=== PATIENT | female | born 1960 | race Caucasian/White ===

== ENCOUNTER 2017-04-04 15:53 | Inpatient (IN) | payer OTHER ==
--- NOTE | 2017-04-04 16:12 | PDOC ---
History of Present Illness - General Chief Complaint: Lightheaded Stated Complaint: PAIN/ HEAD, NECK Time Seen by Provider: 04/04/17 16:12 History Source: Patient - History of Present Illness Initial Comments: 04/04/17 18:33 HPI conducted using [employer] phone CC: 2 day h/o RLQ abdominal pain Patient is a 56 y.o. female with a PMH of GERD, s/p liver and renal transplant who presents to our facility today c/o sharp, constant, 10/10 and non-radiating RLQ abdominal pain. Patient also c/o associated dysuria but denies any chest pain, shortness of breath, N/V, constipation, diarrhea. Patient has been tolerating oral intake however notes decreased oral intake 2/2 to her pain. Past History - Past Medical History Allergies/Adverse Reactions: Allergies Allergy/AdvReac Type Severity Reaction Status Date / Time No Known Allergies Allergy Verified 04/04/17 15:59 Home Medications: Ambulatory Orders Mycophenolate Sodium [Myfortic] 360 mg PO DAILY 08/06/15 Pantoprazole Sodium [Protonix -] 40 mg PO DAILY #30 tablet.ec 08/06/15 Tacrolimus 3 mg PO BID 08/06/15 Anemia: Yes (Pancytopenia R/T ESLD) Asthma: No Cancer: No Cardiac Disorders: Yes COPD: No CHF: No GI Disorders: Yes (END STAGE LIVER DISEASE) HTN: Yes Liver Disease: Yes Suicide Attempt (Hx): No Other medical history: KIDNEY PROBLEMS - Immunization History Immunization Up to Date: Yes - Psycho/Social/Smoking Cessation Hx Anxiety: No Suicidal Ideation: No Smoking Status: No Smoking History: Never smoked Have you smoked in the past 12 months: No Number of Cigarettes Smoked Daily: 0 Cigars Per Day: 0 Hx Alcohol Use: No Drug/Substance Use Hx: No Substance Use Type: None Hx Substance Use Treatment: No Review of Systems - Review of Systems Constitutional: No: Chills, Diaphoresis, Fever, Night Sweats HEENTM: No: Blurred Vision, Double Vision, Tinnitus, Throat Pain Respiratory: No: Cough, Orthopnea, Shortness of Breath, Hemoptysis Cardiac (ROS): Yes: Symptoms Reported, Lightheadedness. No: Chest Pain, Palpitations, Syncope ABD/GI: Yes: Poor Appetite, Abdominal cramping : Yes: Burning, Dysuria Musculoskeletal: No: Back Pain, Joint Pain, Muscle Pain, Muscle Weakness Integumentary: No: Bruising, Erythema, Flushing, Lesions Neurological: No: Headache, Numbness Psychiatric: No: Anxiety, Depression All Other Systems: Reviewed and Negative *Physical Exam - Vital Signs Last Vital Signs Temp Pulse Resp BP Pulse Ox 98.6 F 72 18 92/54 98 04/04/17 15:56 04/04/17 15:56 04/04/17 15:56 04/04/17 15:56 04/04/17 15:56 - Physical Exam General Appearance: Yes: Nourished, Appropriately Dressed HEENT: positive: EOMI, Pharynx Normal Neck: positive: Trachea midline, Supple Respiratory/Chest: positive: Lungs Clear, Normal Breath Sounds Cardiovascular: positive: Regular Rhythm, Regular Rate, S1, S2 Gastrointestinal/Abdominal: positive: Normal Bowel Sounds, Flat, Tenderness ( RLQ tenderness, no suprapubic pain) Musculoskeletal: positive: Normal Inspection, Other ((-) CVA tenderness B/L) Extremity: positive: Other (Delayed capillary refill; skin tenting) Integumentary: positive: Other Neurologic: positive: call center agent II-XII NML intact, Fully Oriented, Alert ED Treatment Course - LABORATORY CBC & Chemistry Diagram: 04/04/17 16:49 04/04/17 16:49 Medical Decision Making - Medical Decision Making 04/04/17 18:50 Patient is a 56 y.o. female s/p renal and liver transplant who presents c/o RLQ pain as well as dysuria. Initial differential diagnosis includes UTI vs. Infection 2/2 transplant vs. Nephrolithiasis. As patient was hypotensive (SIRS 1/4), patient was given 1 L IVNS and Lactic Acid was ordered as well as KUB and Abdominal U/S. UA returned 3+ Leukocyte Esterase and 2+ Hematuria - patient prescribed Vancomycin and Zoysn. Renal U/S pending @ time of signout to Dr. Jacob (Resident) and Dr. Rod (Attending).
[2017-04-04 16:55] LABS: BASOPHIL 0.3 % (0-2.0); EOSINOPHIL 0.3 % (0-4.5); MCH 30.5 pg (25.7-33.7); MCHC 32.6 g/dl (32.0-36.0); MEAN CELL VOLUME 93.4 fl (80-96); MEAN PLT VOLUME 9.9 fl (7.5-11.1); NEUTROPHILS 80.9 % (42.8-82.8); PLATELET COUNT 89 K/MM3 (134-434); RDW 13.8 % (11.6-15.6); WHITE BLOOD COUNT 4.5 K/mm3 (4.0-10.0)
[2017-04-04 16:56] LABS: URINE APPEARANCE CLEAR; URINE BILIRUBIN NEGATIVE (NEGATIVE); URINE BLOOD 2+ (NEGATIVE); URINE COLOR STRAW; URINE GLUCOSE (UA) NEGATIVE (NEGATIVE); URINE KETONE NEGATIVE (NEGATIVE); URINE NITRITE NEGATIVE (NEGATIVE); URINE PROTEIN NEGATIVE (NEGATIVE); URINE UROBILINOGEN NEGATIVE mg/dL (0.2-1.0)
[2017-04-04 16:58] LABS: URINE LEUK ESTERASE 3+ (NEGATIVE)
[2017-04-04 17:00] LABS: URINE BACTERIA MANY /hpf (NONE SEEN); URINE RBC 5 /hpf (0-3); URINE WBC 161 /hpf (3-5)
[2017-04-04 17:22] LABS: ANION GAP 8 (8-16); CALCIUM 8.9 mg/dL (8.5-10.1); CO2 30 mmol/L (21-32); CREATININE 0.6 mg/dL (0.55-1.02); GLUCOSE,RANDOM 91 mg/dL (74-106)
[2017-04-04 17:25] LABS: CPK 45 IU/L (26-192); TROPONIN I < 0.02 ng/ml (0.00-0.05)
--- NOTE | 2017-04-04 17:53 | PDOC ---
Attending Attestation - Resident Resident Name: PrincessSo - ED Attending Attestation I have performed the following: I have examined & evaluated the patient, The case was reviewed & discussed with the resident, I agree w/resident's findings & plan, Exceptions are as noted - HPI HPI: 04/04/17 17:49 56 you with transplanted kidney and liver presents with abdominal pain and dysuria with some lightheadedness - Physicial Exam PE: 04/04/17 17:52 Non toxic, non-acute abdomen - Medical Decision Making 04/04/17 17:52 I agree with the resident's assessment and plan
[2017-04-04] MEDS ORDERED: SODIUM CHLORIDE 0.9% 1000 ML INFUS.BAG IV ONE (17:55)
[2017-04-04] MEDS ORDERED: VANCOMYCIN 1,000 MG in DEXTROSE 5%-WATER - 250 ML IVPB ONE (19:12)
[2017-04-04] MEDS ORDERED: PIPERACILLIN/TAZOB 4.5 GM 4.5 GM in DEXTROSE 5%-WATER - 100 ML IVPB ONE (19:13)
--- NOTE | 2017-04-04 19:23 | PDOC ---
*Physical Exam - Vital Signs Last Vital Signs Temp Pulse Resp BP Pulse Ox 98.6 F 78 18 94/60 96 04/04/17 15:56 04/04/17 20:30 04/04/17 20:30 04/04/17 20:30 04/04/17 20:30 <Yokasta Banerjee - Last Filed: 04/04/17 20:34> - Vital Signs Last Vital Signs Temp Pulse Resp BP Pulse Ox 98.6 F 70 18 90/64 98 04/04/17 15:56 04/04/17 16:34 04/04/17 16:34 04/04/17 16:34 04/04/17 15:56 <Carisa Krause - Last Filed: 04/04/17 21:05> - Vital Signs Last Vital Signs Temp Pulse Resp BP Pulse Ox 98.6 F 70 18 90/64 98 04/04/17 15:56 04/04/17 16:34 04/04/17 16:34 04/04/17 16:34 04/04/17 15:56 - Physical Exam General Appearance: Yes: Nourished, Appropriately Dressed, Apparent Distress HEENT: positive: EOMI, DANUTA Neurologic: positive: cashier courtesy booth II-XII NML intact, Fully Oriented, Alert, Normal Mood/ Affect <Quique Jacob - Last Filed: 04/04/17 21:20> ED Treatment Course - LABORATORY CBC & Chemistry Diagram: 04/04/17 16:49 04/04/17 16:49 - ADDITIONAL ORDERS Additional order review: Laboratory Results 04/04/17 04/04/17 04/04/17 18:20 16:49 16:49 Sodium 140 Potassium 3.9 Chloride 102 Carbon Dioxide 30 Anion Gap 8 BUN 11 D Creatinine 0.6 POC Glucometer Random Glucose 91 D Lactic Acid 1.2 Calcium 8.9 Creatine Kinase Troponin I Urine Color Straw Urine Appearance Clear Urine pH 5.0 Urine Protein Negative Urine Glucose (UA) Negative Urine Ketones Negative Urine Blood 2+ H Urine Nitrite Negative Urine Bilirubin Negative Urine Urobilinogen Negative Ur Leukocyte Esterase 3+ H Urine RBC 5 Urine WBC 161 Ur Epithelial Cells Rare Urine Bacteria Many 04/04/17 04/04/17 16:22 16:00 Sodium Potassium Chloride Carbon Dioxide Anion Gap BUN Creatinine POC Glucometer 101.57098 Random Glucose Lactic Acid Calcium Creatine Kinase 45 Troponin I < 0.02 Urine Color Urine Appearance Urine pH Urine Protein Urine Glucose (UA) Urine Ketones Urine Blood Urine Nitrite Urine Bilirubin Urine Urobilinogen Ur Leukocyte Esterase Urine RBC Urine WBC Ur Epithelial Cells Urine Bacteria 04/04/17 04/04/17 16:49 16:22 RBC 3.84 MCV 93.4 MCHC 32.6 RDW 13.8 MPV 9.9 D Neutrophils % 80.9 Lymphocytes % 11.1 Monocytes % 7.4 Eosinophils % 0.3 Basophils % 0.3 POC Glucometer 101.49860 - Medications Given in the ED: ED Medications Discontinued Medications Generic Name Dose Route Start Last Admin Trade Name Freq PRN Reason Stop Dose Admin Vancomycin HCl 1,000 mg/ 250 mls @ 250 mls/hr 04/04/17 19:12 04/04/17 19:56 Dextrose IVPB 04/04/17 20:11 250 mls/hr ONCE ONE Administration Protocol Piperacillin Sod/Tazobactam 100 mls @ 200 mls/hr 04/04/17 19:13 04/04/17 19:34 Sod 4.5 gm/ Dextrose IVPB 04/04/17 19:42 200 mls/hr ONCE ONE Administration Protocol Sodium Chloride 1,000 ml 04/04/17 17:55 04/04/17 18:30 Normal Saline - IV 04/04/17 17:56 1,000 ml ONCE ONE Administration <Yokasta Banerjee - Last Filed: 04/04/17 20:34> - LABORATORY CBC & Chemistry Diagram: 04/04/17 16:49 04/04/17 16:49 - ADDITIONAL ORDERS Additional order review: Laboratory Results 04/04/17 04/04/17 04/04/17 18:20 16:49 16:49 Sodium 140 Potassium 3.9 Chloride 102 Carbon Dioxide 30 Anion Gap 8 BUN 11 D Creatinine 0.6 POC Glucometer Random Glucose 91 D Lactic Acid 1.2 Calcium 8.9 Creatine Kinase Troponin I Urine Color Straw Urine Appearance Clear Urine pH 5.0 Urine Protein Negative Urine Glucose (UA) Negative Urine Ketones Negative Urine Blood 2+ H Urine Nitrite Negative Urine Bilirubin Negative Urine Urobilinogen Negative Ur Leukocyte Esterase 3+ H Urine RBC 5 Urine WBC 161 Ur Epithelial Cells Rare Urine Bacteria Many 04/04/17 04/04/17 16:22 16:00 Sodium Potassium Chloride Carbon Dioxide Anion Gap BUN Creatinine POC Glucometer 101.19276 Random Glucose Lactic Acid Calcium Creatine Kinase 45 Troponin I < 0.02 Urine Color Urine Appearance Urine pH Urine Protein Urine Glucose (UA) Urine Ketones Urine Blood Urine Nitrite Urine Bilirubin Urine Urobilinogen Ur Leukocyte Esterase Urine RBC Urine WBC Ur Epithelial Cells Urine Bacteria 04/04/17 04/04/17 16:49 16:22 RBC 3.84 MCV 93.4 MCHC 32.6 RDW 13.8 MPV 9.9 D Neutrophils % 80.9 Lymphocytes % 11.1 Monocytes % 7.4 Eosinophils % 0.3 Basophils % 0.3 POC Glucometer 101.47308 - Medications Given in the ED: ED Medications Discontinued Medications Generic Name Dose Route Start Last Admin Trade Name Freq PRN Reason Stop Dose Admin Piperacillin Sod/Tazobactam 100 mls @ 200 mls/hr 04/04/17 19:13 04/04/17 19:34 Sod 4.5 gm/ Dextrose IVPB 04/04/17 19:42 200 mls/hr ONCE ONE Administration Protocol Sodium Chloride 1,000 ml 04/04/17 17:55 04/04/17 18:30 Normal Saline - IV 04/04/17 17:56 1,000 ml ONCE ONE Administration <Carisa Krause - Last Filed: 04/04/17 21:05> - LABORATORY CBC & Chemistry Diagram: 04/04/17 16:49 04/04/17 16:49 - ADDITIONAL ORDERS Additional order review: Laboratory Results 04/04/17 04/04/17 04/04/17 16:49 16:49 16:22 Sodium 140 Potassium 3.9 Chloride 102 Carbon Dioxide 30 Anion Gap 8 BUN 11 D Creatinine 0.6 POC Glucometer 101.20049 Random Glucose 91 D Calcium 8.9 Creatine Kinase Troponin I Urine Color Straw Urine Appearance Clear Urine pH 5.0 Urine Protein Negative Urine Glucose (UA) Negative Urine Ketones Negative Urine Blood 2+ H Urine Nitrite Negative Urine Bilirubin Negative Urine Urobilinogen Negative Ur Leukocyte Esterase 3+ H Urine RBC 5 Urine WBC 161 Ur Epithelial Cells Rare Urine Bacteria Many 04/04/17 16:00 Sodium Potassium Chloride Carbon Dioxide Anion Gap BUN Creatinine POC Glucometer Random Glucose Calcium Creatine Kinase 45 Troponin I < 0.02 Urine Color Urine Appearance Urine pH Urine Protein Urine Glucose (UA) Urine Ketones Urine Blood Urine Nitrite Urine Bilirubin Urine Urobilinogen Ur Leukocyte Esterase Urine RBC Urine WBC Ur Epithelial Cells Urine Bacteria 04/04/17 04/04/17 16:49 16:22 RBC 3.84 MCV 93.4 MCHC 32.6 RDW 13.8 MPV 9.9 D Neutrophils % 80.9 Lymphocytes % 11.1 Monocytes % 7.4 Eosinophils % 0.3 Basophils % 0.3 POC Glucometer 101.96315 - Medications Given in the ED: ED Medications Discontinued Medications Generic Name Dose Route Start Last Admin Trade Name Freq PRN Reason Stop Dose Admin Sodium Chloride 1,000 ml 04/04/17 17:55 04/04/17 18:30 Normal Saline - IV 04/04/17 17:56 1,000 ml ONCE ONE Administration <Quique Jacob - Last Filed: 04/04/17 21:20> Progress Note - Progress Note Progress Note: Patient signed out to me by Dr. Sánchez Patient is a 56 year old female s/p renal transplant with UTI + hematurea KUB Abd US Lactic acid Trop Started on vanc/Zosyn d/t renal transplant Review results and call Rea Peterson (for Fran Barrios) <Quique Jacob - Last Filed: 04/04/17 21:20> Medical Decision Making - Medical Decision Making Paged Dr. Peterson @ 20:00. Awaiting call back. Paged Dr. Peterson @ 20:35. Awaiting call back. Paged Dr. Peterson @ 21:05. Awaiting call back. <Carisa Krause - Last Filed: 04/04/17 21:05> - Medical Decision Making 04/04/17 19:24 56 yo female suspected UTI in setting of renal transplant KUB Abd US Started on vanc/Zosyn d/t renal transplant Review results and call Rea Peterson (for Fran Barrios) 04/04/17 20:39 CBC WBC 4.5 K/mm3 (4.0-10.0) 04/04/17 16:49 RBC 3.84 M/mm3 (3.60-5.2) 04/04/17 16:49 Hgb 11.7 GM/dL (10.7-15.3) 04/04/17 16:49 Hct 35.8 % (32.4-45.2) 04/04/17 16:49 MCV 93.4 fl (80-96) 04/04/17 16:49 MCH 30.5 pg (25.7-33.7) 04/04/17 16:49 MCHC 32.6 g/dl (32.0-36.0) 04/04/17 16:49 RDW 13.8 % (11.6-15.6) 04/04/17 16:49 Plt Count 89 K/MM3 (134-434) L 04/04/17 16:49 MPV 9.9 fl (7.5-11.1) D 04/04/17 16:49 Neutrophils % 80.9 % (42.8-82.8) 04/04/17 16:49 Lymphocytes % 11.1 % (8-40) 04/04/17 16:49 Monocytes % 7.4 % (3.8-10.2) 04/04/17 16:49 Eosinophils % 0.3 % (0-4.5) 04/04/17 16:49 Basophils % 0.3 % (0-2.0) 04/04/17 16:49 CBC wnl CMP Sodium 140 mmol/L (136-145) 04/04/17 16:49 Potassium 3.9 mmol/L (3.5-5.1) 04/04/17 16:49 Chloride 102 mmol/L (98-107) 04/04/17 16:49 Carbon Dioxide 30 mmol/L (21-32) 04/04/17 16:49 Anion Gap 8 (8-16) 04/04/17 16:49 BUN 11 mg/dL (7-18) D 04/04/17 16:49 Creatinine 0.6 mg/dL (0.55-1.02) 04/04/17 16:49 POC Glucometer 101.60585 UNITS (()) 04/04/17 16:22 Random Glucose 91 mg/dL (74-106) D 04/04/17 16:49 Lactic Acid 1.2 mmol/L (0.4-2.0) 04/04/17 18:20 Calcium 8.9 mg/dL (8.5-10.1) 04/04/17 16:49 Creatine Kinase 45 IU/L (26-192) 04/04/17 16:00 Troponin I < 0.02 ng/ml (0.00-0.05) 04/04/17 16:00 Troponin I, Lactic Acid wnl Urine Test Results Urine Color Straw 04/04/17 16:49 Urine Appearance Clear 04/04/17 16:49 Urine pH 5.0 (5.0-8.0) 04/04/17 16:49 Urine Protein Negative (NEGATIVE) 04/04/17 16:49 Urine Glucose (UA) Negative (NEGATIVE) 04/04/17 16:49 Urine Ketones Negative (NEGATIVE) 04/04/17 16:49 Urine Blood 2+ (NEGATIVE) H 04/04/17 16:49 Urine Nitrite Negative (NEGATIVE) 04/04/17 16:49 Urine Bilirubin Negative (NEGATIVE) 04/04/17 16:49 Ur Leukocyte Esterase 3+ (NEGATIVE) H 04/04/17 16:49 Urine RBC 5 /hpf (0-3) 04/04/17 16:49 Urine WBC 161 /hpf (3-5) 04/04/17 16:49 Ur Epithelial Cells Rare /hpf (FEW) 04/04/17 16:49 Urine Bacteria Many /hpf (NONE SEEN) 04/04/17 16:49 LE 3+, 161 WBC, Bacteria many, rare epithelial - UTI 2+ blood, concerning 04/04/17 20:45 Put in call to Belen Peterson 04/04/17 21:03 Patient c/o NASH, endorses taking Tylenol at home. 04/04/17 21:[address] Peterson, Agreed to have patient admitted to [facility] Requested Blood and Urine cultures Jayro munoz from existing samples d/t patient already receiving abx <Quique Jacob - Last Filed: 04/04/17 21:20> *DC/Admit/Observation/Transfer <Yokasta Banerjee - Last Filed: 04/04/17 20:34> <Carisa Krause - Last Filed: 04/04/17 21:05> - Discharge Dispostion Admit: Yes - Attestations Physician Attestion: 04/04/17 21:20 I, Dr. Quique Jacob, attest that this document has been prepared under my direction and personally reviewed by me in its entirety. I further attest, that it accurately reflects all work, treatment, procedures and medical decision -making performed by me. <Quique Jacob - Last Filed: 04/04/17 21:20> Diagnosis at time of Disposition: UTI (urinary tract infection) Qualifiers: Urinary tract infection type: site unspecified Hematuria presence: with hematuria Qualified Code(s): N39.0 - Urinary tract infection, site not specified ; R31.9 - Hematuria, unspecified - Discharge Dispostion Condition at time of disposition: Stable - Referrals Referrals: Fran Barrios MD [Primary Care Provider] -
[2017-04-04] MEDS ORDERED: VANCOMYCIN 1 GRAM (PRE-DOCKED) 250 ML IVPB ONE (19:24)
[2017-04-04] MEDS ORDERED: PIPERACILLIN/TAZOB 4.5 GM 100 ML IVPB ONE (19:24)
[2017-04-04] MEDS ORDERED: ACETAMINOPHEN 325 MG TABLET (FP) PO ONE (21:02)
[2017-04-04] MEDS ORDERED: ACETAMINOPHEN 325 MG TABLET (FP) ONE (21:10)
[2017-04-05 03:45] VITALS: BMI 27.2
[2017-04-05] MEDS ORDERED: PIPERACILLIN/TAZOB 3.375 GM/50 ML PRE-DOCKED IVPB ONE (08:00)
--- NOTE | 2017-04-05 09:50 | EKG ---
Test Reason : Blood Pressure : / mmHG Vent. Rate : 067 BPM Atrial Rate : 067 BPM P-R Int : 134 ms QRS Dur : 078 ms QT Int : 404 ms P-R-T Axes : 043 -44 051 degrees QTc Int : 426 ms NORMAL SINUS RHYTHM LEFT AXIS DEVIATION ABNORMAL ECG WHEN COMPARED WITH ECG OF 31-AUG-2013 14:03, NO SIGNIFICANT CHANGE WAS FOUND Confirmed by ZULLY ROSSI MD ([id number]) on 04/05/2017 9:50:16 AM Referred By: Confirmed By:ZULLY ROSSI MD
[2017-04-05] MEDS ORDERED: PT OWN MED DRAWER 7, Y5N ONE ×3 (09:58→20:29)
[2017-04-05] MEDS: PANTOPRAZOLE 40 MG TABLET (FP) PO SCH (09:59)
[2017-04-05] MEDS ORDERED: TACROLIMUS ANHYDROUS 1 MG CAPSULE (NF) PO SCH (10:00)
[2017-04-05] MEDS ORDERED: PIPERACILLIN/TAZOB 3.375 GM/50 ML PRE-DOCKED IVPB SCH (10:00)
[2017-04-05] MEDS ORDERED: MYCOPHENOLATE SODIUM 360 MG TABLET.DR PO SCH (10:00)
--- NOTE | 2017-04-05 10:20 | CONSULT ---
Consultation: REQUESTING PROVIDER: Dr. Peterson CONSULT REQUEST: We have been asked to medically evaluate this patient for ( Nephrology). HISTORY OF PRESENT ILLNESS: Is a 52-year-old [place] speaking only with PMH of renal and liver transplant in 2013 on immunosupressent came to to the emergency room with complaints pain abdomen in right lower quadrant and lumber area. Patient states that pain started 3 days ago, 8/10 in intensity, constant, unable to tell if it radiates or not, associated with nausea but no vomiting, pain decreased after getting medication in hospital. Denies change in frequency of micturation. Denies burning micturation and blood in urine. Denies diarrhoea. She also states that she felt like having a fever and chills but didn 't check her temprature. Patient never had HD. Patient is on immunosupressent Tacrolimus and mycophenolate. In ED patinet had recieved Vancomyvin and zosyn. Now patient feels better states pain has decreased and has no chills. Patient is afebrile in hospital. PMH : hep c PSH; liver and renal transplant in [place] in 2013 allergies: NKDA Social: Non smoker, non alcoholic. Family; No h/o liver or renal ds in family. REVIEW OF SYSTEMS: CONSTITUTIONAL: fever, chills, diaphoresis, generalized weakness, malaise, loss of appetite, weight change RESPIRATORY: Absent: cough, shortness of breath, s GASTROINTESTINAL: abdominal pain, abdominal distension, nausea, vomiting, diarrhea, melena, hematochezia GENITOURINARY: Absent: dysuria, frequency, urgency, hesitancy, hematuria, flank pain present, genital pain PHYSICAL EXAMINATION Vital Signs - 24 hr 04/05/17 04/05/17 07:19 09:02 Temperature 98.1 F 98.3 F Pulse Rate 59 L 60 Respiratory 20 20 Rate Blood Pressure 102/59 96/59 GENERAL: Awake, alert, and fully oriented, in no acute distress. HEAD: Normal with no signs of trauma. EYES: Pupils equal, round and reactive to light, extraocular movements intact, EARS, NOSE, THROAT:dry mucous membranes. LUNGS: Breath sounds equal, clear to auscultation bilaterally. No wheezes, No accessory muscle use. HEART: s1s2 normal ABDOMEN: Soft, nontender, not distended, normoactive bowel sounds, no guarding, no rebound, no masses. No hepatomegaly or splenomegaly. No renal angle tenderness UPPER EXTREMITIES: 2+ pulses, warm, well-perfused. LOWER EXTREMITIES: warm, well-perfused. No peripheral edema. SKIN: Warm, dry, Active Medications Generic Name Dose Route Start Last Admin Trade Name Freq PRN Reason Stop Dose Admin Mycophenolate Sodium 360 mg 04/05/17 10:00 Mycophenolic Acid PO DAILY JOY Pantoprazole Sodium 40 mg 04/05/17 10:00 04/05/17 09:59 Protonix - PO 40 mg DAILY JOY Administration Piperacillin Sod/Tazobactam Sod 3.375 gm 04/05/17 10:00 Zosyn 3.375gm Ivpb (Pre-Docked) IVPB Q8H-IV JOY Protocol Tacrolimus 3 mg 04/05/17 10:00 04/05/17 10:00 Prograf (Non-Formulary) PO 3 mg BID JOY Administration CBCD WBC 4.5 K/mm3 (4.0-10.0) 04/04/17 16:49 RBC 3.84 M/mm3 (3.60-5.2) 04/04/17 16:49 Hgb 11.7 GM/dL (10.7-15.3) 04/04/17 16:49 Hct 35.8 % (32.4-45.2) 04/04/17 16:49 MCV 93.4 fl (80-96) 04/04/17 16:49 MCHC 32.6 g/dl (32.0-36.0) 04/04/17 16:49 RDW 13.8 % (11.6-15.6) 04/04/17 16:49 Plt Count 89 K/MM3 (134-434) L 04/04/17 16:49 MPV 9.9 fl (7.5-11.1) D 04/04/17 16:49 CMP Sodium 140 mmol/L (136-145) 04/04/17 16:49 Potassium 3.9 mmol/L (3.5-5.1) 04/04/17 16:49 Chloride 102 mmol/L (98-107) 04/04/17 16:49 Carbon Dioxide 30 mmol/L (21-32) 04/04/17 16:49 Anion Gap 8 (8-16) 04/04/17 16:49 BUN 11 mg/dL (7-18) D 04/04/17 16:49 Creatinine 0.6 mg/dL (0.55-1.02) 04/04/17 16:49 Random Glucose 91 mg/dL (74-106) D 04/04/17 16:49 Calcium 8.9 mg/dL (8.5-10.1) 04/04/17 16:49 CARDIAC ENZYMES Creatine Kinase 45 IU/L (26-192) 04/04/17 16:00 Troponin I < 0.02 ng/ml (0.00-0.05) 04/04/17 16:00 Laboratory Tests 04/04/17 16:49 Urine Color Straw Urine Appearance Clear Urine pH 5.0 Ur Specific Floyd 1.010 Urine Protein Negative Urine Glucose (UA) Negative Urine Ketones Negative Urine Blood 2+ H Urine Nitrite Negative Urine Bilirubin Negative Urine Urobilinogen Negative Ur Leukocyte Esterase 3+ H Urine RBC 5 Urine WBC 161 Ur Epithelial Cells Rare Urine Bacteria Many LE 3+, 161 WBC, Bacteria many, rare epithelial - UTI 2+ blood, concerning ASSESSMENT/PLAN: 56 y/o female with past h/o renal and liver transplant in 2013 currently on immunosupressent is admitted through emergency for UTI. In ED patient had received Vancomycin and zosyn. Now patient feels better. 1. UTI 2. H/o renal and liver transplant. Plan: USG reviewed. Transplanted kidney present in right pelvis with no evidence of hydronephrosis. Follow urine culture report. Monitor intake and output. Get urine electrolytes , protein, creatinine. Monitor vitals. Antibiotics as per ID. CT abdomen report pending. Avoid nephro toxic and hepato toxic drugs. Dispo: We will continue to follow the patient. Thank you for this consultative opportunity. Visit type - Emergency Visit Emergency Visit: Yes ED Registration Date: 04/04/17 Care time: The patient presented to the Emergency Department on the above date and was hospitalized for further evaluation of their emergent condition. - New Patient This patient is new to me today: Yes Date on this admission: 04/05/17 - Critical Care Critical Care patient: No
--- NOTE | 2017-04-05 14:10 | CONSULT ---
Consult Consult Specialty:: infectious diseases Referred by:: Reason for Consultation:: rt abd pain - History of Present Illness Chief Complaint: abd pain rt side and rt flank pain History of Present Illness: 52-year-old female with PMH of renal and liver transplant in 2013 on immunosupressent admitted with complaints pain abdomen in right lower quadrant and lumber area. Alexy also mentions that she has rt flank pain . Both pain started about 3 days ago, very severe pain continues to be constant pain still present and present mainly on the rt surgical scar and rt flank also c/o of knee pain but says better patient received vanco and zosyn in ER - History Source History Provided By: Patient, Family Member, Medical Record Limitations to Obtaining History: Language Barrier - Alcohol/Substance Use Hx Alcohol Use: No - Smoking History Smoking history: Never smoked Have you smoked in the past 12 months: No Aproximately how many cigarettes per day: 0 Home Medications - Allergies Allergies/Adverse Reactions: Allergies Allergy/AdvReac Type Severity Reaction Status Date / Time No Known Allergies Allergy Verified 04/04/17 15:59 - Home Medications Home Medications: Ambulatory Orders Mycophenolate Sodium [Myfortic] 360 mg PO DAILY 08/06/15 Pantoprazole Sodium [Protonix -] 40 mg PO DAILY #30 tablet.ec 08/06/15 Tacrolimus 3 mg PO BID 08/06/15 Review of Systems - Review of Systems Constitutional: reports: No Symptoms Eyes: reports: No Symptoms HENT: reports: No Symptoms Neck: reports: No Symptoms Cardiovascular: reports: No Symptoms Respiratory: reports: No Symptoms Gastrointestinal: reports: Abdominal Pain (on the right side of the scar) Genitourinary: reports: Other (rt flank pain) Musculoskeletal: reports: Joint Pain Integumentary: reports: No Symptoms Neurological: reports: No Symptoms Endocrine: reports: No Symptoms Hematology/Lymphatic: reports: No Symptoms Psychiatric: reports: No Symptoms Physical Exam Vital Signs: Vital Signs Temperature 98.3 F 04/05/17 09:02 Pulse Rate 60 04/05/17 09:02 Respiratory Rate 20 04/05/17 09:02 Blood Pressure 96/59 04/05/17 09:02 O2 Sat by Pulse Oximetry (%) 96 04/04/17 20:30 Constitutional: Yes: Well Nourished, Calm, Mild Distress Eyes: Yes: Conjunctiva Clear HENT: Yes: Atraumatic Neck: Yes: Supple, Trachea Midline Cardiovascular: Yes: Regular Rate and Rhythm Respiratory: Yes: Regular, CTA Bilaterally Gastrointestinal: Yes: Normal Bowel Sounds, Soft Renal/: Yes: CVA Tenderness - Right Musculoskeletal: Yes: WNL Extremities: Yes: Other (knee pain) Neurological: Yes: Alert, Oriented Psychiatric: Yes: Alert, Oriented Imaging - Results Cat Scan: Report Reviewed, Image Reviewed Assessment/Plan this patient who is immunosuppressed and now comes with flank pain and rt lowe quadrant pain with some pain on the inscision this all could be duet to pyelo/uti uti pyelo abd pain liver and renal txp plan will switch abx to meropenam close watch on the patient no vanco await for all cx to be back rest as per primary
[2017-04-05] MEDS: ACETAMINOPHEN 325 MG TABLET (FP) PO PRN (14:34)
--- NOTE | 2017-04-05 14:58 | PN ---
Teaching Attending Note Name of Resident: Indra Sanders (Nephrology) ATTENDING PHYSICIAN STATEMENT I saw and evaluated the patient. I reviewed the resident's note and discussed the case with the resident. I agree with the resident's findings and plan as documented. Nephrology Consult Please see the consult filled out by resident. Pt is a 56 year old female with pmhx of liver and kidney transplant in 2013 who presented with abdominal pain and found to have a UTI. We were called to evaluate her for transplant status. She follows with nephrology in [facility]. SHe has history of hep C which was treated. She does not know the etiology of her kidney disease, PMHX ckd liver cirrhosis hep c pshx kidney transplant, liver transplant family hx denies social hx neg ros negative Current Medications Generic Name Dose Route Start Last Admin Trade Name Freq PRN Reason Stop Dose Admin Acetaminophen 650 mg 04/05/17 14:23 04/05/17 14:34 Tylenol - PO 650 mg Q6H PRN Administration PAIN Meropenem 1 gm/ Dextrose 100 mls @ 100 mls/hr 04/05/17 14:15 IVPB Q8H-IV JOY Protocol Mycophenolate Sodium 360 mg 04/05/17 22:00 Mycophenolic Acid PO BID JOY Pantoprazole Sodium 40 mg 04/05/17 10:00 04/05/17 09:59 Protonix - PO 40 mg DAILY JOY Administration Tacrolimus 2 mg 04/05/17 14:53 Prograf (Non-Formulary) PO BID JOY Current Active Problems UTI (urinary tract infection) (Acute) Last Vital Signs Temp Pulse Resp BP Pulse Ox 100.1 F H 76 17 145/88 96 04/05/17 14:24 04/05/17 14:24 04/05/17 14:24 04/05/17 14:24 04/04/17 20:30 Laboratory Tests 04/04/17 04/04/17 16:49 16:49 WBC 4.5 Hgb 11.7 Urine Protein Negative Urine Blood 2+ H Ur Leukocyte Esterase 3+ H Urine RBC 5 Urine WBC 161 Ur Epithelial Cells Rare Urine Bacteria Many cardio s1s2 reg pulm clear GI soft, surgical scars graft is soft and non tender ext neg edema neuro awake and alert Impression 1. s/p kidney transplant 2. s/p liver transplant 3. UTI 4. hx hep c 5. hx of liver cirrhosis Plan - pt on 2 mg of prograf twice per day, adjust order - cont abx - follow up urine cultures - follow up blood cultures - will follow Dr Escalante
--- NOTE | 2017-04-05 16:01 | CONSULT ---
Consult - text type - Consultation Consultation Note: FULL CONSULT DICTATED IMP: AVN RIGHT HIP PLAN: CONTEMPLATE RIGHT TOTAL HIP REPLACEMENT . CAN BE DONE ELCTIVELY AN OUTPATIENT
[2017-04-05] MEDS: MEROPENEM 1 GM in DEXTROSE 5%-WATER - 100 ML IVPB SCH ×2 (17:36→17:57)
[2017-04-05] MEDS: MYCOPHENOLATE SODIUM 360 MG TABLET.DR PO SCH (21:30)
[2017-04-05] MEDS: TACROLIMUS ANHYDROUS 1 MG CAPSULE (NF) PO SCH (21:31)
--- NOTE | 2017-04-05 22:18 | HP ---
Admitting History and Physical - Admission History of Present Illness: Pt is a 52 y/o female with PMH significant for renal and liver transplant in 2013 on immunosupressent meds. Pt came to to the emergency room with complaints pain abdomen in right lower quadrant and lumber area. Patient states that pain started 3 days ago, 8/10 in intensity, constant, unable to tell if it radiates or not, associated with nausea but no vomiting. Pt has now been pain free. Pt complains of fever/chills but never took her temp at home. In the ER pt had US abd wc showed rt renal transplant. Pt was afebrile w/ normal WBC and normal lactic acid. PT was given IV zosyn/vanco. History Source: Patient, Medical Record - Past Medical History Gastrointestinal: Yes: Other (Hepatitis C and chronic liver dz) Heme/Onc: Yes: Anemia - Past Surgical History Additional Past Surgical History: Rt renal transplant Liver transplant - Smoking History Smoking history: Never smoked Have you smoked in the past 12 months: No Aproximately how many cigarettes per day: 0 - Alcohol/Substance Use Hx Alcohol Use: No Home Medications - Allergies Allergies/Adverse Reactions: Allergies Allergy/AdvReac Type Severity Reaction Status Date / Time No Known Allergies Allergy Verified 04/04/17 15:59 - Home Medications Home Medications: Ambulatory Orders Mycophenolate Sodium [Myfortic] 360 mg PO BID 08/06/15 Pantoprazole Sodium [Protonix -] 40 mg PO DAILY #30 tablet.ec 08/06/15 Tacrolimus 2 mg PO BID 08/06/15 Family Disease History - Family Disease History Family History: Unremarkable Review of Systems - Review of Systems Constitutional: reports: No Symptoms Neck: reports: No Symptoms Cardiovascular: reports: No Symptoms Respiratory: reports: No Symptoms Gastrointestinal: reports: Abdominal Pain Physical Examination Vital Signs: Vital Signs Temperature 100.4 F H 04/05/17 18:51 Pulse Rate 68 04/05/17 18:51 Respiratory Rate 18 04/05/17 18:51 Blood Pressure 104/60 04/05/17 18:51 O2 Sat by Pulse Oximetry (%) 96 04/04/17 20:30 Constitutional: Yes: No Distress Eyes: Yes: WNL HENT: Yes: WNL, Atraumatic Neck: Yes: WNL, Supple Cardiovascular: Yes: WNL, Regular Rate and Rhythm Respiratory: Yes: WNL, Regular, CTA Bilaterally Gastrointestinal: Yes: WNL, Normal Bowel Sounds, Soft Musculoskeletal: Yes: WNL Extremities: Yes: WNL Edema: No Neurological: Yes: WNL, Alert, Oriented ...Motor Strength: WNL Problem List - Problems (1) Abdominal pain Assessment/Plan: Pt being treated w/ IV antibx for UTI Follow urine/blood cultures Code(s): R10.9 - UNSPECIFIED ABDOMINAL PAIN (2) Renal transplant disorder Assessment/Plan: As per renal Code(s): T86.10 - UNSPECIFIED COMPLICATION OF KIDNEY TRANSPLANT
[2017-04-06] MEDS ORDERED: PT OWN MED DRAWER 7, Y5N ONE ×3 (01:35→10:45)
[2017-04-06] MEDS: MEROPENEM 1 GM in DEXTROSE 5%-WATER - 100 ML IVPB SCH ×3 (01:47→17:38)
--- NOTE | 2017-04-06 06:15 | CONS ---
DATE OF CONSULTATION: 04/05/2017 HISTORY OF PRESENT ILLNESS: Patient is a 56-year-old female, past medical history significant for renal and liver transplant in 2013, has been on immunosuppressant medication, was admitted to the hospital with right lower quadrant pain x3 days. In the patient's workup, an abdominal and pelvic CAT scan was obtained which showed that the patient had avascular necrosis of the right femoral head which necessitated orthopedic consultation. Patient has been walking with some pain but no increase recently. PHYSICAL EXAMINATION: She has positive delayed straight-leg raise on the right. Adequate range of motion, right hip, with some pain with internal and external rotation. No limb length discrepancy. Good motion, knee, ankle, and toes. Otherwise, neurovascularly intact. Negative femoral stress to straight-leg raise. IMAGING: CT scan of the abdomen does show avascular necrosis of the right head with some collapse and some changes on both sides of the joint. IMPRESSION: Avascular necrosis of right hip, probably secondary to immunosuppressive medication and possibly steroids in the past. RECOMMENDATIONS: Currently, this is not the cause of her right lower quadrant abdominal pain which is in the process of being worked up. Patient can get an elective total hip replacement as an outpatient if her symptoms warrant and if she would be medically cleared. Currently, there is no immediate orthopedic consultation required. Patient will return to the office to see me as needed and when she is ready for this procedure. I will follow her in the hospital while she is here. CORNELIUS GRIJALVA M.D. [id number]
[2017-04-06 07:58] LABS: BASOPHIL 0.3 % (0-2.0); MCH 30.6 pg (25.7-33.7); MCHC 33.1 g/dl (32.0-36.0); MEAN CELL VOLUME 92.6 fl (80-96); MEAN PLT VOLUME 9.5 fl (7.5-11.1); NEUTROPHILS 74.7 % (42.8-82.8); PLATELET COUNT 80 K/MM3 (134-434); RDW 13.6 % (11.6-15.6); WHITE BLOOD COUNT 3.6 K/mm3 (4.0-10.0)
[2017-04-06 08:51] LABS: ALBUMIN 3.4 g/dl (3.4-5.0); ANION GAP 8 (8-16); CO2 31 mmol/L (21-32); GLUCOSE,RANDOM 102 mg/dL (74-106)
[2017-04-06 08:56] LABS: ALK PHOS 85 U/L (45-117); BILIRUBIN,TOTAL 0.5 mg/dL (0.2-1.0); CALCIUM 9.2 mg/dL (8.5-10.1); CREATININE 0.5 mg/dL (0.55-1.02); SGOT/AST 21 U/L (15-37); SGPT/ALT 26 U/L (12-78); TOT PROT 6.3 g/dl (6.4-8.2)
[2017-04-06] MEDS: PANTOPRAZOLE 40 MG TABLET (FP) PO SCH (10:36)
[2017-04-06] MEDS: TACROLIMUS ANHYDROUS 1 MG CAPSULE (NF) PO SCH ×2 (10:38→22:22)
[2017-04-06] MEDS: MYCOPHENOLATE SODIUM 360 MG TABLET.DR PO SCH ×2 (10:39→22:22)
[2017-04-06] MEDS: ACETAMINOPHEN 325 MG TABLET (FP) PO PRN (10:48)
--- NOTE | 2017-04-06 13:52 | PN ---
Progress Note (short form) - Note Progress Note: Ortho Pt seen and examined with less pain in right hip today decr pain ,incr rom, able to ambulate nvi a/p- right hip avn will need MARIA M at some point can be done as outpt may be d/c'd from ortho pov f/u in the office in 10-14 days d/w Dr. Valdes
--- NOTE | 2017-04-06 14:15 | PN ---
Progress Note, Physician History of Present Illness: patient feeling better pain better still has flank pain otherwise no issues - Current Medication List Current Medications: Active Medications Acetaminophen (Tylenol -) 650 mg PO Q6H PRN PRN Reason: PAIN Last Admin: 04/06/17 10:48 Dose: 650 mg Meropenem 1 gm/ Dextrose 100 mls @ 100 mls/hr IVPB Q8H-IV JOY PRN Reason: Protocol Last Admin: 04/06/17 10:36 Dose: 100 mls/hr Mycophenolate Sodium (Mycophenolic Acid) 360 mg PO BID [facility] Last Admin: 04/06/17 10:39 Dose: 360 mg Pantoprazole Sodium (Protonix -) 40 mg PO DAILY [facility] Last Admin: 04/06/17 10:36 Dose: 40 mg Tacrolimus (Prograf (Non-Formulary)) 2 mg PO BID [facility] Last Admin: 04/06/17 10:38 Dose: 2 mg - Objective Vital Signs: Vital Signs Temperature 99.6 F 04/06/17 09:00 Pulse Rate 63 04/06/17 09:00 Respiratory Rate 18 04/06/17 09:00 Blood Pressure 108/65 04/06/17 09:00 O2 Sat by Pulse Oximetry (%) 99 04/06/17 10:00 Constitutional: Yes: No Distress, Calm Cardiovascular: Yes: Regular Rate and Rhythm Respiratory: Yes: Regular, CTA Bilaterally Gastrointestinal: Yes: Soft, Hyperactive Bowel Sounds Genitourinary: Yes: CVA Tenderness - Right Musculoskeletal: Yes: WNL Extremities: Yes: WNL Neurological: Yes: Alert, Oriented Psychiatric: Yes: Alert, Oriented Labs: CBC, BMP 04/06/17 07:08 04/06/17 07:08 Assessment/Plan t uti pyelo abd pain liver and renal txp plan conitnue current abx rest continue as per primary
--- NOTE | 2017-04-06 15:07 | PN ---
Progress Note, Physician History of Present Illness: Pt seen and examined at bedside. She denies fevers or chills. She denies hematuria or dysuria. - Current Medication List Current Medications: Active Medications Acetaminophen (Tylenol -) 650 mg PO Q6H PRN PRN Reason: PAIN Last Admin: 04/06/17 10:48 Dose: 650 mg Meropenem 1 gm/ Dextrose 100 mls @ 100 mls/hr IVPB Q8H-IV JOY PRN Reason: Protocol Last Admin: 04/06/17 10:36 Dose: 100 mls/hr Mycophenolate Sodium (Mycophenolic Acid) 360 mg PO BID JOY Last Admin: 04/06/17 10:39 Dose: 360 mg Pantoprazole Sodium (Protonix -) 40 mg PO DAILY [facility] Last Admin: 04/06/17 10:36 Dose: 40 mg Tacrolimus (Prograf (Non-Formulary)) 2 mg PO BID [facility] Last Admin: 04/06/17 10:38 Dose: 2 mg - Objective Vital Signs: Vital Signs Temperature 99.6 F 04/06/17 09:00 Pulse Rate 63 04/06/17 09:00 Respiratory Rate 18 04/06/17 09:00 Blood Pressure 108/65 04/06/17 09:00 O2 Sat by Pulse Oximetry (%) 99 04/06/17 10:00 Constitutional: Yes: Calm Eyes: Yes: Conjunctiva Clear HENT: Yes: Atraumatic Neck: Yes: Supple Cardiovascular: Yes: S1, S2 Gastrointestinal: Yes: Soft Genitourinary: Yes: Other (graft is soft and non tender) Edema: No Neurological: Yes: Oriented Psychiatric: Yes: Oriented Labs: CBC, BMP 04/06/17 07:08 04/06/17 07:08 Problem List - Problems (1) UTI (urinary tract infection) Code(s): N39.0 - URINARY TRACT INFECTION, SITE NOT SPECIFIED Qualifiers: Urinary tract infection type: site unspecified Hematuria presence: with hematuria Qualified Code(s): N39.0 - Urinary tract infection, site not specified (2) Kidney transplant recipient Code(s): Z94.0 - KIDNEY TRANSPLANT STATUS (3) Liver transplant recipient Code(s): Z94.4 - LIVER TRANSPLANT STATUS Assessment/Plan Current Medications Generic Name Dose Route Start Last Admin Trade Name Freq PRN Reason Stop Dose Admin Acetaminophen 650 mg 04/05/17 14:23 04/06/17 10:48 Tylenol - PO 650 mg Q6H PRN Administration PAIN Meropenem 1 gm/ Dextrose 100 mls @ 100 mls/hr 04/05/17 14:15 04/06/17 10:36 IVPB 100 mls/hr Q8H-IV JOY Administration Protocol Mycophenolate Sodium 360 mg 04/05/17 22:00 04/06/17 10:39 Mycophenolic Acid PO 360 mg BID JOY Administration Pantoprazole Sodium 40 mg 04/05/17 10:00 04/06/17 10:36 Protonix - PO 40 mg DAILY JOY Administration Tacrolimus 2 mg 04/05/17 14:53 04/06/17 10:38 Prograf (Non-Formulary) PO 2 mg BID JOY Administration Impression 1. s/p kidney transplant 2. s/p liver transplant 3. UTI 4. hx hep c 5. hx of liver cirrhosis Plan - renal function is stable - follow up urine cultures for sensitivities - blood cultures neg prelim - will follow Dr Escalante
--- NOTE | 2017-04-06 20:48 | PN ---
Progress Note, Physician History of Present Illness: Pt c/o rt hip pain - Current Medication List Current Medications: Active Medications Acetaminophen (Tylenol -) 650 mg PO Q6H PRN PRN Reason: PAIN Last Admin: 04/06/17 10:48 Dose: 650 mg Meropenem 1 gm/ Dextrose 100 mls @ 100 mls/hr IVPB Q8H-IV JOY PRN Reason: Protocol Last Admin: 04/06/17 17:38 Dose: 100 mls/hr Mycophenolate Sodium (Mycophenolic Acid) 360 mg PO BID [facility] Last Admin: 04/06/17 10:39 Dose: 360 mg Pantoprazole Sodium (Protonix -) 40 mg PO DAILY [facility] Last Admin: 04/06/17 10:36 Dose: 40 mg Tacrolimus (Prograf (Non-Formulary)) 2 mg PO BID [facility] Last Admin: 04/06/17 10:38 Dose: 2 mg - Objective Vital Signs: Vital Signs Temperature 98.0 F 04/06/17 18:00 Pulse Rate 58 L 04/06/17 18:00 Respiratory Rate 20 04/06/17 18:00 Blood Pressure 110/66 04/06/17 18:00 O2 Sat by Pulse Oximetry (%) 99 04/06/17 10:00 Constitutional: Yes: No Distress HENT: Yes: WNL Neck: Yes: WNL, Supple Cardiovascular: Yes: WNL, Regular Rate and Rhythm Respiratory: Yes: WNL, Regular, CTA Bilaterally Gastrointestinal: Yes: WNL, Normal Bowel Sounds, Soft Labs: CBC, BMP 04/06/17 07:08 04/06/17 07:08 Problem List - Problems (1) UTI (urinary tract infection) Assessment/Plan: Urine culture (+) for lactose fermenting (-) bacilli Cont IV meropenem Await final culture/sensitivities Code(s): N39.0 - URINARY TRACT INFECTION, SITE NOT SPECIFIED Qualifiers: Urinary tract infection type: site unspecified Hematuria presence: with hematuria Qualified Code(s): N39.0 - Urinary tract infection, site not specified (2) AVN (avascular necrosis of bone) Assessment/Plan: MRI showed: AVN(chronic)/ OA / hip effusion As per ortho May need THR in future PT eval Code(s): M87.00 - IDIOPATHIC ASEPTIC NECROSIS OF UNSPECIFIED BONE (3) Abdominal pain Assessment/Plan: Pt now seems to be more rt hip pain radiating to flank? Code(s): R10.9 - UNSPECIFIED ABDOMINAL PAIN (4) Renal transplant disorder Assessment/Plan: As per renal Code(s): T86.10 - UNSPECIFIED COMPLICATION OF KIDNEY TRANSPLANT (5) Kidney transplant recipient Code(s): Z94.0 - KIDNEY TRANSPLANT STATUS (6) Liver transplant recipient Code(s): Z94.4 - LIVER TRANSPLANT STATUS
[2017-04-07] MEDS: MEROPENEM 1 GM in DEXTROSE 5%-WATER - 100 ML IVPB SCH ×3 (02:20→17:42)
[2017-04-07] MEDS ORDERED: PT OWN MED DRAWER 7, Y5N ONE ×2 (09:15→17:41)
[2017-04-07] MEDS: PANTOPRAZOLE 40 MG TABLET (FP) PO SCH (09:18)
[2017-04-07] MEDS: MYCOPHENOLATE SODIUM 360 MG TABLET.DR PO SCH ×2 (09:18→22:20)
[2017-04-07] MEDS: TACROLIMUS ANHYDROUS 1 MG CAPSULE (NF) PO SCH ×2 (09:18→22:19)
[2017-04-07] MEDS: ACETAMINOPHEN 325 MG TABLET (FP) PO PRN (10:16)
--- NOTE | 2017-04-07 12:50 | PN ---
Progress Note, Physician History of Present Illness: Pt seen and examined at bedside. She is awake and alert. She denies fevers or chills. - Current Medication List Current Medications: Active Medications Acetaminophen (Tylenol -) 650 mg PO Q6H PRN PRN Reason: PAIN Last Admin: 04/07/17 10:16 Dose: 650 mg Meropenem 1 gm/ Dextrose 100 mls @ 100 mls/hr IVPB Q8H-IV JOY PRN Reason: Protocol Last Admin: 04/07/17 09:18 Dose: 100 mls/hr Mycophenolate Sodium (Mycophenolic Acid) 360 mg PO BID JOY Last Admin: 04/07/17 09:18 Dose: 360 mg Pantoprazole Sodium (Protonix -) 40 mg PO DAILY JOY Last Admin: 04/07/17 09:18 Dose: 40 mg Tacrolimus (Prograf (Non-Formulary)) 2 mg PO BID JOY Last Admin: 04/07/17 09:18 Dose: 2 mg - Objective Vital Signs: Vital Signs Temperature 98.4 F 04/07/17 09:40 Pulse Rate 70 04/07/17 09:40 Respiratory Rate 20 04/07/17 09:40 Blood Pressure 111/75 04/07/17 09:40 O2 Sat by Pulse Oximetry (%) 99 04/06/17 22:00 Constitutional: Yes: Calm Eyes: Yes: Conjunctiva Clear HENT: Yes: Atraumatic Cardiovascular: Yes: S1, S2 Respiratory: Yes: CTA Bilaterally Gastrointestinal: Yes: Soft Genitourinary: Yes: WNL, Other (graft is soft) Musculoskeletal: Yes: WNL Edema: No Neurological: Yes: Oriented Psychiatric: Yes: Oriented Labs: CBC, BMP 04/06/17 07:08 04/06/17 07:08 Problem List - Problems (1) UTI (urinary tract infection) Code(s): N39.0 - URINARY TRACT INFECTION, SITE NOT SPECIFIED Qualifiers: Urinary tract infection type: site unspecified Hematuria presence: with hematuria Qualified Code(s): N39.0 - Urinary tract infection, site not specified (2) Kidney transplant recipient Code(s): Z94.0 - KIDNEY TRANSPLANT STATUS (3) Liver transplant recipient Code(s): Z94.4 - LIVER TRANSPLANT STATUS Assessment/Plan Current Medications Generic Name Dose Route Start Last Admin Trade Name Freq PRN Reason Stop Dose Admin Acetaminophen 650 mg 04/05/17 14:23 04/07/17 10:16 Tylenol - PO 650 mg Q6H PRN Administration PAIN Meropenem 1 gm/ Dextrose 100 mls @ 100 mls/hr 04/05/17 14:15 04/07/17 09:18 IVPB 100 mls/hr Q8H-IV JOY Administration Protocol Mycophenolate Sodium 360 mg 04/05/17 22:00 04/07/17 09:18 Mycophenolic Acid PO 360 mg BID JOY Administration Pantoprazole Sodium 40 mg 04/05/17 10:00 04/07/17 09:18 Protonix - PO 40 mg DAILY JOY Administration Tacrolimus 2 mg 04/05/17 14:53 04/07/17 09:18 Prograf (Non-Formulary) PO 2 mg BID JOY Administration Impression 1. s/p kidney transplant 2. s/p liver transplant 3. UTI 4. hx hep c 5. hx of liver cirrhosis Plan - monitor renal function - cont abx per ID - repeat UA - avoid nephrotoxins - will follow Dr Escalante
--- NOTE | 2017-04-07 14:21 | PN ---
Progress Note, Physician History of Present Illness: patient feels much better pain minimal no fever no other issues - Current Medication List Current Medications: Active Medications Acetaminophen (Tylenol -) 650 mg PO Q6H PRN PRN Reason: PAIN Last Admin: 04/07/17 10:16 Dose: 650 mg Meropenem 1 gm/ Dextrose 100 mls @ 100 mls/hr IVPB Q8H-IV JOY PRN Reason: Protocol Last Admin: 04/07/17 09:18 Dose: 100 mls/hr Mycophenolate Sodium (Mycophenolic Acid) 360 mg PO BID [facility] Last Admin: 04/07/17 09:18 Dose: 360 mg Pantoprazole Sodium (Protonix -) 40 mg PO DAILY [facility] Last Admin: 04/07/17 09:18 Dose: 40 mg Tacrolimus (Prograf (Non-Formulary)) 2 mg PO BID [facility] Last Admin: 04/07/17 09:18 Dose: 2 mg - Objective Vital Signs: Vital Signs Temperature 98.4 F 04/07/17 09:40 Pulse Rate 62 04/07/17 13:12 Respiratory Rate 20 04/07/17 13:12 Blood Pressure 92/60 04/07/17 13:12 O2 Sat by Pulse Oximetry (%) 98 04/07/17 11:00 Constitutional: Yes: No Distress, Calm Neck: Yes: Supple, Trachea Midline Cardiovascular: Yes: Regular Rate and Rhythm Respiratory: Yes: Regular, CTA Bilaterally Gastrointestinal: Yes: Normal Bowel Sounds, Soft Genitourinary: Yes: CVA Tenderness - Right (minmal) Musculoskeletal: Yes: WNL Extremities: Yes: WNL Neurological: Yes: Alert, Oriented Labs: CBC, BMP 04/06/17 07:08 04/06/17 07:08 Assessment/Plan t uti pyelo abd pain liver and renal txp plan conitnue current abx rest continue as per primary will probably switch to oral by wednesday
[2017-04-07 21:17] LABS: URINE APPEARANCE CLEAR; URINE BILIRUBIN NEGATIVE (NEGATIVE); URINE BLOOD NEGATIVE (NEGATIVE); URINE COLOR STRAW; URINE GLUCOSE (UA) NEGATIVE (NEGATIVE); URINE KETONE NEGATIVE (NEGATIVE); URINE LEUK ESTERASE NEGATIVE (NEGATIVE); URINE NITRITE NEGATIVE (NEGATIVE); URINE PROTEIN NEGATIVE (NEGATIVE); URINE UROBILINOGEN NEGATIVE mg/dL (0.2-1.0)
--- NOTE | 2017-04-07 21:38 | PN ---
Progress Note, Physician History of Present Illness: No new complaints - Current Medication List Current Medications: Active Medications Acetaminophen (Tylenol -) 650 mg PO Q6H PRN PRN Reason: PAIN Last Admin: 04/07/17 10:16 Dose: 650 mg Meropenem 1 gm/ Dextrose 100 mls @ 100 mls/hr IVPB Q8H-IV JOY PRN Reason: Protocol Last Admin: 04/07/17 17:42 Dose: 100 mls/hr Mycophenolate Sodium (Mycophenolic Acid) 360 mg PO BID [facility] Last Admin: 04/07/17 09:18 Dose: 360 mg Pantoprazole Sodium (Protonix -) 40 mg PO DAILY [facility] Last Admin: 04/07/17 09:18 Dose: 40 mg Tacrolimus (Prograf (Non-Formulary)) 2 mg PO BID [facility] Last Admin: 04/07/17 09:18 Dose: 2 mg - Objective Vital Signs: Vital Signs Temperature 99.3 F 04/07/17 18:00 Pulse Rate 54 L 04/07/17 18:00 Respiratory Rate 20 04/07/17 18:00 Blood Pressure 101/67 04/07/17 18:00 O2 Sat by Pulse Oximetry (%) 98 04/07/17 11:00 Eyes: Yes: WNL HENT: Yes: WNL Neck: Yes: WNL, Supple Cardiovascular: Yes: WNL, Regular Rate and Rhythm Respiratory: Yes: WNL, Regular, CTA Bilaterally Gastrointestinal: Yes: WNL, Normal Bowel Sounds, Soft Labs: CBC, BMP 04/06/17 07:08 04/06/17 07:08 Problem List - Problems (1) UTI (urinary tract infection) Assessment/Plan: Urine culture (+) for lactose fermenting (-) bacilli Cont IV meropenem Await final culture/sensitivities Probable dc planning for fri Code(s): N39.0 - URINARY TRACT INFECTION, SITE NOT SPECIFIED Qualifiers: Urinary tract infection type: site unspecified Hematuria presence: with hematuria Qualified Code(s): N39.0 - Urinary tract infection, site not specified (2) AVN (avascular necrosis of bone) Assessment/Plan: MRI showed: AVN(chronic)/ OA / hip effusion As per ortho May need THR in future Code(s): M87.00 - IDIOPATHIC ASEPTIC NECROSIS OF UNSPECIFIED BONE (3) Abdominal pain Assessment/Plan: Pt now seems to be more rt hip pain radiating to flank? Code(s): R10.9 - UNSPECIFIED ABDOMINAL PAIN (4) Renal transplant disorder Code(s): T86.10 - UNSPECIFIED COMPLICATION OF KIDNEY TRANSPLANT (5) Kidney transplant recipient Code(s): Z94.0 - KIDNEY TRANSPLANT STATUS (6) Liver transplant recipient Code(s): Z94.4 - LIVER TRANSPLANT STATUS
[2017-04-08] MEDS: MEROPENEM 1 GM in DEXTROSE 5%-WATER - 100 ML IVPB SCH ×3 (02:07→17:50)
[2017-04-08 07:09] LABS: ANION GAP 3 (8-16); CALCIUM 8.9 mg/dL (8.5-10.1); CO2 34 mmol/L (21-32); CREATININE 0.5 mg/dL (0.55-1.02); GLUCOSE,RANDOM 98 mg/dL (74-106)
--- NOTE | 2017-04-08 08:42 | PN ---
Progress Note (short form) - Note Progress Note: Pt seen and examined, right hip OA pain doing better, she is able to ambulate. NTD orthopedically except P.T. for ambulation PRN
[2017-04-08] MEDS ORDERED: PT OWN MED DRAWER 7, Y5N ONE ×4 (10:08→20:13)
[2017-04-08] MEDS: MYCOPHENOLATE SODIUM 360 MG TABLET.DR PO SCH ×2 (10:13→21:10)
[2017-04-08] MEDS: TACROLIMUS ANHYDROUS 1 MG CAPSULE (NF) PO SCH ×2 (10:14→21:10)
[2017-04-08] MEDS: PANTOPRAZOLE 40 MG TABLET (FP) PO SCH (10:15)
--- NOTE | 2017-04-08 13:39 | PN ---
Progress Note, Physician History of Present Illness: patient doing much better no complaints - Current Medication List Current Medications: Active Medications Acetaminophen (Tylenol -) 650 mg PO Q6H PRN PRN Reason: PAIN Last Admin: 04/07/17 10:16 Dose: 650 mg Meropenem 1 gm/ Dextrose 100 mls @ 100 mls/hr IVPB Q8H-IV JOY PRN Reason: Protocol Last Admin: 04/08/17 10:12 Dose: 100 mls/hr Mycophenolate Sodium (Mycophenolic Acid) 360 mg PO BID [facility] Last Admin: 04/08/17 10:13 Dose: 360 mg Pantoprazole Sodium (Protonix -) 40 mg PO DAILY [facility] Last Admin: 04/08/17 10:15 Dose: 40 mg Tacrolimus (Prograf (Non-Formulary)) 2 mg PO BID [facility] Last Admin: 04/08/17 10:14 Dose: 2 mg - Objective Vital Signs: Vital Signs Temperature 97.7 F 04/08/17 07:12 Pulse Rate 63 04/08/17 10:04 Respiratory Rate 20 04/08/17 10:04 Blood Pressure 100/51 04/08/17 10:04 O2 Sat by Pulse Oximetry (%) 98 04/07/17 22:00 Constitutional: Yes: No Distress, Calm Cardiovascular: Yes: Regular Rate and Rhythm Respiratory: Yes: Regular, CTA Bilaterally Gastrointestinal: Yes: Normal Bowel Sounds, Soft Musculoskeletal: Yes: WNL Extremities: Yes: WNL Neurological: Yes: Alert, Oriented Psychiatric: Yes: Alert, Oriented Labs: CBC, BMP 04/06/17 07:08 04/08/17 06:15 Assessment/Plan t uti pyelo abd pain liver and renal txp plan conitnue current abx rest continue as per primary will switch to oral tomorrow patients pain has improved
--- NOTE | 2017-04-08 16:26 | PN ---
Progress Note, Physician History of Present Illness: Pt seen and examined at bedside. She is awake and alert. She denies fevers or chills. - Current Medication List Current Medications: Active Medications Acetaminophen (Tylenol -) 650 mg PO Q6H PRN PRN Reason: PAIN Last Admin: 04/07/17 10:16 Dose: 650 mg Meropenem 1 gm/ Dextrose 100 mls @ 100 mls/hr IVPB Q8H-IV JOY PRN Reason: Protocol Last Admin: 04/08/17 10:12 Dose: 100 mls/hr Mycophenolate Sodium (Mycophenolic Acid) 360 mg PO BID JOY Last Admin: 04/08/17 10:13 Dose: 360 mg Pantoprazole Sodium (Protonix -) 40 mg PO DAILY [facility] Last Admin: 04/08/17 10:15 Dose: 40 mg Tacrolimus (Prograf (Non-Formulary)) 2 mg PO BID [facility] Last Admin: 04/08/17 10:14 Dose: 2 mg - Objective Vital Signs: Vital Signs Temperature 98.2 F 04/08/17 14:19 Pulse Rate 63 04/08/17 14:19 Respiratory Rate 20 04/08/17 14:19 Blood Pressure 107/52 04/08/17 14:19 O2 Sat by Pulse Oximetry (%) 98 04/07/17 22:00 Constitutional: Yes: Calm Eyes: Yes: Conjunctiva Clear HENT: Yes: Atraumatic Neck: Yes: Supple Cardiovascular: Yes: S1, S2 Respiratory: Yes: CTA Bilaterally Gastrointestinal: Yes: Soft Genitourinary: Yes: WNL, Other (graft is soft) Edema: No Neurological: Yes: Oriented Psychiatric: Yes: Oriented Labs: CBC, BMP 04/06/17 07:08 04/08/17 06:15 Problem List - Problems (1) UTI (urinary tract infection) Code(s): N39.0 - URINARY TRACT INFECTION, SITE NOT SPECIFIED Qualifiers: Urinary tract infection type: site unspecified Hematuria presence: with hematuria Qualified Code(s): N39.0 - Urinary tract infection, site not specified (2) Kidney transplant recipient Code(s): Z94.0 - KIDNEY TRANSPLANT STATUS (3) Liver transplant recipient Code(s): Z94.4 - LIVER TRANSPLANT STATUS Assessment/Plan Current Medications Generic Name Dose Route Start Last Admin Trade Name Freq PRN Reason Stop Dose Admin Acetaminophen 650 mg 04/05/17 14:23 04/07/17 10:16 Tylenol - PO 650 mg Q6H PRN Administration PAIN Meropenem 1 gm/ Dextrose 100 mls @ 100 mls/hr 04/05/17 14:15 04/08/17 10:12 IVPB 100 mls/hr Q8H-IV JOY Administration Protocol Mycophenolate Sodium 360 mg 04/05/17 22:00 04/08/17 10:13 Mycophenolic Acid PO 360 mg BID JOY Administration Pantoprazole Sodium 40 mg 04/05/17 10:00 04/08/17 10:15 Protonix - PO 40 mg DAILY JOY Administration Tacrolimus 2 mg 04/05/17 14:53 04/08/17 10:14 Prograf (Non-Formulary) PO 2 mg BID JOY Administration Laboratory Tests 04/07/17 20:00 Urine Color Straw Urine Appearance Clear Urine pH 6.0 Ur Specific [place] 1.010 Urine Protein Negative Urine Glucose (UA) Negative Urine Ketones Negative Urine Blood Negative Urine Nitrite Negative Urine Bilirubin Negative Urine Urobilinogen Negative Ur Leukocyte Esterase Negative Impression 1. s/p kidney transplant 2. s/p liver transplant 3. UTI 4. hx hep c 5. hx of liver cirrhosis Plan - renal function is stable - repeat ua is improved - monitor renal function - cont abx per ID - avoid nephrotoxins - will follow Dr Escalante
--- NOTE | 2017-04-08 23:12 | PN ---
Progress Note, Physician History of Present Illness: No new complaints - Current Medication List Current Medications: Active Medications Acetaminophen (Tylenol -) 650 mg PO Q6H PRN PRN Reason: PAIN Last Admin: 04/07/17 10:16 Dose: 650 mg Meropenem 1 gm/ Dextrose 100 mls @ 100 mls/hr IVPB Q8H-IV JOY PRN Reason: Protocol Last Admin: 04/08/17 17:50 Dose: 100 mls/hr Mycophenolate Sodium (Mycophenolic Acid) 360 mg PO BID [facility] Last Admin: 04/08/17 21:10 Dose: 360 mg Pantoprazole Sodium (Protonix -) 40 mg PO DAILY [facility] Last Admin: 04/08/17 10:15 Dose: 40 mg Tacrolimus (Prograf (Non-Formulary)) 2 mg PO BID [facility] Last Admin: 04/08/17 21:10 Dose: 2 mg - Objective Vital Signs: Vital Signs Temperature 97.7 F 04/08/17 23:01 Pulse Rate 54 L 04/08/17 23:01 Respiratory Rate 18 04/08/17 23:01 Blood Pressure 94/63 04/08/17 23:01 O2 Sat by Pulse Oximetry (%) 98 04/08/17 21:00 Constitutional: Yes: No Distress HENT: Yes: WNL Neck: Yes: WNL, Supple Cardiovascular: Yes: WNL, Regular Rate and Rhythm Respiratory: Yes: WNL, Regular, CTA Bilaterally Gastrointestinal: Yes: WNL, Normal Bowel Sounds, Soft Labs: CBC, BMP 04/06/17 07:08 04/08/17 06:15 Problem List - Problems (1) UTI (urinary tract infection) Assessment/Plan: Urine culture (+) for lactose fermenting (-) bacilli Cont IV meropenem Await final culture/sensitivities Probable dc planning for fri Code(s): N39.0 - URINARY TRACT INFECTION, SITE NOT SPECIFIED Qualifiers: Urinary tract infection type: site unspecified Hematuria presence: with hematuria Qualified Code(s): N39.0 - Urinary tract infection, site not specified (2) AVN (avascular necrosis of bone) Assessment/Plan: MRI showed: AVN(chronic)/ OA / hip effusion As per ortho May need THR in future Code(s): M87.00 - IDIOPATHIC ASEPTIC NECROSIS OF UNSPECIFIED BONE (3) Abdominal pain Assessment/Plan: Pt now seems to be more rt hip pain radiating to flank? Code(s): R10.9 - UNSPECIFIED ABDOMINAL PAIN (4) Renal transplant disorder Assessment/Plan: As per renal Code(s): T86.10 - UNSPECIFIED COMPLICATION OF KIDNEY TRANSPLANT (5) Kidney transplant recipient Code(s): Z94.0 - KIDNEY TRANSPLANT STATUS (6) Liver transplant recipient Code(s): Z94.4 - LIVER TRANSPLANT STATUS
[2017-04-09] MEDS ORDERED: PT OWN MED DRAWER 7, Y5N ONE ×2 (02:13→10:25)
[2017-04-09] MEDS: MEROPENEM 1 GM in DEXTROSE 5%-WATER - 100 ML IVPB SCH ×2 (02:27→11:06)
[2017-04-09] MEDS: PANTOPRAZOLE 40 MG TABLET (FP) PO SCH (11:15)
[2017-04-09] MEDS: MYCOPHENOLATE SODIUM 360 MG TABLET.DR PO SCH (11:15)
[2017-04-09] MEDS: TACROLIMUS ANHYDROUS 1 MG CAPSULE (NF) PO SCH (11:16)
[2017-04-09 15:47] VITALS: BP 105/60; PULSE 66; TEMP 98.3
--- NOTE | 2017-04-09 15:49 | PN ---
Progress Note, Physician History of Present Illness: patient doing well no pain no discomfort - Current Medication List Current Medications: Active Medications Acetaminophen (Tylenol -) 650 mg PO Q6H PRN PRN Reason: PAIN Last Admin: 04/07/17 10:16 Dose: 650 mg Meropenem 1 gm/ Dextrose 100 mls @ 100 mls/hr IVPB Q8H-IV JOY PRN Reason: Protocol Last Admin: 04/09/17 11:06 Dose: 100 mls/hr Mycophenolate Sodium (Mycophenolic Acid) 360 mg PO BID [facility] Last Admin: 04/09/17 11:15 Dose: 360 mg Pantoprazole Sodium (Protonix -) 40 mg PO DAILY [facility] Last Admin: 04/09/17 11:15 Dose: 40 mg Tacrolimus (Prograf (Non-Formulary)) 2 mg PO BID [facility] Last Admin: 04/09/17 11:16 Dose: 2 mg - Objective Vital Signs: Vital Signs Temperature 98.3 F 04/09/17 15:36 Pulse Rate 66 04/09/17 15:36 Respiratory Rate 20 04/09/17 15:36 Blood Pressure 105/60 04/09/17 15:36 O2 Sat by Pulse Oximetry (%) 99 04/09/17 09:00 Constitutional: Yes: No Distress, Calm Cardiovascular: Yes: Regular Rate and Rhythm Respiratory: Yes: Regular, CTA Bilaterally Gastrointestinal: Yes: Normal Bowel Sounds, Soft Musculoskeletal: Yes: WNL Extremities: Yes: WNL Neurological: Yes: Alert, Oriented Labs: CBC, BMP 04/06/17 07:08 04/08/17 06:15 Assessment/Plan t uti pyelo abd pain liver and renal txp plan can switch to oral abx cipro 500 mg twice a day for 10 more days patient doing well feels much better
--- NOTE | 2017-04-09 16:45 | DS ---
Physical Examination Vital Signs: Vital Signs Temperature 98.3 F 04/09/17 15:36 Pulse Rate 66 04/09/17 15:36 Respiratory Rate 20 04/09/17 15:36 Blood Pressure 105/60 04/09/17 15:36 O2 Sat by Pulse Oximetry (%) 99 04/09/17 09:00 Labs: CBC, BMP 04/06/17 07:08 04/08/17 06:15 Discharge Summary Reason For Visit: PAIN/ HEAD, NECK Current Active Problems AVN (avascular necrosis of bone) (Acute) Abdominal pain (Acute) Kidney transplant recipient (Acute) Liver transplant recipient (Acute) Renal transplant disorder (Acute) UTI (urinary tract infection) (Acute) Hospital Course: Pt is a 52 y/o female with PMH significant for renal and liver transplant in 2013 on immunosupressent meds. Pt came to to the emergency room with complaints pain abdomen in right lower quadrant and lumber area. Patient states that pain started 3 days ago, 8/10 in intensity, constant, unable to tell if it radiates or not, associated with nausea but no vomiting. Pt has now been pain free. Pt complains of fever/chills but never took her temp at home. In the ER pt had US abd wc showed rt renal transplant. Pt was afebrile w/ normal WBC and normal lactic acid. PT was given IV zosyn/vanco. However pt was seen by ID and IV changed to iv meropenem for . Pt sent home on cipro Condition: Good - Instructions Referrals: Fran Barrios MD [Primary Care Provider] - - Home Medications Comprehensive Discharge Medication List: Ambulatory Orders Mycophenolate Sodium [Myfortic -] 360 mg PO BID 08/06/15 Pantoprazole Sodium [Protonix -] 40 mg PO DAILY #30 tablet.ec 08/06/15 Tacrolimus 2 mg PO BID 08/06/15 Ciprofloxacin HCl [Cipro] 500 mg PO BID #20 tablet 04/09/17
== END 2017-04-09 16:47 | disposition home or self-care (01) | DRG 690 ==
LOC: JER 15:53 → JERBED 21:20 → J5S 22:39
PROVIDERS: ADMIT Internal Medicine; ATTEND Internal Medicine
DX: N39.0 Urinary tract infection, site not specified (principal); Z94.0 Kidney transplant status; Z94.4 Liver transplant status; M87.00 Idiopathic aseptic necrosis of unspecified bone
CPT/HCPCS: 36415; 73718-TC; 74000-TC; 74176-TC; 76705-TC; 80048; 80053; 81003; 81015; 83605; 84484; 85025; 87040; 87086; 87186; 93005; 93010; 99284-25; Q9967

== ENCOUNTER 2017-06-01 17:42 | Inpatient (IN) | payer OTHER ==
[2017-06-01] MEDS ORDERED: DEXTROSE 5%-NORMAL SALINE 1,000 ML IV ONE (20:37)
--- NOTE | 2017-06-01 20:37 | PDOC ---
History of Present Illness - History of Present Illness Initial Comments: 06/01/17 21:05 The patient is a 56 year old burundian-speaking female, with a significant past medical history of renal and liver transplant in 2013 on immunosuppressant meds. Patient presents to the ER complaining of headaches (since wednesday) and abdominal pain(today). Patient saw her PMD Dr. Barrios yesterday for her headaches. She took 2 fioricet tablets today without any improvement. She developed right-sided abdominal pain today. She is also complaining of subjective fever. Saw Dr Joslyn Amin on 05/17/17 - prescribed Azithromycin She denies recent chills,or dizziness. She denies recent nausea, vomit, diarrhea or constipation. She denies recent dysuria, frequency, urgency or hematuria. She denies recent chest pain, shortness of breath or cough. Allergies: NKA Past surgical history: None reported. Social history: Nonsmoker. Denies EtOH use and recreational drug use. Primary Care Physician: Fran Barrios <Nidia Vee - Last Filed: 06/01/17 22:11> <Aurelia Rod - Last Filed: 06/02/17 00:11> - General Chief Complaint: Pain Stated Complaint: PAIN, ACUTE Time Seen by Provider: 06/01/17 18:46 Past History <Nidia Vee - Last Filed: 06/01/17 22:11> - Past Medical History Anemia: Yes (Pancytopenia R/T ESLD) Asthma: No Cancer: No Cardiac Disorders: Yes COPD: No CHF: No GI Disorders: Yes (END STAGE LIVER DISEASE) HTN: Yes Liver Disease: Yes - Immunization History Immunization Up to Date: Yes - Suicide/Smoking/Psychosocial Hx Smoking Status: No Smoking History: Never smoked Have you smoked in the past 12 months: No Number of Cigarettes Smoked Daily: 0 Cigars Per Day: 0 Information on smoking cessation initiated: No Hx Alcohol Use: No Drug/Substance Use Hx: No Substance Use Type: None Hx Substance Use Treatment: No <Aurelia Rod - Last Filed: 06/02/17 00:11> - Past Medical History Allergies/Adverse Reactions: Allergies Allergy/AdvReac Type Severity Reaction Status Date / Time No Known Allergies Allergy Verified 06/01/17 17:58 Home Medications: Ambulatory Orders Mycophenolate Sodium [Myfortic -] 360 mg PO BID 08/06/15 Pantoprazole Sodium [Protonix -] 40 mg PO DAILY #30 tablet.ec 08/06/15 Tacrolimus 1 mg PO BID 08/06/15 Ciprofloxacin HCl [Cipro] 500 mg PO BID #20 tablet 04/09/17 Alendronate Na [Fosamax] 70 mg PO DAILY 06/01/17 Erythromycin Base [Erythromycin] 250 mg PO QID 06/01/17 Abd/GI Specific PMHX - Complaint Specific PMHX GERD: No GI Ulcer Disease: No <MarcelAuerlia Mell - Last Filed: 06/02/17 00:11> Review of Systems - Review of Systems Able to Perform ROS?: Yes Comments:: 06/01/17 21:04 CONSTITUTIONAL: Present: subjective fever Absent:, no chills, no fatigue EYES: Absent: visual changes ENT: Absent: ear pain, no sore throat CARDIOVASCULAR: Absent: chest pain, no palpitations RESPIRATORY: Absent: cough, no SOB GI: Present: RUQ abdominal pain and tenderness Absent: no nausea, no vomiting, no constipation, no diarrhea GENITOURINARY: Absent: dysuria, no frequency, no hematuria MUSCULOSKELETAL: Absent: no back pain, no arthralgia, no myalgia SKIN: Absent: no rash, no pitting edema. NEURO: Present: headache Is the patient limited German proficient: Yes <Nidia Vee - Last Filed: 06/01/17 22:11> *Physical Exam - Vital Signs Last Vital Signs Temp Pulse Resp BP Pulse Ox 99.2 F 66 17 98/61 100 06/01/17 17:59 06/01/17 17:59 06/01/17 17:59 06/01/17 17:59 06/01/17 17:59 - Physical Exam Comments: 06/01/17 21:07 GENERAL: Well-appearing, well-nourished. No apparent distress. HEENT: Within normal limits. Normocephalic, atraumatic. PERRL, EOM intact. CARDIOVASCULAR: Normal S1, S2. Regular rate and rhythm. PULMONARY: Clear to auscultation bilaterally. ABDOMEN: +right-sided abdominal discomfort btw anterior ribcage and hip. Soft, non- distended. EXTREMITIES: Normal ROM in all four extremities. No gross deformities. SKIN: Warm, dry. No rash NEUROLOGICAL: No focal neurological deficits <Nidia Vee - Last Filed: 06/01/17 22:11> - Vital Signs Last Vital Signs Temp Pulse Resp BP Pulse Ox 99.2 F 66 17 98/61 100 06/01/17 17:59 06/01/17 17:59 06/01/17 17:59 06/01/17 17:59 06/01/17 17:59 <Aurelia Rod - Last Filed: 06/02/17 00:11> ED Treatment Course - LABORATORY CBC & Chemistry Diagram: 06/01/17 21:15 06/01/17 21:15 <Nidia Vee - Last Filed: 06/01/17 22:11> - LABORATORY CBC & Chemistry Diagram: 06/01/17 21:15 06/01/17 21:15 <Aurelia Rod - Last Filed: 06/02/17 00:11> *DC/Admit/Observation/Transfer - Attestations Scribe Attestion: 06/01/17 21:07 Documentation prepared by Nidia Vee, acting as medical delivery technician for Aurelia Rod MD. <Nidia Vee - Last Filed: 06/01/17 22:11> - Discharge Dispostion Admit: Yes <Aurelia Rod - Last Filed: 06/02/17 00:11> Diagnosis at time of Disposition: Renal transplant disorder, Liver transplant recipient UTI (urinary tract infection) Qualifiers: Urinary tract infection type: site unspecified Hematuria presence: without hematuria Qualified Code(s): N39.0 - Urinary tract infection, site not specified Abdominal pain Qualifiers: Abdominal location: right lower quadrant Qualified Code(s): R10.31 - Right lower quadrant pain - Referrals Referrals: Fran Barrios MD [Primary Care Provider] -
[2017-06-01 21:32] LABS: BASOPHIL 0.4 % (0-2.0); EOSINOPHIL 0.1 % (0-4.5); MCH 30.9 pg (25.7-33.7); MCHC 33.5 g/dl (32.0-36.0); MEAN CELL VOLUME 92.3 fl (80-96); MEAN PLT VOLUME 9.8 fl (7.5-11.1); NEUTROPHILS 82.2 % (42.8-82.8); PLATELET COUNT 95 K/MM3 (134-434); RDW 13.8 % (11.6-15.6); WHITE BLOOD COUNT 4.7 K/mm3 (4.0-10.0)
[2017-06-01 21:49] LABS: INR 1.24 (0.82-1.09); PROTHROMBIN TIME (PATIENT) 13.7 SEC (9.98-11.88)
[2017-06-01 22:11] LABS: ALBUMIN 3.4 g/dl (3.4-5.0); ANION GAP 7 (8-16); BILIRUBIN,TOTAL 0.3 mg/dL (0.2-1.0); CALCIUM 8.8 mg/dL (8.5-10.1); CO2 28 mmol/L (21-32); GLUCOSE,RANDOM 102 mg/dL (74-106); SGOT/AST 27 U/L (15-37); TOT PROT 6.5 g/dl (6.4-8.2)
[2017-06-01 22:12] LABS: ALK PHOS 94 U/L (45-117); CREATININE 0.6 mg/dL (0.55-1.02); SGPT/ALT 36 U/L (12-78)
[2017-06-01 22:14] LABS: URINE APPEARANCE CLOUDY; URINE BILIRUBIN NEGATIVE (NEGATIVE); URINE BLOOD 2+ (NEGATIVE); URINE COLOR LTYELLOW; URINE GLUCOSE (UA) NEGATIVE (NEGATIVE); URINE KETONE NEGATIVE (NEGATIVE); URINE NITRITE NEGATIVE (NEGATIVE); URINE UROBILINOGEN NEGATIVE mg/dL (0.2-1.0)
[2017-06-01 22:41] LABS: URINE LEUK ESTERASE 3+ (NEGATIVE); URINE PROTEIN 1+ (NEGATIVE)
[2017-06-01 22:44] LABS: URINE MUCUS RARE; URINE RBC 4 /hpf (0-3); URINE WBC 852 /hpf (3-5)
[2017-06-01] MEDS ORDERED: METOCLOPRAMIDE HCL INJECTION 10 MG/2 ML VIAL IVPUSH ONE (23:26)
[2017-06-01] MEDS ORDERED: CEFTRIAXONE 1 GM in DEXTROSE 5%-WATER - 50 ML IVPB ONE (23:30)
[2017-06-01] MEDS ORDERED: METOCLOPRAMIDE HCL INJECTION 10 MG/2 ML VIAL IVPB ONE (23:34)
[2017-06-01] MEDS ORDERED: METOCLOPRAMIDE HCL INJECTION 10 MG/2 ML VIAL ONE (23:37)
[2017-06-01] MEDS ORDERED: CEFTRIAXONE 50 ML ONE (23:38)
[2017-06-02] MEDS ORDERED: CEFTRIAXONE 1,000 MG in DEXTROSE 5%-WATER - 50 ML IVPB STA (00:09)
[2017-06-02 06:31] LABS: BASOPHIL 0.3 % (0-2.0); EOSINOPHIL 0.2 % (0-4.5); MCH 31.4 pg (25.7-33.7); MCHC 34.2 g/dl (32.0-36.0); MEAN CELL VOLUME 91.9 fl (80-96); MEAN PLT VOLUME 9.8 fl (7.5-11.1); NEUTROPHILS 74.6 % (42.8-82.8); PLATELET COUNT 92 K/MM3 (134-434); RDW 13.7 % (11.6-15.6)
[2017-06-02 06:52] LABS: ALBUMIN 2.9 g/dl (3.4-5.0); ANION GAP 7 (8-16); CALCIUM 8.4 mg/dL (8.5-10.1); CO2 27 mmol/L (21-32); GLUCOSE,RANDOM 104 mg/dL (74-106); SGOT/AST 17 U/L (15-37); SGPT/ALT 27 U/L (12-78)
[2017-06-02 06:55] LABS: ALK PHOS 84 U/L (45-117); BILIRUBIN,TOTAL 0.3 mg/dL (0.2-1.0); CREATININE 0.4 mg/dL (0.55-1.02); TOT PROT 5.8 g/dl (6.4-8.2)
--- NOTE | 2017-06-02 09:47 | EKG ---
Test Reason : Blood Pressure : / mmHG Vent. Rate : 061 BPM Atrial Rate : 061 BPM P-R Int : 138 ms QRS Dur : 076 ms QT Int : 400 ms P-R-T Axes : 036 -33 040 degrees QTc Int : 402 ms NORMAL SINUS RHYTHM LEFT AXIS DEVIATION ABNORMAL ECG WHEN COMPARED WITH ECG OF 04-APR-2017 20:32, NO SIGNIFICANT CHANGE WAS FOUND Confirmed by DEREK POP MD ([id number]) on 06/02/2017 9:47:23 AM Referred By: Confirmed By:DEREK POP MD
[2017-06-02] MEDS ORDERED: TACROLIMUS ANHYDROUS 1 MG CAPSULE (NF) PO SCH (10:00)
[2017-06-02] MEDS ORDERED: HEPARIN NA (PORCINE) 5,000 UNITS/ML 1ML VIAL ONE (10:39)
[2017-06-02] MEDS: MYCOPHENOLATE SODIUM 360 MG TABLET.DR PO SCH ×2 (10:55→22:09)
[2017-06-02] MEDS: HEPARIN NA (PORCINE) 5,000 UNITS/ML 1ML VIAL SQ SCH ×2 (10:55→22:08)
[2017-06-02] MEDS: ERYTHROMYCIN BASE 250 MG TAB PO SCH ×4 (10:55→22:08)
[2017-06-02] MEDS: PANTOPRAZOLE 40 MG TABLET (FP) PO SCH (10:55)
[2017-06-02 12:49] VITALS: BMI 26.9
--- NOTE | 2017-06-02 13:53 | HP ---
Admitting History and Physical - Admission History of Present Illness: Pt is a 52 y/o female with PMH significant for renal and liver transplant in 2013 on immunosupressent meds,hep C and AVN hip. Pt came to to the emergency room with complaints of NASH x 1 week and abdominal pain wc is mostly rt flank. Pt denies any fever/chills/nausea/vomiting. - Past Medical History Gastrointestinal: Yes: Other (Hepatitis C and chronic liver dz) Renal/: Yes: Renal Failure ...: No Heme/Onc: Yes: Anemia - Past Surgical History Additional Past Surgical History: Liver and renal transplant - Smoking History Smoking history: Never smoked Have you smoked in the past 12 months: No Aproximately how many cigarettes per day: 0 - Alcohol/Substance Use Hx Alcohol Use: No Home Medications - Allergies Allergies/Adverse Reactions: Allergies Allergy/AdvReac Type Severity Reaction Status Date / Time No Known Allergies Allergy Verified 06/01/17 17:58 - Home Medications Home Medications: Ambulatory Orders Mycophenolate Sodium [Myfortic -] 360 mg PO BID 08/06/15 Pantoprazole Sodium [Protonix -] 40 mg PO DAILY #30 tablet.ec 08/06/15 Tacrolimus 2 mg PO BID 08/06/15 Alendronate Na [Fosamax] 70 mg PO TU 06/01/17 Erythromycin Base [Erythromycin] 250 mg PO TID 06/01/17 Acetaminophen/Caffeine/Butalb [Fioricet -] 1 tab PO Q4H PRN 06/02/17 Family Disease History - Family Disease History Family History: Unremarkable Review of Systems - Review of Systems Constitutional: reports: No Symptoms HENT: reports: No Symptoms Neck: reports: No Symptoms Cardiovascular: reports: No Symptoms Respiratory: reports: No Symptoms Gastrointestinal: reports: Abdominal Pain Physical Examination Vital Signs: Vital Signs Temperature 98.4 F 06/02/17 06:38 Pulse Rate 59 L 06/02/17 12:35 Respiratory Rate 18 06/02/17 12:35 Blood Pressure 96/63 06/02/17 12:35 O2 Sat by Pulse Oximetry (%) 98 06/02/17 12:35 Constitutional: Yes: No Distress HENT: Yes: WNL Neck: Yes: WNL, Supple Cardiovascular: Yes: WNL, Regular Rate and Rhythm Respiratory: Yes: WNL, Regular, CTA Bilaterally Gastrointestinal: Yes: WNL, Normal Bowel Sounds, Soft Musculoskeletal: Yes: WNL Extremities: Yes: WNL Edema: No Neurological: Yes: WNL, Alert, Oriented ...Motor Strength: WNL Labs: CBC, BMP 06/02/17 06:05 06/02/17 06:05 Problem List - Problems (1) Abdominal pain Assessment/Plan: ?Due to recurrent UTI Follow cultures ID consult Cont IV antibx Spoke to [facility] and pt is on waiting list for transfer Code(s): R10.9 - UNSPECIFIED ABDOMINAL PAIN Qualifiers: Abdominal location: right lower quadrant Qualified Code(s): R10.31 - Right lower quadrant pain (2) Renal transplant disorder Assessment/Plan: Renal consult Code(s): T86.10 - UNSPECIFIED COMPLICATION OF KIDNEY TRANSPLANT (3) Liver transplant recipient Code(s): Z94.4 - LIVER TRANSPLANT STATUS (4) AVN (avascular necrosis of bone) Code(s): M87.00 - IDIOPATHIC ASEPTIC NECROSIS OF UNSPECIFIED BONE
--- NOTE | 2017-06-02 14:38 | CONSULT ---
Consultation: REQUESTING PROVIDER: CONSULT REQUEST: RENAL CONSULT PCP: Dr. Barrios HISTORY OF PRESENT ILLNESS: Used [employer] "[id number]" Patient is a 56 year old [place] speaking female with significant Past medical history of Hep C (treated), Liver and kidney transplant in 2013 (In [place]) presented to the ED with the chief complaint of severe headache x 4days and right lower abdominal pain x 2 days. As per the patient, she went to her PCP for headache and was given Fioricet but her symptoms didn't resolve. Patient then started having right lower quadrant abdominal pain, sharp in nature , 9/10 in intensity, non radiating, not associated with nausea and vomiting. Did have subjective fevers but no chills, rigors or sweating. As per ED note, she was given Azithromycin on 05/17/[address] Joslyn Amin Bowel/Bladder habit normal. Sleep/Appetite decreased since illness. REVIEW OF SYSTEMS: CONSTITUTIONAL: Present: subjective fever, loss of appetite Absent: chills, diaphoresis, generalized weakness, malaise, weight change HEENT: Absent: rhinorrhea, nasal congestion, throat pain, throat swelling, difficulty swallowing, mouth swelling, ear pain, eye pain, visual changes CARDIOVASCULAR: Absent: chest pain, syncope, palpitations, irregular heart rate, lightheadedness , peripheral edema RESPIRATORY: Absent: cough, shortness of breath, dyspnea with exertion, orthopnea, wheezing, stridor, hemoptysis GASTROINTESTINAL: Present: Right lower abdominal pain Absent: abdominal distension, nausea, vomiting, diarrhea, constipation, melena, hematochezia GENITOURINARY: Absent: dysuria, frequency, urgency, hesitancy, hematuria, flank pain, genital pain MUSCULOSKELETAL: Absent: myalgia, arthralgia, joint swelling, back pain, neck pain SKIN: Absent: rash, itching, pallor HEMATOLOGIC/IMMUNOLOGIC: Absent: easy bleeding, easy bruising, lymphadenopathy, frequent infections ENDOCRINE: Absent: unexplained weight gain, unexplained weight loss, heat intolerance, cold intolerance NEUROLOGIC: Absent: headache, focal weakness or paresthesias, dizziness, unsteady gait, seizure, mental status changes, bladder or bowel incontinence PSYCHIATRIC: Absent: anxiety, depression, suicidal or homicidal ideation, hallucinations. PHYSICAL EXAMINATION Vital Signs - 24 hr 09/27/17 09/27/17 09/27/17 02:37 06:38 07:13 Temperature 98.4 F 98.4 F Pulse Rate Pulse Rate [ 60 56 L 63 Apical] Respiratory 16 16 Rate Blood Pressure Blood Pressure 90/55 96/63 94/56 [Right Arm] O2 Sat by Pulse 100 100 96 Oximetry (%) 06/02/17 06/02/17 11:00 12:35 Temperature Pulse Rate 59 L Pulse Rate [ 81 Apical] Respiratory 17 18 Rate Blood Pressure 96/63 Blood Pressure 107/59 [Right Arm] O2 Sat by Pulse 98 98 Oximetry (%) GENERAL: Patient sitting in bed, Awake, alert, and fully oriented, in mild abdominal pain. HEAD: Normal with no signs of trauma. EYES: EOM intact, mild pallor +, no icterus. EARS, NOSE, THROAT: Ears normal, Moist mucous membranes. NECK: Supple. LUNGS: Breath sounds equal, clear to auscultation bilaterally. No wheezes, and no crackles. No accessory muscle use. HEART: Regular rate and rhythm, normal S1 and S2 with soft systolic murmur. ABDOMEN: Surgical scar dalila +, Soft, tender to mild palpation on the right lower quadrant, not distended, normoactive bowel sounds, hepatosplenomegaly couldn't be appreciated. MUSCULOSKELETAL: Normal range of motion at all joints. No bony deformities or tenderness. No CVA tenderness. UPPER EXTREMITIES: 2+ pulses, warm, well-perfused. No cyanosis. No clubbing. Cap refill <2 seconds. No peripheral edema. LOWER EXTREMITIES: 2+ pulses, warm, well-perfused. No calf tenderness. No peripheral edema. NEUROLOGICAL: No facial droop, power 5/5 in all ext, reflexes in all ext intact. Normal speech. Gait not observed. PSYCHIATRIC: Cooperative. Good eye contact. Appropriate mood and affect. SKIN: Warm, dry, normal turgor, no rashes or lesions noted. Laboratory Results - last 24 hr 06/02/17 06/02/17 06:05 06:05 WBC 4.0 RBC 2.98 L Hgb 9.4 L Hct 27.4 L MCV 91.9 MCH 31.4 MCHC 34.2 RDW 13.7 Plt Count 92 L MPV 9.8 Neutrophils % 74.6 Lymphocytes % 13.3 D Monocytes % 11.6 H Eosinophils % 0.2 D Basophils % 0.3 Sodium 141 Potassium 3.9 Chloride 107 Carbon Dioxide 27 Anion Gap 7 L BUN 7 D Creatinine 0.4 L D Creat Clearance w eGFR > 60 Random Glucose 104 Calcium 8.4 L Total Bilirubin 0.3 AST 17 D ALT 27 D Alkaline Phosphatase 84 Total Protein 5.8 L Albumin 2.9 L Active Medications Generic Name Dose Route Start Last Admin Trade Name Freq PRN Reason Stop Dose Admin Erythromycin 250 mg 06/02/17 10:00 06/02/17 10:55 Dimitri-Tab - PO 250 mg QID JOY Administration Heparin Sodium (Porcine) 5,000 unit 06/02/17 10:00 06/02/17 10:55 Heparin - SQ 5,000 unit BID JOY Administration Mycophenolate Sodium 360 mg 06/02/17 10:00 06/02/17 10:55 Mycophenolic Acid PO 360 mg BID JOY Administration Pantoprazole Sodium 40 mg 06/02/17 10:00 06/02/17 10:55 Protonix - PO 40 mg DAILY JOY Administration Tacrolimus 1 mg 06/02/17 10:00 06/02/17 10:55 Prograf (Non-Formulary) PO 1 mg BID JOY Administration Patient is a 56 year old [place] speaking female with significant Past medical history of Hep C, Liver and kindey transplant in 2013 (In [place]) presented to the ED with the chief complaint of severe headache x 4days and right lower abdominal pain x 2 days. ASSESSMENT: 1. Abdominal pain-cause unknown at this time, need further work up 2. Right Renal transplant in 2013 on immunosuppressant therapy 3. Liver transplant in 2013 on immunosuppressant therapy 4. H/O Hepatitis C treated 5. H/O Liver cirrhosis 6. Normocytic anemia 7. Urinary Tract Infection PLAN: Abdominal pain-r/o renal cause Renal function is stable, normal creatinine 0.4 with a GFR >60 06/02/17 Renal USG: s/p right renal transplant with a morphologically normal transplanted kidney Adjusted the dose of immunosupressants Repeat BMP tomorrow Avoid nephrotoxic drugs Patient says she goes to [facility] for follow up post transplant and would like to go there for further evaluation. Urinary Tract Infection UA shows: WBC 852 Antibiotics as per primary team F/up urine culture and change antibiotics as per sensitivity. Dispo: We will continue to follow the patient. Thank you for this consultative opportunity. Case to be discussed with Dr. Escalante. Visit type - Emergency Visit Emergency Visit: Yes ED Registration Date: 06/02/17 Care time: The patient presented to the Emergency Department on the above date and was hospitalized for further evaluation of their emergent condition. - New Patient This patient is new to me today: Yes Date on this admission: 06/02/17 - Critical Care Critical Care patient: No
--- NOTE | 2017-06-02 16:34 | PN ---
Teaching Attending Note Name of Resident: Shilpa Priest (Nephrology) ATTENDING PHYSICIAN STATEMENT I saw and evaluated the patient. I reviewed the resident's note and discussed the case with the resident. I agree with the resident's findings and plan as documented. Nephrology Consult Pt is a 56 year old female with pmhx of kidney and liver transplant who presents with abdominal pain and headache. She is awake and alert. She denies fevers or chills. She denies dysuria or hematuria. pmhx hep c kidney transplant liver transplant ros denies family hx denies Current Medications Generic Name Dose Route Start Last Admin Trade Name Freq PRN Reason Stop Dose Admin Erythromycin 250 mg 06/02/17 10:00 06/02/17 15:28 Dimitri-Tab - PO 250 mg QID JOY Administration Heparin Sodium (Porcine) 5,000 unit 06/02/17 10:00 06/02/17 10:55 Heparin - SQ 5,000 unit BID JOY Administration Mycophenolate Sodium 360 mg 06/02/17 10:00 06/02/17 10:55 Mycophenolic Acid PO 360 mg BID JOY Administration Pantoprazole Sodium 40 mg 06/02/17 10:00 06/02/17 10:55 Protonix - PO 40 mg DAILY JOY Administration Tacrolimus 1 mg 06/02/17 10:00 06/02/17 10:55 Prograf (Non-Formulary) PO 1 mg BID JOY Administration Laboratory Tests 06/01/17 06/01/17 06/01/17 21:15 21:15 21:15 Hgb 10.0 L Sodium Potassium BUN Creatinine 0.6 AST ALT Urine Protein 1+ H Urine Ketones Negative Urine WBC 852 06/02/17 06/02/17 06:05 06:05 Hgb 9.4 L Sodium 141 Potassium 3.9 BUN 7 D Creatinine 0.4 L D AST 17 D ALT 27 D Urine Protein Urine Ketones Urine WBC Last Vital Signs Temp Pulse Resp BP Pulse Ox 98.2 F 58 L 18 89/58 98 06/02/17 15:14 06/02/17 15:14 06/02/17 15:14 06/02/17 15:14 06/02/17 12:35 cardio s1s2 reg pulm clear gi soft, graft is soft and non tender ext neg edema Impression 1. s/p kidney transplant 2. s/p liver transplant 3. UTI 4. hx hep c 5. hx of liver cirrhosis 6. abdominal pain Plan - follow up urine cultures - recommend ID eval - pt is being transferred to [facility] - renal function is stable - pt is on 2 mg of prograf q 12 hrs - avoid nephrotoxins - will follow Dr Escalante
--- NOTE | 2017-06-02 16:49 | CON.ID ---
Consult Consult Specialty:: infectious diseases Referred by:: Reason for Consultation:: abd pain,weakness - History of Present Illness Chief Complaint: abd pain ruq History of Present Illness: 56 year old female with significant Past medical history of Hep C (treated), Liver and kidney transplant in 2013 (In [place]) presented to the ED with the chief complaint of severe headache x 4days and right lower abdominal pain x 2 days. As per the patient, she went to her PCP for headache and was given Fioricet but her symptoms didn't resolve. Patient then started having right lower quadrant abdominal pain, sharp in nature , 9/10 in intensity, non radiating, not associated with nausea and vomiting. Did have subjective fevers but no chills, rigors or sweating. patient was given azithromycin before patient currently having severe abd pain in the rt upper quadrant patient denies any fever - History Source History Provided By: Patient, Medical Record Limitations to Obtaining History: Language Barrier - Past Medical History Gastrointestinal: Yes: Other (Hepatitis C and chronic liver dz) ...: No - Alcohol/Substance Use Hx Alcohol Use: No - Smoking History Smoking history: Never smoked Have you smoked in the past 12 months: No Aproximately how many cigarettes per day: 0 Home Medications - Allergies Allergies/Adverse Reactions: Allergies Allergy/AdvReac Type Severity Reaction Status Date / Time No Known Allergies Allergy Verified 06/01/17 17:58 - Home Medications Home Medications: Ambulatory Orders Mycophenolate Sodium [Myfortic -] 360 mg PO BID 08/06/15 Pantoprazole Sodium [Protonix -] 40 mg PO DAILY #30 tablet.ec 08/06/15 Tacrolimus 2 mg PO BID 08/06/15 Alendronate Na [Fosamax] 70 mg PO TU 06/01/17 Erythromycin Base [Erythromycin] 250 mg PO TID 06/01/17 Acetaminophen/Caffeine/Butalb [Fioricet -] 1 tab PO Q4H PRN 06/02/17 Review of Systems - Review of Systems Constitutional: reports: No Symptoms Eyes: reports: No Symptoms HENT: reports: No Symptoms Neck: reports: No Symptoms Cardiovascular: reports: No Symptoms Respiratory: reports: No Symptoms Gastrointestinal: reports: Abdominal Pain (ruq) Musculoskeletal: reports: No Symptoms Integumentary: reports: No Symptoms Neurological: reports: No Symptoms Endocrine: reports: No Symptoms Hematology/Lymphatic: reports: No Symptoms Psychiatric: reports: No Symptoms Physical Exam Vital Signs: Vital Signs Temperature 98.2 F 06/02/17 15:14 Pulse Rate 58 L 06/02/17 15:14 Respiratory Rate 18 06/02/17 15:14 Blood Pressure 89/58 06/02/17 15:14 O2 Sat by Pulse Oximetry (%) 98 06/02/17 12:35 Constitutional: Yes: Calm, Moderate Distress Eyes: Yes: Conjunctiva Clear HENT: Yes: Atraumatic, Normocephalic Neck: Yes: Supple, Trachea Midline Cardiovascular: Yes: Regular Rate and Rhythm Respiratory: Yes: Regular, CTA Bilaterally Gastrointestinal: Yes: Soft, Tenderness (ruq) Musculoskeletal: Yes: WNL Extremities: Yes: WNL Neurological: Yes: Alert, Oriented Psychiatric: Yes: Alert, Oriented Labs: CBC, BMP 06/02/17 06:05 06/02/17 06:05 Imaging - Results Chest X-ray: Report Reviewed, Image Reviewed Ultrasound: Report Reviewed, Image Reviewed Assessment/Plan 1. s/p kidney transplant 2. s/p liver transplant 3. UTI 4. hx hep c 5. hx of liver cirrhosis 6. abdominal pain after looking at the picture i am worried about couple of things plan will start patient on abx will order stat ct scan of the abd would like to look at the size of the kidneys hydration' await for all cx reports rest as per primary
[2017-06-02] MEDS ORDERED: PIPERACILLIN/TAZOBACTAM 3.375 GM VIAL IVPB ONE (19:56)
[2017-06-02] MEDS ORDERED: DEXTROSE 5%-WATER - 50 ML IVPB ONE (19:57)
[2017-06-02] MEDS: PIPERACILLIN/TAZOB 3.375 GM 3.375 GM in DEXTROSE 5%-WATER - 50 ML IVPB SCH (20:09)
[2017-06-02] MEDS ORDERED: morphine CARPU-JECT 2 MG/1 ML DISP.SYRIN IVPUSH PRN (20:32)
[2017-06-02] MEDS: DEXTROSE 5%-0.45% SALINE 1,000 ML IV SCH (20:44)
[2017-06-02] MEDS ORDERED: PT OWN MED DRAWER 7, Y5N ONE (21:19)
[2017-06-02] MEDS: TACROLIMUS ANHYDROUS 1 MG CAPSULE (NF) PO SCH (22:08)
[2017-06-03] MEDS ORDERED: PIPERACILLIN/TAZOBACTAM 3.375 GM VIAL IVPB ONE ×2 (01:10→10:31)
[2017-06-03] MEDS ORDERED: DEXTROSE 5%-WATER - 50 ML IVPB ONE ×2 (01:11→10:31)
[2017-06-03] MEDS: PIPERACILLIN/TAZOB 3.375 GM 3.375 GM in DEXTROSE 5%-WATER - 50 ML IVPB SCH ×2 (02:14→10:34)
[2017-06-03 07:36] LABS: BASOPHIL 0.5 % (0-2.0); EOSINOPHIL 2.1 % (0-4.5); MCHC 32.2 g/dl (32.0-36.0); MEAN CELL VOLUME 93.3 fl (80-96); MEAN PLT VOLUME 9.7 fl (7.5-11.1); NEUTROPHILS 69.1 % (42.8-82.8); PLATELET COUNT 88 K/MM3 (134-434); RDW 13.6 % (11.6-15.6); WHITE BLOOD COUNT 2.6 K/mm3 (4.0-10.0)
[2017-06-03 08:06] LABS: ALBUMIN 2.9 g/dl (3.4-5.0); ANION GAP 7 (8-16); CALCIUM 8.7 mg/dL (8.5-10.1); CO2 28 mmol/L (21-32); CREATININE 0.7 mg/dL (0.55-1.02); GLUCOSE,RANDOM 99 mg/dL (74-106)
[2017-06-03 08:11] LABS: ALK PHOS 84 U/L (45-117); BILIRUBIN,TOTAL 0.5 mg/dL (0.2-1.0); SGOT/AST 14 U/L (15-37); SGPT/ALT 24 U/L (12-78); TOT PROT 5.8 g/dl (6.4-8.2)
[2017-06-03] MEDS ORDERED: PT OWN MED DRAWER 7, Y5N ONE ×2 (10:31→13:59)
[2017-06-03] MEDS: PANTOPRAZOLE 40 MG TABLET (FP) PO SCH (10:34)
[2017-06-03] MEDS: HEPARIN NA (PORCINE) 5,000 UNITS/ML 1ML VIAL SQ SCH (10:35)
[2017-06-03] MEDS: TACROLIMUS ANHYDROUS 1 MG CAPSULE (NF) PO SCH (10:35)
[2017-06-03] MEDS: ERYTHROMYCIN BASE 250 MG TAB PO SCH ×2 (10:35→14:01)
[2017-06-03] MEDS: MYCOPHENOLATE SODIUM 360 MG TABLET.DR PO SCH (10:36)
[2017-06-03] MEDS: DEXTROSE 5%-0.45% SALINE 1,000 ML IV SCH (10:36)
[2017-06-03 12:15] VITALS: TEMP 97.8
--- NOTE | 2017-06-03 13:57 | PN ---
Physical Exam: SUBJECTIVE: Patient seen and examined at bed side today. Complaints of mild abdominal pain in the right lower quadrant. Denies chest pain, sob, cough, palpitation, nausea or vomiting. Bladder habit normal. Sleep/Appetite normal. OBJECTIVE: Vital Signs Period Temp Pulse Resp BP Sys/Carver Pulse Ox Last 24 Hr 97.8 F-98.7 F 48-70 18-20 87-97/40-58 GENERAL: Patient sitting in bed, Awake, alert, and fully oriented, in mild abdominal pain. HEAD: Normal with no signs of trauma. EYES: EOM intact, mild pallor +, no icterus. EARS, NOSE, THROAT: Ears normal, Moist mucous membranes. NECK: Supple. LUNGS: Breath sounds equal, clear to auscultation bilaterally. No wheezes, and no crackles. No accessory muscle use. HEART: Regular rate and rhythm, normal S1 and S2 with soft systolic murmur. ABDOMEN: Surgical scar dalila +, Soft, tender to mild palpation on the right lower quadrant, not distended, normoactive bowel sounds, hepatosplenomegaly couldn't be appreciated. MUSCULOSKELETAL: Normal range of motion at all joints. No bony deformities or tenderness. No CVA tenderness. UPPER EXTREMITIES: 2+ pulses, warm, well-perfused. No cyanosis. No clubbing. Cap refill <2 seconds. No peripheral edema. LOWER EXTREMITIES: 2+ pulses, warm, well-perfused. No calf tenderness. No peripheral edema. NEUROLOGICAL: No facial droop, power 5/5 in all ext, reflexes in all ext intact. Normal speech. Gait not observed. PSYCHIATRIC: Cooperative. Good eye contact. Appropriate mood and affect. SKIN: Warm, dry, normal turgor, no rashes or lesions noted. Laboratory Results - last 24 hr 06/03/17 06/03/17 06:40 06:40 WBC 2.6 L D RBC 3.13 L Hgb 9.4 L Hct 29.3 L MCV 93.3 MCH 30.0 MCHC 32.2 RDW 13.6 Plt Count 88 L MPV 9.7 Neutrophils % 69.1 Lymphocytes % 18.4 D Monocytes % 9.9 Eosinophils % 2.1 D Basophils % 0.5 Sodium 143 Potassium 4.2 Chloride 108 H Carbon Dioxide 28 Anion Gap 7 L BUN 10 D Creatinine 0.7 D Creat Clearance w eGFR > 60 Random Glucose 99 Calcium 8.7 Total Bilirubin 0.5 D AST 14 L ALT 24 Alkaline Phosphatase 84 Total Protein 5.8 L Albumin 2.9 L Active Medications Generic Name Dose Route Start Last Admin Trade Name Freq PRN Reason Stop Dose Admin Erythromycin 250 mg 06/02/17 10:00 06/03/17 10:35 Dimitri-Tab - PO 250 mg QID JOY Administration Heparin Sodium (Porcine) 5,000 unit 06/02/17 10:00 06/03/17 10:35 Heparin - SQ 5,000 unit BID JOY Administration Piperacillin Sod/Tazobactam 50 mls @ 100 mls/hr 06/02/17 18:00 06/03/17 10:34 Sod 3.375 gm/ Dextrose IVPB 100 mls/hr Q8H-IV JOY Administration Protocol Dextrose/Sodium Chloride 1,000 mls @ 75 mls/hr 06/02/17 20:15 06/03/17 10:36 D5-1/2ns - IV 75 mls/hr ASDIR JOY Administration Morphine Sulfate 1 mg 06/02/17 20:32 06/02/17 20:44 Morphine Injection - IVPUSH 1 mg Q6H PRN Administration PAIN Mycophenolate Sodium 360 mg 06/02/17 10:00 06/03/17 10:36 Mycophenolic Acid PO 360 mg BID JOY Administration Pantoprazole Sodium 40 mg 06/02/17 10:00 06/03/17 10:34 Protonix - PO 40 mg DAILY JOY Administration Tacrolimus 2 mg 06/02/17 16:34 06/03/17 10:35 Prograf (Non-Formulary) PO 2 mg BID JOY Administration Patient is a 56 year old romanian speaking female with significant Past medical history of Hep C, Liver and kindey transplant in 2013 (In [place]) presented to the ED with the chief complaint of severe headache x 4days and right lower abdominal pain x 2 days. ASSESSMENT: 1. Abdominal pain-cause unknown at this time, need further work up 2. Right Renal transplant in 2013 on immunosuppressant therapy 3. Liver transplant in 2013 on immunosuppressant therapy 4. H/O Hepatitis C treated 5. H/O Liver cirrhosis 6. Normocytic anemia 7. Urinary Tract Infection PLAN: Abdominal pain-resolving Renal function is stable, normal creatinine with a GFR >60 06/02/17 Renal USG: s/p right renal transplant with a morphologically normal transplanted kidney Adjusted the dose of immunosupressants- Tacrolimus 2mg PO BID and mycophenolate 360 mg PO BID Repeat BMP tomorrow Avoid nephrotoxic drugs Pending transfer to [facility] Urinary Tract Infection UA shows: WBC 852 IV Ceftriaxone 1gm daily Urine culture-Gm negative bacilli. Dispo: We will continue to follow the patient. Thank you for this consultative opportunity. Case discussed with Dr. Escalante. Visit type - Emergency Visit Emergency Visit: Yes ED Registration Date: 06/02/17 Care time: The patient presented to the Emergency Department on the above date and was hospitalized for further evaluation of their emergent condition. - New Patient This patient is new to me today: No - Critical Care Critical Care patient: No
[2017-06-03 14:15] VITALS: BP 102/68; PULSE 57
--- NOTE | 2017-06-03 15:42 | PN ---
Teaching Attending Note Name of Resident: Shilpa Priest (Nephrology) ATTENDING PHYSICIAN STATEMENT I saw and evaluated the patient. I reviewed the resident's note and discussed the case with the resident. I agree with the resident's findings and plan as documented. Nephrology Follow Up Pt seen and examined at bedside. She feels that the abdominal pain is improving. Current Medications Generic Name Dose Route Start Last Admin Trade Name Freq PRN Reason Stop Dose Admin Erythromycin 250 mg 06/02/17 10:00 06/03/17 14:01 Dimitri-Tab - PO 250 mg QID JOY Administration Heparin Sodium (Porcine) 5,000 unit 06/02/17 10:00 06/03/17 10:35 Heparin - SQ 5,000 unit BID JOY Administration Piperacillin Sod/Tazobactam 50 mls @ 100 mls/hr 06/02/17 18:00 06/03/17 10:34 Sod 3.375 gm/ Dextrose IVPB 100 mls/hr Q8H-IV JOY Administration Protocol Dextrose/Sodium Chloride 1,000 mls @ 75 mls/hr 06/02/17 20:15 06/03/17 10:36 D5-1/2ns - IV 75 mls/hr ASDIR JOY Administration Morphine Sulfate 1 mg 06/02/17 20:32 06/02/17 20:44 Morphine Injection - IVPUSH 1 mg Q6H PRN Administration PAIN Mycophenolate Sodium 360 mg 06/02/17 10:00 06/03/17 10:36 Mycophenolic Acid PO 360 mg BID JOY Administration Pantoprazole Sodium 40 mg 06/02/17 10:00 06/03/17 10:34 Protonix - PO 40 mg DAILY JOY Administration Tacrolimus 2 mg 06/02/17 16:34 06/03/17 10:35 Prograf (Non-Formulary) PO 2 mg BID JOY Administration Laboratory Tests 06/01/17 06/03/17 21:15 06:40 Chloride 108 H Anion Gap 7 L BUN 10 D Creatinine 0.7 D Urine Protein 1+ H Urine Nitrite Negative cardio s1s2 reg pulm clear gi soft, graft is soft and non tender ext neg edema Impression 1. s/p kidney transplant 2. s/p liver transplant 3. UTI 4. hx hep c 5. hx of liver cirrhosis 6. abdominal pain Plan - follow up urine cultures - monitor renal function - pt is being transferred to [facility] - cont prograf - cont mycophenolate - avoid nephrotoxins - will follow
--- NOTE | 2017-06-03 15:49 | PN ---
Progress Note, Physician History of Present Illness: no new -issues abd pain improving - Objective Vital Signs: Vital Signs Temperature 97.8 F 06/03/17 14:00 Pulse Rate 57 L 06/03/17 14:00 Respiratory Rate 06/03/17 14:00 Blood Pressure 102/68 06/03/17 14:00 O2 Sat by Pulse Oximetry (%) 98 06/02/17 12:35 Constitutional: Yes: Calm, Mild Distress HENT: Yes: Atraumatic Cardiovascular: Yes: Regular Rate and Rhythm Respiratory: Yes: Regular, CTA Bilaterally Gastrointestinal: Yes: Soft, Tenderness Musculoskeletal: Yes: WNL Extremities: Yes: WNL Neurological: Yes: Alert, Oriented Psychiatric: Yes: Alert, Oriented Labs: CBC, BMP 06/03/17 06:40 06/03/17 06:40 INR, PTT INR 1.24 (0.82-1.09) H D 06/01/17 21:15 Assessment/Plan 1. s/p kidney transplant 2. s/p liver transplant 3. UTI 4. hx hep c 5. hx of liver cirrhosis 6. abdominal pain cx report noted plan continue abx rest as per primary team
--- NOTE | 2017-06-04 00:40 | DS ---
Physical Examination Vital Signs: Vital Signs Temperature 97.8 F 06/03/17 14:00 Pulse Rate 57 L 06/03/17 14:00 Respiratory Rate 17 06/03/17 14:00 Blood Pressure 102/68 06/03/17 14:00 O2 Sat by Pulse Oximetry (%) 98 06/02/17 12:35 Labs: CBC, BMP 06/03/17 06:40 06/03/17 06:40 Discharge Summary Reason For Visit: UTI RENAL TRANSPLANT DISORDER LIVER BURNS Current Active Problems Abdominal pain (Acute) Liver transplant recipient (Acute) Renal transplant disorder (Acute) UTI (urinary tract infection) (Acute) - Instructions Referrals: Fran Barrios MD [Primary Care Provider] - Disposition: TRANSFER ACUTE CARE/OTHER HOSP - Home Medications Comprehensive Discharge Medication List: Ambulatory Orders Mycophenolate Sodium [Myfortic -] 360 mg PO BID 08/06/15 Pantoprazole Sodium [Protonix -] 40 mg PO DAILY #30 tablet.ec 08/06/15 Tacrolimus 2 mg PO BID 08/06/15 Alendronate Na [Fosamax] 70 mg PO TU 06/01/17 Erythromycin Base [Erythromycin] 250 mg PO TID 06/01/17 Acetaminophen/Caffeine/Butalb [Fioricet -] 1 tab PO Q4H PRN 06/02/17
== END 2017-06-03 15:47 | disposition short-term general hospital (02) | DRG 699 ==
LOC: JER 17:42 → JERBED 06-02 00:11 → J6S 06-02 14:45
PROVIDERS: ADMIT Internal Medicine; ATTEND Internal Medicine
DX: T86.10 Unspecified complication of kidney transplant (principal); N39.0 Urinary tract infection, site not specified; Z94.4 Liver transplant status; R10.11 Right upper quadrant pain; Z94.0 Kidney transplant status; I10 Essential (primary) hypertension; Z86.19 Personal history of other infectious and parasitic diseases; D64.9 Anemia, unspecified; B96.89 Other specified bacterial agents as the cause of diseases classified elsewhere
CPT/HCPCS: 36415; 71010-TC; 74176-TC; 76775-TC; 80053; 81003; 81015; 83605; 83690; 85025; 85610; 87086; 87186; 93005; 93010; 99285-25; J1644

== ENCOUNTER 2018-06-05 10:30 | Inpatient (IN) | payer OTHER ==
--- NOTE | 2018-06-05 10:52 | PDOC ---
History of Present Illness - General Chief Complaint: Respiratory Stated Complaint: BODY ACHES/FEVER Time Seen by Provider: 06/05/18 10:37 Past History - Past Medical History Allergies/Adverse Reactions: Allergies Allergy/AdvReac Type Severity Reaction Status Date / Time No Known Allergies Allergy Verified 06/05/18 10:36 Home Medications: Ambulatory Orders Mycophenolate Sodium [Myfortic -] 360 mg PO BID 08/06/15 Pantoprazole Sodium [Protonix -] 40 mg PO DAILY #30 tablet.ec 08/06/15 Tacrolimus 2 mg PO BID 08/06/15 Acetaminophen/Caffeine/Butalb [Fioricet -] 1 tab PO Q4H PRN 06/02/17 Lipase/Protease/Amylase [[place] Dr 24,000 Units Capsule] 1 each PO TID 08/11/17 Cefuroxime Axetil [Ceftin -] 500 mg PO Q12H #14 tablet 08/14/17 Anemia: Yes (Pancytopenia R/T ESLD) Asthma: No Cancer: No Cardiac Disorders: Yes COPD: No CHF: No GI Disorders: Yes (END STAGE LIVER DISEASE) HTN: Yes Liver Disease: Yes - Immunization History Immunization Up to Date: Yes - Suicide/Smoking/Psychosocial Hx Smoking Status: No Smoking History: Never smoked Have you smoked in the past 12 months: No Number of Cigarettes Smoked Daily: 0 Cigars Per Day: 0 Hx Alcohol Use: No Drug/Substance Use Hx: No Substance Use Type: None Hx Substance Use Treatment: No *Physical Exam - Vital Signs Last Vital Signs Temp Pulse Resp BP Pulse Ox 100.3 F H 81 18 118/63 97 06/05/18 10:32 06/05/18 10:32 06/05/18 10:32 06/05/18 10:32 06/05/18 10:32
[2018-06-05] MEDS ORDERED: ACETAMINOPHEN 325 MG TABLET (FP) PO ONE (11:21)
[2018-06-05] MEDS ORDERED: ACETAMINOPHEN 325 MG TABLET (FP) ONE (11:26)
--- NOTE | 2018-06-05 11:27 | PDOC ---
History of Present Illness <Sarah Torres - Last Filed: 06/05/18 12:19> - General History Source: Patient, Parent(s), Old Records Exam Limitations: No Limitations <Umair Menon - Last Filed: 06/05/18 12:44> - History of Present Illness Initial Comments: 06/05/18 12:02 The patient is a 57 year old female, with a significant PMH of hepatitis C, renal and liver transplant (2013), osteonecrosis of the hip, and recurrent UTIs , who presents to the emergency department with 3 days of subjective fevers, sore throat, generalized malaise and suprapubic abdominal pain. The patient also reports one episode of nausea with non bloody non bilious emesis. The patient denies any sick contacts or recent travel. The patient states she has been compliant with her medication regimen. The patient denies chest pain, shortness of breath, headache and dizziness. Denies diarrhea and constipation. Denies dysuria, frequency, urgency and hematuria. Allergies: NKA Past surgical history: Renal and liver transplant. Social history: No reported cigarette, alcohol, or drug use. PCP: Dr. Fran Barrios <Lonny Greene - Last Filed: 06/05/18 13:14> - General Chief Complaint: Respiratory Stated Complaint: BODY ACHES/FEVER Time Seen by Provider: 06/05/18 10:37 Past History <Sarah Torres - Last Filed: 06/05/18 12:19> - Past Medical History Anemia: Yes (Pancytopenia R/T ESLD) Asthma: No Cancer: No Cardiac Disorders: Yes COPD: No CHF: No GI Disorders: Yes (END STAGE LIVER DISEASE) HTN: Yes Liver Disease: Yes - Immunization History Immunization Up to Date: Yes - Suicide/Smoking/Psychosocial Hx Smoking Status: No Smoking History: Never smoked Have you smoked in the past 12 months: No Number of Cigarettes Smoked Daily: 0 Cigars Per Day: 0 Hx Alcohol Use: No Drug/Substance Use Hx: No Substance Use Type: None Hx Substance Use Treatment: No <Umair Menon - Last Filed: 06/05/18 12:44> <Lonny Greene - Last Filed: 06/05/18 13:14> - Past Medical History Allergies/Adverse Reactions: Allergies Allergy/AdvReac Type Severity Reaction Status Date / Time No Known Allergies Allergy Verified 06/05/18 10:36 Home Medications: Ambulatory Orders Alendronate Sodium [Binosto] 70 mg PO WEEKLY 06/05/18 Linaclotide [Linzess] 72 mcg PO DAILY 06/05/18 Mycophenolate Sodium [Mycophenolic Acid] 360 mg PO BID 06/05/18 Ranitidine HCl [Zantac] 150 mg PO BID 06/05/18 Tacrolimus 1 mg PO BID 06/05/18 Review of Systems - Review of Systems Comments:: 06/05/18 12:05 GENERAL/CONSTITUTIONAL: (+) Subjective fevers. No weakness. HEAD, EYES, EARS, NOSE AND THROAT: (+) Sore throat. No change in vision. No ear pain or discharge. CARDIOVASCULAR: No chest pain or shortness of breath. RESPIRATORY: No cough, wheezing, or hemoptysis. GASTROINTESTINAL: (+) Nausea. (+) Vomiting. (+) Suprapubic abdominal pain. No diarrhea or constipation. GENITOURINARY: No dysuria, frequency, or change in urination. MUSCULOSKELETAL: No joint or muscle swelling or pain. No neck or back pain. SKIN: No rash NEUROLOGIC: No headache, vertigo, loss of consciousness, or change in strength/ sensation. ENDOCRINE: No increased thirst. No abnormal weight change. HEMATOLOGIC/LYMPHATIC: No anemia, easy bleeding, or history of blood clots. ALLERGIC/IMMUNOLOGIC: No hives or skin allergy. <Lonny Greene - Last Filed: 06/05/18 13:14> *Physical Exam - Vital Signs Last Vital Signs Temp Pulse Resp BP Pulse Ox 100.3 F H 81 18 118/63 97 06/05/18 10:32 06/05/18 10:32 06/05/18 10:32 06/05/18 10:32 06/05/18 10:32 <Sarah Torres - Last Filed: 06/05/18 12:19> - Vital Signs Last Vital Signs Temp Pulse Resp BP Pulse Ox 100.3 F H 81 18 118/63 97 06/05/18 10:32 06/05/18 10:32 06/05/18 10:32 06/05/18 10:32 06/05/18 10:32 <Umair Menon - Last Filed: 06/05/18 12:44> - Vital Signs Last Vital Signs Temp Pulse Resp BP Pulse Ox 100.3 F H 81 18 118/63 97 06/05/18 10:32 06/05/18 10:32 06/05/18 10:32 06/05/18 10:32 06/05/18 10:32 - Physical Exam Comments: 06/05/18 12:05 GENERAL: Awake, alert, and fully oriented, in no acute distress HEAD: No signs of trauma EYES: PERRLA, EOMI, sclera anicteric, conjunctiva clear ENT: (+) Posterior oropharynx erythematous. Auricles normal inspection, hearing grossly normal, nares patent, oropharynx clear without exudates. Moist mucosa NECK: (+) Mild right sided lymphadenopathy. Normal ROM, supple, no JVD, or masses LUNGS: Breath sounds equal, clear to auscultation bilaterally. No wheezes, and no crackles HEART: Regular rate and rhythm, normal S1 and S2, no murmurs, rubs or gallops ABDOMEN: (+) Right upper quadrant tenderness and suprapubic tenderness. No rebound or guarding. Soft, normoactive bowel sounds. No masses EXTREMITIES: Normal range of motion, no edema. No clubbing or cyanosis. No cords, erythema, or tenderness NEUROLOGICAL: Cranial nerves II through XII intact. Normal speech, normal gait SKIN: Warm, Dry, normal turgor, no rashes or lesions noted. <Lonny Greene - Last Filed: 06/05/18 13:14> Heart Score/ECG Review #1 ECG reviewed & interpreted by me at: 11:40 06/05/18 11:45 NSR 70, LAFB, no std/eitan, normal intervals, left axis deviation, QTC 416 msec <Umair Menon - Last Filed: 06/05/18 12:44> ED Treatment Course - LABORATORY CBC & Chemistry Diagram: 06/05/18 11:10 06/05/18 11:10 - ADDITIONAL ORDERS Additional order review: Laboratory Results 06/05/18 06/05/18 06/05/18 11:10 11:10 11:10 PT with INR INR PTT (Actin FS) Sodium 138 Potassium 5.1 Chloride 105 Carbon Dioxide 23 Anion Gap 10 BUN 11 Creatinine 0.5 L Creat Clearance w eGFR > 60 Random Glucose 98 Lactic Acid 1.3 Calcium 9.5 Total Bilirubin 0.5 AST 27 ALT 23 Alkaline Phosphatase 115 Total Protein 7.8 Albumin 4.1 Urine Color Ltyellow Urine Appearance Clear Urine pH 5.0 Ur Specific [place] 1.012 Urine Protein Negative Urine Glucose (UA) Negative Urine Ketones Negative Urine Blood Negative Urine Nitrite Negative Urine Bilirubin Negative Urine Urobilinogen Negative Ur Leukocyte Esterase 1+ H Urine WBC (Auto) 61 Urine RBC (Auto) 1 Ur Epithelial Cells Rare Urine Mucus Rare 06/05/18 11:10 PT with INR 12.80 INR 1.08 PTT (Actin FS) 40.0 H Sodium Potassium Chloride Carbon Dioxide Anion Gap BUN Creatinine Creat Clearance w eGFR Random Glucose Lactic Acid Calcium Total Bilirubin AST ALT Alkaline Phosphatase Total Protein Albumin Urine Color Urine Appearance Urine pH Ur Specific [place] Urine Protein Urine Glucose (UA) Urine Ketones Urine Blood Urine Nitrite Urine Bilirubin Urine Urobilinogen Ur Leukocyte Esterase Urine WBC (Auto) Urine RBC (Auto) Ur Epithelial Cells Urine Mucus 06/05/18 11:15 Influenza Types A,B Antigen - Final Nasopharyngeal Swab - Final 06/05/18 11:15 Group A Strep Rapid Antigen - Final Throat 06/05/18 11:10 RBC 3.77 MCV 93.3 MCHC 33.1 RDW 14.2 MPV 9.4 Neutrophils % 89.9 H Lymphocytes % 5.5 L D Monocytes % 4.4 Eosinophils % 0.1 Basophils % 0.1 - Medications Given in the ED: ED Medications Discontinued Medications Generic Name Dose Route Start Last Admin Trade Name Freq PRN Reason Stop Dose Admin Acetaminophen 650 mg 06/05/18 11:21 06/05/18 11:33 Tylenol - PO 06/05/18 11:22 650 mg ONCE ONE Administration <Sarah Torres - Last Filed: 06/05/18 12:19> - LABORATORY CBC & Chemistry Diagram: 06/05/18 11:10 06/05/18 11:10 - RADIOLOGY Radiology Studies Ordered: Category Date Time Status CHEST X-RAY PORTABLE* [RAD] Stat Radiology 06/05/18 10:38 Ordered KIDNEY / RENAL US [US] Stat Ultrasound 06/05/18 11:21 Ordered <Umair Menon - Last Filed: 06/05/18 12:44> - LABORATORY CBC & Chemistry Diagram: 06/05/18 11:10 06/05/18 11:10 - ADDITIONAL ORDERS Additional order review: Laboratory Results 06/05/18 06/05/18 11:10 11:10 PT with INR 12.80 INR 1.08 Urine Color Ltyellow Urine Appearance Clear Urine pH 5.0 Ur Specific [place] 1.012 Urine Protein Negative Urine Glucose (UA) Negative Urine Ketones Negative Urine Blood Negative Urine Nitrite Negative Urine Bilirubin Negative Urine Urobilinogen Negative Ur Leukocyte Esterase 1+ H Urine WBC (Auto) 61 Urine RBC (Auto) 1 Ur Epithelial Cells Rare Urine Mucus Rare 06/05/18 11:15 Influenza Types A,B Antigen - Final Nasopharyngeal Swab - Final 06/05/18 11:15 Group A Strep Rapid Antigen - Final Throat 06/05/18 11:10 RBC 3.77 MCV 93.3 MCHC 33.1 RDW 14.2 MPV 9.4 Neutrophils % 89.9 H Lymphocytes % 5.5 L D Monocytes % 4.4 Eosinophils % 0.1 Basophils % 0.1 - Medications Given in the ED: ED Medications Discontinued Medications Generic Name Dose Route Start Last Admin Trade Name Freq PRN Reason Stop Dose Admin Acetaminophen 650 mg 06/05/18 11:21 06/05/18 11:33 Tylenol - PO 06/05/18 11:22 650 mg ONCE ONE Administration <Lonny Greene - Last Filed: 06/05/18 13:14> Medical Decision Making - Medical Decision Making 06/05/18 12:19 Dr. Peterson paged for admission. <Sarah Torres - Last Filed: 06/05/18 12:19> - Medical Decision Making 06/05/18 11:26 A portion of this note was documented by scribe services under my direction. I have reviewed the details of the note, within reason, and agree with the documentation with the following case summary and management plan written by me. Patient treated in the ED. Nursing notes are reviewed and incorporated into the medical decision-making. Vital signs reviewed. Peripheral IV access obtained by the nurse, laboratory studies are drawn and sent, reviewed and interpreted by myself. Vital Signs Temp Pulse Resp BP Pulse Ox 100.3 F H 81 18 118/63 97 06/05/18 10:32 06/05/18 10:32 06/05/18 10:32 06/05/18 10:32 06/05/18 10:32 57 year old female with past medical history of hepatitis C, renal and liver transplant on mycophenolate and tacrolimus, recurrent urinary tract infections presents with tactile fevers, suprapubic pain and generalized malaise for 3 days. Patient started also complaining about a sore throat. Denies sick contacts or recent travels. Denies dysuria. Did endorse some one episode of nausea and vomiting. No diarrhea. Patient reports adherence to her medications. Because she's been feeling generally unwell, she came to the ER. Denies coughing. Denies midsternal chest pain but does complain about throat discomfort radiating into her chest. I suspect patient likely has infectious component. Given that she is immunocompromised, we'll need to further investigate. Sepsis protocol initiated. An concerned about a urinary tract infection and pharyngitis. Patient does have pain around her chest on a kidney site which is concerning for pyelonephritis. We'll obtain labs, urinalysis and blood cultures. Give Tylenol and reassess. 06/05/18 12:44 CBC, BMP 06/05/18 11:10 06/05/18 11:10 CMP Sodium 138 mmol/L (136-145) 06/05/18 11:10 Potassium 5.1 mmol/L (3.5-5.1) 06/05/18 11:10 Chloride 105 mmol/L (98-107) 06/05/18 11:10 Carbon Dioxide 23 mmol/L (21-32) 06/05/18 11:10 Anion Gap 10 MMOL/L (8-16) 06/05/18 11:10 BUN 11 mg/dL (7-18) 06/05/18 11:10 Creatinine 0.5 mg/dL (0.55-1.3) L 06/05/18 11:10 Creat Clearance w eGFR > 60 (>60) 06/05/18 11:10 Random Glucose 98 mg/dL (74-106) 06/05/18 11:10 Lactic Acid 1.3 mmol/L (0.4-2.0) 06/05/18 11:10 Calcium 9.5 mg/dL (8.5-10.1) 06/05/18 11:10 Total Bilirubin 0.5 mg/dL (0.2-1) 06/05/18 11:10 AST 27 U/L (15-37) 06/05/18 11:10 ALT 23 U/L (13-61) 06/05/18 11:10 Alkaline Phosphatase 115 U/L (45-117) 06/05/18 11:10 Troponin I < 0.02 ng/ml (0.00-0.05) 06/05/18 11:44 Total Protein 7.8 g/dl (6.4-8.2) 06/05/18 11:10 Albumin 4.1 g/dl (3.4-5.0) 06/05/18 11:10 Urine Test Results Urine Color Ltyellow 06/05/18 11:10 Urine Appearance Clear 06/05/18 11:10 Urine pH 5.0 (5.0-8.0) 06/05/18 11:10 Ur Specific [place] 1.012 (1.001-1.035) 06/05/18 11:10 Urine Protein Negative (NEGATIVE) 06/05/18 11:10 Urine Glucose (UA) Negative (NEGATIVE) 06/05/18 11:10 Urine Ketones Negative (NEGATIVE) 06/05/18 11:10 Urine Blood Negative (NEGATIVE) 06/05/18 11:10 Urine Nitrite Negative (NEGATIVE) 06/05/18 11:10 Urine Bilirubin Negative (<2.0 mg/dL) 06/05/18 11:10 Ur Leukocyte Esterase 1+ (NEGATIVE) H 06/05/18 11:10 Ur Epithelial Cells Rare /HPF (FEW) 06/05/18 11:10 Urine Mucus Rare 06/05/18 11:10 UA positive for infection. Findings are concerning for early developing pyelonephritis. With hx of kidney transplant, and immunosupressants, decision was made to admit patient. Renal ultrasound pending. Microbiology reviewed. IV ceftriaxone ordered. Case discussed with Dr. Peterson. She accepts for med surg admission. Requests Dr. Escalante for renal consultation. Case discussed in detail with admitting physician including history, physical exam and ancillary studies. Admitting physician has assumed care for the patient, will follow all pending diagnostics and will complete the evaluation and treatment. <Umair Menon - Last Filed: 06/05/18 12:44> *DC/Admit/Observation/Transfer <Sarah Torres - Last Filed: 06/05/18 12:19> - Discharge Dispostion Decision to Admit order: Yes <Umair Menon - Last Filed: 06/05/18 12:44> - Attestations Scribe Attestion: 06/05/18 12:05 Documentation prepared by Lonny Greene, acting as medical coding specialist for Umair Menon MD. <Lonny Greene - Last Filed: 06/05/18 13:14> Diagnosis at time of Disposition: Kidney transplant recipient, Pyelonephritis - Discharge Dispostion Condition at time of disposition: Stable - Referrals Referrals: Fran Barrios MD [Primary Care Provider] -
[2018-06-05 11:32] LABS: BASO % 0.1 % (0-2.0); EOS % 0.1 % (0-4.5); HEMATOCRIT 35.2 % (32.4-45.2); HEMOGLOBIN 11.7 GM/dL (10.7-15.3); LYMPH % 5.5 % (8-40); MCH 30.9 pg (25.7-33.7); MCHC 33.1 g/dl (32.0-36.0); MEAN CELL VOLUME 93.3 fl (80-96); MEAN PLT VOLUME 9.4 fl (7.5-11.1); MONO % 4.4 % (3.8-10.2); NEUT % 89.9 % (42.8-82.8); PLATELET COUNT 94 K/MM3 (134-434); RBC 3.77 M/mm3 (3.60-5.2); RDW 14.2 % (11.6-15.6); WHITE BLOOD COUNT 5.9 K/mm3 (4.0-10.0)
[2018-06-05 11:41] LABS: URINE APPEARANCE CLEAR; URINE BILIRUBIN NEGATIVE (<2.0 mg/dL); URINE COLOR LTYELLOW; URINE GLUCOSE (UA) NEGATIVE (NEGATIVE); URINE KETONE NEGATIVE (NEGATIVE); URINE NITRITE NEGATIVE (NEGATIVE); URINE PROTEIN NEGATIVE (NEGATIVE); URINE UROBILINOGEN NEGATIVE mg/dL (0.2-1.0)
[2018-06-05 11:56] LABS: URINE LEUK ESTERASE 1+ (NEGATIVE)
[2018-06-05 11:58] LABS: EPI CELLS RARE /HPF (FEW); INR 1.08 (0.83-1.09); PROTHROMBIN TIME (PATIENT) 12.8 SEC (9.7-13.0); URINE MUCUS RARE
[2018-06-05] MEDS ORDERED: CEFTRIAXONE 1,000 MG in DEXTROSE 5%-WATER - 50 ML IVPB ONE (12:06)
[2018-06-05 12:07] LABS: ALBUMIN 4.1 g/dl (3.4-5.0); ALK PHOS 115 U/L (45-117); ANION GAP 10 MMOL/L (8-16); BILIRUBIN,TOTAL 0.5 mg/dL (0.2-1); BLOOD UREA NITROGEN 11 mg/dL (7-18); CALCIUM 9.5 mg/dL (8.5-10.1); CHLORIDE 105 mmol/L (98-107); CO2 23 mmol/L (21-32); CREATININE 0.5 mg/dL (0.55-1.3); GLUCOSE,RANDOM 98 mg/dL (74-106); POTASSIUM 5.1 mmol/L (3.5-5.1); SGOT/AST 27 U/L (15-37); SGPT/ALT 23 U/L (13-61); SODIUM 138 mmol/L (136-145); TOT PROT 7.8 g/dl (6.4-8.2)
[2018-06-05] MEDS ORDERED: CEFTRIAXONE 1 GM/50 ML BAG ONE (12:12)
[2018-06-05 16:39] VITALS: BMI 29.7
[2018-06-05] MEDS ORDERED: DEXTROSE 5%-0.45% SALINE 1,000 ML IV SCH (17:30)
[2018-06-05] MEDS: ACETAMINOPHEN 325 MG TABLET (FP) PO PRN (18:55)
--- NOTE | 2018-06-05 20:54 | HP ---
Admitting History and Physical - Admission History of Present Illness: Pt is a 57 y/o female with a PMH significant for of hepatitis C, renal and liver transplant (2013), osteonecrosis of the hip, and recurrent UTIs. Pt now presented to the emergency department with 3 days of subjective fevers, sore throat, generalized malaise and suprapubic abdominal pain. The patient also reports one episode of nausea with non bloody non bilious emesis. The patient denies any sick contacts or recent travel. The patient states she has been compliant with her medication regimen. In the ER flu was negative. - Past Medical History Gastrointestinal: Yes: Other (Hepatitis C and chronic liver dz) Hepatobiliary: Yes: Hepatitis C, Other (liver transplant) Renal/: Yes: Renal Failure Heme/Onc: Yes: Anemia - Past Surgical History Additional Past Surgical History: Renal and liver transplant - Smoking History Smoking history: Never smoked Have you smoked in the past 12 months: No Aproximately how many cigarettes per day: 0 - Alcohol/Substance Use Hx Alcohol Use: No Home Medications - Allergies Allergies/Adverse Reactions: Allergies Allergy/AdvReac Type Severity Reaction Status Date / Time No Known Allergies Allergy Verified 06/05/18 10:36 - Home Medications Home Medications: Ambulatory Orders Alendronate Sodium [Binosto] 70 mg PO WEEKLY 06/05/18 Linaclotide [Linzess] 72 mcg PO DAILY 06/05/18 Mycophenolate Sodium [Mycophenolic Acid] 360 mg PO BID 06/05/18 Ranitidine HCl [Zantac] 150 mg PO BID 06/05/18 Tacrolimus 1 mg PO BID 06/05/18 Review of Systems - Review of Systems Constitutional: reports: Loss of Appetite, Malaise Neck: reports: No Symptoms Cardiovascular: reports: No Symptoms Respiratory: reports: No Symptoms Gastrointestinal: reports: Nausea Physical Examination Vital Signs: Vital Signs Temperature 102.9 F H 06/05/18 16:26 Pulse Rate 62 06/05/18 16:26 Respiratory Rate 20 06/05/18 16:26 Blood Pressure 90/66 06/05/18 16:26 O2 Sat by Pulse Oximetry (%) 100 06/05/18 15:54 Constitutional: Yes: Well Nourished HENT: Yes: WNL Neck: Yes: WNL, Supple Cardiovascular: Yes: WNL, Regular Rate and Rhythm Respiratory: Yes: WNL, Regular, CTA Bilaterally Gastrointestinal: Yes: WNL, Normal Bowel Sounds, Soft Musculoskeletal: Yes: WNL Extremities: Yes: WNL Edema: No Neurological: Yes: WNL, Alert, Oriented ...Motor Strength: WNL Labs: CBC, BMP 06/05/18 11:10 06/05/18 11:10 Problem List - Problems (1) Sepsis Assessment/Plan: Pt is immunocompromised Cont IV ceftriaxone Follow cultures ID consult Renal US showed fullness ?Hydronephrosis Renal/Uro consults Cont IV fluids Code(s): A41.9 - SEPSIS, UNSPECIFIED ORGANISM (2) Kidney transplant recipient Code(s): Z94.0 - KIDNEY TRANSPLANT STATUS (3) Liver transplant recipient Assessment/Plan: GI consult called Code(s): Z94.4 - LIVER TRANSPLANT STATUS
[2018-06-05] MEDS: MYCOPHENOLATE SODIUM 360 MG TABLET.DR PO SCH (21:38)
[2018-06-05] MEDS: RANITIDINE HCL 150 MG TABLET (FP) PO SCH (21:38)
[2018-06-05] MEDS: TACROLIMUS ANHYDROUS 1 MG CAPSULE PO SCH (21:38)
[2018-06-05] MEDS: HEPARIN NA (PORCINE) 5,000 UNITS/ML 1ML VIAL SQ SCH (21:38)
--- NOTE | 2018-06-06 06:10 | EKG ---
Test Reason : Blood Pressure : / mmHG Vent. Rate : 070 BPM Atrial Rate : 070 BPM P-R Int : 142 ms QRS Dur : 070 ms QT Int : 386 ms P-R-T Axes : 030 -47 041 degrees QTc Int : 416 ms NORMAL SINUS RHYTHM LEFT ANTERIOR FASCICULAR BLOCK ABNORMAL ECG WHEN COMPARED WITH ECG OF 11-AUG-2017 21:36, NONSPECIFIC T WAVE ABNORMALITY, IMPROVED IN LATERAL LEADS Confirmed by MONICA OWEN, SUNI ([id number]) on 06/06/2018 6:09:35 AM Referred By: Confirmed By:SUNI ANDERSON MD
[2018-06-06 07:08] LABS: BASO % 0.2 % (0-2.0); EOS % 0.1 % (0-4.5); HEMATOCRIT 30.9 % (32.4-45.2); MCH 30.3 pg (25.7-33.7); MCHC 32.5 g/dl (32.0-36.0); MEAN CELL VOLUME 93.3 fl (80-96); MEAN PLT VOLUME 9.9 fl (7.5-11.1); NEUT % 83.7 % (42.8-82.8); PLATELET COUNT 76 K/MM3 (134-434); RBC 3.31 M/mm3 (3.60-5.2); RDW 14.2 % (11.6-15.6); WHITE BLOOD COUNT 4.7 K/mm3 (4.0-10.0)
[2018-06-06 07:15] LABS: ALBUMIN 3.2 g/dl (3.4-5.0); ALK PHOS 89 U/L (45-117); ANION GAP 8 MMOL/L (8-16); BILIRUBIN,TOTAL 0.5 mg/dL (0.2-1); BLOOD UREA NITROGEN 7 mg/dL (7-18); CALCIUM 8.5 mg/dL (8.5-10.1); CHLORIDE 104 mmol/L (98-107); CO2 28 mmol/L (21-32); CREATININE 0.4 mg/dL (0.55-1.3); GLUCOSE,RANDOM 123 mg/dL (74-106); POTASSIUM 3.6 mmol/L (3.5-5.1); SGOT/AST 17 U/L (15-37); SGPT/ALT 17 U/L (13-61); SODIUM 140 mmol/L (136-145); TOT PROT 6.2 g/dl (6.4-8.2)
--- NOTE | 2018-06-06 08:37 | CON.ID ---
Consult Consult Specialty:: infectious diseases Referred by:: Reason for Consultation:: fever,uti - History of Present Illness Chief Complaint: fever,weakness History of Present Illness: 57 y/o female with a PMH significant for of hepatitis C, renal and liver transplant (2013), osteonecrosis of the hip, and recurrent UTIs,camre to the hospital because of fevers,according to her she has been having lot of fevers which are associated with sore throat generalized malaise and suprapubic abdominal pain The patient also reports one episode of nausea with non bloody non bilious emesis. The patient denies any sick contacts or recent travel. work up in the er showed patient was flu negative currently she mentions of fever and weakness and throat pain since admission patient has spiked couple of fevers patient on mycophenalate and tacrolimus - History Source History Provided By: Patient, Medical Record Limitations to Obtaining History: Language Barrier - Past Medical History Gastrointestinal: Yes: Other (Hepatitis C and chronic liver dz) Hepatobiliary: Yes: Hepatitis C, Other (liver transplant) Renal/: Yes: Renal Failure - Alcohol/Substance Use Hx Alcohol Use: No - Smoking History Smoking history: Never smoked Have you smoked in the past 12 months: No Aproximately how many cigarettes per day: 0 - Social History Usual Living Arrangement: With Spouse Home Medications - Allergies Allergies/Adverse Reactions: Allergies Allergy/AdvReac Type Severity Reaction Status Date / Time No Known Allergies Allergy Verified 06/05/18 10:36 - Home Medications Home Medications: Ambulatory Orders Alendronate Sodium [Binosto] 70 mg PO WEEKLY 06/05/18 Linaclotide [Linzess] 72 mcg PO DAILY 06/05/18 Mycophenolate Sodium [Mycophenolic Acid] 360 mg PO BID 06/05/18 Ranitidine HCl [Zantac] 150 mg PO BID 06/05/18 Tacrolimus 1 mg PO BID 06/05/18 Review of Systems - Review of Systems Constitutional: reports: Fever Eyes: reports: No Symptoms HENT: reports: Other (throat pain) Neck: reports: No Symptoms Cardiovascular: reports: No Symptoms Respiratory: reports: No Symptoms Gastrointestinal: reports: No Symptoms Genitourinary: reports: Pain (suprapubic) Musculoskeletal: reports: No Symptoms Integumentary: reports: No Symptoms Neurological: reports: No Symptoms Endocrine: reports: No Symptoms Hematology/Lymphatic: reports: No Symptoms Psychiatric: reports: No Symptoms Physical Exam Vital Signs: Vital Signs Temperature 99.4 F 06/06/18 06:00 Pulse Rate 72 06/06/18 06:00 Respiratory Rate 18 06/06/18 06:00 Blood Pressure 92/58 L 06/06/18 06:00 O2 Sat by Pulse Oximetry (%) 100 06/06/18 06:00 Constitutional: Yes: Well Nourished, Calm, Mild Distress Eyes: Yes: Conjunctiva Clear HENT: Yes: Atraumatic, Normocephalic Neck: Yes: Supple, Trachea Midline Cardiovascular: Yes: Regular Rate and Rhythm Respiratory: Yes: Regular, CTA Bilaterally Gastrointestinal: Yes: Normal Bowel Sounds, Soft Renal/: Yes: Other (suprapubic pain) Neurological: Yes: Alert, Oriented Psychiatric: Yes: Alert, Oriented Labs: CBC, BMP 06/06/18 06:00 06/06/18 06:00 Imaging - Results Chest X-ray: Report Reviewed, Image Reviewed Ultrasound: Report Reviewed, Image Reviewed Assessment/Plan Problem List - Problems (1) Sepsis Code(s): A41.9 - SEPSIS, UNSPECIFIED ORGANISM (2) Kidney transplant recipient Code(s): Z94.0 - KIDNEY TRANSPLANT STATUS (3) Liver transplant recipient Code(s): Z94.4 - LIVER TRANSPLANT STATUS 4 fever patient who is a transplant patient coming with fevers,all cx have been send and levels have been send.patient was on ceftriaxone with fullness of the kidney noted plan will await for all cx report will switch to [facility] close watch for further fevers once we have all the reports will decide final plan throat examined --no swelling abscess or pharyngitis noted
[2018-06-06] MEDS ORDERED: CEFTRIAXONE 1 GM in DEXTROSE 5%-WATER - 50 ML IVPB SCH (10:00)
[2018-06-06] MEDS ORDERED: DEXTROSE 5%-WATER - 50 ML IVPB ONE ×2 (10:41→17:49)
[2018-06-06] MEDS ORDERED: PIPERACILLIN/TAZOBACTAM 3.375 GM VIAL IVPB ONE ×2 (10:41→17:49)
[2018-06-06] MEDS ORDERED: PT OWN MED DRAWER 7, Y5N ONE ×2 (10:41→12:53)
--- NOTE | 2018-06-06 11:09 | CON.GI ---
Consult Consult Specialty:: GI Referred by:: Fran kwan/ Nicholas - History of Present Illness History of Present Illness: Pt is a 57 y/o female with a PMH significant for of hepatitis C, renal and liver transplant (2013), osteonecrosis of the hip, and recurrent UTIs. Pt now presented to the emergency department with 3 days of subjective fevers, sore throat, generalized malaise and suprapubic abdominal pain. The patient also reports one episode of nausea with non bloody non bilious emesis Patient was asked to be seen because of suprapubic pain. This was associated with nausea and presently receiving treatment for UTI - Past Medical History Gastrointestinal: Yes: Other (Hepatitis C and chronic liver dz) Hepatobiliary: Yes: Hepatitis C, Other (liver transplant) Renal/: Yes: Renal Failure - Alcohol/Substance Use Hx Alcohol Use: No - Smoking History Smoking history: Never smoked Have you smoked in the past 12 months: No Aproximately how many cigarettes per day: 0 - Social History Usual Living Arrangement: With Spouse Home Medications - Allergies Allergies/Adverse Reactions: Allergies Allergy/AdvReac Type Severity Reaction Status Date / Time No Known Allergies Allergy Verified 06/05/18 10:36 - Home Medications Home Medications: Ambulatory Orders Alendronate Sodium [Binosto] 70 mg PO WEEKLY 06/05/18 Linaclotide [Linzess] 72 mcg PO DAILY 06/05/18 Mycophenolate Sodium [Mycophenolic Acid] 360 mg PO BID 06/05/18 Ranitidine HCl [Zantac] 150 mg PO BID 06/05/18 Tacrolimus 1 mg PO BID 06/05/18 Physical Exam-GI Vital Signs: Vital Signs Temperature 99.4 F 06/06/18 06:00 Pulse Rate 72 06/06/18 06:00 Respiratory Rate 18 06/06/18 06:00 Blood Pressure 92/58 L 06/06/18 06:00 O2 Sat by Pulse Oximetry (%) 100 06/06/18 06:00 Constitutional: Yes: Well Nourished Eyes: Yes: Conjunctiva Clear HENT: Yes: Atraumatic Neck: Yes: Supple Cardiovascular: Yes: Regular Rate and Rhythm Respiratory: Yes: CTA Bilaterally ...Palpate: Yes: Soft. No: Firm/Rigid, Guarding, Hepatomegaly, Mass, Pulsatile Mass, Splenomegaly, Tenderness Labs: CBC, BMP 06/06/18 06:00 06/06/18 06:00 INR, PTT INR 1.08 (0.83-1.09) 06/05/18 11:10 Problem List - Problems (1) Nausea & vomiting Assessment/Plan: most likely secondary to urosepsis R> Famotidine 40mg daily Zofran PO no further gi w/u at this time Code(s): R11.2 - NAUSEA WITH VOMITING, UNSPECIFIED
[2018-06-06] MEDS: RANITIDINE HCL 150 MG TABLET (FP) PO SCH ×2 (11:29→21:41)
[2018-06-06] MEDS: MYCOPHENOLATE SODIUM 360 MG TABLET.DR PO SCH ×2 (11:29→21:40)
[2018-06-06] MEDS: PIPERACILLIN/TAZOB 3.375 GM 3.375 GM in DEXTROSE 5%-WATER - 50 ML IVPB SCH ×2 (11:29→18:06)
[2018-06-06] MEDS: HEPARIN NA (PORCINE) 5,000 UNITS/ML 1ML VIAL SQ SCH ×2 (11:29→21:46)
[2018-06-06] MEDS: TACROLIMUS ANHYDROUS 1 MG CAPSULE PO SCH ×2 (11:29→21:44)
[2018-06-06] MEDS: ACETAMINOPHEN 325 MG TABLET (FP) PO PRN (11:40)
[2018-06-06] MEDS ORDERED: ONDANSETRON 4 MG TABLET PO PRN (12:10)
[2018-06-06] MEDS ORDERED: SODIUM CHLORIDE 500 ML IV ONE (13:45)
--- NOTE | 2018-06-06 17:14 | CONSULT ---
Consult Consult Specialty:: Nephrology Reason for Consultation:: kidney transplant - History of Present Illness Chief Complaint: fever and abdominal pain History of Present Illness: Pt is a 57 year old female with pmhx of kidney and liver transplant, Hep C, and recurrent UTI who presents with fevers and abdominal pain. She denies chills. She has history of recurrent UTI. She denies chest pain or palpitations. She is compliant with her transplant meds. She is on prograf and mycopheylate. She denies diarrhea or vomiting. She denies any sick contacts. - History Source History Provided By: Patient, Medical Record - Past Medical History Gastrointestinal: Yes: Other (Hepatitis C and chronic liver dz) Hepatobiliary: Yes: Hepatitis C, Other (liver transplant) Renal/: Yes: Renal Failure - Past Surgical History Past Surgical History: Yes: Kidney Transplant, Liver Transplant - Alcohol/Substance Use Hx Alcohol Use: No - Smoking History Smoking history: Never smoked Have you smoked in the past 12 months: No Aproximately how many cigarettes per day: 0 - Social History Usual Living Arrangement: With Spouse Home Medications - Allergies Allergies/Adverse Reactions: Allergies Allergy/AdvReac Type Severity Reaction Status Date / Time No Known Allergies Allergy Verified 06/05/18 10:36 - Home Medications Home Medications: Ambulatory Orders Alendronate Sodium [Binosto] 70 mg PO WEEKLY 06/05/18 Linaclotide [Linzess] 72 mcg PO DAILY 06/05/18 Mycophenolate Sodium [Mycophenolic Acid] 360 mg PO BID 06/05/18 Ranitidine HCl [Zantac] 150 mg PO BID 06/05/18 Tacrolimus 1 mg PO BID 06/05/18 Family Disease History - Family Disease History Family History: Denies Review of Systems - Review of Systems Constitutional: reports: Fever Eyes: reports: No Symptoms HENT: reports: No Symptoms Neck: reports: No Symptoms Cardiovascular: reports: No Symptoms Respiratory: reports: No Symptoms Gastrointestinal: reports: Abdominal Pain Genitourinary: reports: No Symptoms Musculoskeletal: reports: No Symptoms Integumentary: reports: No Symptoms Neurological: reports: No Symptoms Endocrine: reports: No Symptoms Hematology/Lymphatic: reports: No Symptoms Psychiatric: reports: No Symptoms Physical Exam Vital Signs: Vital Signs Temperature 98.2 F 06/06/18 15:04 Pulse Rate 59 L 06/06/18 15:04 Respiratory Rate 20 06/06/18 15:04 Blood Pressure 91/51 L 06/06/18 15:04 O2 Sat by Pulse Oximetry (%) 100 06/06/18 06:00 Constitutional: Yes: Calm Eyes: Yes: Conjunctiva Clear HENT: Yes: Atraumatic Neck: Yes: Supple Cardiovascular: Yes: S1, S2 Respiratory: Yes: CTA Bilaterally Gastrointestinal: Yes: Soft Renal/: Yes: Other (gaft soft and non tender) Musculoskeletal: Yes: WNL Edema: No Neurological: Yes: Oriented Psychiatric: Yes: Oriented Labs: CBC, BMP 06/06/18 06:00 06/06/18 06:00 Imaging - Results Ultrasound: Report Reviewed Problem List - Problems (1) Kidney transplant recipient Code(s): Z94.0 - KIDNEY TRANSPLANT STATUS Assessment/Plan Current Medications Generic Name Dose Route Start Last Admin Trade Name Freq PRN Reason Stop Dose Admin Acetaminophen 650 mg 06/05/18 17:26 06/06/18 11:40 Tylenol - PO 650 mg Q6H PRN Administration FEVER Heparin Sodium (Porcine) 5,000 unit 06/05/18 22:00 06/06/18 11:29 Heparin - SQ 5,000 unit BID JOY Administration Dextrose/Sodium Chloride 1,000 mls @ 75 mls/hr 06/05/18 17:30 06/05/18 20:58 D5-1/2ns - IV Not Given ASDIR JOY Piperacillin Sod/Tazobactam 50 mls @ 100 mls/hr 06/06/18 10:00 06/06/18 11:29 Sod 3.375 gm/ Dextrose IVPB 100 mls/hr Q8H-IV JOY Administration Protocol Mycophenolate Sodium 360 mg 06/05/18 22:00 06/06/18 11:29 Mycophenolic Acid PO 360 mg BID JOY Administration Ondansetron HCl 4 mg 06/06/18 12:10 Zofran - PO Q8H PRN DYSPEPSIA Ranitidine HCl 150 mg 06/05/18 22:00 06/06/18 11:29 Zantac - PO 150 mg BID JOY Administration Tacrolimus 1 mg 06/05/18 22:00 06/06/18 11:29 Prograf PO 1 mg BID JOY Administration Impression 1. s/p kidney transplant 2. s/p liver transplant 3. UTI 4. hx hep c 5. hx of liver cirrhosis 6. abdominal pain 7. mild fullness in transplant Plan - repeat lab sin am - pt on 2 mg of prograft q 12 hrs, will adjust - will need repeat prograf level - repeat labs in am - urology eval - ID follow up, cont abx - will follow Dr Escalante
[2018-06-06] MEDS ORDERED: SODIUM CHLORIDE 0.45% 1,000 ML IV SCH (17:15)
--- NOTE | 2018-06-06 18:18 | PN ---
Progress Note, Physician History of Present Illness: Pt was hypotensive today - Current Medication List Current Medications: Active Medications Acetaminophen (Tylenol -) 650 mg PO Q6H PRN PRN Reason: FEVER Last Admin: 06/06/18 11:40 Dose: 650 mg Heparin Sodium (Porcine) (Heparin -) 5,000 unit SQ BID [facility] Last Admin: 06/06/18 11:29 Dose: 5,000 unit Piperacillin Sod/Tazobactam (Sod 3.375 gm/ Dextrose) 50 mls @ 100 mls/hr IVPB Q8H-IV JOY; Protocol Last Admin: 06/06/18 18:06 Dose: 100 mls/hr Sodium Chloride (1/2 Normal Saline) 1,000 mls @ 42 mls/hr IV ASDIR [facility] Last Admin: 06/06/18 18:06 Dose: 42 mls/hr Mycophenolate Sodium (Mycophenolic Acid) 360 mg PO BID [facility] Last Admin: 06/06/18 11:29 Dose: 360 mg Ondansetron HCl (Zofran -) 4 mg PO Q8H PRN PRN Reason: DYSPEPSIA Ranitidine HCl (Zantac -) 150 mg PO BID [facility] Last Admin: 06/06/18 11:29 Dose: 150 mg Tacrolimus (Prograf) 2 mg PO BID [facility] - Objective Vital Signs: Vital Signs Temperature 97.9 F 06/06/18 17:11 Pulse Rate 54 L 06/06/18 17:11 Respiratory Rate 18 06/06/18 17:11 Blood Pressure 95/59 L 06/06/18 17:11 O2 Sat by Pulse Oximetry (%) 100 06/06/18 09:00 Neck: Yes: WNL, Supple Cardiovascular: Yes: WNL, Regular Rate and Rhythm Respiratory: Yes: WNL, Regular, CTA Bilaterally Gastrointestinal: Yes: WNL, Normal Bowel Sounds, Soft Labs: CBC, BMP 06/06/18 06:00 06/06/18 06:00 INR, PTT INR 1.08 (0.83-1.09) 06/05/18 11:10 Problem List - Problems (1) Sepsis Assessment/Plan: Pt hypotensive and given NS bolus Increase IVF Urine culture showed lactose fermenting neg bacilli Cont IV ceftriaxone Renal US showed fullness ?Hydronephrosis Code(s): A41.9 - SEPSIS, UNSPECIFIED ORGANISM (2) Kidney transplant recipient Assessment/Plan: As per renal Cont prograf Code(s): Z94.0 - KIDNEY TRANSPLANT STATUS (3) Liver transplant recipient Code(s): Z94.4 - LIVER TRANSPLANT STATUS
[2018-06-06] MEDS ORDERED: DEXTROSE 5%-0.45% SALINE 1,000 ML IV SCH (22:45)
[2018-06-07] MEDS ORDERED: DEXTROSE 5%-WATER - 50 ML IVPB ONE ×4 (00:56→23:30)
[2018-06-07] MEDS ORDERED: PIPERACILLIN/TAZOBACTAM 3.375 GM VIAL IVPB ONE ×4 (00:56→23:30)
[2018-06-07] MEDS: PIPERACILLIN/TAZOB 3.375 GM 3.375 GM in DEXTROSE 5%-WATER - 50 ML IVPB SCH ×3 (01:31→17:38)
[2018-06-07 07:58] LABS: ANION GAP 8 MMOL/L (8-16); BLOOD UREA NITROGEN 6 mg/dL (7-18); CALCIUM 8.1 mg/dL (8.5-10.1); CHLORIDE 111 mmol/L (98-107); CO2 27 mmol/L (21-32); CREATININE 0.5 mg/dL (0.55-1.3); GLUCOSE,RANDOM 130 mg/dL (74-106); SODIUM 146 mmol/L (136-145)
[2018-06-07 08:03] LABS: BASO % 0.4 % (0-2.0); EOS % 1.3 % (0-4.5); HEMATOCRIT 28.5 % (32.4-45.2); HEMOGLOBIN 9.3 GM/dL (10.7-15.3); LYMPH % 15.6 % (8-40); MCH 30.8 pg (25.7-33.7); MCHC 32.8 g/dl (32.0-36.0); MEAN CELL VOLUME 93.8 fl (80-96); MEAN PLT VOLUME 10.1 fl (7.5-11.1); MONO % 10.3 % (3.8-10.2); NEUT % 72.4 % (42.8-82.8); PLATELET COUNT 75 K/MM3 (134-434); RBC 3.03 M/mm3 (3.60-5.2); WHITE BLOOD COUNT 2.4 K/mm3 (4.0-10.0)
--- NOTE | 2018-06-07 08:23 | PN ---
Progress Note, Physician History of Present Illness: still c/o of pain in the throat improving remaining afebrile urine positive - Current Medication List Current Medications: Active Medications Acetaminophen (Tylenol -) 650 mg PO Q6H PRN PRN Reason: FEVER Last Admin: 06/06/18 11:40 Dose: 650 mg Heparin Sodium (Porcine) (Heparin -) 5,000 unit SQ BID [facility] Last Admin: 06/06/18 21:46 Dose: 5,000 unit Piperacillin Sod/Tazobactam (Sod 3.375 gm/ Dextrose) 50 mls @ 100 mls/hr IVPB Q8H-IV JOY; Protocol Last Admin: 06/07/18 01:31 Dose: 100 mls/hr Dextrose/Sodium Chloride (D5-1/2ns -) 1,000 mls @ 100 mls/hr IV ASDIR [facility] Last Admin: 06/06/18 23:04 Dose: 100 mls/hr Mycophenolate Sodium (Mycophenolic Acid) 360 mg PO BID [facility] Last Admin: 06/06/18 21:40 Dose: 360 mg Ondansetron HCl (Zofran -) 4 mg PO Q8H PRN PRN Reason: DYSPEPSIA Ranitidine HCl (Zantac -) 150 mg PO BID [facility] Last Admin: 06/06/18 21:41 Dose: 150 mg Tacrolimus (Prograf) 2 mg PO BID [facility] Last Admin: 06/06/18 21:44 Dose: 2 mg - Objective Vital Signs: Vital Signs Temperature 98.4 F 06/07/18 07:55 Pulse Rate 57 L 06/07/18 07:55 Respiratory Rate 20 06/07/18 07:55 Blood Pressure 98/65 06/07/18 07:55 O2 Sat by Pulse Oximetry (%) 100 06/06/18 21:00 Constitutional: Yes: Calm, Mild Distress Cardiovascular: Yes: Regular Rate and Rhythm Respiratory: Yes: Regular, CTA Bilaterally Gastrointestinal: Yes: Normal Bowel Sounds, Soft Musculoskeletal: Yes: WNL Extremities: Yes: WNL Neurological: Yes: Alert, Oriented Psychiatric: Yes: Alert, Oriented Labs: CBC, BMP 06/07/18 06:30 06/07/18 06:30 INR, PTT INR 1.08 (0.83-1.09) 06/05/18 11:10 Assessment/Plan Problem List - Problems (1) Sepsis Code(s): A41.9 - SEPSIS, UNSPECIFIED ORGANISM (2) Kidney transplant recipient Code(s): Z94.0 - KIDNEY TRANSPLANT STATUS (3) Liver transplant recipient Code(s): Z94.4 - LIVER TRANSPLANT STATUS 4 fever plan continue current mgmt await for identification of the organism monitor fevers and wbc rest as per the team
--- NOTE | 2018-06-07 08:41 | CON.CARD ---
Cardiology Consult (text) - Consultation Consultation Note: Cardiology Consult Dictated IMP: UTI, sepsis Hypotension in setting of above. REC: 1. Hydrate 2. Abx 3. Echo for EF assessment Will follow
[2018-06-07] MEDS: RANITIDINE HCL 150 MG TABLET (FP) PO SCH ×2 (10:06→21:52)
[2018-06-07] MEDS: HEPARIN NA (PORCINE) 5,000 UNITS/ML 1ML VIAL SQ SCH ×2 (10:06→21:24)
[2018-06-07] MEDS: TACROLIMUS ANHYDROUS 1 MG CAPSULE PO SCH ×2 (10:07→21:52)
[2018-06-07] MEDS: MYCOPHENOLATE SODIUM 360 MG TABLET.DR PO SCH ×2 (10:07→21:52)
--- NOTE | 2018-06-07 10:08 | CONS ---
CARDIOLOGY CONSULTATION DATE OF CONSULTATION: 06/07/2018 REQUESTING PHYSICIAN: Rea Peterson MD REASON FOR CONSULTATION: Hypotension. The patient is a 57-year-old female with a significant past medical history of hepatitis C status post liver transplantation in 2013, osteonecrosis of the hip, recurrent UTIs, who presented to the emergency department on June 05, 2018, with 3 days of fever, sore throat, general malaise, and suprapubic pain. She was found to have a UTI and has been started on IV antibiotics. Since admission, her blood pressure has been running low, anywhere from 83 systolic to 98 systolic over 50-60. Today, she is examined, in no acute distress. She denies chest pain, short of breath, palpitations, pleuritic pain. She denies dizziness or lightheadedness. PAST MEDICAL HISTORY: As above and also includes a history of renal transplantation as per records. ALLERGIES: None. CURRENT MEDICATIONS: Include Tylenol 650 mg p.o. q.6 p.r.n., D5 half-normal saline, subcutaneous heparin 5000 units b.i.d., mycophenolate 360 p.o. b.i.d., ondansetron 4 mg p.o. q.8 p.r.n., Zosyn, Zantac 150 b.i.d., and tacrolimus 2 mg p.o. b.i.d. FAMILY HISTORY: Noncontributory. SOCIAL HISTORY: She never smoked. Denies current alcohol or illicit substance abuse. PHYSICAL EXAMINATION: General: No distress. HEENT: Anicteric. Vital Signs: Temperature now 98.4, pulse 57, blood pressure 100/65, O2 of 100 on room air. Neck: No JVP elevation. Heart: S1, S2 regular. No murmurs. Chest: Clear. Abdomen: Soft, nontender. Extremities: No edema. EKG showed normal sinus rhythm at 70 beats per minute with a left anterior fascicular block. No acute ST changes. LABORATORY DATA: White count 2.4, hemoglobin 9.3, platelets 75,000. INR 1.08. Sodium 146, potassium 4, BUN 6 and creatinine 0.5. Troponin is negative. LFTs area normal. Urine culture was positive for gram-negative bacilli. Blood cultures are negative. IMPRESSION: 1. Urinary tract infection, history of renal transplantation, possible early hydronephrosis/pyelonephritis. 2. Hypotension in the setting of above. RECOMMENDATIONS: 1. IV hydration. Consider switching D5 half-normal to normal saline. 2. Antibiotics as per PMD, ID. 3. Will check echocardiogram for EF assessment. Will follow. Thank you for the consultation. FABIAN JOEL M.D. [id number]
--- NOTE | 2018-06-07 13:56 | ECHO ---
Name: INOCENTE FREEMAN Exam:Adult Echocardiogram Study Date: 06/07/2018 10:45 AM Age: 57 yrs Reason For Study: hypotensive Height: 53 in Weight: 119 lb BSA: 1.4 m2 MMode/2D Measurements & Calculations IVSd: 0.70 cm Ao root diam: 2.5 cm LVIDd: 3.8 cm LA dimension: 2.9 cm LVIDs: 2.6 cm LVPWd: 0.79 cm EDV(Teich): 60.2 ml LVOT diam: 1.8 cm ESV(Teich): 23.5 ml Doppler Measurements & Calculations MV E max jefry: 76.0 cm/sec Ao V2 max: 194.4 cm/sec MV A max jefry: 59.2 cm/sec Ao max P.1 mmHg MV E/A: 1.3 AI P1/2t: 681.1 msec AI max jefry: 384.8 cm/sec TR max jefry: 249.8 cm/sec AI max P.2 mmHg TR max P.0 mmHg AI dec slope: 165.5 cm/sec2 Med Peak E' Jefry: 8.4 cm/sec Med E/e': 9.0 Lat Peak E' Jefry: 9.5 cm/sec Lat E/e': 8.0 Procedure A complete two-dimensional transthoracic echocardiogram was performed (2D, M-mode, Doppler and color flow Doppler). Left Ventricle The left ventricular size, thickness and function are normal. Ejection Fraction = 65%. The transmitra l spectral Doppler flow pattern is suggestive of impaired LV relaxation. The left ventricular wall lachelle on is normal. Right Ventricle The right ventricle is normal in size and function. Atria Normal left and right atrial size and function. Mitral Valve The mitral valve is normal in structure and function. There is trace mitral regurgitation. Tricuspid Valve The tricuspid valve is normal. There is trace tricuspid regurgitation. Right ventricular systolic pre ssure is 25 mmhg. Aortic Valve The aortic valve is normal in structure and function. Mild aortic regurgitation. Pulmonic Valve The pulmonic valve is not well seen, but is grossly normal. Great Vessels The aortic root is normal size. Pericardium/Pleura There is no pericardial effusion. There is no pleural effusion. Interpretation Summary The left ventricular size, thickness and function are normal Ejection Fraction = 65%. There is trace mitral regurgitation. There is trace tricuspid regurgitation. Right ventricular systolic pressure is 25 mmhg. Mild aortic regurgitation. MD Cleveland Campos 06/07/2018 01:55 PM
--- NOTE | 2018-06-07 17:56 | PN ---
Progress Note, Physician History of Present Illness: Pt seen and examined at bedside. She is awake and alert. She denies abdominal pain. - Current Medication List Current Medications: Active Medications Acetaminophen (Tylenol -) 650 mg PO Q6H PRN PRN Reason: FEVER Last Admin: 06/06/18 11:40 Dose: 650 mg Heparin Sodium (Porcine) (Heparin -) 5,000 unit SQ BID [facility] Last Admin: 06/07/18 10:06 Dose: 5,000 unit Piperacillin Sod/Tazobactam (Sod 3.375 gm/ Dextrose) 50 mls @ 100 mls/hr IVPB Q8H-IV JOY; Protocol Last Admin: 06/07/18 17:38 Dose: 100 mls/hr Dextrose/Sodium Chloride (D5-1/2ns -) 1,000 mls @ 100 mls/hr IV ASDIR [facility] Last Admin: 06/06/18 23:04 Dose: 100 mls/hr Mycophenolate Sodium (Mycophenolic Acid) 360 mg PO BID [facility] Last Admin: 06/07/18 10:07 Dose: 360 mg Ondansetron HCl (Zofran -) 4 mg PO Q8H PRN PRN Reason: DYSPEPSIA Ranitidine HCl (Zantac -) 150 mg PO BID [facility] Last Admin: 06/07/18 10:06 Dose: 150 mg Tacrolimus (Prograf) 2 mg PO BID [facility] Last Admin: 06/07/18 10:07 Dose: 2 mg - Objective Vital Signs: Vital Signs Temperature 98.3 F 06/07/18 17:08 Pulse Rate 51 L 06/07/18 17:08 Respiratory Rate 20 06/07/18 17:08 Blood Pressure 105/58 L 06/07/18 17:08 O2 Sat by Pulse Oximetry (%) 100 06/07/18 09:00 Constitutional: Yes: Calm Eyes: Yes: Conjunctiva Clear HENT: Yes: Atraumatic Neck: Yes: Supple Cardiovascular: Yes: S1, S2 Respiratory: Yes: CTA Bilaterally Gastrointestinal: Yes: Soft Genitourinary: Yes: Other (graft soft and non tender) Edema: No Neurological: Yes: Oriented Psychiatric: Yes: Oriented Labs: CBC, BMP 06/07/18 06:30 06/07/18 06:30 INR, PTT INR 1.08 (0.83-1.09) 06/05/18 11:10 Problem List - Problems (1) Kidney transplant recipient Code(s): Z94.0 - KIDNEY TRANSPLANT STATUS Assessment/Plan Current Medications Generic Name Dose Route Start Last Admin Trade Name Freq PRN Reason Stop Dose Admin Acetaminophen 650 mg 06/05/18 17:26 06/06/18 11:40 Tylenol - PO 650 mg Q6H PRN Administration FEVER Heparin Sodium (Porcine) 5,000 unit 06/05/18 22:00 06/07/18 10:06 Heparin - SQ 5,000 unit BID JOY Administration Piperacillin Sod/Tazobactam 50 mls @ 100 mls/hr 06/06/18 10:00 06/07/18 17:38 Sod 3.375 gm/ Dextrose IVPB 100 mls/hr Q8H-IV JOY Administration Protocol Dextrose/Sodium Chloride 1,000 mls @ 100 mls/hr 06/06/18 22:45 06/06/18 23:04 D5-1/2ns - IV 100 mls/hr ASDIR JOY Administration Mycophenolate Sodium 360 mg 06/05/18 22:00 06/07/18 10:07 Mycophenolic Acid PO 360 mg BID JOY Administration Ondansetron HCl 4 mg 06/06/18 12:10 Zofran - PO Q8H PRN DYSPEPSIA Ranitidine HCl 150 mg 06/05/18 22:00 06/07/18 10:06 Zantac - PO 150 mg BID JOY Administration Tacrolimus 2 mg 06/06/18 17:14 06/07/18 10:07 Prograf PO 2 mg BID JOY Administration Impression 1. s/p kidney transplant 2. s/p liver transplant 3. UTI 4. hx hep c 5. hx of liver cirrhosis 6. abdominal pain 7. mild fullness in transplant Plan - chage fluids to 1/2 ns - repeat labs in am - check prograf level - repeat labs in am - urology eval - ID follow up, cont abx - will follow Dr Escalante
[2018-06-07] MEDS ORDERED: SODIUM CHLORIDE 0.45% 1,000 ML IV SCH (18:00)
--- NOTE | 2018-06-07 22:34 | PN ---
Progress Note, Physician - Current Medication List Current Medications: Active Medications Acetaminophen (Tylenol -) 650 mg PO Q6H PRN PRN Reason: FEVER Last Admin: 06/06/18 11:40 Dose: 650 mg Heparin Sodium (Porcine) (Heparin -) 5,000 unit SQ BID [facility] Last Admin: 06/07/18 21:24 Dose: 5,000 unit Piperacillin Sod/Tazobactam (Sod 3.375 gm/ Dextrose) 50 mls @ 100 mls/hr IVPB Q8H-IV JOY; Protocol Last Admin: 06/07/18 17:38 Dose: 100 mls/hr Sodium Chloride (1/2 Normal Saline) 1,000 mls @ 83 mls/hr IV ASDIR JOY Mycophenolate Sodium (Mycophenolic Acid) 360 mg PO BID [facility] [place] Last Admin: 06/07/18 21:52 Dose: 360 mg Ondansetron HCl (Zofran -) 4 mg PO Q8H PRN PRN Reason: DYSPEPSIA Ranitidine HCl (Zantac -) 150 mg PO BID [facility] [place] Last Admin: 06/07/18 21:52 Dose: 150 mg Tacrolimus (Prograf) 2 mg PO BID [facility] Last Admin: 06/07/18 21:52 Dose: 2 mg - Objective Vital Signs: Vital Signs Temperature 98.1 F 06/07/18 19:37 Pulse Rate 56 L 06/07/18 19:37 Respiratory Rate 18 06/07/18 19:37 Blood Pressure 104/57 L 06/07/18 19:37 O2 Sat by Pulse Oximetry (%) 100 06/07/18 20:02 Labs: CBC, BMP 06/07/18 06:30 06/07/18 06:30 INR, PTT INR 1.08 (0.83-1.09) 06/05/18 11:10 Problem List - Problems (1) Sepsis Code(s): A41.9 - SEPSIS, UNSPECIFIED ORGANISM (2) Kidney transplant recipient Code(s): Z94.0 - KIDNEY TRANSPLANT STATUS (3) Liver transplant recipient Code(s): Z94.4 - LIVER TRANSPLANT STATUS
[2018-06-08] MEDS: PIPERACILLIN/TAZOB 3.375 GM 3.375 GM in DEXTROSE 5%-WATER - 50 ML IVPB SCH ×3 (01:12→18:34)
[2018-06-08 08:05] LABS: BASO % 0.5 % (0-2.0); EOS % 3.1 % (0-4.5); HEMATOCRIT 29.6 % (32.4-45.2); HEMOGLOBIN 9.6 GM/dL (10.7-15.3); LYMPH % 23.6 % (8-40); MCH 30.2 pg (25.7-33.7); MCHC 32.3 g/dl (32.0-36.0); MEAN CELL VOLUME 93.6 fl (80-96); MEAN PLT VOLUME 9.3 fl (7.5-11.1); MONO % 8.9 % (3.8-10.2); NEUT % 63.9 % (42.8-82.8); PLATELET COUNT 84 K/MM3 (134-434); RBC 3.17 M/mm3 (3.60-5.2); RDW 14.1 % (11.6-15.6); WHITE BLOOD COUNT 2.1 K/mm3 (4.0-10.0)
[2018-06-08 08:28] LABS: ANION GAP 6 MMOL/L (8-16); BLOOD UREA NITROGEN 4 mg/dL (7-18); CALCIUM 7.9 mg/dL (8.5-10.1); CHLORIDE 112 mmol/L (98-107); CO2 27 mmol/L (21-32); CREATININE 0.5 mg/dL (0.55-1.3); GLUCOSE,RANDOM 88 mg/dL (74-106); POTASSIUM 3.6 mmol/L (3.5-5.1); SODIUM 146 mmol/L (136-145)
--- NOTE | 2018-06-08 09:17 | PN ---
Progress Note, Physician Chief Complaint: Echo normal History of Present Illness: BP improving - Current Medication List Current Medications: Active Medications Acetaminophen (Tylenol -) 650 mg PO Q6H PRN PRN Reason: FEVER Last Admin: 06/06/18 11:40 Dose: 650 mg Heparin Sodium (Porcine) (Heparin -) 5,000 unit SQ BID [facility] Last Admin: 06/07/18 21:24 Dose: 5,000 unit Piperacillin Sod/Tazobactam (Sod 3.375 gm/ Dextrose) 50 mls @ 100 mls/hr IVPB Q8H-IV JOY; Protocol Last Admin: 06/08/18 01:12 Dose: 100 mls/hr Sodium Chloride (1/2 Normal Saline) 1,000 mls @ 83 mls/hr IV ASDIR [facility] Last Admin: 06/07/18 23:43 Dose: 83 mls/hr Mycophenolate Sodium (Mycophenolic Acid) 360 mg PO BID [facility] Last Admin: 06/07/18 21:52 Dose: 360 mg Ondansetron HCl (Zofran -) 4 mg PO Q8H PRN PRN Reason: DYSPEPSIA Ranitidine HCl (Zantac -) 150 mg PO BID [facility] Last Admin: 06/07/18 21:52 Dose: 150 mg Tacrolimus (Prograf) 2 mg PO BID [facility] Last Admin: 06/07/18 21:52 Dose: 2 mg - Objective Vital Signs: Vital Signs Temperature 98.2 F 06/08/18 06:58 Pulse Rate 49 L 06/08/18 06:58 Respiratory Rate 20 06/08/18 06:58 Blood Pressure 92/69 06/08/18 06:58 O2 Sat by Pulse Oximetry (%) 100 06/07/18 21:00 Constitutional: Yes: No Distress Cardiovascular: Yes: Regular Rate and Rhythm Respiratory: Yes: CTA Bilaterally Gastrointestinal: Yes: Soft Edema: No Neurological: Yes: Alert, Oriented ...Motor Strength: WNL Labs: CBC, BMP 06/08/18 07:00 06/08/18 07:15 INR, PTT INR 1.08 (0.83-1.09) 06/05/18 11:10 Assessment/Plan IMP: UTI, sepsis Hypotension in setting of above. REC: Echo normal, BP stable. Asx. Cont Rx of UTI as per PMD and ID. Please call again as / if needed. Thank you
[2018-06-08] MEDS ORDERED: PIPERACILLIN/TAZOBACTAM 3.375 GM VIAL IVPB ONE ×2 (09:27→17:51)
[2018-06-08] MEDS ORDERED: DEXTROSE 5%-WATER - 50 ML IVPB ONE ×2 (09:27→17:52)
[2018-06-08] MEDS ORDERED: PT OWN MED DRAWER 7, Y5N ONE ×3 (09:27→11:43)
[2018-06-08] MEDS: HEPARIN NA (PORCINE) 5,000 UNITS/ML 1ML VIAL SQ SCH ×2 (09:58→21:13)
[2018-06-08] MEDS: RANITIDINE HCL 150 MG TABLET (FP) PO SCH ×2 (09:58→21:13)
[2018-06-08] MEDS: NYSTATIN 500,000 UNITS/5 ML SUSPENSION PO SCH ×4 (11:37→21:13)
[2018-06-08] MEDS: MYCOPHENOLATE SODIUM 360 MG TABLET.DR PO SCH ×2 (11:38→21:13)
[2018-06-08] MEDS: TACROLIMUS ANHYDROUS 1 MG CAPSULE PO SCH ×2 (11:38→21:13)
--- NOTE | 2018-06-08 11:52 | PN ---
Progress Note, Physician History of Present Illness: Pt seen and examined at bedside. She is awake and alert. She denies shortness of breath. - Current Medication List Current Medications: Active Medications Acetaminophen (Tylenol -) 650 mg PO Q6H PRN PRN Reason: FEVER Last Admin: 06/06/18 11:40 Dose: 650 mg Heparin Sodium (Porcine) (Heparin -) 5,000 unit SQ BID [facility] Last Admin: 06/08/18 09:58 Dose: 5,000 unit Piperacillin Sod/Tazobactam (Sod 3.375 gm/ Dextrose) 50 mls @ 100 mls/hr IVPB Q8H-IV JOY; Protocol Last Admin: 06/08/18 09:58 Dose: 100 mls/hr Sodium Chloride (1/2 Normal Saline) 1,000 mls @ 83 mls/hr IV ASDIR [facility] Last Admin: 06/07/18 23:43 Dose: 83 mls/hr Mycophenolate Sodium (Mycophenolic Acid) 360 mg PO BID [facility] Last Admin: 06/08/18 11:38 Dose: 360 mg Nystatin (Nystatin Oral Suspension -) 500,000 units PO QID [facility] Last Admin: 06/08/18 11:37 Dose: 500,000 units Ondansetron HCl (Zofran -) 4 mg PO Q8H PRN PRN Reason: DYSPEPSIA Ranitidine HCl (Zantac -) 150 mg PO BID [facility] Last Admin: 06/08/18 09:58 Dose: 150 mg Tacrolimus (Prograf) 2 mg PO BID [facility] Last Admin: 06/08/18 11:38 Dose: 2 mg - Objective Vital Signs: Vital Signs Temperature 98.2 F 06/08/18 06:58 Pulse Rate 49 L 06/08/18 06:58 Respiratory Rate 20 06/08/18 06:58 Blood Pressure 92/69 06/08/18 06:58 O2 Sat by Pulse Oximetry (%) 100 06/07/18 21:00 Constitutional: Yes: Calm Eyes: Yes: Conjunctiva Clear HENT: Yes: Atraumatic Neck: Yes: Supple Cardiovascular: Yes: S1, S2 Respiratory: Yes: CTA Bilaterally Gastrointestinal: Yes: Soft Genitourinary: Yes: Other (graft is soft) Musculoskeletal: Yes: WNL Edema: No Neurological: Yes: Oriented Psychiatric: Yes: Oriented Labs: CBC, BMP 06/08/18 07:00 06/08/18 07:15 INR, PTT INR 1.08 (0.83-1.09) 06/05/18 11:10 Problem List - Problems (1) Kidney transplant recipient Code(s): Z94.0 - KIDNEY TRANSPLANT STATUS Assessment/Plan Current Medications Generic Name Dose Route Start Last Admin Trade Name Freq PRN Reason Stop Dose Admin Acetaminophen 650 mg 06/05/18 17:26 06/06/18 11:40 Tylenol - PO 650 mg Q6H PRN Administration FEVER Heparin Sodium (Porcine) 5,000 unit 06/05/18 22:00 06/08/18 09:58 Heparin - SQ 5,000 unit BID JOY Administration Piperacillin Sod/Tazobactam 50 mls @ 100 mls/hr 06/06/18 10:00 06/08/18 09:58 Sod 3.375 gm/ Dextrose IVPB 100 mls/hr Q8H-IV JOY Administration Protocol Sodium Chloride 1,000 mls @ 83 mls/hr 06/07/18 18:00 06/07/18 23:43 1/2 Normal Saline IV 83 mls/hr ASDIR JOY Administration Mycophenolate Sodium 360 mg 06/05/18 22:00 06/08/18 11:38 Mycophenolic Acid PO 360 mg BID JOY Administration Nystatin 500,000 units 06/08/18 11:30 06/08/18 11:37 Nystatin Oral Suspension - PO 500,000 units QID JOY Administration Ondansetron HCl 4 mg 06/06/18 12:10 Zofran - PO Q8H PRN DYSPEPSIA Ranitidine HCl 150 mg 06/05/18 22:00 06/08/18 09:58 Zantac - PO 150 mg BID JOY Administration Tacrolimus 2 mg 06/06/18 17:14 06/08/18 11:38 Prograf PO 2 mg BID JOY Administration Impression 1. s/p kidney transplant 2. s/p liver transplant 3. UTI 4. hx hep c 5. hx of liver cirrhosis 6. abdominal pain 7. mild fullness in transplant Plan - cont fluids - follow repeat prograf level, first level drawn at wrong time and with wrong dose - will get another level for tomorrow - urology eval - ID follow up, cont abx - will follow Dr Escalante
[2018-06-08] MEDS ORDERED: POTASSIUM CHLORIDE TABS 20 MEQ TABLET.ER (FP) PO ONE (11:54)
--- NOTE | 2018-06-08 12:01 | PN ---
Progress Note, Physician History of Present Illness: stable no new issues - Current Medication List Current Medications: Active Medications Acetaminophen (Tylenol -) 650 mg PO Q6H PRN PRN Reason: FEVER Last Admin: 06/06/18 11:40 Dose: 650 mg Heparin Sodium (Porcine) (Heparin -) 5,000 unit SQ BID [facility] Last Admin: 06/08/18 09:58 Dose: 5,000 unit Piperacillin Sod/Tazobactam (Sod 3.375 gm/ Dextrose) 50 mls @ 100 mls/hr IVPB Q8H-IV JOY; Protocol Last Admin: 06/08/18 09:58 Dose: 100 mls/hr Dextrose/Sodium Chloride (D5-1/3ns -) 500 mls @ 42 mls/hr IV ASDIR [facility] Mycophenolate Sodium (Mycophenolic Acid) 360 mg PO BID [facility] Last Admin: 06/08/18 11:38 Dose: 360 mg Nystatin (Nystatin Oral Suspension -) 500,000 units PO QID [facility] Last Admin: 06/08/18 11:37 Dose: 500,000 units Ondansetron HCl (Zofran -) 4 mg PO Q8H PRN PRN Reason: DYSPEPSIA Potassium Chloride (K-Dur -) 20 meq PO ONCE ONE Stop: 06/08/18 11:55 Ranitidine HCl (Zantac -) 150 mg PO BID [facility] Last Admin: 06/08/18 09:58 Dose: 150 mg Tacrolimus (Prograf) 2 mg PO BID [facility] Last Admin: 06/08/18 11:38 Dose: 2 mg - Objective Vital Signs: Vital Signs Temperature 98.2 F 06/08/18 06:58 Pulse Rate 49 L 06/08/18 06:58 Respiratory Rate 20 06/08/18 06:58 Blood Pressure 92/69 06/08/18 06:58 O2 Sat by Pulse Oximetry (%) 100 06/07/18 21:00 Constitutional: Yes: No Distress, Calm Cardiovascular: Yes: Regular Rate and Rhythm Respiratory: Yes: Regular, CTA Bilaterally Gastrointestinal: Yes: Normal Bowel Sounds, Soft Musculoskeletal: Yes: WNL Extremities: Yes: WNL Neurological: Yes: Alert, Oriented Psychiatric: Yes: Alert, Oriented Labs: CBC, BMP 06/08/18 07:00 06/08/18 07:15 INR, PTT INR 1.08 (0.83-1.09) 06/05/18 11:10 Assessment/Plan Problem List - Problems (1) Sepsis Code(s): A41.9 - SEPSIS, UNSPECIFIED ORGANISM (2) Kidney transplant recipient Code(s): Z94.0 - KIDNEY TRANSPLANT STATUS (3) Liver transplant recipient Code(s): Z94.4 - LIVER TRANSPLANT STATUS 4 fever plan continue current mgmt organism noted ct abx has been afebrile now ct iv for another 2 days will then deescalte by wednesday
[2018-06-08] MEDS: DEXTROSE 5%-1/3 NS - 500 ML IV SCH (14:22)
--- NOTE | 2018-06-08 20:34 | PN ---
Progress Note, Physician - Current Medication List Current Medications: Active Medications Acetaminophen (Tylenol -) 650 mg PO Q6H PRN PRN Reason: FEVER Last Admin: 06/06/18 11:40 Dose: 650 mg Heparin Sodium (Porcine) (Heparin -) 5,000 unit SQ BID [facility] Last Admin: 06/08/18 09:58 Dose: 5,000 unit Piperacillin Sod/Tazobactam (Sod 3.375 gm/ Dextrose) 50 mls @ 100 mls/hr IVPB Q8H-IV JOY; Protocol Last Admin: 06/08/18 18:34 Dose: 100 mls/hr Dextrose/Sodium Chloride (D5-1/3ns -) 500 mls @ 42 mls/hr IV ASDIR [facility] Last Admin: 06/08/18 14:22 Dose: 42 mls/hr Mycophenolate Sodium (Mycophenolic Acid) 360 mg PO BID [facility] Last Admin: 06/08/18 11:38 Dose: 360 mg Nystatin (Nystatin Oral Suspension -) 500,000 units PO QID [facility] Last Admin: 06/08/18 18:34 Dose: 500,000 units Ondansetron HCl (Zofran -) 4 mg PO Q8H PRN PRN Reason: DYSPEPSIA Ranitidine HCl (Zantac -) 150 mg PO BID [facility] Last Admin: 06/08/18 09:58 Dose: 150 mg Tacrolimus (Prograf) 2 mg PO BID [facility] Last Admin: 06/08/18 11:38 Dose: 2 mg - Objective Vital Signs: Vital Signs Temperature 98.1 F 06/08/18 20:07 Pulse Rate 54 L 06/08/18 20:07 Respiratory Rate 20 06/08/18 20:07 Blood Pressure 102/57 L 06/08/18 20:07 O2 Sat by Pulse Oximetry (%) 99 06/08/18 20:08 Labs: CBC, BMP 06/08/18 07:00 06/08/18 07:15 INR, PTT INR 1.08 (0.83-1.09) 06/05/18 11:10 Problem List - Problems (1) Sepsis Code(s): A41.9 - SEPSIS, UNSPECIFIED ORGANISM (2) Kidney transplant recipient Code(s): Z94.0 - KIDNEY TRANSPLANT STATUS (3) Liver transplant recipient Code(s): Z94.4 - LIVER TRANSPLANT STATUS
[2018-06-09] MEDS ORDERED: PIPERACILLIN/TAZOBACTAM 3.375 GM VIAL IVPB ONE ×4 (01:18→20:22)
[2018-06-09] MEDS ORDERED: DEXTROSE 5%-WATER - 50 ML IVPB ONE ×4 (01:19→20:22)
[2018-06-09] MEDS: PIPERACILLIN/TAZOB 3.375 GM 3.375 GM in DEXTROSE 5%-WATER - 50 ML IVPB SCH ×3 (02:45→17:50)
[2018-06-09] MEDS: DEXTROSE 5%-1/3 NS - 500 ML IV SCH (03:19)
[2018-06-09 07:04] LABS: BASO % 0.6 % (0-2.0); EOS % 3.2 % (0-4.5); HEMATOCRIT 28.5 % (32.4-45.2); HEMOGLOBIN 9.1 GM/dL (10.7-15.3); MCH 30.1 pg (25.7-33.7); MCHC 32.1 g/dl (32.0-36.0); MEAN CELL VOLUME 93.7 fl (80-96); MEAN PLT VOLUME 8.8 fl (7.5-11.1); MONO % 8.3 % (3.8-10.2); NEUT % 63.9 % (42.8-82.8); PLATELET COUNT 91 K/MM3 (134-434); RBC 3.04 M/mm3 (3.60-5.2); RDW 13.8 % (11.6-15.6); WHITE BLOOD COUNT 2.1 K/mm3 (4.0-10.0)
[2018-06-09 07:41] LABS: ALBUMIN 2.8 g/dl (3.4-5.0); ALK PHOS 70 U/L (45-117); ANION GAP 6 MMOL/L (8-16); BILIRUBIN,TOTAL 0.2 mg/dL (0.2-1); BLOOD UREA NITROGEN 5 mg/dL (7-18); CALCIUM 7.9 mg/dL (8.5-10.1); CHLORIDE 114 mmol/L (98-107); CO2 27 mmol/L (21-32); CREATININE 0.4 mg/dL (0.55-1.3); GLUCOSE,RANDOM 97 mg/dL (74-106); POTASSIUM 3.9 mmol/L (3.5-5.1); SGOT/AST 9 U/L (15-37); SGPT/ALT 16 U/L (13-61); SODIUM 147 mmol/L (136-145); TOT PROT 5.8 g/dl (6.4-8.2)
[2018-06-09] MEDS ORDERED: PT OWN MED DRAWER 7, Y5N ONE (10:29)
[2018-06-09] MEDS: HEPARIN NA (PORCINE) 5,000 UNITS/ML 1ML VIAL SQ SCH ×2 (10:34→22:04)
[2018-06-09] MEDS: RANITIDINE HCL 150 MG TABLET (FP) PO SCH ×2 (10:34→22:04)
[2018-06-09] MEDS: MYCOPHENOLATE SODIUM 360 MG TABLET.DR PO SCH ×2 (10:34→22:05)
[2018-06-09] MEDS: TACROLIMUS ANHYDROUS 1 MG CAPSULE PO SCH ×2 (10:34→22:04)
[2018-06-09] MEDS: NYSTATIN 500,000 UNITS/5 ML SUSPENSION PO SCH ×4 (10:34→22:04)
[2018-06-09] MEDS: ACETAMINOPHEN 325 MG TABLET (FP) PO PRN (10:37)
--- NOTE | 2018-06-09 13:39 | PN ---
Progress Note, Physician History of Present Illness: no complaints patient stable wbc on lower side - Current Medication List Current Medications: Active Medications Acetaminophen (Tylenol -) 650 mg PO Q6H PRN PRN Reason: FEVER Last Admin: 06/09/18 10:37 Dose: 650 mg Heparin Sodium (Porcine) (Heparin -) 5,000 unit SQ BID [facility] Last Admin: 06/09/18 10:34 Dose: 5,000 unit Piperacillin Sod/Tazobactam (Sod 3.375 gm/ Dextrose) 50 mls @ 100 mls/hr IVPB Q8H-IV JOY; Protocol Last Admin: 06/09/18 10:34 Dose: 100 mls/hr Mycophenolate Sodium (Mycophenolic Acid) 360 mg PO BID [facility] Last Admin: 06/09/18 10:34 Dose: 360 mg Nystatin (Nystatin Oral Suspension -) 500,000 units PO QID [facility] Last Admin: 06/09/18 10:34 Dose: 500,000 units Ondansetron HCl (Zofran -) 4 mg PO Q8H PRN PRN Reason: DYSPEPSIA Ranitidine HCl (Zantac -) 150 mg PO BID [facility] Last Admin: 06/09/18 10:34 Dose: 150 mg Tacrolimus (Prograf) 2 mg PO BID [facility] Last Admin: 06/09/18 10:34 Dose: 2 mg - Objective Vital Signs: Vital Signs Temperature 98.1 F 06/09/18 06:32 Pulse Rate 47 L 06/09/18 06:32 Respiratory Rate 20 06/09/18 06:32 Blood Pressure 100/68 06/09/18 06:32 O2 Sat by Pulse Oximetry (%) 98 06/08/18 21:00 Constitutional: Yes: No Distress, Calm Cardiovascular: Yes: Regular Rate and Rhythm Respiratory: Yes: Regular, CTA Bilaterally Gastrointestinal: Yes: Normal Bowel Sounds, Soft Musculoskeletal: Yes: WNL Extremities: Yes: WNL Neurological: Yes: Alert, Oriented Psychiatric: Yes: Alert, Oriented Labs: CBC, BMP 06/09/18 06:30 06/09/18 06:30 INR, PTT INR 1.08 (0.83-1.09) 06/05/18 11:10 Assessment/Plan Problem List - Problems (1) Sepsis Code(s): A41.9 - SEPSIS, UNSPECIFIED ORGANISM (2) Kidney transplant recipient Code(s): Z94.0 - KIDNEY TRANSPLANT STATUS (3) Liver transplant recipient Code(s): Z94.4 - LIVER TRANSPLANT STATUS 4 fever plan continue current mgmt organism noted ct abx has been afebrile now ct iv for another 2 days will then deescalte by wednesday
--- NOTE | 2018-06-09 16:33 | PN ---
Progress Note, Physician History of Present Illness: Pt seen and examined at bedside. She is awake and alert. She denies abdominal pain. She denies dysuria. - Current Medication List Current Medications: Active Medications Acetaminophen (Tylenol -) 650 mg PO Q6H PRN PRN Reason: FEVER Last Admin: 06/09/18 10:37 Dose: 650 mg Heparin Sodium (Porcine) (Heparin -) 5,000 unit SQ BID [facility] Last Admin: 06/09/18 10:34 Dose: 5,000 unit Piperacillin Sod/Tazobactam (Sod 3.375 gm/ Dextrose) 50 mls @ 100 mls/hr IVPB Q8H-IV JOY; Protocol Last Admin: 06/09/18 10:34 Dose: 100 mls/hr Mycophenolate Sodium (Mycophenolic Acid) 360 mg PO BID [facility] Last Admin: 06/09/18 10:34 Dose: 360 mg Nystatin (Nystatin Oral Suspension -) 500,000 units PO QID [facility] Last Admin: 06/09/18 14:47 Dose: 500,000 units Ondansetron HCl (Zofran -) 4 mg PO Q8H PRN PRN Reason: DYSPEPSIA Ranitidine HCl (Zantac -) 150 mg PO BID [facility] Last Admin: 06/09/18 10:34 Dose: 150 mg Tacrolimus (Prograf) 2 mg PO BID [facility] Last Admin: 06/09/18 10:34 Dose: 2 mg - Objective Vital Signs: Vital Signs Temperature 98.0 F 06/09/18 15:56 Pulse Rate 58 L 06/09/18 15:56 Respiratory Rate 18 06/09/18 15:56 Blood Pressure 100/52 L 06/09/18 15:56 O2 Sat by Pulse Oximetry (%) 99 06/09/18 09:00 Constitutional: Yes: Calm Eyes: Yes: Conjunctiva Clear HENT: Yes: Atraumatic Neck: Yes: Supple Cardiovascular: Yes: S1, S2 Respiratory: Yes: CTA Bilaterally Gastrointestinal: Yes: Soft Genitourinary: Yes: WNL Musculoskeletal: Yes: WNL Edema: No Neurological: Yes: Oriented Psychiatric: Yes: Oriented Labs: CBC, BMP 06/09/18 06:30 06/09/18 06:30 INR, PTT INR 1.08 (0.83-1.09) 06/05/18 11:10 Problem List - Problems (1) Kidney transplant recipient Code(s): Z94.0 - KIDNEY TRANSPLANT STATUS Assessment/Plan Current Medications Generic Name Dose Route Start Last Admin Trade Name Freq PRN Reason Stop Dose Admin Acetaminophen 650 mg 06/05/18 17:26 06/09/18 10:37 Tylenol - PO 650 mg Q6H PRN Administration FEVER Heparin Sodium (Porcine) 5,000 unit 06/05/18 22:00 06/09/18 10:34 Heparin - SQ 5,000 unit BID [facility] Administration Piperacillin Sod/Tazobactam 50 mls @ 100 mls/hr 06/06/18 10:00 06/09/18 10:34 Sod 3.375 gm/ Dextrose IVPB 100 mls/hr Q8H-IV JOY Administration Protocol Mycophenolate Sodium 360 mg 06/05/18 22:00 06/09/18 10:34 Mycophenolic Acid PO 360 mg BID [facility] Administration Nystatin 500,000 units 06/08/18 11:30 06/09/18 14:47 Nystatin Oral Suspension - PO 500,000 units QID [facility] Administration Ondansetron HCl 4 mg 06/06/18 12:10 Zofran - PO Q8H PRN DYSPEPSIA Ranitidine HCl 150 mg 06/05/18 22:00 06/09/18 10:34 Zantac - PO 150 mg BID [facility] Administration Tacrolimus 2 mg 06/06/18 17:14 06/09/18 10:34 Prograf PO 2 mg BID [facility] Administration Laboratory Tests 06/05/18 06/07/18 06/09/18 11:44 06:30 06:30 Tacrolimus 1.9 L 3.9 Pending Impression 1. s/p kidney transplant 2. s/p liver transplant 3. UTI 4. hx hep c 5. hx of liver cirrhosis 6. abdominal pain 7. mild fullness in transplant Plan - hold fluids for now - encourage PO intake - follow up repeat prograf level - repeat labs in am - urology eval - ID follow up, cont abx - will follow Dr Escalante
[2018-06-09] MEDS ORDERED: ALENDRONATE PO ONE (20:00)
--- NOTE | 2018-06-09 20:07 | PN ---
Progress Note, Physician - Current Medication List Current Medications: Active Medications Acetaminophen (Tylenol -) 650 mg PO Q6H PRN PRN Reason: FEVER Last Admin: 06/09/18 10:37 Dose: 650 mg Heparin Sodium (Porcine) (Heparin -) 5,000 unit SQ BID [facility] Last Admin: 06/09/18 10:34 Dose: 5,000 unit Piperacillin Sod/Tazobactam (Sod 3.375 gm/ Dextrose) 50 mls @ 100 mls/hr IVPB Q8H-IV JOY; Protocol Last Admin: 06/09/18 17:50 Dose: 100 mls/hr Mycophenolate Sodium (Mycophenolic Acid) 360 mg PO BID [facility] Last Admin: 06/09/18 10:34 Dose: 360 mg Nystatin (Nystatin Oral Suspension -) 500,000 units PO QID [facility] Last Admin: 06/09/18 17:50 Dose: 500,000 units Ondansetron HCl (Zofran -) 4 mg PO Q8H PRN PRN Reason: DYSPEPSIA Ranitidine HCl (Zantac -) 150 mg PO BID [facility] Last Admin: 06/09/18 10:34 Dose: 150 mg Tacrolimus (Prograf) 2 mg PO BID [facility] Last Admin: 06/09/18 10:34 Dose: 2 mg - Objective Vital Signs: Vital Signs Temperature 98 F 06/09/18 17:10 Pulse Rate 49 L 06/09/18 17:10 Respiratory Rate 18 06/09/18 17:10 Blood Pressure 108/57 L 06/09/18 17:10 O2 Sat by Pulse Oximetry (%) 99 06/09/18 09:00 Labs: CBC, BMP 06/09/18 06:30 06/09/18 06:30 INR, PTT INR 1.08 (0.83-1.09) 06/05/18 11:10 Problem List - Problems (1) Sepsis Code(s): A41.9 - SEPSIS, UNSPECIFIED ORGANISM (2) Kidney transplant recipient Code(s): Z94.0 - KIDNEY TRANSPLANT STATUS (3) Liver transplant recipient Code(s): Z94.4 - LIVER TRANSPLANT STATUS
[2018-06-10] MEDS: PIPERACILLIN/TAZOB 3.375 GM 3.375 GM in DEXTROSE 5%-WATER - 50 ML IVPB SCH (02:09)
[2018-06-10 08:19] LABS: BASO % 0.6 % (0-2.0); EOS % 3.4 % (0-4.5); LYMPH % 22.9 % (8-40); MCH 30.4 pg (25.7-33.7); MCHC 32.4 g/dl (32.0-36.0); MEAN CELL VOLUME 93.6 fl (80-96); MEAN PLT VOLUME 8.8 fl (7.5-11.1); MONO % 6.9 % (3.8-10.2); NEUT % 66.2 % (42.8-82.8); PLATELET COUNT 117 K/MM3 (134-434); RBC 3.31 M/mm3 (3.60-5.2); RDW 14.1 % (11.6-15.6); WHITE BLOOD COUNT 2.6 K/mm3 (4.0-10.0)
[2018-06-10 08:20] LABS: ANION GAP 4 MMOL/L (8-16); BLOOD UREA NITROGEN 9 mg/dL (7-18); CALCIUM 9.4 mg/dL (8.5-10.1); CHLORIDE 113 mmol/L (98-107); CO2 28 mmol/L (21-32); CREATININE 0.5 mg/dL (0.55-1.3); GLUCOSE,RANDOM 79 mg/dL (74-106); POTASSIUM 3.8 mmol/L (3.5-5.1); SODIUM 146 mmol/L (136-145)
--- NOTE | 2018-06-10 08:30 | PN ---
Progress Note, Physician History of Present Illness: patient stable no new issues no pain - Current Medication List Current Medications: Active Medications Acetaminophen (Tylenol -) 650 mg PO Q6H PRN PRN Reason: FEVER Last Admin: 06/09/18 10:37 Dose: 650 mg Heparin Sodium (Porcine) (Heparin -) 5,000 unit SQ BID [facility] Last Admin: 06/09/18 22:04 Dose: 5,000 unit Mycophenolate Sodium (Mycophenolic Acid) 360 mg PO BID [facility] Last Admin: 06/09/18 22:05 Dose: 360 mg Nystatin (Nystatin Oral Suspension -) 500,000 units PO QID [facility] Last Admin: 06/09/18 22:04 Dose: 500,000 units Ondansetron HCl (Zofran -) 4 mg PO Q8H PRN PRN Reason: DYSPEPSIA Ranitidine HCl (Zantac -) 150 mg PO BID [facility] Last Admin: 06/09/18 22:04 Dose: 150 mg Tacrolimus (Prograf) 2 mg PO BID [facility] Last Admin: 06/09/18 22:04 Dose: 2 mg - Objective Vital Signs: Vital Signs Temperature 98.1 F 06/10/18 06:25 Pulse Rate 50 L 06/10/18 06:25 Respiratory Rate 20 06/10/18 06:25 Blood Pressure 102/44 L 06/10/18 06:25 O2 Sat by Pulse Oximetry (%) 99 06/09/18 21:00 Constitutional: Yes: No Distress, Calm Cardiovascular: Yes: Regular Rate and Rhythm Respiratory: Yes: Regular, CTA Bilaterally Gastrointestinal: Yes: Normal Bowel Sounds, Soft Musculoskeletal: Yes: WNL Extremities: Yes: WNL Neurological: Yes: Alert, Oriented Psychiatric: Yes: Alert, Oriented Labs: CBC, BMP 06/10/18 07:30 06/10/18 07:30 INR, PTT INR 1.08 (0.83-1.09) 06/05/18 11:10 Assessment/Plan Problem List - Problems (1) Sepsis Code(s): A41.9 - SEPSIS, UNSPECIFIED ORGANISM (2) Kidney transplant recipient Code(s): Z94.0 - KIDNEY TRANSPLANT STATUS (3) Liver transplant recipient Code(s): Z94.4 - LIVER TRANSPLANT STATUS 4 fever plan continue current mgmt organism noted ct abx has been afebrile now will stop abx today and watch rest as per the team
[2018-06-10] MEDS: MYCOPHENOLATE SODIUM 360 MG TABLET.DR PO SCH ×2 (09:37→21:45)
[2018-06-10] MEDS: TACROLIMUS ANHYDROUS 1 MG CAPSULE PO SCH ×2 (09:38→21:45)
[2018-06-10] MEDS: NYSTATIN 500,000 UNITS/5 ML SUSPENSION PO SCH ×4 (09:40→21:45)
[2018-06-10] MEDS: RANITIDINE HCL 150 MG TABLET (FP) PO SCH ×2 (09:41→21:47)
[2018-06-10] MEDS: HEPARIN NA (PORCINE) 5,000 UNITS/ML 1ML VIAL SQ SCH ×2 (09:41→21:47)
--- NOTE | 2018-06-10 17:04 | PN ---
Progress Note, Physician History of Present Illness: Pt seen and examined at bedside. She is awake and alert. She has no complaints. - Current Medication List Current Medications: Active Medications Acetaminophen (Tylenol -) 650 mg PO Q6H PRN PRN Reason: FEVER Last Admin: 06/09/18 10:37 Dose: 650 mg Heparin Sodium (Porcine) (Heparin -) 5,000 unit SQ BID [facility] Last Admin: 06/10/18 09:41 Dose: 5,000 unit Mycophenolate Sodium (Mycophenolic Acid) 360 mg PO BID [facility] Last Admin: 06/10/18 09:37 Dose: 360 mg Nystatin (Nystatin Oral Suspension -) 500,000 units PO QID [facility] Last Admin: 06/10/18 14:01 Dose: 500,000 units Ondansetron HCl (Zofran -) 4 mg PO Q8H PRN PRN Reason: DYSPEPSIA Ranitidine HCl (Zantac -) 150 mg PO BID [facility] Last Admin: 06/10/18 09:41 Dose: 150 mg Tacrolimus (Prograf) 2 mg PO BID [facility] Last Admin: 06/10/18 09:38 Dose: 2 mg - Objective Vital Signs: Vital Signs Temperature 98.1 F 06/10/18 15:37 Pulse Rate 55 L 06/10/18 15:37 Respiratory Rate 18 06/10/18 15:37 Blood Pressure 116/59 L 06/10/18 15:37 O2 Sat by Pulse Oximetry (%) 99 06/09/18 21:00 Constitutional: Yes: Calm Eyes: Yes: Conjunctiva Clear HENT: Yes: Atraumatic Neck: Yes: Supple Cardiovascular: Yes: S1, S2 Respiratory: Yes: CTA Bilaterally Gastrointestinal: Yes: Normal Bowel Sounds, Soft Genitourinary: Yes: WNL Edema: No Neurological: Yes: Oriented Psychiatric: Yes: Oriented Labs: CBC, BMP 06/10/18 07:30 06/10/18 07:30 INR, PTT INR 1.08 (0.83-1.09) 06/05/18 11:10 Problem List - Problems (1) Kidney transplant recipient Code(s): Z94.0 - KIDNEY TRANSPLANT STATUS Assessment/Plan Current Medications Generic Name Dose Route Start Last Admin Trade Name Freq PRN Reason Stop Dose Admin Acetaminophen 650 mg 06/05/18 17:26 06/09/18 10:37 Tylenol - PO 650 mg Q6H PRN Administration FEVER Heparin Sodium (Porcine) 5,000 unit 06/05/18 22:00 06/10/18 09:41 Heparin - SQ 5,000 unit BID [facility] Administration Mycophenolate Sodium 360 mg 06/05/18 22:00 06/10/18 09:37 Mycophenolic Acid PO 360 mg BID [facility] Administration Nystatin 500,000 units 06/08/18 11:30 06/10/18 14:01 Nystatin Oral Suspension - PO 500,000 units QID [facility] Administration Ondansetron HCl 4 mg 06/06/18 12:10 Zofran - PO Q8H PRN DYSPEPSIA Ranitidine HCl 150 mg 06/05/18 22:00 06/10/18 09:41 Zantac - PO 150 mg BID [facility] Administration Tacrolimus 2 mg 06/06/18 17:14 06/10/18 09:38 Prograf PO 2 mg BID [facility] Administration Impression 1. s/p kidney transplant 2. s/p liver transplant 3. UTI 4. hx hep c 5. hx of liver cirrhosis 6. abdominal pain 7. mild fullness in transplant Plan - monitor for fever - renal function stable - follow prograf level - encourage free water intake - ID follow up - will follow Dr Escalante
[2018-06-10] MEDS ORDERED: PT OWN MED DRAWER 7, Y5N ONE (19:35)
--- NOTE | 2018-06-10 23:27 | PN ---
Progress Note, Physician - Current Medication List Current Medications: Active Medications Acetaminophen (Tylenol -) 650 mg PO Q6H PRN PRN Reason: FEVER Last Admin: 06/09/18 10:37 Dose: 650 mg Heparin Sodium (Porcine) (Heparin -) 5,000 unit SQ BID [facility] Last Admin: 06/10/18 21:47 Dose: 5,000 unit Mycophenolate Sodium (Mycophenolic Acid) 360 mg PO BID [facility] Last Admin: 06/10/18 21:45 Dose: 360 mg Nystatin (Nystatin Oral Suspension -) 500,000 units PO QID [facility] Last Admin: 06/10/18 21:45 Dose: 500,000 units Ondansetron HCl (Zofran -) 4 mg PO Q8H PRN PRN Reason: DYSPEPSIA Ranitidine HCl (Zantac -) 150 mg PO BID [facility] Last Admin: 06/10/18 21:47 Dose: 150 mg Tacrolimus (Prograf) 2 mg PO BID [facility] Last Admin: 06/10/18 21:45 Dose: 2 mg - Objective Vital Signs: Vital Signs Temperature 97.8 F 06/10/18 21:41 Pulse Rate 54 L 06/10/18 21:41 Respiratory Rate 20 06/10/18 21:41 Blood Pressure 107/54 L 06/10/18 21:41 O2 Sat by Pulse Oximetry (%) 99 06/09/18 21:00 Labs: CBC, BMP 06/10/18 07:30 06/10/18 07:30 INR, PTT INR 1.08 (0.83-1.09) 06/05/18 11:10 Problem List - Problems (1) Sepsis Code(s): A41.9 - SEPSIS, UNSPECIFIED ORGANISM (2) Kidney transplant recipient Code(s): Z94.0 - KIDNEY TRANSPLANT STATUS (3) Liver transplant recipient Code(s): Z94.4 - LIVER TRANSPLANT STATUS
[2018-06-11] MEDS ORDERED: PT OWN MED DRAWER 7, Y5N ONE (09:40)
[2018-06-11] MEDS: TACROLIMUS ANHYDROUS 1 MG CAPSULE PO SCH (09:42)
[2018-06-11] MEDS: NYSTATIN 500,000 UNITS/5 ML SUSPENSION PO SCH (09:42)
[2018-06-11] MEDS: HEPARIN NA (PORCINE) 5,000 UNITS/ML 1ML VIAL SQ SCH (09:42)
[2018-06-11] MEDS: RANITIDINE HCL 150 MG TABLET (FP) PO SCH (09:42)
[2018-06-11] MEDS: MYCOPHENOLATE SODIUM 360 MG TABLET.DR PO SCH (09:42)
[2018-06-11 11:19] VITALS: BP 127/74; PULSE 93; TEMP 98.1
--- NOTE | 2018-06-11 11:51 | PN ---
Progress Note, Physician - Current Medication List Current Medications: Active Medications Acetaminophen (Tylenol -) 650 mg PO Q6H PRN PRN Reason: FEVER Last Admin: 06/09/18 10:37 Dose: 650 mg Heparin Sodium (Porcine) (Heparin -) 5,000 unit SQ BID [facility] Last Admin: 06/11/18 09:42 Dose: 5,000 unit Mycophenolate Sodium (Mycophenolic Acid) 360 mg PO BID [facility] Last Admin: 06/11/18 09:42 Dose: 360 mg Nystatin (Nystatin Oral Suspension -) 500,000 units PO QID [facility] Last Admin: 06/11/18 09:42 Dose: 500,000 units Ondansetron HCl (Zofran -) 4 mg PO Q8H PRN PRN Reason: DYSPEPSIA Ranitidine HCl (Zantac -) 150 mg PO BID [facility] Last Admin: 06/11/18 09:42 Dose: 150 mg Tacrolimus (Prograf) 2 mg PO BID [facility] Last Admin: 06/11/18 09:42 Dose: 2 mg - Objective Vital Signs: Vital Signs Temperature 98.1 F 06/11/18 10:00 Pulse Rate 93 H 06/11/18 10:00 Respiratory Rate 20 06/11/18 10:00 Blood Pressure 127/74 06/11/18 10:00 O2 Sat by Pulse Oximetry (%) 99 06/10/18 21:00 Eyes: Yes: WNL, Conjunctiva Clear, EOM Intact HENT: Yes: WNL, Atraumatic, Normocephalic Neck: Yes: WNL, Supple, Trachea Midline Cardiovascular: Yes: WNL, Regular Rate and Rhythm Respiratory: Yes: WNL, Regular, CTA Bilaterally Gastrointestinal: Yes: WNL, Normal Bowel Sounds Genitourinary: Yes: WNL Musculoskeletal: Yes: WNL Extremities: Yes: WNL Edema: No Integumentary: Yes: WNL Neurological: Yes: WNL, Alert, Oriented ...Motor Strength: WNL Psychiatric: Yes: WNL Labs: CBC, BMP 06/10/18 07:30 06/10/18 07:30 INR, PTT INR 1.08 (0.83-1.09) 06/05/18 11:10 Assessment/Plan MP: UTI, sepsis Hypotension in setting of above. REC: Echo normal, BP stable. Asx. Cont Rx of UTI as per PMD and ID.
== END 2018-06-11 12:02 | disposition home or self-care (01) | DRG 872 ==
LOC: JER 10:30 → JERBED 12:46 → J8W 16:15
PROVIDERS: ADMIT Internal Medicine; ATTEND Internal Medicine
DX: A41.9 Sepsis, unspecified organism (principal); Z94.4 Liver transplant status; Z94.0 Kidney transplant status; N13.30 Unspecified hydronephrosis; N39.0 Urinary tract infection, site not specified; R50.9 Fever, unspecified; R11.2 Nausea with vomiting, unspecified; I95.9 Hypotension, unspecified
CPT/HCPCS: 36415; 71045-TC-FY; 76775-TC; 80048; 80053; 80180; 80197; 81003; 81015; 83605; 84484; 85025; 85610; 85730; 87040; 87070; 87086; 87186; 87430; 87804; 93005; 93010; 93306-TC; 99283-25; J1644

== ENCOUNTER 2019-10-04 11:52 | Emergency (ER) | payer MEDICARE, OTHER ==
--- NOTE | 2019-10-04 12:04 | PDOC ---
Rapid Medical Evaluation Time Seen by Provider: 10/04/19 12:00 Medical Evaluation: Allergies Allergy/AdvReac Type Severity Reaction Status Date / Time No Known Allergies Allergy Verified 06/05/18 10:36 10/04/19 12:01 CC: NASH, chills, sore throat, myalgias x3 weeks PE: VSS, AF. No focal findings Orders: cxr Patient will proceed to the ED for further evaluation. Discharge Disposition - Diagnosis Cough - Referrals - Patient Instructions - Post Discharge Activity
[2019-10-04 12:06] VITALS: BP 112/80; PULSE 68; TEMP 98.2; BMI 36.3
--- NOTE | 2019-10-04 12:29 | PDOC ---
History of Present Illness - General Chief Complaint: Cold Symptoms Stated Complaint: PAIN Time Seen by Provider: 10/04/19 12:00 History Source: Patient - History of Present Illness Timing/Duration: reports: other Past History - Past Medical History Allergies/Adverse Reactions: Allergies Allergy/AdvReac Type Severity Reaction Status Date / Time No Known Allergies Allergy Verified 06/05/18 10:36 Home Medications: Ambulatory Orders Linaclotide [Linzess] 72 mcg PO DAILY 06/05/18 Mycophenolate Sodium [Mycophenolic Acid] 360 mg PO BID 06/05/18 Ranitidine HCl [Zantac] 150 mg PO BID 06/05/18 Tacrolimus 1 mg PO BID 06/05/18 Alendronate Sodium/Vitamin D3 [Fosamax Plus D 70 mg-5,600 Iu vIT d] 1 each PO Q7D 06/09/18 Anemia: Yes (Pancytopenia R/T ESLD) Asthma: No Cancer: No Cardiac Disorders: Yes COPD: No CHF: No GI Disorders: Yes (END STAGE LIVER DISEASE) HTN: Yes Liver Disease: Yes - Surgical History Abdominal Surgery: (LIVER TRANSPLANT) - Immunization History Immunization Up to Date: Yes - Psycho Social/Smoking Cessation Hx Smoking Status: No Smoking History: Never smoked Have you smoked in the past 12 months: No Number of Cigarettes Smoked Daily: 0 Cigars Per Day: 0 Hx Alcohol Use: No Drug/Substance Use Hx: No Substance Use Type: None Hx Substance Use Treatment: No Review of Systems - Review of Systems Constitutional: No: Chills, Fever HEENTM: Yes: Throat Pain. No: Ear Pain Respiratory: Yes: Cough. No: Shortness of Breath, Wheezing Cardiac (ROS): No: Chest Pain Neurological: Yes: Headache *Physical Exam - Vital Signs Last Vital Signs Temp Pulse Resp BP Pulse Ox 98.2 F 68 20 112/80 95 10/04/19 12:01 10/04/19 12:01 10/04/19 12:01 10/04/19 12:10/04/19 12:01 - Physical Exam General Appearance: Yes: Appropriately Dressed. No: Apparent Distress HEENT: positive: Normal ENT Inspection, Normal Voice, TMs Normal, Pharynx Normal. negative: Scleral Icterus (R), Scleral Icterus (L) Neck: positive: Supple Respiratory/Chest: positive: Lungs Clear, Normal Breath Sounds. negative: Respiratory Distress Cardiovascular: positive: Regular Rate, S1, S2 Integumentary: positive: Dry, Warm Neurologic: positive: Fully Oriented, Alert, Normal Mood/Affect Medical Decision Making - Medical Decision Making 10/04/19 12:28 59-year-old female, denies any past medical history, here with cough with congestion, headache and malaise x several days. Denies chest pain, SOB, body aches or fevers. see exam M/l viral URI Exam wnl Dc w/ supportive tx Discharge - Discharge Information Problems reviewed: Yes Clinical Impression/Diagnosis: URI (upper respiratory infection) Qualifiers: URI type: unspecified viral URI Qualified Code(s): J06.9 - Acute upper respiratory infection, unspecified Condition: Good Disposition: HOME - Follow up/Referral - Patient Discharge Instructions Patient Printed Discharge Instructions: DI for Viral Upper Respiratory Infection -- Adult Additional Instructions: You likely have a viral illness. Rest, drink plenty fluids. You can take Tylenol for pain. And you can take Coricidin [id number] for cough/congestion Please follow-up with your PMD as needed Print Language: GUATEMALAN - Post Discharge Activity
== END 2019-10-04 12:51 | disposition home or self-care (01) ==
LOC: JERFT 11:52
DX: J06.9 Acute upper respiratory infection, unspecified (principal); I10 Essential (primary) hypertension; K76.9 Liver disease, unspecified; Z94.4 Liver transplant status
CPT/HCPCS: 99281-25

== ENCOUNTER 2019-10-23 10:02 | Inpatient (IN) | payer MEDICARE, OTHER ==
--- NOTE | 2019-10-23 10:36 | PDOC ---
History of Present Illness - General History Source: Patient, Family - History of Present Illness Timing/Duration: other <Celestino Lora - Last Filed: 10/23/19 12:56> <Rea Ruiz - Last Filed: 10/23/19 13:54> - General Chief Complaint: Nausea/Vomiting Stated Complaint: FEVER/VOMITING/HEADACHE Time Seen by Provider: 10/23/19 10:23 Past History - Past Medical History Anemia: Yes (Pancytopenia R/T ESLD) Cancer: No Cardiac Disorders: Yes COPD: No CHF: No GI Disorders: Yes (END STAGE LIVER DISEASE) HTN: Yes Liver Disease: Yes - Surgical History Abdominal Surgery: Yes (LIVER TRANSPLANT) - Immunization History Immunization Up to Date: Yes - Psycho Social/Smoking Cessation Hx Smoking Status: No Smoking History: Never smoked Have you smoked in the past 12 months: No Number of Cigarettes Smoked Daily: 0 Cigars Per Day: 0 Hx Alcohol Use: No Drug/Substance Use Hx: No Substance Use Type: None Hx Substance Use Treatment: No <Celestino Lora - Last Filed: 10/23/19 12:56> <Rea Ruiz - Last Filed: 10/23/19 13:54> - Past Medical History Allergies/Adverse Reactions: Allergies Allergy/AdvReac Type Severity Reaction Status Date / Time No Known Allergies Allergy Verified 10/23/19 10:05 Home Medications: Ambulatory Orders Mycophenolate Sodium [Mycophenolic Acid] 360 mg PO BID 06/05/18 Tacrolimus 1 mg PO BID 06/05/18 Alendronate Sodium/Vitamin D3 [Fosamax Plus D 70 mg-5,600 Iu vIT d] 1 each PO Q7D 06/09/18 Acetaminophen [Tylenol] 650 mg PO Q6H #30 tablet 10/23/19 Celecoxib 1 tab PO BID 10/23/19 Cephalexin [Keflex] 500 mg PO BID #14 capsule 10/23/19 Doxepin HCl 150 mg PO ASDIR 10/23/19 Famotidine [Pepcid] 40 mg PO ASDIR 10/23/19 Omeprazole 20 mg PO DAILY 10/23/19 Ondansetron HCl [Zofran] 4 mg PO Q8H #6 tablet 10/23/19 Review of Systems - Review of Systems Constitutional: Yes: Chills, Fever Respiratory: No: Cough, Shortness of Breath Cardiac (ROS): No: Chest Pain ABD/GI: Yes: Nausea, Vomiting. No: Abdominal cramping : Yes: Dysuria. No: Flank Pain, Hematuria <Celestino Lora - Last Filed: 10/23/19 12:56> *Physical Exam - Vital Signs Last Vital Signs Temp Pulse Resp BP Pulse Ox 98.9 F 76 18 114/53 L 97 10/23/19 10:10 10/23/19 10:10 10/23/19 10:10 10/23/19 10:10 10/23/19 10:10 - Physical Exam General Appearance: Yes: Appropriately Dressed. No: Apparent Distress HEENT: positive: Normal Voice. negative: Scleral Icterus (R), Scleral Icterus ( L) Neck: positive: Supple. negative: Lymphadenopathy (R), Lymphadenopathy (L) Respiratory/Chest: positive: Lungs Clear, Normal Breath Sounds. negative: Respiratory Distress Cardiovascular: positive: Regular Rate, S1, S2 Gastrointestinal/Abdominal: positive: Normal Bowel Sounds, Soft. negative: Tender, Pulsatile Mass, Distended, Guarding, Rebound Musculoskeletal: negative: CVA Tenderness Integumentary: positive: Dry, Warm Neurologic: positive: Fully Oriented, Alert, Normal Mood/Affect <Celestino Lora - Last Filed: 10/23/19 12:56> - Vital Signs Last Vital Signs Temp Pulse Resp BP Pulse Ox 98.9 F 76 18 114/53 L 97 10/23/19 10:10 10/23/19 10:10 10/23/19 10:10 10/23/19 10:10 10/23/19 10:10 <Rea Ruiz - Last Filed: 10/23/19 13:54> ED Treatment Course - LABORATORY CBC & Chemistry Diagram: 10/23/19 11:55 10/23/19 11:55 <Celestino Lora - Last Filed: 10/23/19 12:56> - LABORATORY CBC & Chemistry Diagram: 10/23/19 11:55 10/23/19 11:55 - ADDITIONAL ORDERS Additional order review: Laboratory Results 10/23/19 10/23/19 11:55 11:55 Sodium 139 Potassium 4.8 Chloride 105 Carbon Dioxide 27 Anion Gap 7 L BUN 18.0 Creatinine 1.0 Est GFR (CKD-EPI)AfAm 70.42 Est GFR (CKD-EPI)NonAf 60.76 Random Glucose 132 H Calcium 8.7 Total Bilirubin 0.5 AST 21 ALT 24 Alkaline Phosphatase 86 Creatine Kinase 45 Troponin I < 0.02 Total Protein 7.3 Albumin 3.6 Lipase 24 L Urine Color Yellow Urine Appearance Clear Urine pH 5.5 Ur Specific [place] 1.015 Urine Protein 2+ H Urine Glucose (UA) Negative Urine Ketones Negative Urine Blood Trace Urine Nitrite Negative Urine Bilirubin Negative Urine Urobilinogen 0.2 Ur Leukocyte Esterase 1+ H Urine WBC (Auto) 62 Urine RBC (Auto) 4 Urine Casts (Auto) 6 U Epithel Cells (Auto) 0.5 Urine Bacteria (Auto) 226.3 10/23/19 11:55 RBC 3.55 L MCV 97.6 H MCHC 32.7 RDW 13.1 MPV 9.8 D Neutrophils % 91.7 H D Lymphocytes % 3.3 L D Monocytes % 4.8 Eosinophils % 0.0 D Basophils % 0.2 <Rea Ruiz - Last Filed: 10/23/19 13:54> Medical Decision Making - Medical Decision Making 10/23/19 10:34 59 yo F, hepatitis C, s/p liver/renal tx in 2013, osteonecrosis of the hip, recurrent UTI/urosepsis, brought in by family and 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 Also complaining of possible dysuria this a.m. No abdominal or flank pain, shortness of breath or chest pain see exam ?viral illness vs recurrent uti Stable and in NAD w/ unremarkable exam -labs/flu -dispo pending 10/23/19 12:49 Labs unremarkable. UA with 1+ leuks with >wbc and > 200 sarah.Given history, will treat for ? UTI with Keflex, prior sensitivities reviewed. Patient has remained stable and well-appearing here. No nausea/vomiting in ED. Will dc to return to ER for any worsening of symptoms <Celestino Lora - Last Filed: 10/23/19 12:56> - Medical Decision Making I reviewed the case with the mid-level practitioner and agree with the mid- level practitioner's assessment, diagnosis and disposition. <Rea Ruiz Last Filed: 10/23/19 13:54> Discharge - Discharge Information Problems reviewed: Yes <Celestino Lora - Last Filed: 10/23/19 12:56> <Rea Ruiz - Last Filed: 10/23/19 13:54> - Discharge Information Clinical Impression/Diagnosis: Dysuria, Nausea and vomiting, Fever Condition: Good - Additional Discharge Information Prescriptions: Acetaminophen [Tylenol] 650 mg PO Q6H #30 tablet Cephalexin [Keflex] 500 mg PO BID #14 capsule Ondansetron HCl [Zofran] 4 mg PO Q8H #6 tablet - Follow up/Referral Referrals: Rea Peterson MD [Primary Care Provider] - - Patient Discharge Instructions Patient Printed Discharge Instructions: DI for Viral Syndrome Additional Instructions: You were treated for a possible urine infection. Take antibiotics as prescribed and follow-up with your PMD. If symptoms worsen, return to the ER - Post Discharge Activity Addendum entered and electronically signed by Celestino Lora PA 10/23/19 13:02 : ED Progress Note - Progress Note Progress Note: 10/23/19 12:56 Upon discharge patient spiked fever of 101.1 and now actively vomiting. Will place IV for fluids and meds including dose of ceftriaxone, sensitive on prior cultures. Will admit at this time for possible pyelo
[2019-10-23 12:22] LABS: EPI CELLS 0.5 /HPF (0-5/HPF); HYALINE CASTS 6 /lpf (0-8); PH,URINE 5.5 (5.0-8.0); URINE APPEARANCE CLEAR; URINE BACTERIA 226.3 /hpf (NEGATIVE); URINE BILIRUBIN NEGATIVE (NEGATIVE); URINE COLOR YELLOW; URINE GLUCOSE (UA) NEGATIVE (NEGATIVE); URINE KETONE NEGATIVE (NEGATIVE); URINE LEUK ESTERASE 1+ (NEGATIVE); URINE NITRITE NEGATIVE (NEGATIVE); URINE PROTEIN 2+ (NEGATIVE); URINE RBC 4 /hpf (0-4); URINE UROBILINOGEN 0.2 mg/dL (0.2-1.0); URINE WBC 62 /hpf (0-5)
[2019-10-23 12:31] LABS: BASO % 0.2 % (0-2.0); HEMATOCRIT 34.6 % (32.4-45.2); HEMOGLOBIN 11.3 GM/dL (10.7-15.3); LYMPH % 3.3 % (8-40); MCH 31.9 pg (25.7-33.7); MCHC 32.7 g/dl (32.0-36.0); MEAN CELL VOLUME 97.6 fl (80-96); MEAN PLT VOLUME 9.8 fl (7.5-11.1); MONO % 4.8 % (3.8-10.2); NEUT % 91.7 % (42.8-82.8); PLATELET COUNT 81 K/MM3 (134-434); RBC 3.55 M/mm3 (3.60-5.2); RDW 13.1 % (11.6-15.6); WHITE BLOOD COUNT 12.5 K/mm3 (4.0-10.0)
--- NOTE | 2019-10-23 12:42 | EKG ---
Test Reason : Blood Pressure : / mmHG Vent. Rate : 076 BPM Atrial Rate : 076 BPM P-R Int : 138 ms QRS Dur : 074 ms QT Int : 314 ms P-R-T Axes : 041 -52 074 degrees QTc Int : 353 ms NORMAL SINUS RHYTHM LEFT ANTERIOR FASCICULAR BLOCK ABNORMAL ECG WHEN COMPARED WITH ECG OF 05-JUN-2018 11:39, QT HAS SHORTENED Confirmed by Jazmyn Shetty ([id number]) on 10/23/2019 12:42:14 PM Referred By: Confirmed By:Jazmyn Shetty
[2019-10-23 12:44] LABS: ALBUMIN 3.6 g/dl (3.4-5.0); ALK PHOS 86 U/L (45-117); ANION GAP 7 MMOL/L (8-16); BILIRUBIN,TOTAL 0.5 mg/dL (0.2-1); CALCIUM 8.7 mg/dL (8.5-10.1); CHLORIDE 105 mmol/L (98-107); CO2 27 mmol/L (21-32); GLUCOSE,RANDOM 132 mg/dL (74-106); LIPASE 24 U/L (73-393); POTASSIUM 4.8 mmol/L (3.5-5.1); SGOT/AST 21 U/L (15-37); SGPT/ALT 24 U/L (13-61); SODIUM 139 mmol/L (136-145); TOT PROT 7.3 g/dl (6.4-8.2)
[2019-10-23] MEDS ORDERED: ONDANSETRON 4 MG TABLET PO ONE (12:55)
[2019-10-23] MEDS ORDERED: ONDANSETRON 4 MG/2 ML VIAL IVPUSH ONE (13:00)
[2019-10-23] MEDS ORDERED: SODIUM CHLORIDE 1,000 ML IV STA (13:00)
[2019-10-23] MEDS ORDERED: CEFTRIAXONE 1 GM in DEXTROSE 5%-WATER - 50 ML IVPB ONE (13:01)
--- NOTE | 2019-10-23 13:03 | PDOC ---
*Physical Exam - Vital Signs Last Vital Signs Temp Pulse Resp BP Pulse Ox 98.9 F 76 18 114/53 L 97 10/23/19 10:10 10/23/19 10:10 10/23/19 10:10 10/23/19 10:10 10/23/19 10:10 ED Treatment Course - LABORATORY CBC & Chemistry Diagram: 10/23/19 11:55 10/23/19 11:55 - ADDITIONAL ORDERS Additional order review: Laboratory Results 10/23/19 10/23/19 11:55 11:55 Sodium 139 Potassium 4.8 Chloride 105 Carbon Dioxide 27 Anion Gap 7 L BUN 18.0 Creatinine 1.0 Est GFR (CKD-EPI)AfAm 70.42 Est GFR (CKD-EPI)NonAf 60.76 Random Glucose 132 H Calcium 8.7 Total Bilirubin 0.5 AST 21 ALT 24 Alkaline Phosphatase 86 Creatine Kinase 45 Troponin I < 0.02 Total Protein 7.3 Albumin 3.6 Lipase 24 L Urine Color Yellow Urine Appearance Clear Urine pH 5.5 Ur Specific [place] 1.015 Urine Protein 2+ H Urine Glucose (UA) Negative Urine Ketones Negative Urine Blood Trace Urine Nitrite Negative Urine Bilirubin Negative Urine Urobilinogen 0.2 Ur Leukocyte Esterase 1+ H Urine WBC (Auto) 62 Urine RBC (Auto) 4 Urine Casts (Auto) 6 U Epithel Cells (Auto) 0.5 Urine Bacteria (Auto) 226.3 10/23/19 11:55 RBC 3.55 L MCV 97.6 H MCHC 32.7 RDW 13.1 MPV 9.8 D Neutrophils % 91.7 H D Lymphocytes % 3.3 L D Monocytes % 4.8 Eosinophils % 0.0 D Basophils % 0.2 Discharge - Discharge Information Problems reviewed: Yes Clinical Impression/Diagnosis: Dysuria Nausea and vomiting Qualifiers: Vomiting type: unspecified Vomiting Intractability: unspecified Qualified Code( s): R11.2 - Nausea with vomiting, unspecified Fever Qualifiers: Fever type: unspecified Qualified Code(s): R50.9 - Fever, unspecified Condition: Good - Admission Yes - Additional Discharge Information - Follow up/Referral - Patient Discharge Instructions - Post Discharge Activity
[2019-10-23] MEDS ORDERED: ACETAMINOPHEN 1000 MG/100 ML VIAL (NON FORMULARY) IVPB ONE (13:06)
[2019-10-23 13:50] LABS: PLATELET ESTIMATE DECREASED
[2019-10-23] MEDS ORDERED: CEFTRIAXONE 1 GM/50 ML BAG ONE (15:14)
[2019-10-23] MEDS ORDERED: ONDANSETRON 4 MG/2 ML VIAL ONE (15:14)
[2019-10-23] MEDS ORDERED: ACETAMINOPHEN INJECTION 100 ML IVPB ONE (15:14)
[2019-10-23] MEDS ORDERED: DOXEPIN HCL 150 MG PO SCH (19:30)
[2019-10-23] MEDS ORDERED: ONDANSETRON 4 MG/2 ML VIAL IVPUSH PRN (19:34)
[2019-10-23] MEDS ORDERED: DEXTROSE 5%-0.45% SALINE 1,000 ML IV SCH (19:45)
[2019-10-23] MEDS ORDERED: ACETAMINOPHEN 1000 MG/100 ML VIAL (NON FORMULARY) IVPB PRN (22:03)
--- NOTE | 2019-10-23 22:21 | HP ---
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 Pt also has been having vomiting wc increased over the past 2 days. Pt complains of possible dysuria for the past 1-2 days. - Past Medical History Gastrointestinal: Yes: Other (Hepatitis C and chronic liver dz) Hepatobiliary: Yes: Hepatitis C, Other (liver transplant) Renal/: Yes: Renal Failure Heme/Onc: Yes: Anemia - Past Surgical History Past Surgical History: Yes: Kidney Transplant, Liver Transplant - Smoking History Smoking history: Never smoked Have you smoked in the past 12 months: No Aproximately how many cigarettes per day: 0 - Alcohol/Substance Use Hx Alcohol Use: No Home Medications - Allergies Allergies/Adverse Reactions: Allergies Allergy/AdvReac Type Severity Reaction Status Date / Time No Known Allergies Allergy Verified 10/23/19 10:05 - Home Medications Home Medications: Ambulatory Orders Mycophenolate Sodium [Mycophenolic Acid] 360 mg PO BID 06/05/18 Tacrolimus 1 mg PO BID 06/05/18 Alendronate Sodium/Vitamin D3 [Fosamax Plus D 70 mg-5,600 Iu vIT d] 1 each PO Q7D 06/09/18 Acetaminophen [Tylenol] 650 mg PO Q6H #30 tablet 10/23/19 Celecoxib 1 tab PO BID 10/23/19 Cephalexin [Keflex] 500 mg PO BID #14 capsule 10/23/19 Doxepin HCl 150 mg PO ASDIR 10/23/19 Famotidine [Pepcid] 40 mg PO ASDIR 10/23/19 Omeprazole 20 mg PO DAILY 10/23/19 Ondansetron HCl [Zofran] 4 mg PO Q8H #6 tablet 10/23/19 Family Medical History Family History: Unremarkable Review of Systems - Review of Systems Constitutional: reports: Loss of Appetite, Weakness Eyes: reports: No Symptoms HENT: reports: No Symptoms Neck: reports: No Symptoms Cardiovascular: reports: No Symptoms Respiratory: reports: No Symptoms Gastrointestinal: reports: Nausea, Vomiting Genitourinary: reports: Dysuria Physical Examination Vital Signs: Vital Signs Temperature 102.5 F H 10/23/19 15:51 Pulse Rate 83 10/23/19 15:51 Respiratory Rate 18 10/23/19 15:51 Blood Pressure 105/50 L 10/23/19 15:51 O2 Sat by Pulse Oximetry (%) 97 10/23/19 15:51 Constitutional: Yes: No Distress Eyes: Yes: WNL HENT: Yes: WNL Neck: Yes: WNL, Supple Cardiovascular: Yes: WNL, Regular Rate and Rhythm Respiratory: Yes: WNL, Regular, CTA Bilaterally Gastrointestinal: Yes: WNL, Normal Bowel Sounds, Soft Extremities: Yes: WNL Edema: No Neurological: Yes: WNL, Alert, Oriented ...Motor Strength: WNL Labs: CBC, BMP 10/23/19 11:55 10/23/19 11:55 Problem List - Problems (1) Fever Assessment/Plan: WBC elevated ?Urosepsis Cont IV ceftriaxone Check BC and urine culture Cont IVF ID consult Code(s): R50.9 - FEVER, UNSPECIFIED Qualifiers: Fever type: unspecified Qualified Code(s): R50.9 - Fever, unspecified (2) Nausea & vomiting Assessment/Plan: Due to sepsis Cont IVF Full liquid diet and advance as tolerated Monitor Zofran Code(s): R11.2 - NAUSEA WITH VOMITING, UNSPECIFIED Qualifiers: Vomiting type: unspecified Vomiting Intractability: unspecified Qualified Code(s): R11.2 - Nausea with vomiting, unspecified (3) Hepatitis C Code(s): B19.20 - UNSPECIFIED VIRAL HEPATITIS C WITHOUT HEPATIC COMA (4) Kidney transplant recipient Assessment/Plan: Renal consult Code(s): Z94.0 - KIDNEY TRANSPLANT STATUS (5) Liver transplant recipient Code(s): Z94.4 - LIVER TRANSPLANT STATUS
[2019-10-23] MEDS: MYCOPHENOLATE SODIUM 360 MG TABLET.DR PO SCH (23:14)
[2019-10-23] MEDS: HEPARIN NA (PORCINE) 5,000 UNITS/ML 1ML VIAL SQ SCH (23:14)
[2019-10-23] MEDS: TACROLIMUS ANHYDROUS 1 MG CAPSULE PO SCH (23:14)
[2019-10-24 07:34] LABS: BASO % 0.1 % (0-2.0); HEMATOCRIT 28.2 % (32.4-45.2); HEMOGLOBIN 9.6 GM/dL (10.7-15.3); LYMPH % 5.4 % (8-40); MCH 33.1 pg (25.7-33.7); MCHC 33.9 g/dl (32.0-36.0); MEAN CELL VOLUME 97.6 fl (80-96); MONO % 6.2 % (3.8-10.2); NEUT % 88.3 % (42.8-82.8); RBC 2.89 M/mm3 (3.60-5.2); RDW 13.1 % (11.6-15.6); WHITE BLOOD COUNT 8.1 K/mm3 (4.0-10.0)
[2019-10-24 07:49] LABS: ALBUMIN 2.8 g/dl (3.4-5.0); ALK PHOS 81 U/L (45-117); AMYLASE 28 U/L (25-115); ANION GAP 7 MMOL/L (8-16); BILIRUBIN,TOTAL 0.6 mg/dL (0.2-1); BLOOD UREA NITROGEN 18.2 mg/dL (7-18); CALCIUM 7.9 mg/dL (8.5-10.1); CHLORIDE 109 mmol/L (98-107); CO2 25 mmol/L (21-32); CREATININE 0.9 mg/dL (0.55-1.3); GLUCOSE,RANDOM 88 mg/dL (74-106); LIPASE < 10 U/L (73-393); POTASSIUM 4.5 mmol/L (3.5-5.1); SGOT/AST 21 U/L (15-37); SGPT/ALT 19 U/L (13-61); SODIUM 141 mmol/L (136-145); TOT PROT 5.9 g/dl (6.4-8.2)
[2019-10-24 11:10] LABS: ANISOCYTOSIS 1+; MACROCYTOSIS 1+
[2019-10-24] MEDS: TACROLIMUS ANHYDROUS 1 MG CAPSULE PO SCH ×2 (11:27→21:13)
[2019-10-24] MEDS: HEPARIN NA (PORCINE) 5,000 UNITS/ML 1ML VIAL SQ SCH ×2 (11:27→21:13)
[2019-10-24] MEDS: MYCOPHENOLATE SODIUM 360 MG TABLET.DR PO SCH ×2 (11:27→21:13)
--- NOTE | 2019-10-24 14:11 | CON.ID ---
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 Pt also has been having vomiting wc increased over the past 2 days. Pt complains of possible dysuria for the past 1-2 days. patient was worked up and found to have positive blood cx as well as uti at the moment patient is on ceftriaxone feeling better - History Source History Provided By: Patient, Medical Record Limitations to Obtaining History: Language Barrier - Past Medical History Gastrointestinal: Yes: Other (Hepatitis C and chronic liver dz) Hepatobiliary: Yes: Hepatitis C, Other (liver transplant) Renal/: Yes: Renal Failure - Past Surgical History Past Surgical History: Yes: Kidney Transplant, Liver Transplant - Alcohol/Substance Use Hx Alcohol Use: No - Smoking History Smoking history: Never smoked Have you smoked in the past 12 months: No Aproximately how many cigarettes per day: 0 - Social History Usual Living Arrangement: With Spouse Home Medications - Allergies Allergies/Adverse Reactions: Allergies Allergy/AdvReac Type Severity Reaction Status Date / Time No Known Allergies Allergy Verified 10/23/19 10:05 - Home Medications Home Medications: Ambulatory Orders Mycophenolate Sodium [Mycophenolic Acid] 360 mg PO BID 06/05/18 Tacrolimus 1 mg PO BID 06/05/18 Alendronate Sodium/Vitamin D3 [Fosamax Plus D 70 mg-5,600 Iu vIT d] 1 each PO Q7D 06/09/18 Acetaminophen [Tylenol] 650 mg PO Q6H #30 tablet 10/23/19 Celecoxib 1 tab PO BID 10/23/19 Cephalexin [Keflex] 500 mg PO BID #14 capsule 10/23/19 Doxepin HCl 150 mg PO ASDIR 10/23/19 Famotidine [Pepcid] 40 mg PO ASDIR 10/23/19 Omeprazole 20 mg PO DAILY 10/23/19 Ondansetron HCl [Zofran] 4 mg PO Q8H #6 tablet 10/23/19 Physical Exam Vital Signs: Vital Signs Temperature 98.1 F 10/24/19 09:40 Pulse Rate 87 10/24/19 09:40 Respiratory Rate 20 10/24/19 09:40 Blood Pressure 94/63 10/24/19 09:40 O2 Sat by Pulse Oximetry (%) 96 10/24/19 09:00 Constitutional: Yes: Well Nourished, Calm, Mild Distress Neck: Yes: Supple, Trachea Midline Cardiovascular: Yes: Regular Rate and Rhythm Respiratory: Yes: Regular, CTA Bilaterally Gastrointestinal: Yes: Normal Bowel Sounds, Soft Musculoskeletal: Yes: WNL Extremities: Yes: WNL Neurological: Yes: Alert, Oriented Psychiatric: Yes: Alert, Oriented Labs: CBC, BMP 10/24/19 05:20 10/24/19 05:20 Assessment/Plan this patient with multiple medical problems getting admitted with sepsis with positive blood cx Problem List - Problems (1) Hepatitis C Code(s): B19.20 - UNSPECIFIED VIRAL HEPATITIS C WITHOUT HEPATIC COMA (2) Kidney transplant recipient Code(s): Z94.0 - KIDNEY TRANSPLANT STATUS (3) Liver transplant recipient Code(s): Z94.4 - LIVER TRANSPLANT STATUS 4 positive blood cx 5 uti plan i am going to continue ceftriaxone for now will repeat blood cx tomorrow await for identification of the organisms rest as per the team
[2019-10-24] MEDS ORDERED: cefTRIAXone SODIUM 1 GM VIAL ONE (16:55)
[2019-10-24] MEDS ORDERED: DEXTROSE 5%-WATER - 50 ML IVPB ONE (16:56)
[2019-10-24] MEDS: CEFTRIAXONE 1 GM in DEXTROSE 5%-WATER - 50 ML IVPB SCH (17:05)
--- NOTE | 2019-10-24 17:33 | CONSULT ---
Consult Consult Specialty:: Nephrology Reason for Consultation:: kidney transplant - History of Present Illness Chief Complaint: body aches History of Present Illness: Pt is a 59 year old female with pmhx of kidney transplant, liver transplant, hep c, and recurrent UTI who present to the ER with body aches and headaches. She did have a few episodes of vomiting. She complains of dysuria as well. She denies hematuria. She denies nsaid use. She denies sick contacts. She says that she is compliant with her meds. - History Source History Provided By: Patient, Medical Record - Past Medical History Gastrointestinal: Yes: Other (Hepatitis C and chronic liver dz) Hepatobiliary: Yes: Hepatitis C, Other (liver transplant) Renal/: Yes: Renal Failure ...: No - Past Surgical History Past Surgical History: Yes: Kidney Transplant, Liver Transplant - Alcohol/Substance Use Hx Alcohol Use: No - Smoking History Smoking history: Never smoked Have you smoked in the past 12 months: No Aproximately how many cigarettes per day: 0 - Social History Usual Living Arrangement: With Spouse Home Medications - Allergies Allergies/Adverse Reactions: Allergies Allergy/AdvReac Type Severity Reaction Status Date / Time No Known Allergies Allergy Verified 10/23/19 10:05 - Home Medications Home Medications: Ambulatory Orders Mycophenolate Sodium [Mycophenolic Acid] 360 mg PO BID 06/05/18 Tacrolimus 1 mg PO BID 06/05/18 Alendronate Sodium/Vitamin D3 [Fosamax Plus D 70 mg-5,600 Iu vIT d] 1 each PO Q7D 06/09/18 Acetaminophen [Tylenol] 650 mg PO Q6H #30 tablet 10/23/19 Celecoxib 1 tab PO BID 10/23/19 Cephalexin [Keflex] 500 mg PO BID #14 capsule 10/23/19 Doxepin HCl 150 mg PO ASDIR 10/23/19 Famotidine [Pepcid] 40 mg PO ASDIR 10/23/19 Omeprazole 20 mg PO DAILY 10/23/19 Ondansetron HCl [Zofran] 4 mg PO Q8H #6 tablet 10/23/19 Family Medical History Family History: Denies Review of Systems - Review of Systems Constitutional: reports: Malaise Eyes: reports: No Symptoms HENT: reports: No Symptoms Neck: reports: No Symptoms Cardiovascular: reports: No Symptoms Respiratory: reports: No Symptoms Gastrointestinal: reports: No Symptoms Genitourinary: reports: Dysuria Musculoskeletal: reports: No Symptoms Integumentary: reports: No Symptoms Neurological: reports: No Symptoms Endocrine: reports: No Symptoms Hematology/Lymphatic: reports: No Symptoms Psychiatric: reports: No Symptoms Physical Exam Vital Signs: Vital Signs Temperature 98.4 F 10/24/19 15:46 Pulse Rate 71 10/24/19 15:46 Respiratory Rate 17 10/24/19 16:10 Blood Pressure 92/55 L 10/24/19 15:46 O2 Sat by Pulse Oximetry (%) 98 10/24/19 16:10 Constitutional: Yes: Calm Eyes: Yes: Conjunctiva Clear HENT: Yes: Atraumatic Neck: Yes: Supple Cardiovascular: Yes: S1, S2 Respiratory: Yes: CTA Bilaterally Gastrointestinal: Yes: Soft Renal/: Yes: WNL Musculoskeletal: Yes: WNL Edema: No Neurological: Yes: Oriented Psychiatric: Yes: Oriented Labs: CBC, BMP 10/24/19 05:20 10/24/19 05:20 Problem List - Problems (1) Hepatitis C Code(s): B19.20 - UNSPECIFIED VIRAL HEPATITIS C WITHOUT HEPATIC COMA (2) Kidney transplant recipient Code(s): Z94.0 - KIDNEY TRANSPLANT STATUS (3) Liver transplant recipient Code(s): Z94.4 - LIVER TRANSPLANT STATUS Assessment/Plan Current Medications Generic Name Dose Route Start Last Admin Trade Name Freq PRN Reason Stop Dose Admin Acetaminophen 1,000 mg 10/23/19 22:03 10/24/19 17:04 Ofirmev Injection - IVPB 10/24/19 22:04 1,000 mg Q6H PRN Administration FEVER Heparin Sodium (Porcine) 5,000 unit 10/23/19 22:00 10/24/19 11:27 Heparin - SQ Not Given BID JOY Ceftriaxone Sodium 1 gm/ 50 mls @ 100 mls/hr 10/24/19 10:00 10/24/19 17:05 Dextrose IVPB 100 mls/hr DAILY JOY Administration Protocol Dextrose/Sodium Chloride 1,000 mls @ 75 mls/hr 10/23/19 19:45 10/23/19 23:14 D5-1/2ns - IV 75 mls/hr ASDIR JOY Administration Mycophenolate Sodium 360 mg 10/23/19 22:00 02/18/20 11:27 Mycophenolic Acid PO 360 mg BID JOY Administration Non-Formulary Medication 150 mg 10/23/19 19:30 Doxepin Hcl [Doxepin Hcl] PO ASDIR JOY Ondansetron HCl 4 mg 10/23/19 19:34 Zofran Injection IVPUSH Q6H PRN NAUSEA AND/OR VOMITING Tacrolimus 1 mg 10/23/19 22:00 10/24/19 11:27 Prograf PO 1 mg BID JOY Administration Laboratory Tests 06/08/18 06/09/18 06/10/18 07:15 06:30 07:30 Hgb Creatinine 0.5 L 0.4 L 0.5 L Urine Protein Urine Blood 10/23/19 10/23/19 10/23/19 11:55 11:55 11:55 Hgb 11.3 Creatinine 1.0 Urine Protein 2+ H Urine Blood Trace 10/24/19 05:20 Hgb Creatinine 0.9 Urine Protein Urine Blood Impression 1. s/p kidney transplant 2. s/p liver transplant 3. UTI 4. hx hep c 5. hx of liver cirrhosis 6. 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
[2019-10-24] MEDS: SODIUM CHLORIDE 0.45% 1,000 ML IV SCH ×2 (18:00→21:13)
--- NOTE | 2019-10-24 19:38 | PN ---
Progress Note, Physician - Current Medication List Current Medications: Active Medications Acetaminophen (Ofirmev Injection -) 1,000 mg IVPB Q6H PRN PRN Reason: FEVER Stop: 10/24/19 22:04 Last Admin: 10/24/19 17:04 Dose: 1,000 mg Heparin Sodium (Porcine) (Heparin -) 5,000 unit SQ BID [facility] Last Admin: 10/24/19 11:27 Dose: Not Given Ceftriaxone Sodium 1 gm/ (Dextrose) 50 mls @ 100 mls/hr IVPB DAILY [facility]; Protocol Last Admin: 10/24/19 17:05 Dose: 100 mls/hr Sodium Chloride (1/2 Normal Saline) 1,000 mls @ 83 mls/hr IV ASDIR [facility] Last Admin: 10/24/19 18:00 Dose: 83 mls/hr Mycophenolate Sodium (Mycophenolic Acid) 360 mg PO BID [facility] Last Admin: 10/24/19 11:27 Dose: 360 mg Non-Formulary Medication (Doxepin Hcl [Doxepin Hcl]) 150 mg PO ASDIR [facility] Ondansetron HCl (Zofran Injection) 4 mg IVPUSH Q6H PRN PRN Reason: NAUSEA AND/OR VOMITING Tacrolimus (Prograf) 1 mg PO BID [facility] Last Admin: 10/24/19 11:27 Dose: 1 mg - Objective Vital Signs: Vital Signs Temperature 98.4 F 10/24/19 15:46 Pulse Rate 71 10/24/19 15:46 Respiratory Rate 17 10/24/19 16:10 Blood Pressure 92/55 L 10/24/19 15:46 O2 Sat by Pulse Oximetry (%) 98 10/24/19 16:10 Labs: CBC, BMP 10/24/19 05:20 10/24/19 05:20 Problem List - Problems (1) Fever Code(s): R50.9 - FEVER, UNSPECIFIED Qualifiers: Fever type: unspecified Qualified Code(s): R50.9 - Fever, unspecified (2) Nausea & vomiting Code(s): R11.2 - NAUSEA WITH VOMITING, UNSPECIFIED Qualifiers: Vomiting type: unspecified Vomiting Intractability: unspecified Qualified Code(s): R11.2 - Nausea with vomiting, unspecified (3) Hepatitis C Code(s): B19.20 - UNSPECIFIED VIRAL HEPATITIS C WITHOUT HEPATIC COMA (4) Kidney transplant recipient Code(s): Z94.0 - KIDNEY TRANSPLANT STATUS (5) Liver transplant recipient Code(s): Z94.4 - LIVER TRANSPLANT STATUS
[2019-10-25] MEDS ORDERED: cefTRIAXone SODIUM 1 GM VIAL ONE (10:23)
[2019-10-25] MEDS ORDERED: PT OWN MED DRAWER 7, Y5N ONE ×4 (10:23→21:48)
[2019-10-25] MEDS ORDERED: DEXTROSE 5%-WATER - 50 ML IVPB ONE (10:24)
[2019-10-25] MEDS: TACROLIMUS ANHYDROUS 1 MG CAPSULE PO SCH ×2 (10:27→22:04)
[2019-10-25] MEDS: MYCOPHENOLATE SODIUM 360 MG TABLET.DR PO SCH ×2 (10:28→21:46)
[2019-10-25] MEDS: CEFTRIAXONE 1 GM in DEXTROSE 5%-WATER - 50 ML IVPB SCH (10:28)
[2019-10-25] MEDS: HEPARIN NA (PORCINE) 5,000 UNITS/ML 1ML VIAL SQ SCH ×2 (10:46→21:46)
--- NOTE | 2019-10-25 12:14 | PN ---
Progress Note, Physician History of Present Illness: stable no new issues - Current Medication List Current Medications: Active Medications Heparin Sodium (Porcine) (Heparin -) 5,000 unit SQ BID COUNTS [facility]CLUDE 234 BEDS AT THE [facility] Last Admin: 10/25/19 10:46 Dose: Not Given Ceftriaxone Sodium 1 gm/ (Dextrose) 50 mls @ 100 mls/hr IVPB DAILY COUNTS INCLUDE 234 BEDS AT THE [facility]; Protocol Last Admin: 10/25/19 10:28 Dose: 100 mls/hr Sodium Chloride (1/2 Normal Saline) 1,000 mls @ 83 mls/hr IV ASDIR JOY Last Admin: 10/24/19 21:13 Dose: 83 mls/hr Mycophenolate Sodium (Mycophenolic Acid) 360 mg PO BID COUNTS INCLUDE 234 BEDS AT THE [facility] Last Admin: 10/25/19 10:28 Dose: 360 mg Non-Formulary Medication (Doxepin Hcl [Doxepin Hcl]) 150 mg PO ASDIR COUNTS INCLUDE 234 BEDS AT THE [facility] Ondansetron HCl (Zofran Injection) 4 mg IVPUSH Q6H PRN PRN Reason: NAUSEA AND/OR VOMITING Tacrolimus (Prograf) 1 mg PO BID COUNTS INCLUDE 234 BEDS AT THE [facility] Last Admin: 10/25/19 10:27 Dose: 1 mg - Objective Vital Signs: Vital Signs Temperature 98.1 F 10/25/19 09:11 Pulse Rate 68 10/25/19 09:11 Respiratory Rate 16 10/25/19 09:11 Blood Pressure 85/55 L 10/25/19 09:11 O2 Sat by Pulse Oximetry (%) 97 10/25/19 09:00 Constitutional: Yes: No Distress, Calm Cardiovascular: Yes: S1, S2 Respiratory: Yes: Regular, CTA Bilaterally Gastrointestinal: Yes: Normal Bowel Sounds, Soft Musculoskeletal: Yes: WNL Extremities: Yes: WNL Neurological: Yes: Alert, Oriented Psychiatric: Yes: Alert, Oriented Labs: CBC, BMP 10/24/19 05:20 10/24/19 05:20 Assessment/Plan this patient with multiple medical problems getting admitted with sepsis with positive blood cx Problem List - Problems (1) Hepatitis C Code(s): B19.20 - UNSPECIFIED VIRAL HEPATITIS C WITHOUT HEPATIC COMA (2) Kidney transplant recipient Code(s): Z94.0 - KIDNEY TRANSPLANT STATUS (3) Liver transplant recipient Code(s): Z94.4 - LIVER TRANSPLANT STATUS 4 positive blood cx 5 uti plan continue abx await for cx reports repeat blood cx ordered rest as per the team
[2019-10-25 14:45] LABS: BLOOD UREA NITROGEN 10.5 mg/dL (7-18); CALCIUM 7.6 mg/dL (8.5-10.1); CREATININE 0.6 mg/dL (0.55-1.3); POTASSIUM 3.7 mmol/L (3.5-5.1)
[2019-10-25] MEDS: SODIUM CHLORIDE 0.45% 1,000 ML IV SCH ×2 (15:17→22:05)
--- NOTE | 2019-10-25 17:32 | PN ---
Progress Note, Physician History of Present Illness: Pt seen and examined at bedside. She is awake and alert. She denies fevers or chills. - Current Medication List Current Medications: Active Medications Heparin Sodium (Porcine) (Heparin -) 5,000 unit SQ BID [facility] Last Admin: 10/25/19 10:46 Dose: Not Given Ceftriaxone Sodium 1 gm/ (Dextrose) 50 mls @ 100 mls/hr IVPB DAILY [facility]; Protocol Last Admin: 10/25/19 10:28 Dose: 100 mls/hr Sodium Chloride (1/2 Normal Saline) 1,000 mls @ 83 mls/hr IV ASDIR JOY Last Admin: 10/25/19 15:17 Dose: 83 mls/hr Mycophenolate Sodium (Mycophenolic Acid) 360 mg PO BID [facility] Last Admin: 10/25/19 10:28 Dose: 360 mg Non-Formulary Medication (Doxepin Hcl [Doxepin Hcl]) 150 mg PO ASDIR JOY Ondansetron HCl (Zofran Injection) 4 mg IVPUSH Q6H PRN PRN Reason: NAUSEA AND/OR VOMITING Tacrolimus (Prograf) 1 mg PO BID [facility] Last Admin: 10/25/19 10:27 Dose: 1 mg - Objective Vital Signs: Vital Signs Temperature 98.1 F 10/25/19 15:28 Pulse Rate 68 10/25/19 09:11 Respiratory Rate 16 10/25/19 09:11 Blood Pressure 85/55 L 10/25/19 09:11 O2 Sat by Pulse Oximetry (%) 97 10/25/19 09:00 Constitutional: Yes: Calm Eyes: Yes: Conjunctiva Clear HENT: Yes: Atraumatic Neck: Yes: Supple Cardiovascular: Yes: S1, S2 Respiratory: Yes: CTA Bilaterally Gastrointestinal: Yes: Soft Genitourinary: Yes: Other (graft soft and non tender) Edema: No Neurological: Yes: Oriented Psychiatric: Yes: Oriented Labs: CBC, BMP 10/24/19 05:20 10/25/19 13:46 Problem List - Problems (1) Hepatitis C Code(s): B19.20 - UNSPECIFIED VIRAL HEPATITIS C WITHOUT HEPATIC COMA (2) Kidney transplant recipient Code(s): Z94.0 - KIDNEY TRANSPLANT STATUS (3) Liver transplant recipient Code(s): Z94.4 - LIVER TRANSPLANT STATUS Assessment/Plan Current Medications Generic Name Dose Route Start Last Admin Trade Name Freq PRN Reason Stop Dose Admin Heparin Sodium (Porcine) 5,000 unit 10/23/19 22:00 10/25/19 10:46 Heparin - SQ Not Given BID [facility] Ceftriaxone Sodium 1 gm/ 50 mls @ 100 mls/hr 10/24/19 10:00 10/25/19 10:28 Dextrose IVPB 100 mls/hr DAILY JOY Administration Protocol Sodium Chloride 1,000 mls @ 83 mls/hr 10/24/19 17:45 10/25/19 15:17 1/2 Normal Saline IV 83 mls/hr ASDIR JOY Administration Mycophenolate Sodium 360 mg 10/23/19 22:00 10/25/19 10:28 Mycophenolic Acid PO 360 mg BID JOY Administration Non-Formulary Medication 150 mg 10/23/19 19:30 Doxepin Hcl [Doxepin Hcl] PO ASDIR JOY Ondansetron HCl 4 mg 10/23/19 19:34 Zofran Injection IVPUSH Q6H PRN NAUSEA AND/OR VOMITING Tacrolimus 1 mg 10/23/19 22:00 10/25/19 10:27 Prograf PO 1 mg BID JOY Administration Impression 1. s/p kidney transplant 2. s/p liver transplant 3. UTI 4. hx hep c 5. hx of liver cirrhosis 6. 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
[2019-10-25] MEDS ORDERED: ACETAMINOPHEN 325 MG TABLET (FP) PO PRN (20:25)
--- NOTE | 2019-10-25 23:30 | PN ---
Progress Note, Physician History of Present Illness: Abdominal pain improved - Current Medication List Current Medications: Active Medications Acetaminophen (Tylenol -) 650 mg PO Q6H PRN PRN Reason: HEADACHE Heparin Sodium (Porcine) (Heparin -) 5,000 unit SQ BID [facility] Last Admin: 10/25/19 21:46 Dose: 5,000 unit Ceftriaxone Sodium 1 gm/ (Dextrose) 50 mls @ 100 mls/hr IVPB DAILY [facility]; Protocol Last Admin: 10/25/19 10:28 Dose: 100 mls/hr Sodium Chloride (1/2 Normal Saline) 1,000 mls @ 42 mls/hr IV ASDIR [facility] Last Admin: 10/25/19 22:05 Dose: Not Given Mycophenolate Sodium (Mycophenolic Acid) 360 mg PO BID [facility] Last Admin: 10/25/19 21:46 Dose: 360 mg Non-Formulary Medication (Doxepin Hcl [Doxepin Hcl]) 150 mg PO ASDIR [facility] Ondansetron HCl (Zofran Injection) 4 mg IVPUSH Q6H PRN PRN Reason: NAUSEA AND/OR VOMITING Tacrolimus (Prograf) 2 mg PO BID [facility] Last Admin: 10/25/19 22:04 Dose: 2 mg - Objective Vital Signs: Vital Signs Temperature 98.9 F 10/25/19 21:53 Pulse Rate 67 10/25/19 21:53 Respiratory Rate 18 10/25/19 21:53 Blood Pressure 100/60 10/25/19 21:53 O2 Sat by Pulse Oximetry (%) 97 10/25/19 09:00 Cardiovascular: Yes: WNL, Regular Rate and Rhythm Respiratory: Yes: WNL, Regular, CTA Bilaterally Gastrointestinal: Yes: WNL, Normal Bowel Sounds, Soft Edema: No Labs: CBC, BMP 10/24/19 05:20 10/25/19 13:46 Problem List - Problems (1) Fever Assessment/Plan: WBC elevated Bacteremia BC (+) for nonlactose fermenting GNB Urine culture (+) ?Urosepsis Cont IV ceftriaxone Cont IVF Code(s): R50.9 - FEVER, UNSPECIFIED Qualifiers: Fever type: unspecified Qualified Code(s): R50.9 - Fever, unspecified (2) Nausea & vomiting Assessment/Plan: Due to sepsis Cont IVF Full liquid diet and advance as tolerated Monitor Zofran Code(s): R11.2 - NAUSEA WITH VOMITING, UNSPECIFIED Qualifiers: Vomiting type: unspecified Vomiting Intractability: unspecified Qualified Code(s): R11.2 - Nausea with vomiting, unspecified (3) Hepatitis C Code(s): B19.20 - UNSPECIFIED VIRAL HEPATITIS C WITHOUT HEPATIC COMA (4) Kidney transplant recipient Assessment/Plan: Renal consult Code(s): Z94.0 - KIDNEY TRANSPLANT STATUS (5) Liver transplant recipient Code(s): Z94.4 - LIVER TRANSPLANT STATUS
[2019-10-26 09:04] LABS: ALBUMIN 2.4 g/dl (3.4-5.0); BILIRUBIN,TOTAL 0.2 mg/dL (0.2-1); BLOOD UREA NITROGEN 6.8 mg/dL (7-18); CREATININE 0.6 mg/dL (0.55-1.3); POTASSIUM 4.4 mmol/L (3.5-5.1); TOT PROT 5.4 g/dl (6.4-8.2)
[2019-10-26] MEDS ORDERED: cefTRIAXone SODIUM 1 GM VIAL ONE (09:32)
[2019-10-26] MEDS ORDERED: DEXTROSE 5%-WATER - 50 ML IVPB ONE (09:32)
--- NOTE | 2019-10-26 10:23 | PN ---
Progress Note, Physician History of Present Illness: stable no new issues cx result noted - Current Medication List Current Medications: Active Medications Acetaminophen (Tylenol -) 650 mg PO Q6H PRN PRN Reason: HEADACHE Heparin Sodium (Porcine) (Heparin -) 5,000 unit SQ BID [facility] Last Admin: 10/25/19 21:46 Dose: 5,000 unit Ceftriaxone Sodium 1 gm/ (Dextrose) 50 mls @ 100 mls/hr IVPB DAILY [facility]; Protocol Last Admin: 10/25/19 10:28 Dose: 100 mls/hr Sodium Chloride (1/2 Normal Saline) 1,000 mls @ 42 mls/hr IV ASDIR [facility] Last Admin: 10/25/19 22:05 Dose: Not Given Mycophenolate Sodium (Mycophenolic Acid) 360 mg PO BID [facility] Last Admin: 10/25/19 21:46 Dose: 360 mg Non-Formulary Medication (Doxepin Hcl [Doxepin Hcl]) 150 mg PO ASDIR [facility] Ondansetron HCl (Zofran Injection) 4 mg IVPUSH Q6H PRN PRN Reason: NAUSEA AND/OR VOMITING Tacrolimus (Prograf) 2 mg PO BID [facility] Last Admin: 10/25/19 22:04 Dose: 2 mg - Objective Vital Signs: Vital Signs Temperature 98.7 F 10/26/19 06:00 Pulse Rate 60 10/26/19 06:00 Respiratory Rate 18 10/26/19 06:00 Blood Pressure 85/48 L 10/26/19 06:00 O2 Sat by Pulse Oximetry (%) 97 10/25/19 21:00 Constitutional: Yes: No Distress, Calm Cardiovascular: Yes: S1, S2 Respiratory: Yes: Regular, CTA Bilaterally Gastrointestinal: Yes: Normal Bowel Sounds, Soft Musculoskeletal: Yes: WNL Extremities: Yes: WNL Neurological: Yes: Alert, Oriented Psychiatric: Yes: Alert, Oriented Labs: CBC, BMP 10/24/19 05:20 10/26/19 07:22 Assessment/Plan this patient with multiple medical problems getting admitted with sepsis with positive blood cx Problem List - Problems (1) Hepatitis C Code(s): B19.20 - UNSPECIFIED VIRAL HEPATITIS C WITHOUT HEPATIC COMA (2) Kidney transplant recipient Code(s): Z94.0 - KIDNEY TRANSPLANT STATUS (3) Liver transplant recipient Code(s): Z94.4 - LIVER TRANSPLANT STATUS 4 positive blood cx 5 uti plan cx result noted await for repeat blood cx will change abx to meropenam rest as per the team
[2019-10-26] MEDS ORDERED: MEROPENEM 1 GM VIAL (RESTRICTED TO ID) IVPB ONE ×2 (10:52→17:08)
[2019-10-26] MEDS ORDERED: DEXTROSE 5%-WATER 100 ML IVPB ONE ×2 (10:52→17:08)
[2019-10-26] MEDS: MEROPENEM 1 GM in DEXTROSE 5%-WATER 100 ML IVPB SCH ×2 (10:55→17:48)
[2019-10-26] MEDS: TACROLIMUS ANHYDROUS 1 MG CAPSULE PO SCH ×2 (10:57→21:46)
[2019-10-26] MEDS: HEPARIN NA (PORCINE) 5,000 UNITS/ML 1ML VIAL SQ SCH ×2 (10:57→21:47)
[2019-10-26] MEDS: MYCOPHENOLATE SODIUM 360 MG TABLET.DR PO SCH ×2 (10:57→21:47)
[2019-10-26] MEDS: CEFTRIAXONE 1 GM in DEXTROSE 5%-WATER - 50 ML IVPB SCH (11:52)
--- NOTE | 2019-10-26 16:51 | PN ---
Progress Note, Physician History of Present Illness: Pt seen and examined at bedside. She is awake and alert. She denies fevers or chills. - Current Medication List Current Medications: Active Medications Acetaminophen (Tylenol -) 650 mg PO Q6H PRN PRN Reason: HEADACHE Heparin Sodium (Porcine) (Heparin -) 5,000 unit SQ BID [facility] Last Admin: 10/26/19 10:57 Dose: 5,000 unit Sodium Chloride (1/2 Normal Saline) 1,000 mls @ 42 mls/hr IV ASDIR JOY Last Admin: 10/25/19 22:05 Dose: Not Given Meropenem 1 gm/ Dextrose 100 mls @ 200 mls/hr IVPB Q8H-IV JOY Last Admin: 10/26/19 10:55 Dose: 200 mls/hr Mycophenolate Sodium (Mycophenolic Acid) 360 mg PO BID [facility] Last Admin: 10/26/19 10:57 Dose: 360 mg Non-Formulary Medication (Doxepin Hcl [Doxepin Hcl]) 150 mg PO ASDIR JOY Ondansetron HCl (Zofran Injection) 4 mg IVPUSH Q6H PRN PRN Reason: NAUSEA AND/OR VOMITING Tacrolimus (Prograf) 2 mg PO BID [facility] Last Admin: 10/26/19 10:57 Dose: 2 mg - Objective Vital Signs: Vital Signs Temperature 98.1 F 10/26/19 14:00 Pulse Rate 62 10/26/19 14:00 Respiratory Rate 18 10/26/19 10:00 Blood Pressure 103/72 10/26/19 14:00 O2 Sat by Pulse Oximetry (%) 97 10/25/19 21:00 Constitutional: Yes: Calm Eyes: Yes: Conjunctiva Clear HENT: Yes: Atraumatic Neck: Yes: Supple Cardiovascular: Yes: S1, S2 Respiratory: Yes: CTA Bilaterally Gastrointestinal: Yes: Soft Genitourinary: Yes: WNL, Other (graft soft and non tender) Musculoskeletal: Yes: WNL Edema: No Neurological: Yes: Oriented Psychiatric: Yes: Oriented Labs: CBC, BMP 10/24/19 05:20 10/26/19 07:22 Problem List - Problems (1) Hepatitis C Code(s): B19.20 - UNSPECIFIED VIRAL HEPATITIS C WITHOUT HEPATIC COMA (2) Kidney transplant recipient Code(s): Z94.0 - KIDNEY TRANSPLANT STATUS (3) Liver transplant recipient Code(s): Z94.4 - LIVER TRANSPLANT STATUS Assessment/Plan Current Medications Generic Name Dose Route Start Last Admin Trade Name Freq PRN Reason Stop Dose Admin Acetaminophen 650 mg 10/25/19 20:25 Tylenol - PO Q6H PRN HEADACHE Heparin Sodium (Porcine) 5,000 unit 10/23/19 22:00 10/26/19 10:57 Heparin - SQ 5,000 unit BID JOY Administration Sodium Chloride 1,000 mls @ 42 mls/hr 10/25/19 17:33 10/25/19 22:05 1/2 Normal Saline IV Not Given ASDIR JOY Meropenem 1 gm/ Dextrose 100 mls @ 200 mls/hr 10/26/19 10:30 10/26/19 10:55 IVPB 200 mls/hr Q8H-IV JOY Administration Mycophenolate Sodium 360 mg 10/23/19 22:00 10/26/19 10:57 Mycophenolic Acid PO 360 mg BID JOY Administration Non-Formulary Medication 150 mg 10/23/19 19:30 Doxepin Hcl [Doxepin Hcl] PO ASDIR JOY Ondansetron HCl 4 mg 10/23/19 19:34 Zofran Injection IVPUSH Q6H PRN NAUSEA AND/OR VOMITING Tacrolimus 2 mg 10/25/19 17:32 10/26/19 10:57 Prograf PO 2 mg BID JOY Administration Impression 1. s/p kidney transplant 2. s/p liver transplant 3. UTI 4. hx hep c 5. hx of liver cirrhosis 6. 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
[2019-10-26] MEDS ORDERED: PT OWN MED DRAWER 7, Y5N ONE ×2 (17:07→20:36)
[2019-10-26] MEDS: SODIUM CHLORIDE 0.45% 1,000 ML IV SCH (17:52)
[2019-10-26 19:21] LABS: EPI CELLS 3.5 /HPF (0-5/HPF); HYALINE CASTS 0 /lpf (0-8); PH,URINE 6.5 (5.0-8.0); URINE APPEARANCE CLEAR; URINE BACTERIA 0.5 /hpf (NEGATIVE); URINE BILIRUBIN NEGATIVE (NEGATIVE); URINE COLOR YELLOW; URINE GLUCOSE (UA) NEGATIVE (NEGATIVE); URINE KETONE NEGATIVE (NEGATIVE); URINE LEUK ESTERASE TRACE (NEGATIVE); URINE NITRITE NEGATIVE (NEGATIVE); URINE PROTEIN NEGATIVE (NEGATIVE); URINE RBC 1 /hpf (0-4); URINE UROBILINOGEN 0.2 mg/dL (0.2-1.0); URINE WBC 7 /hpf (0-5)
--- NOTE | 2019-10-26 23:29 | PN ---
Progress Note, Physician - Current Medication List Current Medications: Active Medications Acetaminophen (Tylenol -) 650 mg PO Q6H PRN PRN Reason: HEADACHE Heparin Sodium (Porcine) (Heparin -) 5,000 unit SQ BID [facility] Last Admin: 10/26/19 21:47 Dose: 5,000 unit Sodium Chloride (1/2 Normal Saline) 1,000 mls @ 42 mls/hr IV ASDIR [facility] Last Admin: 10/26/19 17:52 Dose: 42 mls/hr Meropenem 1 gm/ Dextrose 100 mls @ 200 mls/hr IVPB Q8H-IV [facility] Last Admin: 10/26/19 17:48 Dose: 200 mls/hr Mycophenolate Sodium (Mycophenolic Acid) 360 mg PO BID [facility] Last Admin: 10/26/19 21:47 Dose: 360 mg Non-Formulary Medication (Doxepin Hcl [Doxepin Hcl]) 150 mg PO ASDIR [facility] Ondansetron HCl (Zofran Injection) 4 mg IVPUSH Q6H PRN PRN Reason: NAUSEA AND/OR VOMITING Tacrolimus (Prograf) 2 mg PO BID [facility] Last Admin: 10/26/19 21:46 Dose: 2 mg - Objective Vital Signs: Vital Signs Temperature 98.1 F 10/26/19 22:30 Pulse Rate 58 L 10/26/19 22:30 Respiratory Rate 18 10/26/19 22:30 Blood Pressure 97/46 L 10/26/19 22:30 O2 Sat by Pulse Oximetry (%) 97 10/26/19 21:00 Labs: CBC, BMP 10/24/19 05:20 10/26/19 07:22 Problem List - Problems (1) Fever Code(s): R50.9 - FEVER, UNSPECIFIED Qualifiers: Fever type: unspecified Qualified Code(s): R50.9 - Fever, unspecified (2) Nausea & vomiting Code(s): R11.2 - NAUSEA WITH VOMITING, UNSPECIFIED Qualifiers: Vomiting type: unspecified Vomiting Intractability: unspecified Qualified Code(s): R11.2 - Nausea with vomiting, unspecified (3) Hepatitis C Code(s): B19.20 - UNSPECIFIED VIRAL HEPATITIS C WITHOUT HEPATIC COMA (4) Kidney transplant recipient Code(s): Z94.0 - KIDNEY TRANSPLANT STATUS (5) Liver transplant recipient Code(s): Z94.4 - LIVER TRANSPLANT STATUS
[2019-10-27] MEDS ORDERED: MEROPENEM 1 GM VIAL (RESTRICTED TO ID) IVPB ONE ×4 (00:31→16:58)
[2019-10-27] MEDS ORDERED: DEXTROSE 5%-WATER 100 ML IVPB ONE ×4 (00:32→16:58)
[2019-10-27] MEDS: MEROPENEM 1 GM in DEXTROSE 5%-WATER 100 ML IVPB SCH ×3 (01:38→17:49)
[2019-10-27 09:41] LABS: ALBUMIN 2.8 g/dl (3.4-5.0); BILIRUBIN,TOTAL 0.2 mg/dL (0.2-1); BLOOD UREA NITROGEN 6.9 mg/dL (7-18); CALCIUM 8.5 mg/dL (8.5-10.1); CREATININE 0.6 mg/dL (0.55-1.3); TOT PROT 6.2 g/dl (6.4-8.2)
[2019-10-27] MEDS ORDERED: PT OWN MED DRAWER 7, Y5N ONE (10:12)
[2019-10-27] MEDS: HEPARIN NA (PORCINE) 5,000 UNITS/ML 1ML VIAL SQ SCH ×2 (10:18→21:26)
[2019-10-27] MEDS: MYCOPHENOLATE SODIUM 360 MG TABLET.DR PO SCH ×2 (10:19→21:25)
[2019-10-27] MEDS: TACROLIMUS ANHYDROUS 1 MG CAPSULE PO SCH ×2 (10:19→21:25)
--- NOTE | 2019-10-27 12:53 | PN ---
Progress Note, Physician History of Present Illness: stable no new issues - Current Medication List Current Medications: Active Medications Acetaminophen (Tylenol -) 650 mg PO Q6H PRN PRN Reason: HEADACHE Heparin Sodium (Porcine) (Heparin -) 5,000 unit SQ BID [facility] Last Admin: 10/27/19 10:18 Dose: 5,000 unit Sodium Chloride (1/2 Normal Saline) 1,000 mls @ 42 mls/hr IV ASDIR [facility] Last Admin: 10/26/19 17:52 Dose: 42 mls/hr Meropenem 1 gm/ Dextrose 100 mls @ 200 mls/hr IVPB Q8H-IV [facility] Last Admin: 10/27/19 10:19 Dose: 200 mls/hr Mycophenolate Sodium (Mycophenolic Acid) 360 mg PO BID [facility] Last Admin: 10/27/19 10:19 Dose: 360 mg Non-Formulary Medication (Doxepin Hcl [Doxepin Hcl]) 150 mg PO ASDIR [facility] Ondansetron HCl (Zofran Injection) 4 mg IVPUSH Q6H PRN PRN Reason: NAUSEA AND/OR VOMITING Tacrolimus (Prograf) 2 mg PO BID [facility] Last Admin: 10/27/19 10:19 Dose: 2 mg - Objective Vital Signs: Vital Signs Temperature 98.2 F 10/27/19 06:58 Pulse Rate 56 L 10/27/19 06:58 Respiratory Rate 10/27/19 06:58 Blood Pressure 100/60 10/27/19 06:58 O2 Sat by Pulse Oximetry (%) 97 10/26/19 21:00 Constitutional: Yes: No Distress, Calm Cardiovascular: Yes: S1, S2 Respiratory: Yes: Regular, CTA Bilaterally Gastrointestinal: Yes: Normal Bowel Sounds, Soft Musculoskeletal: Yes: WNL Extremities: Yes: WNL Neurological: Yes: Alert, Oriented Psychiatric: Yes: Alert, Oriented Labs: CBC, BMP 10/24/19 05:20 10/27/19 07:10 Assessment/Plan this patient with multiple medical problems getting admitted with sepsis with positive blood cx Problem List - Problems (1) Hepatitis C Code(s): B19.20 - UNSPECIFIED VIRAL HEPATITIS C WITHOUT HEPATIC COMA (2) Kidney transplant recipient Code(s): Z94.0 - KIDNEY TRANSPLANT STATUS (3) Liver transplant recipient Code(s): Z94.4 - LIVER TRANSPLANT STATUS 4 positive blood cx 5 uti plan cx result noted repeat blood cx negative patient will need 2 weeks of abx rest as per the team
--- NOTE | 2019-10-27 15:26 | PN ---
Progress Note, Physician History of Present Illness: Pt seen and examine at bedside. She is awake and alert. She denies shortness of breath. - Current Medication List Current Medications: Active Medications Acetaminophen (Tylenol -) 650 mg PO Q6H PRN PRN Reason: HEADACHE Heparin Sodium (Porcine) (Heparin -) 5,000 unit SQ BID [facility] Last Admin: 10/27/19 10:18 Dose: 5,000 unit Sodium Chloride (1/2 Normal Saline) 1,000 mls @ 42 mls/hr IV ASDIR JOY Last Admin: 10/26/19 17:52 Dose: 42 mls/hr Meropenem 1 gm/ Dextrose 100 mls @ 200 mls/hr IVPB Q8H-IV JOY Last Admin: 10/27/19 10:19 Dose: 200 mls/hr Mycophenolate Sodium (Mycophenolic Acid) 360 mg PO BID [facility] Last Admin: 10/27/19 10:19 Dose: 360 mg Non-Formulary Medication (Doxepin Hcl [Doxepin Hcl]) 150 mg PO ASDIR JOY Ondansetron HCl (Zofran Injection) 4 mg IVPUSH Q6H PRN PRN Reason: NAUSEA AND/OR VOMITING Tacrolimus (Prograf) 2 mg PO BID [facility] Last Admin: 10/27/19 10:19 Dose: 2 mg - Objective Vital Signs: Vital Signs Temperature 97.4 F L 10/27/19 14:54 Pulse Rate 73 10/27/19 14:54 Respiratory Rate 18 10/27/19 14:54 Blood Pressure 103/84 10/27/19 14:54 O2 Sat by Pulse Oximetry (%) 98 10/27/19 09:00 Constitutional: Yes: Calm Eyes: Yes: Conjunctiva Clear HENT: Yes: Atraumatic Neck: Yes: Supple Cardiovascular: Yes: S1, S2 Respiratory: Yes: CTA Bilaterally Gastrointestinal: Yes: Soft Genitourinary: Yes: WNL Edema: Yes Edema: LLE: Trace, RLE: Trace Neurological: Yes: Oriented Psychiatric: Yes: Oriented Labs: CBC, BMP 10/24/19 05:20 10/27/19 07:10 Problem List - Problems (1) Hepatitis C Code(s): B19.20 - UNSPECIFIED VIRAL HEPATITIS C WITHOUT HEPATIC COMA (2) Kidney transplant recipient Code(s): Z94.0 - KIDNEY TRANSPLANT STATUS (3) Liver transplant recipient Code(s): Z94.4 - LIVER TRANSPLANT STATUS Assessment/Plan Current Medications Generic Name Dose Route Start Last Admin Trade Name Freq PRN Reason Stop Dose Admin Acetaminophen 650 mg 10/25/19 20:25 Tylenol - PO Q6H PRN HEADACHE Heparin Sodium (Porcine) 5,000 unit 10/23/19 22:00 10/27/19 10:18 Heparin - SQ 5,000 unit BID JOY Administration Sodium Chloride 1,000 mls @ 42 mls/hr 10/25/19 17:33 10/26/19 17:52 1/2 Normal Saline IV 42 mls/hr ASDIR JOY Administration Meropenem 1 gm/ Dextrose 100 mls @ 200 mls/hr 10/26/19 10:30 10/27/19 10:19 IVPB 200 mls/hr Q8H-IV JOY Administration Mycophenolate Sodium 360 mg 10/23/19 22:00 10/27/19 10:19 Mycophenolic Acid PO 360 mg BID JOY Administration Non-Formulary Medication 150 mg 10/23/19 19:30 Doxepin Hcl [Doxepin Hcl] PO ASDIR JOY Ondansetron HCl 4 mg 10/23/19 19:34 Zofran Injection IVPUSH Q6H PRN NAUSEA AND/OR VOMITING Tacrolimus 2 mg 10/25/19 17:32 10/27/19 10:19 Prograf PO 2 mg BID JOY Administration Impression 1. s/p kidney transplant 2. s/p liver transplant 3. UTI 4. hx hep c 5. hx of liver cirrhosis 6. 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
[2019-10-27] MEDS: SODIUM CHLORIDE 0.45% 1,000 ML IV SCH (17:52)
--- NOTE | 2019-10-27 23:15 | PN ---
Progress Note, Physician - Current Medication List Current Medications: Active Medications Acetaminophen (Tylenol -) 650 mg PO Q6H PRN PRN Reason: HEADACHE Heparin Sodium (Porcine) (Heparin -) 5,000 unit SQ BID [facility] Last Admin: 10/27/19 21:26 Dose: 5,000 unit Sodium Chloride (1/2 Normal Saline) 1,000 mls @ 42 mls/hr IV ASDIR [facility] Last Admin: 10/27/19 17:52 Dose: 42 mls/hr Meropenem 1 gm/ Dextrose 100 mls @ 200 mls/hr IVPB Q8H-IV [facility] Last Admin: 10/27/19 17:49 Dose: 200 mls/hr Mycophenolate Sodium (Mycophenolic Acid) 360 mg PO BID [facility] Last Admin: 10/27/19 21:25 Dose: 360 mg Non-Formulary Medication (Doxepin Hcl [Doxepin Hcl]) 150 mg PO ASDIR [facility] Ondansetron HCl (Zofran Injection) 4 mg IVPUSH Q6H PRN PRN Reason: NAUSEA AND/OR VOMITING Tacrolimus (Prograf) 2 mg PO BID [facility] Last Admin: 10/27/19 21:25 Dose: 2 mg - Objective Vital Signs: Vital Signs Temperature 98.3 F 10/27/19 20:25 Pulse Rate 18 L 10/27/19 20:25 Respiratory Rate 61 H 10/27/19 20:25 Blood Pressure 120/56 L 10/27/19 20:25 O2 Sat by Pulse Oximetry (%) 98 10/27/19 09:00 Labs: CBC, BMP 10/24/19 05:20 10/27/19 07:10 Problem List - Problems (1) Fever Code(s): R50.9 - FEVER, UNSPECIFIED Qualifiers: Fever type: unspecified Qualified Code(s): R50.9 - Fever, unspecified (2) Nausea & vomiting Code(s): R11.2 - NAUSEA WITH VOMITING, UNSPECIFIED Qualifiers: Vomiting type: unspecified Vomiting Intractability: unspecified Qualified Code(s): R11.2 - Nausea with vomiting, unspecified (3) Hepatitis C Code(s): B19.20 - UNSPECIFIED VIRAL HEPATITIS C WITHOUT HEPATIC COMA (4) Kidney transplant recipient Code(s): Z94.0 - KIDNEY TRANSPLANT STATUS (5) Liver transplant recipient Code(s): Z94.4 - LIVER TRANSPLANT STATUS
[2019-10-28] MEDS ORDERED: MEROPENEM 1 GM VIAL (RESTRICTED TO ID) IVPB ONE ×3 (00:52→17:52)
[2019-10-28] MEDS ORDERED: DEXTROSE 5%-WATER 100 ML IVPB ONE ×3 (00:52→17:52)
[2019-10-28] MEDS: MEROPENEM 1 GM in DEXTROSE 5%-WATER 100 ML IVPB SCH ×3 (01:02→17:56)
[2019-10-28] MEDS ORDERED: PT OWN MED DRAWER 7, Y5N ONE (10:03)
[2019-10-28] MEDS: HEPARIN NA (PORCINE) 5,000 UNITS/ML 1ML VIAL SQ SCH ×2 (10:11→22:05)
[2019-10-28] MEDS: MYCOPHENOLATE SODIUM 360 MG TABLET.DR PO SCH ×2 (10:12→22:05)
[2019-10-28] MEDS: TACROLIMUS ANHYDROUS 1 MG CAPSULE PO SCH ×2 (10:12→22:04)
[2019-10-28] MEDS: SODIUM CHLORIDE 0.45% 1,000 ML IV SCH (17:56)
--- NOTE | 2019-10-28 18:23 | PN ---
Progress Note, Physician History of Present Illness: Pt is alert, stating she feels well. Remains afebrile, denies dysuria. - Current Medication List Current Medications: Active Medications Acetaminophen (Tylenol -) 650 mg PO Q6H PRN PRN Reason: HEADACHE Heparin Sodium (Porcine) (Heparin -) 5,000 unit SQ BID [facility] Last Admin: 10/28/19 10:11 Dose: 5,000 unit Sodium Chloride (1/2 Normal Saline) 1,000 mls @ 42 mls/hr IV ASDIR [facility] Last Admin: 10/28/19 17:56 Dose: 42 mls/hr Meropenem 1 gm/ Dextrose 100 mls @ 200 mls/hr IVPB Q8H-IV [facility] Last Admin: 10/28/19 17:56 Dose: 200 mls/hr Mycophenolate Sodium (Mycophenolic Acid) 360 mg PO BID [facility] Last Admin: 10/28/19 10:12 Dose: 360 mg Ondansetron HCl (Zofran Injection) 4 mg IVPUSH Q6H PRN PRN Reason: NAUSEA AND/OR VOMITING Tacrolimus (Prograf) 2 mg PO BID [facility] Last Admin: 10/28/19 10:12 Dose: 2 mg - Objective Vital Signs: Vital Signs Temperature 98.1 F 10/28/19 17:19 Pulse Rate 68 10/28/19 17:19 Respiratory Rate 20 10/28/19 17:19 Blood Pressure 108/85 10/28/19 14:00 O2 Sat by Pulse Oximetry (%) 100 10/28/19 09:00 Constitutional: Yes: No Distress, Calm Eyes: Yes: Conjunctiva Clear Cardiovascular: Yes: Regular Rate and Rhythm Respiratory: Yes: CTA Bilaterally Gastrointestinal: Yes: Normal Bowel Sounds, Soft Genitourinary: Yes: WNL Integumentary: Yes: WNL Neurological: Yes: Alert, Oriented Labs: CBC, BMP 10/24/19 05:20 10/27/19 07:10 Microbiology 10/23/19 14:45 Blood - Peripheral Venous Blood Culture - Final NO GROWTH AFTER 5 DAYS INCUBATION 10/26/19 07:22 Blood - Peripheral Venous Blood Culture - Preliminary NO GROWTH OBTAINED AFTER 48 HOURS, INCUBATION TO CONTINUE FOR 3 DAYS. 10/26/19 07:45 Blood - Peripheral Venous Blood Culture - Preliminary NO GROWTH OBTAINED AFTER 48 HOURS, INCUBATION TO CONTINUE FOR 3 DAYS. 10/23/19 11:55 Urine - Urine Clean Catch Urine Culture - Final Escherichia Coli Klebsiella Pneumoniae - Esbl 10/23/19 15:15 Blood - Peripheral Venous Blood Culture - Final Escherichia Coli Problem List - Problems (1) Hepatitis C Code(s): B19.20 - UNSPECIFIED VIRAL HEPATITIS C WITHOUT HEPATIC COMA (2) Liver transplant recipient Code(s): Z94.4 - LIVER TRANSPLANT STATUS (3) Kidney transplant recipient Code(s): Z94.0 - KIDNEY TRANSPLANT STATUS (4) Sepsis Code(s): A41.9 - SEPSIS, UNSPECIFIED ORGANISM Assessment/Plan UTI/ Bacteremia s/p Liver transplant s/p Kidney transplant Hep C -- repeat blood cultures neg -- continue Meropenem (needs total of 2 wks IV antibiotics) -- afebrile, vitals stable at this time
--- NOTE | 2019-10-28 22:33 | PN ---
Progress Note, Physician - Current Medication List Current Medications: Active Medications Acetaminophen (Tylenol -) 650 mg PO Q6H PRN PRN Reason: HEADACHE Heparin Sodium (Porcine) (Heparin -) 5,000 unit SQ BID [facility] Last Admin: 10/28/19 22:05 Dose: 5,000 unit Sodium Chloride (1/2 Normal Saline) 1,000 mls @ 42 mls/hr IV ASDIR [facility] Last Admin: 10/28/19 17:56 Dose: 42 mls/hr Meropenem 1 gm/ Dextrose 100 mls @ 200 mls/hr IVPB Q8H-IV [facility] Last Admin: 10/28/19 17:56 Dose: 200 mls/hr Mycophenolate Sodium (Mycophenolic Acid) 360 mg PO BID [facility] Last Admin: 10/28/19 22:05 Dose: 360 mg Ondansetron HCl (Zofran Injection) 4 mg IVPUSH Q6H PRN PRN Reason: NAUSEA AND/OR VOMITING Tacrolimus (Prograf) 2 mg PO BID [facility] Last Admin: 10/28/19 22:04 Dose: 2 mg - Objective Vital Signs: Vital Signs Temperature 98.2 F 10/28/19 19:28 Pulse Rate 77 10/28/19 19:28 Respiratory Rate 20 10/28/19 19:28 Blood Pressure 100/56 L 10/28/19 19:28 O2 Sat by Pulse Oximetry (%) 100 10/28/19 09:00 Labs: CBC, BMP 10/24/19 05:20 10/27/19 07:10 Problem List - Problems (1) Fever Code(s): R50.9 - FEVER, UNSPECIFIED Qualifiers: Fever type: unspecified Qualified Code(s): R50.9 - Fever, unspecified (2) Nausea & vomiting Code(s): R11.2 - NAUSEA WITH VOMITING, UNSPECIFIED Qualifiers: Vomiting type: unspecified Vomiting Intractability: unspecified Qualified Code(s): R11.2 - Nausea with vomiting, unspecified (3) Hepatitis C Code(s): B19.20 - UNSPECIFIED VIRAL HEPATITIS C WITHOUT HEPATIC COMA (4) Kidney transplant recipient Code(s): Z94.0 - KIDNEY TRANSPLANT STATUS (5) Liver transplant recipient Code(s): Z94.4 - LIVER TRANSPLANT STATUS
--- NOTE | 2019-10-28 23:51 | PN ---
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 s/p kidney transplant 2. s/p liver transplant 3. UTI 4. hx hep c 5. hx of liver cirrhosis 6. 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 Current Medications Acetaminophen (Tylenol -) 650 mg PO Q6H PRN PRN Reason: HEADACHE Heparin Sodium (Porcine) (Heparin -) 5,000 unit SQ BID [facility] Last Admin: 10/28/19 22:05 Dose: 5,000 unit Sodium Chloride (1/2 Normal Saline) 1,000 mls @ 42 mls/hr IV ASDIR [facility] Last Admin: 10/28/19 17:56 Dose: 42 mls/hr Meropenem 1 gm/ Dextrose 100 mls @ 200 mls/hr IVPB Q8H-IV [facility] Last Admin: 10/28/19 17:56 Dose: 200 mls/hr Mycophenolate Sodium (Mycophenolic Acid) 360 mg PO BID [facility] Last Admin: 10/28/19 22:05 Dose: 360 mg Ondansetron HCl (Zofran Injection) 4 mg IVPUSH Q6H PRN PRN Reason: NAUSEA AND/OR VOMITING Tacrolimus (Prograf) 2 mg PO BID [facility] Last Admin: 10/28/19 22:04 Dose: 2 mg Last Vital Signs Temp Pulse Resp BP Pulse Ox 98.2 F 77 20 100/56 L 100 10/28/19 19:28 10/28/19 19:28 10/28/19 21:00 10/28/19 19:28 10/28/19 21:00 CBC, BMP 10/24/19 05:20 10/27/19 07:10 Plan - can d/c fluids - repeat labs in am - avoid nsaids - abx per ID - cont current transplant meds
[2019-10-29] MEDS ORDERED: MEROPENEM 1 GM VIAL (RESTRICTED TO ID) IVPB ONE ×3 (00:39→17:05)
[2019-10-29] MEDS ORDERED: DEXTROSE 5%-WATER 100 ML IVPB ONE ×3 (00:39→17:06)
[2019-10-29] MEDS: MEROPENEM 1 GM in DEXTROSE 5%-WATER 100 ML IVPB SCH ×3 (01:02→17:42)
[2019-10-29 08:22] LABS: BASO % 0.5 % (0-2.0); EOS % 2.3 % (0-4.5); HEMOGLOBIN 8.7 GM/dL (10.7-15.3); LYMPH % 19.6 % (8-40); MCH 32.6 pg (25.7-33.7); MCHC 33.6 g/dl (32.0-36.0); MEAN CELL VOLUME 97.1 fl (80-96); MEAN PLT VOLUME 9.1 fl (7.5-11.1); MONO % 9.1 % (3.8-10.2); NEUT % 68.5 % (42.8-82.8); PLATELET COUNT 110 K/MM3 (134-434); RBC 2.67 M/mm3 (3.60-5.2); WHITE BLOOD COUNT 2.4 K/mm3 (4.0-10.0)
[2019-10-29 08:36] LABS: ALBUMIN 2.5 g/dl (3.4-5.0); BILIRUBIN,TOTAL 0.2 mg/dL (0.2-1); BLOOD UREA NITROGEN 8.7 mg/dL (7-18); CALCIUM 8.2 mg/dL (8.5-10.1); CREATININE 0.5 mg/dL (0.55-1.3); POTASSIUM 3.6 mmol/L (3.5-5.1); TOT PROT 5.6 g/dl (6.4-8.2)
[2019-10-29] MEDS ORDERED: PT OWN MED DRAWER 7, Y5N ONE (09:06)
[2019-10-29] MEDS: HEPARIN NA (PORCINE) 5,000 UNITS/ML 1ML VIAL SQ SCH ×2 (10:16→21:43)
[2019-10-29] MEDS: MYCOPHENOLATE SODIUM 360 MG TABLET.DR PO SCH ×2 (10:17→21:32)
[2019-10-29] MEDS: TACROLIMUS ANHYDROUS 1 MG CAPSULE PO SCH ×2 (10:18→21:32)
[2019-10-29 12:25] LABS: ANISOCYTOSIS 0; MACROCYTOSIS 0; PLATELET ESTIMATE DECREASED
--- NOTE | 2019-10-29 17:42 | PN ---
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 s/p kidney transplant 2. s/p liver transplant 3. UTI 4. hx hep c 5. hx of liver cirrhosis 6. 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 Current Medications Acetaminophen (Tylenol -) 650 mg PO Q6H PRN PRN Reason: HEADACHE Heparin Sodium (Porcine) (Heparin -) 5,000 unit SQ BID [facility] Last Admin: 10/29/19 10:16 Dose: 5,000 unit Sodium Chloride (1/2 Normal Saline) 1,000 mls @ 42 mls/hr IV ASDIR [facility] Last Admin: 10/28/19 17:56 Dose: 42 mls/hr Meropenem 1 gm/ Dextrose 100 mls @ 200 mls/hr IVPB Q8H-IV [facility] Last Admin: 10/29/19 10:18 Dose: 200 mls/hr Mycophenolate Sodium (Mycophenolic Acid) 360 mg PO BID [facility] Last Admin: 10/29/19 10:17 Dose: 360 mg Ondansetron HCl (Zofran Injection) 4 mg IVPUSH Q6H PRN PRN Reason: NAUSEA AND/OR VOMITING Tacrolimus (Prograf) 2 mg PO BID [facility] Last Admin: 10/29/19 10:18 Dose: 2 mg Last Vital Signs Temp Pulse Resp BP Pulse Ox 98.0 F 55 L 18 133/53 L 100 10/29/19 17:29 10/29/19 17:29 10/29/19 17:29 10/29/19 17:29 10/29/19 09:00 Lungs clear Heart reg Abd soft nontender Ext no edema CBC, BMP 10/29/19 07:47 10/29/19 07:47 CBC, BMP 10/24/19 05:20 10/27/19 07:10 UTI/ESBL kidney txplt renal function stable Plan- continue current tx
[2019-10-29] MEDS: SODIUM CHLORIDE 0.45% 1,000 ML IV SCH (17:43)
--- NOTE | 2019-10-29 18:15 | PN ---
Progress Note, Physician History of Present Illness: Pt is alert, ambulating, stating she feels well. WBC and H/H decreasing. - Current Medication List Current Medications: Active Medications Acetaminophen (Tylenol -) 650 mg PO Q6H PRN PRN Reason: HEADACHE Heparin Sodium (Porcine) (Heparin -) 5,000 unit SQ BID [facility] Last Admin: 10/29/19 10:16 Dose: 5,000 unit Sodium Chloride (1/2 Normal Saline) 1,000 mls @ 42 mls/hr IV ASDIR [facility] Last Admin: 10/29/19 17:43 Dose: 42 mls/hr Meropenem 1 gm/ Dextrose 100 mls @ 200 mls/hr IVPB Q8H-IV [facility] Last Admin: 10/29/19 17:42 Dose: 200 mls/hr Mycophenolate Sodium (Mycophenolic Acid) 360 mg PO BID [facility] Last Admin: 10/29/19 10:17 Dose: 360 mg Ondansetron HCl (Zofran Injection) 4 mg IVPUSH Q6H PRN PRN Reason: NAUSEA AND/OR VOMITING Tacrolimus (Prograf) 2 mg PO BID [facility] Last Admin: 10/29/19 10:18 Dose: 2 mg - Objective Vital Signs: Vital Signs Temperature 98.0 F 10/29/19 17:29 Pulse Rate 55 L 10/29/19 17:29 Respiratory Rate 18 10/29/19 17:29 Blood Pressure 133/53 L 10/29/19 17:29 O2 Sat by Pulse Oximetry (%) 100 10/29/19 09:00 Constitutional: Yes: No Distress, Calm Cardiovascular: Yes: Regular Rate and Rhythm Respiratory: Yes: CTA Bilaterally Gastrointestinal: Yes: Normal Bowel Sounds, Soft Genitourinary: Yes: WNL Extremities: Yes: WNL Integumentary: Yes: WNL Neurological: Yes: Alert, Oriented Labs: CBC, BMP 10/29/19 07:47 10/29/19 07:47 Microbiology 10/26/19 07:22 Blood - Peripheral Venous Blood Culture - Preliminary NO GROWTH OBTAINED AFTER 72 HOURS, INCUBATION TO CONTINUE FOR 2 DAYS. 10/26/19 07:45 Blood - Peripheral Venous Blood Culture - Preliminary NO GROWTH OBTAINED AFTER 72 HOURS, INCUBATION TO CONTINUE FOR 2 DAYS. 10/23/19 14:45 Blood - Peripheral Venous Blood Culture - Final NO GROWTH AFTER 5 DAYS INCUBATION 10/23/19 11:55 Urine - Urine Clean Catch Urine Culture - Final Escherichia Coli Klebsiella Pneumoniae - Esbl 10/23/19 15:15 Blood - Peripheral Venous Blood Culture - Final Escherichia Coli Problem List - Problems (1) Hepatitis C Code(s): B19.20 - UNSPECIFIED VIRAL HEPATITIS C WITHOUT HEPATIC COMA (2) Liver transplant recipient Code(s): Z94.4 - LIVER TRANSPLANT STATUS (3) Kidney transplant recipient Code(s): Z94.0 - KIDNEY TRANSPLANT STATUS (4) Sepsis Code(s): A41.9 - SEPSIS, UNSPECIFIED ORGANISM Assessment/Plan UTI/ Bacteremia Leukopenia Anemia s/p Liver transplant s/p Kidney transplant Hep C -- wbc, H/H dropping -- repeat cbc ordered for a.m. -- no noted active bleed, vitals stable/afebrile at this time -- repeat blood cultures negative -- continue Meropenem continue monitor
--- NOTE | 2019-10-29 23:15 | PN ---
Progress Note, Physician History of Present Illness: No new complaints - Current Medication List Current Medications: Active Medications Acetaminophen (Tylenol -) 650 mg PO Q6H PRN PRN Reason: HEADACHE Heparin Sodium (Porcine) (Heparin -) 5,000 unit SQ BID [facility] Last Admin: 10/29/19 21:43 Dose: 5,000 unit Sodium Chloride (1/2 Normal Saline) 1,000 mls @ 42 mls/hr IV ASDIR [facility] Last Admin: 10/29/19 17:43 Dose: 42 mls/hr Meropenem 1 gm/ Dextrose 100 mls @ 200 mls/hr IVPB Q8H-IV [facility] Last Admin: 10/29/19 17:42 Dose: 200 mls/hr Mycophenolate Sodium (Mycophenolic Acid) 360 mg PO BID [facility] Last Admin: 10/29/19 21:32 Dose: 360 mg Ondansetron HCl (Zofran Injection) 4 mg IVPUSH Q6H PRN PRN Reason: NAUSEA AND/OR VOMITING Tacrolimus (Prograf) 2 mg PO BID [facility] Last Admin: 10/29/19 21:32 Dose: 2 mg - Objective Vital Signs: Vital Signs Temperature 98.0 F 10/29/19 19:51 Pulse Rate 66 10/29/19 19:51 Respiratory Rate 18 10/29/19 21:00 Blood Pressure 86/36 L 10/29/19 19:51 O2 Sat by Pulse Oximetry (%) 100 10/29/19 21:00 Neck: Yes: WNL, Supple Cardiovascular: Yes: WNL, Regular Rate and Rhythm Respiratory: Yes: WNL, Regular, CTA Bilaterally Gastrointestinal: Yes: WNL, Normal Bowel Sounds, Soft Labs: CBC, BMP 10/29/19 07:47 10/29/19 07:47 Problem List - Problems (1) Fever Assessment/Plan: WBC elevated Bacteremia BC (+) for E coli Urine culture (+) for E coli Repeat BC remain negative ?Urosepsis Cont IV meropenem Cont IVF Code(s): R50.9 - FEVER, UNSPECIFIED Qualifiers: Fever type: unspecified Qualified Code(s): R50.9 - Fever, unspecified (2) Hepatitis C Code(s): B19.20 - UNSPECIFIED VIRAL HEPATITIS C WITHOUT HEPATIC COMA (3) Kidney transplant recipient Assessment/Plan: Renal consult Code(s): Z94.0 - KIDNEY TRANSPLANT STATUS (4) Liver transplant recipient Code(s): Z94.4 - LIVER TRANSPLANT STATUS (5) Nausea & vomiting Assessment/Plan: Due to sepsis Resolved Cont Zofran Code(s): R11.2 - NAUSEA WITH VOMITING, UNSPECIFIED Qualifiers: Vomiting type: unspecified Vomiting Intractability: unspecified Qualified Code(s): R11.2 - Nausea with vomiting, unspecified
[2019-10-30] MEDS ORDERED: MEROPENEM 1 GM VIAL (RESTRICTED TO ID) IVPB ONE ×3 (00:52→17:21)
[2019-10-30] MEDS ORDERED: DEXTROSE 5%-WATER 100 ML IVPB ONE ×3 (00:52→17:21)
[2019-10-30] MEDS: MEROPENEM 1 GM in DEXTROSE 5%-WATER 100 ML IVPB SCH ×3 (01:01→17:25)
[2019-10-30 08:37] LABS: BASO % 0.6 % (0-2.0); EOS % 2.5 % (0-4.5); HEMATOCRIT 28.3 % (32.4-45.2); HEMOGLOBIN 9.5 GM/dL (10.7-15.3); LYMPH % 19.4 % (8-40); MCH 32.4 pg (25.7-33.7); MCHC 33.5 g/dl (32.0-36.0); MEAN CELL VOLUME 96.8 fl (80-96); MEAN PLT VOLUME 9.4 fl (7.5-11.1); MONO % 6.4 % (3.8-10.2); NEUT % 71.1 % (42.8-82.8); PLATELET COUNT 144 K/MM3 (134-434); RBC 2.93 M/mm3 (3.60-5.2); RDW 13.3 % (11.6-15.6)
[2019-10-30 09:11] LABS: ALBUMIN 2.9 g/dl (3.4-5.0); BILIRUBIN,TOTAL 0.4 mg/dL (0.2-1); BLOOD UREA NITROGEN 10.9 mg/dL (7-18); CALCIUM 8.8 mg/dL (8.5-10.1); CREATININE 0.6 mg/dL (0.55-1.3); POTASSIUM 4.3 mmol/L (3.5-5.1); TOT PROT 6.2 g/dl (6.4-8.2)
[2019-10-30] MEDS ORDERED: PT OWN MED DRAWER 7, Y5N ONE ×2 (09:50→21:21)
[2019-10-30] MEDS: HEPARIN NA (PORCINE) 5,000 UNITS/ML 1ML VIAL SQ SCH ×2 (10:00→22:41)
[2019-10-30] MEDS: MYCOPHENOLATE SODIUM 360 MG TABLET.DR PO SCH ×2 (10:00→22:41)
[2019-10-30] MEDS: TACROLIMUS ANHYDROUS 1 MG CAPSULE PO SCH ×2 (10:00→22:41)
--- NOTE | 2019-10-30 10:11 | PN ---
Progress Note, Physician History of Present Illness: stable no new issues - Current Medication List Current Medications: Active Medications Acetaminophen (Tylenol -) 650 mg PO Q6H PRN PRN Reason: HEADACHE Heparin Sodium (Porcine) (Heparin -) 5,000 unit SQ BID [facility] Last Admin: 10/30/19 10:00 Dose: 5,000 unit Sodium Chloride (1/2 Normal Saline) 1,000 mls @ 42 mls/hr IV ASDIR [facility] Last Admin: 10/29/19 17:43 Dose: 42 mls/hr Meropenem 1 gm/ Dextrose 100 mls @ 200 mls/hr IVPB Q8H-IV [facility] Last Admin: 10/30/19 10:00 Dose: 200 mls/hr Mycophenolate Sodium (Mycophenolic Acid) 360 mg PO BID [facility] Last Admin: 10/30/19 10:00 Dose: 360 mg Ondansetron HCl (Zofran Injection) 4 mg IVPUSH Q6H PRN PRN Reason: NAUSEA AND/OR VOMITING Tacrolimus (Prograf) 2 mg PO BID [facility] Last Admin: 10/30/19 10:00 Dose: 2 mg - Objective Vital Signs: Vital Signs Temperature 98.1 F 10/30/19 05:00 Pulse Rate 58 L 10/30/19 05:00 Respiratory Rate 18 10/30/19 05:00 Blood Pressure 92/66 10/30/19 05:00 O2 Sat by Pulse Oximetry (%) 100 10/29/19 21:00 Constitutional: Yes: No Distress, Calm Cardiovascular: Yes: S1, S2 Respiratory: Yes: Regular, CTA Bilaterally Gastrointestinal: Yes: Normal Bowel Sounds, Soft Musculoskeletal: Yes: WNL Extremities: Yes: WNL Neurological: Yes: Alert, Oriented Psychiatric: Yes: Alert, Oriented Labs: CBC, BMP 10/30/19 07:05 10/30/19 07:05 Assessment/Plan this patient with multiple medical problems getting admitted with sepsis with positive blood cx Problem List - Problems (1) Hepatitis C Code(s): B19.20 - UNSPECIFIED VIRAL HEPATITIS C WITHOUT HEPATIC COMA (2) Kidney transplant recipient Code(s): Z94.0 - KIDNEY TRANSPLANT STATUS (3) Liver transplant recipient Code(s): Z94.4 - LIVER TRANSPLANT STATUS 4 positive blood cx 5 uti plan cx result noted repeat blood cx negative patient will need 2 weeks of abx rest as per the team
[2019-10-30 11:09] LABS: ANISOCYTOSIS 1+; MACROCYTOSIS 0; OVALOCYTE 1+; PLATELET ESTIMATE DECREASED; TEAR DROP CELLS 1+; TOXIC GRANULATION 1+
--- NOTE | 2019-10-30 16:37 | PN ---
Progress Note, Physician History of Present Illness: Pt seen and examined at bedside. She is awake and alert. SHe denies shortness of breath. - Current Medication List Current Medications: Active Medications Acetaminophen (Tylenol -) 650 mg PO Q6H PRN PRN Reason: HEADACHE Heparin Sodium (Porcine) (Heparin -) 5,000 unit SQ BID [facility] Last Admin: 10/30/19 10:00 Dose: 5,000 unit Meropenem 1 gm/ Dextrose 100 mls @ 200 mls/hr IVPB Q8H-IV [facility] Last Admin: 10/30/19 10:00 Dose: 200 mls/hr Mycophenolate Sodium (Mycophenolic Acid) 360 mg PO BID [facility] Last Admin: 10/30/19 10:00 Dose: 360 mg Tacrolimus (Prograf) 2 mg PO BID [facility] Last Admin: 10/30/19 10:00 Dose: 2 mg - Objective Vital Signs: Vital Signs Temperature 97.9 F 10/30/19 13:00 Pulse Rate 71 10/30/19 13:00 Respiratory Rate 20 10/30/19 13:00 Blood Pressure 126/68 10/30/19 13:00 O2 Sat by Pulse Oximetry (%) 100 10/30/19 09:00 Constitutional: Yes: Calm Eyes: Yes: Conjunctiva Clear HENT: Yes: Atraumatic Neck: Yes: Supple Cardiovascular: Yes: S1, S2 Respiratory: Yes: CTA Bilaterally Gastrointestinal: Yes: Soft Genitourinary: Yes: WNL Musculoskeletal: Yes: WNL Edema: No Neurological: Yes: Oriented Psychiatric: Yes: Oriented Labs: CBC, BMP 10/30/19 07:05 10/30/19 07:05 Problem List - Problems (1) Hepatitis C Code(s): B19.20 - UNSPECIFIED VIRAL HEPATITIS C WITHOUT HEPATIC COMA (2) Kidney transplant recipient Code(s): Z94.0 - KIDNEY TRANSPLANT STATUS (3) Liver transplant recipient Code(s): Z94.4 - LIVER TRANSPLANT STATUS Assessment/Plan Current Medications Generic Name Dose Route Start Last Admin Trade Name Freq PRN Reason Stop Dose Admin Acetaminophen 650 mg 10/25/19 20:25 Tylenol - PO Q6H PRN HEADACHE Heparin Sodium (Porcine) 5,000 unit 10/23/19 22:00 10/30/19 10:00 Heparin - SQ 5,000 unit BID [facility] Administration Meropenem 1 gm/ Dextrose 100 mls @ 200 mls/hr 10/26/19 10:30 10/30/19 10:00 IVPB 200 mls/hr Q8H-IV [facility] Administration Mycophenolate Sodium 360 mg 10/23/19 22:00 10/30/19 10:00 Mycophenolic Acid PO 360 mg BID [facility] Administration Tacrolimus 2 mg 10/25/19 17:32 10/30/19 10:00 Prograf PO 2 mg BID [facility] Administration Impression 1. s/p kidney transplant 2. s/p liver transplant 3. UTI 4. hx hep c 5. hx of liver cirrhosis 6. 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
--- NOTE | 2019-10-30 21:43 | PN ---
Progress Note, Physician - Current Medication List Current Medications: Active Medications Acetaminophen (Tylenol -) 650 mg PO Q6H PRN PRN Reason: HEADACHE Heparin Sodium (Porcine) (Heparin -) 5,000 unit SQ BID [facility] Last Admin: 10/30/19 10:00 Dose: 5,000 unit Meropenem 1 gm/ Dextrose 100 mls @ 200 mls/hr IVPB Q8H-IV [facility] Last Admin: 10/30/19 17:25 Dose: 200 mls/hr Mycophenolate Sodium (Mycophenolic Acid) 360 mg PO BID [facility] Last Admin: 10/30/19 10:00 Dose: 360 mg Tacrolimus (Prograf) 2 mg PO BID [facility] Last Admin: 10/30/19 10:00 Dose: 2 mg - Objective Vital Signs: Vital Signs Temperature 98.0 F 10/30/19 16:54 Pulse Rate 66 10/30/19 16:54 Respiratory Rate 18 10/30/19 16:54 Blood Pressure 120/66 10/30/19 16:54 O2 Sat by Pulse Oximetry (%) 100 10/30/19 09:00 Labs: CBC, BMP 10/30/19 07:05 10/30/19 07:05 Problem List - Problems (1) Fever Code(s): R50.9 - FEVER, UNSPECIFIED Qualifiers: Fever type: unspecified Qualified Code(s): R50.9 - Fever, unspecified (2) Hepatitis C Code(s): B19.20 - UNSPECIFIED VIRAL HEPATITIS C WITHOUT HEPATIC COMA (3) Kidney transplant recipient Code(s): Z94.0 - KIDNEY TRANSPLANT STATUS (4) Liver transplant recipient Code(s): Z94.4 - LIVER TRANSPLANT STATUS (5) Nausea & vomiting Code(s): R11.2 - NAUSEA WITH VOMITING, UNSPECIFIED Qualifiers: Vomiting type: unspecified Vomiting Intractability: unspecified Qualified Code(s): R11.2 - Nausea with vomiting, unspecified
[2019-10-31] MEDS ORDERED: MEROPENEM 1 GM VIAL (RESTRICTED TO ID) IVPB ONE ×3 (01:34→17:21)
[2019-10-31] MEDS ORDERED: DEXTROSE 5%-WATER 100 ML IVPB ONE ×3 (01:35→17:21)
[2019-10-31] MEDS: MEROPENEM 1 GM in DEXTROSE 5%-WATER 100 ML IVPB SCH ×3 (01:58→17:28)
[2019-10-31] MEDS: MYCOPHENOLATE SODIUM 360 MG TABLET.DR PO SCH ×2 (09:58→21:30)
[2019-10-31] MEDS: HEPARIN NA (PORCINE) 5,000 UNITS/ML 1ML VIAL SQ SCH ×2 (09:58→21:29)
[2019-10-31] MEDS: TACROLIMUS ANHYDROUS 1 MG CAPSULE PO SCH ×2 (09:58→21:30)
[2019-10-31] MEDS ORDERED: PT OWN MED DRAWER 7, Y5N ONE ×2 (10:44→21:01)
--- NOTE | 2019-10-31 11:42 | PN ---
Progress Note, Physician History of Present Illness: stable no new issues - Current Medication List Current Medications: Active Medications Acetaminophen (Tylenol -) 650 mg PO Q6H PRN PRN Reason: HEADACHE Heparin Sodium (Porcine) (Heparin -) 5,000 unit SQ BID [facility] Last Admin: 10/31/19 09:58 Dose: 5,000 unit Meropenem 1 gm/ Dextrose 100 mls @ 200 mls/hr IVPB Q8H-IV [facility] Last Admin: 10/31/19 09:54 Dose: 200 mls/hr Mycophenolate Sodium (Mycophenolic Acid) 360 mg PO BID [facility] Last Admin: 10/31/19 09:58 Dose: 360 mg Tacrolimus (Prograf) 2 mg PO BID [facility] Last Admin: 10/31/19 09:58 Dose: 2 mg - Objective Vital Signs: Vital Signs Temperature 97.7 F 10/31/19 10:00 Pulse Rate 78 10/31/19 10:00 Respiratory Rate 20 10/31/19 10:00 Blood Pressure 100/60 10/31/19 10:00 O2 Sat by Pulse Oximetry (%) 100 10/30/19 09:00 Constitutional: Yes: No Distress, Calm Cardiovascular: Yes: S1, S2 Respiratory: Yes: Regular, CTA Bilaterally Gastrointestinal: Yes: Normal Bowel Sounds, Soft Musculoskeletal: Yes: WNL Extremities: Yes: WNL Neurological: Yes: Alert, Oriented Psychiatric: Yes: Alert, Oriented Labs: CBC, BMP 10/30/19 07:05 10/30/19 07:05 Assessment/Plan this patient with multiple medical problems getting admitted with sepsis with positive blood cx Problem List - Problems (1) Hepatitis C Code(s): B19.20 - UNSPECIFIED VIRAL HEPATITIS C WITHOUT HEPATIC COMA (2) Kidney transplant recipient Code(s): Z94.0 - KIDNEY TRANSPLANT STATUS (3) Liver transplant recipient Code(s): Z94.4 - LIVER TRANSPLANT STATUS 4 positive blood cx 5 uti plan 2 weeks of abx total rest as per the team
[2019-10-31 13:12] VITALS: BMI 31.0
--- NOTE | 2019-10-31 14:33 | PN ---
Progress Note, Physician History of Present Illness: Pt seen and examined at bedside. SHe is awake and alert. she denies fevers or chills. - Current Medication List Current Medications: Active Medications Acetaminophen (Tylenol -) 650 mg PO Q6H PRN PRN Reason: HEADACHE Heparin Sodium (Porcine) (Heparin -) 5,000 unit SQ BID [facility] Last Admin: 10/31/19 09:58 Dose: 5,000 unit Meropenem 1 gm/ Dextrose 100 mls @ 200 mls/hr IVPB Q8H-IV [facility] Last Admin: 10/31/19 09:54 Dose: 200 mls/hr Mycophenolate Sodium (Mycophenolic Acid) 360 mg PO BID [facility] Last Admin: 10/31/19 09:58 Dose: 360 mg Tacrolimus (Prograf) 2 mg PO BID [facility] Last Admin: 10/31/19 09:58 Dose: 2 mg - Objective Vital Signs: Vital Signs Temperature 97.7 F 10/31/19 10:00 Pulse Rate 78 10/31/19 10:00 Respiratory Rate 20 10/31/19 10:00 Blood Pressure 100/60 10/31/19 10:00 O2 Sat by Pulse Oximetry (%) 98 10/31/19 09:00 Constitutional: Yes: Calm Eyes: Yes: Conjunctiva Clear HENT: Yes: Atraumatic Neck: Yes: Supple Cardiovascular: Yes: S1, S2 Respiratory: Yes: CTA Bilaterally Gastrointestinal: Yes: Soft Genitourinary: Yes: WNL Musculoskeletal: Yes: WNL Edema: No Neurological: Yes: Oriented Psychiatric: Yes: Oriented Labs: CBC, BMP 10/30/19 07:05 10/30/19 07:05 Problem List - Problems (1) Hepatitis C Code(s): B19.20 - UNSPECIFIED VIRAL HEPATITIS C WITHOUT HEPATIC COMA (2) Kidney transplant recipient Code(s): Z94.0 - KIDNEY TRANSPLANT STATUS (3) Liver transplant recipient Code(s): Z94.4 - LIVER TRANSPLANT STATUS Assessment/Plan Current Medications Generic Name Dose Route Start Last Admin Trade Name Freq PRN Reason Stop Dose Admin Acetaminophen 650 mg 10/25/19 20:25 Tylenol - PO Q6H PRN HEADACHE Heparin Sodium (Porcine) 5,000 unit 10/23/19 22:00 10/31/19 09:58 Heparin - SQ 5,000 unit BID [facility] Administration Meropenem 1 gm/ Dextrose 100 mls @ 200 mls/hr 10/26/19 10:30 10/31/19 09:54 IVPB 200 mls/hr Q8H-IV [facility] Administration Mycophenolate Sodium 360 mg 10/23/19 22:00 10/31/19 09:58 Mycophenolic Acid PO 360 mg BID [facility] Administration Tacrolimus 2 mg 10/25/19 17:32 10/31/19 09:58 Prograf PO 2 mg BID [facility] Administration Impression 1. s/p kidney transplant 2. s/p liver transplant 3. UTI 4. hx hep c 5. hx of liver cirrhosis 6. 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
--- NOTE | 2019-10-31 23:40 | PN ---
Progress Note, Physician - Current Medication List Current Medications: Active Medications Acetaminophen (Tylenol -) 650 mg PO Q6H PRN PRN Reason: HEADACHE Heparin Sodium (Porcine) (Heparin -) 5,000 unit SQ BID [facility] Last Admin: 10/31/19 21:29 Dose: 5,000 unit Meropenem 1 gm/ Dextrose 100 mls @ 200 mls/hr IVPB Q8H-IV [facility] Last Admin: 10/31/19 17:28 Dose: 200 mls/hr Mycophenolate Sodium (Mycophenolic Acid) 360 mg PO BID [facility] Last Admin: 10/31/19 21:30 Dose: 360 mg Tacrolimus (Prograf) 2 mg PO BID [facility] Last Admin: 10/31/19 21:30 Dose: 2 mg - Objective Vital Signs: Vital Signs Temperature 98.2 F 10/31/19 17:07 Pulse Rate 62 10/31/19 17:07 Respiratory Rate 18 10/31/19 17:07 Blood Pressure 92/64 10/31/19 17:07 O2 Sat by Pulse Oximetry (%) 98 10/31/19 09:00 Labs: CBC, BMP 10/30/19 07:05 10/30/19 07:05 Problem List - Problems (1) Fever Code(s): R50.9 - FEVER, UNSPECIFIED Qualifiers: Fever type: unspecified Qualified Code(s): R50.9 - Fever, unspecified (2) Hepatitis C Code(s): B19.20 - UNSPECIFIED VIRAL HEPATITIS C WITHOUT HEPATIC COMA (3) Kidney transplant recipient Code(s): Z94.0 - KIDNEY TRANSPLANT STATUS (4) Liver transplant recipient Code(s): Z94.4 - LIVER TRANSPLANT STATUS (5) Nausea & vomiting Code(s): R11.2 - NAUSEA WITH VOMITING, UNSPECIFIED Qualifiers: Vomiting type: unspecified Vomiting Intractability: unspecified Qualified Code(s): R11.2 - Nausea with vomiting, unspecified
[2019-11-01] MEDS ORDERED: DEXTROSE 5%-WATER 100 ML IVPB ONE ×2 (02:22→11:30)
[2019-11-01] MEDS ORDERED: MEROPENEM 1 GM VIAL (RESTRICTED TO ID) IVPB ONE ×2 (02:22→11:30)
[2019-11-01] MEDS: MEROPENEM 1 GM in DEXTROSE 5%-WATER 100 ML IVPB SCH ×2 (02:56→11:32)
[2019-11-01] MEDS: TACROLIMUS ANHYDROUS 1 MG CAPSULE PO SCH (09:49)
[2019-11-01] MEDS: MYCOPHENOLATE SODIUM 360 MG TABLET.DR PO SCH (09:51)
[2019-11-01] MEDS: HEPARIN NA (PORCINE) 5,000 UNITS/ML 1ML VIAL SQ SCH (11:33)
--- NOTE | 2019-11-01 12:13 | PN ---
Progress Note, Physician History of Present Illness: stable no new issues - Current Medication List Current Medications: Active Medications Acetaminophen (Tylenol -) 650 mg PO Q6H PRN PRN Reason: HEADACHE Heparin Sodium (Porcine) (Heparin -) 5,000 unit SQ BID [facility] Last Admin: 11/01/19 11:33 Dose: 5,000 unit Meropenem 1 gm/ Dextrose 100 mls @ 200 mls/hr IVPB Q8H-IV [facility] Last Admin: 11/01/19 11:32 Dose: 200 mls/hr Mycophenolate Sodium (Mycophenolic Acid) 360 mg PO BID [facility] Last Admin: 11/01/19 09:51 Dose: 360 mg Tacrolimus (Prograf) 2 mg PO BID [facility] Last Admin: 11/01/19 09:49 Dose: 2 mg - Objective Vital Signs: Vital Signs Temperature 98.0 F 11/01/19 06:00 Pulse Rate 60 11/01/19 06:00 Respiratory Rate 20 11/01/19 06:00 Blood Pressure 98/55 L 11/01/19 06:00 O2 Sat by Pulse Oximetry (%) 98 10/31/19 09:00 Constitutional: Yes: No Distress, Calm Eyes: Yes: Conjunctiva Clear Cardiovascular: Yes: S1, S2 Respiratory: Yes: Regular, CTA Bilaterally Gastrointestinal: Yes: Normal Bowel Sounds, Soft Musculoskeletal: Yes: WNL Extremities: Yes: WNL Neurological: Yes: Alert, Oriented Psychiatric: Yes: Alert, Oriented Labs: CBC, BMP 10/30/19 07:05 10/30/19 07:05 Assessment/Plan this patient with multiple medical problems getting admitted with sepsis with positive blood cx Problem List - Problems (1) Hepatitis C Code(s): B19.20 - UNSPECIFIED VIRAL HEPATITIS C WITHOUT HEPATIC COMA (2) Kidney transplant recipient Code(s): Z94.0 - KIDNEY TRANSPLANT STATUS (3) Liver transplant recipient Code(s): Z94.4 - LIVER TRANSPLANT STATUS 4 positive blood cx 5 uti plan ertapenam for 8 more days rest as per the team
--- NOTE | 2019-11-01 13:32 | PN ---
Progress Note, Physician History of Present Illness: Pt seen and examined at bedside. SHe is awake and alert. She denies fevers or chills. She went for her picc line today. - Current Medication List Current Medications: Active Medications Acetaminophen (Tylenol -) 650 mg PO Q6H PRN PRN Reason: HEADACHE Heparin Sodium (Porcine) (Heparin -) 5,000 unit SQ BID [facility] Last Admin: 11/01/19 11:33 Dose: 5,000 unit Meropenem 1 gm/ Dextrose 100 mls @ 200 mls/hr IVPB Q8H-IV [facility] Last Admin: 11/01/19 11:32 Dose: 200 mls/hr Mycophenolate Sodium (Mycophenolic Acid) 360 mg PO BID [facility] Last Admin: 11/01/19 09:51 Dose: 360 mg Tacrolimus (Prograf) 2 mg PO BID [facility] Last Admin: 11/01/19 09:49 Dose: 2 mg - Objective Vital Signs: Vital Signs Temperature 98.0 F 11/01/19 06:00 Pulse Rate 60 11/01/19 06:00 Respiratory Rate 20 11/01/19 09:00 Blood Pressure 98/55 L 11/01/19 06:00 O2 Sat by Pulse Oximetry (%) 98 11/01/19 09:00 Constitutional: Yes: Calm Eyes: Yes: Conjunctiva Clear HENT: Yes: Atraumatic Neck: Yes: Supple Cardiovascular: Yes: S1, S2 Respiratory: Yes: CTA Bilaterally Gastrointestinal: Yes: Soft Genitourinary: Yes: WNL Musculoskeletal: Yes: WNL Edema: No Neurological: Yes: Oriented Psychiatric: Yes: Oriented Labs: CBC, BMP 10/30/19 07:05 10/30/19 07:05 Problem List - Problems (1) Hepatitis C Code(s): B19.20 - UNSPECIFIED VIRAL HEPATITIS C WITHOUT HEPATIC COMA (2) Kidney transplant recipient Code(s): Z94.0 - KIDNEY TRANSPLANT STATUS (3) Liver transplant recipient Code(s): Z94.4 - LIVER TRANSPLANT STATUS Assessment/Plan Current Medications Generic Name Dose Route Start Last Admin Trade Name Freq PRN Reason Stop Dose Admin Acetaminophen 650 mg 10/25/19 20:25 Tylenol - PO Q6H PRN HEADACHE Heparin Sodium (Porcine) 5,000 unit 10/23/19 22:00 11/01/19 11:33 Heparin - SQ 5,000 unit BID [facility] Administration Meropenem 1 gm/ Dextrose 100 mls @ 200 mls/hr 10/26/19 10:30 11/01/19 11:32 IVPB 200 mls/hr Q8H-IV [facility] Administration Mycophenolate Sodium 360 mg 10/23/19 22:00 11/01/19 09:51 Mycophenolic Acid PO 360 mg BID [facility] Administration Tacrolimus 2 mg 10/25/19 17:32 11/01/19 09:49 Prograf PO 2 mg BID [facility] Administration Impression 1. s/p kidney transplant 2. s/p liver transplant 3. UTI 4. hx hep c 5. hx of liver cirrhosis 6. generalized malaise 7. 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
[2019-11-01 15:02] VITALS: BP 110/70; PULSE 62; TEMP 98.2
== END 2019-11-01 15:43 | disposition home health service (06) | DRG 872 ==
LOC: JER 10:02 → SUPCPDRO 10:02 → JERBED 13:03 → J6S 10-24 15:26 → J8W 10-26 15:41
PROVIDERS: ADMIT Internal Medicine; ATTEND Internal Medicine
DX: A41.51 Sepsis due to Escherichia coli [E. coli] (principal); N39.0 Urinary tract infection, site not specified; Z94.4 Liver transplant status; Z94.0 Kidney transplant status; Z16.12 Extended spectrum beta lactamase (ESBL) resistance; R50.9 Fever, unspecified; B19.20 Unspecified viral hepatitis C without hepatic coma; R11.2 Nausea with vomiting, unspecified; D72.819 Decreased white blood cell count, unspecified; D64.9 Anemia, unspecified; N18.9 Chronic kidney disease, unspecified
CPT/HCPCS: 36415; 36569; 76776-TC; 77001-TC-FY; 80048; 80053; 81003; 82150; 82436; 82550; 82565; 83605; 83690; 84133; 84300; 84484; 85025; 87040; 87086; 87186; 87804; 93005; 93010; 99285-25; C1751; J0131; J1644; J7030

== ENCOUNTER 2020-05-12 13:15 | Emergency (ER) | payer MEDICARE, OTHER ==
[2020-05-12 13:32] VITALS: BP 115/44; PULSE 67; TEMP 98.6; BMI 29.7
--- NOTE | 2020-05-12 13:50 | PDOC ---
History of Present Illness - History of Present Illness Initial Comments: 05/12/20 14:34 HPI 59 y/o F hx of liver disease s/p renal and hepatic transplant on immunosuppresion, presents to the ED with 4 days of chest pain. Pt reports pain is 10/10 pain that is constant and non radiating. Worsened with movement such as bending down. No associated shortness of breath with exertion or with pain. Pt takes tylenol at home for chronic leg pain that did not relieve her chest pain symptoms. Pt was recenlty seen by Dr. Lipscomb (GI) for periumbilical pain she report has resolved. She denies any fevers,chills, nausea, vomiting, diaphoresis, recent surgery, hx of blood clots. PMHx: as noted above ROS: as noted SHx: Denies Etoh, IVDA, tobacco use Allergies: NKDA ROS: GENERAL/CONSTITUTIONAL: No fever or chills. No weakness. HEAD, EYES, EARS, NOSE AND THROAT: No change in vision. No ear pain or discharge. No sore throat. CARDIOVASCULAR: no shortness of breath RESPIRATORY: No cough, wheezing, or hemoptysis. GASTROINTESTINAL: No nausea, vomiting, diarrhea or constipation. GENITOURINARY: No dysuria, frequency, or change in urination. MUSCULOSKELETAL: . No neck or back pain. SKIN: No rash NEUROLOGIC: No headache, vertigo, loss of consciousness, or change in strength/sensation. ENDOCRINE: No increased thirst. No abnormal weight change HEMATOLOGIC/LYMPHATIC: No anemia, easy bleeding, or history of blood clots. ALLERGIC/IMMUNOLOGIC: No hives or skin allergy. PE: GENERAL: Awake, alert, and fully oriented, in no acute distress HEAD: No signs of trauma, normocephalic, atraumatic EYES: PERRLA, EOMI, sclera anicteric, conjunctiva clear ENT: Auricles normal inspection, hearing grossly normal, nares patent, or opharynx clear without exudates. Moist mucosa NECK: Normal ROM, supple, no lymphadenopathy, JVD, or masses LUNGS: No distress, speaks full sentences, clear to auscultation bilaterally chest wall: ttp of sternum HEART: Regular rate and rhythm, normal S1 and S2, systolic murmur present. no rubs or gallops, peripheral pulses normal and equal bilaterally. ABDOMEN: Soft,epigastric ttp, no cva/flank tenderness. EXTREMITIES : Normal inspection, Normal range of motion, no edema. No clubbing or cyanosis NEUROLOGICAL: Cranial nerves II through XII grossly intact. Normal speech, normal gait, no focal sensorimotor deficits SKIN: Warm, Dry, normal turgor, no rashes or lesions noted MDM DDx including but not limited to: acs, gastritis, pancreatitis. cholelithiasis, cholecystitis, -pt on acid suppresant medications per gi () Workup: labs, cxr, ekg, lipase, pepcid TX: Scores - HEART score - EKG: normal sinus rhythm, left anterior fasicular block, HR 66 bpm, SD 142ms, QRS 78 ms, QTc 421 ms -CXR: no acute chest pathology ED course pt reports no improvements in pain after pepcid will give tylenol ultrasound read FINDINGS: Liver measures 11.4 cm in length. No focal hepatic mass. No intrahepatic duct dilatation. Color flow doppler images of the main portal vein and hepatic veins in a limited fashion demonstrate patency. There is normal hepatopetal flow demonstrated in the portal vein. Common bile duct measures 0.51 cm in diameter. Gallbladder is surgically absent. Segmentally visualized pancreas , aorta and IVC appear unremarkable. Right pelvic transplant kidney measures 10.6 x 4.5 x 5.7 cm. Renal echotexture is appropriate. No hydronephrosis or visible nephrolithiasis. No gross evidence for renal mass identified. IMPRESSION: 1. No acute pathology seen <Jackie More - Last Filed: 05/12/20 18:58> <Yokasta Banerjee - Last Filed: 05/13/20 01:11> - General Chief Complaint: Chest Pain Stated Complaint: CHEST PAIN Time Seen by Provider: 05/12/20 13:50 Past History - Medical History Anemia: Yes (Pancytopenia R/T ESLD) Cancer: No Cardiac Disorders: Yes COPD: No CHF: No GI Disorders: Yes (END STAGE LIVER DISEASE) Disorders: Yes (Chronic UTI's & Urosepsis) HTN: Yes Liver Disease: Yes (ESLD, HEP C) - Surgical History Abdominal Surgery: Yes (LIVER TRANSPLANT) - Reproductive History Is Patient Now?: No - Immunization History Immunization Up to Date: Yes - Psycho-Social/Smoking History Smoking Status: No Smoking History: Never smoked Have you smoked in the past 12 months: No Number of Cigarettes Smoked Daily: 0 Cigars Per Day: 0 Information on smoking cessation initiated: No - Substance Abuse Hx (Audit-C & DAST Scrn) How often the patient has a drink containing alcohol: Never Score: In Men: 4 or > Positive; In Women: 3 or > Positive: 0 Screen Result (Pos requires Nsg. Audit-10AR): Negative In the last yr the pt used illegal drug/Rx for NonMed reason: No Score: Yes response is considered Positive: 0 Screen Result (Positive result requires Nsg. DAST-10): Negative <Jackie More - Last Filed: 05/12/20 18:58> <Yokasta Banerjee - Last Filed: 05/13/20 01:11> - Medical History Allergies/Adverse Reactions: Allergies Allergy/AdvReac Type Severity Reaction Status Date / Time No Known Allergies Allergy Verified 05/12/20 13:32 Home Medications: Ambulatory Orders Mycophenolate Sodium [Mycophenolic Acid] 360 mg PO BID 06/05/18 Tacrolimus 2 mg PO BID 06/05/18 Alendronate Sodium/Vitamin D3 [Fosamax Plus D 70 mg-5,600 Iu vIT d] 1 each PO Q7D 06/09/18 Acetaminophen [Tylenol] 650 mg PO Q6H #30 tablet 10/23/19 Omeprazole 20 mg PO DAILY 10/23/19 Ondansetron HCl [Zofran] 4 mg PO Q8H #6 tablet 10/23/19 Alendronate Sodium [Fosamax] 1 tab PO WEEKLY 10/28/19 Linaclotide [Linzess] 72 mcg PO DAILY 10/28/19 Multivitamins [Multivit ([facility] Formulary)] 1 tab PO DAILY 10/28/19 Meropenem [Merrem (Restricted To Id) -] 1 gm IVPB Q8H-IV vial 10/31/19 Acetaminophen [Tylenol] 2 tab PO TID #60 tablet 05/12/20 Famotidine [Pepcid -] 40 mg PO DAILY #30 tablet 05/12/20 *Physical Exam - Vital Signs Last Vital Signs Temp Pulse Resp BP Pulse Ox 98.6 F 67 17 115/44 L 97 05/12/20 13:29 05/12/20 13:29 05/12/20 13:29 05/12/20 13:29 05/12/20 13:29 <Jackie More - Last Filed: 05/12/20 18:58> - Vital Signs Last Vital Signs Temp Pulse Resp BP Pulse Ox 98.6 F 67 17 115/44 L 97 05/12/20 13:29 05/12/20 13:29 05/12/20 13:29 05/12/20 13:29 05/12/20 13:29 <Yokasta Banerjee - Last Filed: 05/13/20 01:11> ED Treatment Course - LABORATORY CBC & Chemistry Diagram: 05/12/20 14:50 05/12/20 14:50 <Jackie More - Last Filed: 05/12/20 18:58> - LABORATORY CBC & Chemistry Diagram: 05/12/20 14:50 05/12/20 14:50 - ADDITIONAL ORDERS Additional order review: Laboratory Results 05/12/20 14:50 Sodium 140 Potassium 4.3 Chloride 106 Carbon Dioxide 27 Anion Gap 7 L BUN 9.7 Creatinine 0.6 Est GFR (CKD-EPI)AfAm 114.02 Est GFR (CKD-EPI)NonAf 98.38 Random Glucose 107 H Calcium 8.8 Total Bilirubin 0.2 AST 27 ALT 24 Alkaline Phosphatase 74 Troponin I < 0.02 Total Protein 7.5 Albumin 3.9 Lipase 42 L 05/12/20 14:50 RBC 3.59 L MCV 97.5 H MCHC 33.3 RDW 13.4 MPV 9.0 Neutrophils % 77.1 Lymphocytes % 16.6 Monocytes % 5.5 Eosinophils % 0.4 D Basophils % 0.4 - Medications Given in the ED: ED Medications Discontinued Medications Generic Name Dose Route Start Last Admin Trade Name Freq PRN Reason Stop Dose Admin Acetaminophen 1,000 mg 05/12/20 18:33 05/12/20 18:36 Ofirmev Injection - IVPB 05/12/20 18:34 1,000 mg ONCE ONE Administration Famotidine/Sodium Chloride 20 mg in 50 mls @ 100 mls/hr 05/12/20 14:28 05/12/20 16:10 Pepcid 20 Mg Premixed Ivpb - IVPB 05/12/20 14:57 100 mls/hr ONCE ONE Administration <Yokasta Banerjee - Last Filed: 05/13/20 01:11> Medical Decision Making - Medical Decision Making 05/12/20 20:17 Patient Name: INOCENTE FREEMAN THIS IS A PRELIMINARY REPORT DATE OF SERVICE: 2020-05-12 16:51:14 IMAGES: 40 EXAM: ABDOMEN US -LIMITED Limited Doppler HISTORY: Right upper quadrant pain COMPARISON: None. TECHNIQUE: Transabdominal sonography with color flow doppler images FINDINGS: Liver measures 11.4 cm in length. No focal hepatic mass. No intrahepatic duct dilatation. Color flow doppler images of the main portal vein and hepatic veins in a limited fashion demonstrate patency. There is normal hepatopetal flow demonstrated in the portal vein. Common bile duct measures 0.51 cm in diameter. Gallbladder is surgically absent. Segmentally visualized pancreas , aorta and IVC appear unremarkable. Right pelvic transplant kidney measures 10.6 x 4.5 x 5.7 cm. Renal echotexture is appropriate. No hydronephrosis or visible nephrolithiasis. No gross evidence for renal mass identified. IMPRESSION: 1. No acute pathology seen. <Yokasta Banerjee - Last Filed: 05/13/20 01:11> Discharge <Jackie More - Last Filed: 05/12/20 18:58> - Discharge Information Problems reviewed: Yes <Yokasta Banerjee - Last Filed: 05/13/20 01:11> - Discharge Information Clinical Impression/Diagnosis: Gastritis Condition: Improved Disposition: HOME - Additional Discharge Information Prescriptions: Famotidine [Pepcid -] 40 mg PO DAILY #30 tablet Acetaminophen [Tylenol] 2 tab PO TID #60 tablet - Patient Discharge Instructions Patient Printed Discharge Instructions: DI for Gastritis Additional Instructions: Va a oficina de Dr. SEEMA AMAYA Print Language: MONTENEGRIN
[2020-05-12] MEDS ORDERED: FAMOTIDINE 20 MG/50 ML IVPB 20 MG/50 ML MG IVPB ONE ×2 (14:28→16:10)
--- NOTE | 2020-05-12 14:28 | PDOC ---
Attending Attestation - Resident Resident Name: Jackie More - ED Attending Attestation I have performed the following: I have examined & evaluated the patient, The case was reviewed & discussed with the resident, I agree w/resident's findings & plan, Exceptions are as noted - HPI HPI: 59 yo F history HCV s/p liver transplant, s/p renal transplant presents with 4 day history of chest pain. Pain is described as severe, nonradiating. Worse with bending forward. Denies SOB, cough, fever. Pain did not change with tylenol. - Physicial Exam PE: GENERAL: Awake, alert, and fully oriented, in no acute distress HEAD: No signs of trauma EYES: PERRLA, EOMI, sclera anicteric, conjunctiva clear ENT: Auricles normal inspection, hearing grossly normal, nares patent, oropharynx clear without exudates. Moist mucosa NECK: Normal ROM, supple, no lymphadenopathy, JVD, or masses LUNGS: Breath sounds equal, clear to auscultation bilaterally. No wheezes, and no crackles HEART: Regular rate and rhythm, normal S1 and S2, no murmurs, rubs or gallops ABDOMEN: Soft, nontender, normoactive bowel sounds. No guarding, no rebound. No masses. +Large upper abdominal scar, well-healed. EXTREMITIES: Normal range of motion, no edema. No clubbing or cyanosis. No cords, erythema, or tenderness NEUROLOGICAL: Cranial nerves II through XII grossly intact. Normal speech. Motor and sensation intact SKIN: Warm, dry, normal turgor, no rashes or lesions noted. - Medical Decision Making 05/12/20 16:12 Pt with multiple medical problems presenting with epigastric and chest pain, described as severe. Will obtain CBC, CMP, lipase, trop. R/o ACS, r/o pancreatitis. Discharge - Discharge Information Problems reviewed: Yes Clinical Impression/Diagnosis: Atypical chest pain Gastritis Qualifiers: Gastritis type: unspecified gastritis Chronicity: unspecified Gastritis bleeding: presence of bleeding unspecified Qualified Code(s): K29.70 - Gastritis, unspecified, without bleeding Condition: Improved Disposition: HOME - Additional Discharge Information Prescriptions: Famotidine [Pepcid -] 40 mg PO DAILY #30 tablet Acetaminophen [Tylenol] 2 tab PO TID #60 tablet - Follow up/Referral - Patient Discharge Instructions Patient Printed Discharge Instructions: DI for Gastritis Additional Instructions: Va a oficina de Dr. SEEMA AMAYA Print Language: SAO TOMEAN - Post Discharge Activity
[2020-05-12 15:10] LABS: BASO % 0.4 % (0-2.0); EOS % 0.4 % (0-4.5); HEMOGLOBIN 11.7 GM/dL (10.7-15.3); LYMPH % 16.6 % (8-40); MCH 32.5 pg (25.7-33.7); MCHC 33.3 g/dl (32.0-36.0); MEAN CELL VOLUME 97.5 fl (80-96); MONO % 5.5 % (3.8-10.2); NEUT % 77.1 % (42.8-82.8); PLATELET COUNT 125 K/MM3 (134-434); RBC 3.59 M/mm3 (3.60-5.2); RDW 13.4 % (11.6-15.6); WHITE BLOOD COUNT 4.5 K/mm3 (4.0-10.0)
[2020-05-12 15:31] LABS: ALBUMIN 3.9 g/dl (3.4-5.0); ALK PHOS 74 U/L (45-117); ANION GAP 7 MMOL/L (8-16); BILIRUBIN,TOTAL 0.2 mg/dL (0.2-1); BLOOD UREA NITROGEN 9.7 mg/dL (7-18); CALCIUM 8.8 mg/dL (8.5-10.1); CHLORIDE 106 mmol/L (98-107); CO2 27 mmol/L (21-32); CREATININE 0.6 mg/dL (0.55-1.3); GLUCOSE,RANDOM 107 mg/dL (74-106); LIPASE 42 U/L (73-393); POTASSIUM 4.3 mmol/L (3.5-5.1); SGOT/AST 27 U/L (15-37); SGPT/ALT 24 U/L (13-61); SODIUM 140 mmol/L (136-145); TOT PROT 7.5 g/dl (6.4-8.2)
--- NOTE | 2020-05-12 15:52 | EKG ---
Test Reason : Blood Pressure : / mmHG Vent. Rate : 066 BPM Atrial Rate : 066 BPM P-R Int : 142 ms QRS Dur : 078 ms QT Int : 402 ms P-R-T Axes : 044 -51 064 degrees QTc Int : 421 ms NORMAL SINUS RHYTHM LEFT ANTERIOR FASCICULAR BLOCK ABNORMAL ECG WHEN COMPARED WITH ECG OF 23-OCT-2019 11:38, QT HAS LENGTHENED Confirmed by Randy Phipps ([id number]) on 05/12/2020 3:52:21 PM Referred By: Confirmed By:Randy Phipps
[2020-05-12] MEDS ORDERED: ACETAMINOPHEN 1000 MG/100 ML VIAL (NON FORMULARY) IVPB ONE (18:33)
[2020-05-12] MEDS ORDERED: ACETAMINOPHEN INJECTION 100 ML IVPB ONE (18:34)
--- NOTE | 2020-05-12 20:13 | PDOC ---
*Physical Exam - Vital Signs Last Vital Signs Temp Pulse Resp BP Pulse Ox 98.6 F 67 17 115/44 L 97 05/12/20 13:29 05/12/20 13:29 05/12/20 13:29 05/12/20 13:29 05/12/20 13:29 ED Treatment Course - LABORATORY CBC & Chemistry Diagram: 05/12/20 14:50 05/12/20 14:50 - ADDITIONAL ORDERS Additional order review: Laboratory Results 05/12/20 14:50 Sodium 140 Potassium 4.3 Chloride 106 Carbon Dioxide 27 Anion Gap 7 L BUN 9.7 Creatinine 0.6 Est GFR (CKD-EPI)AfAm 114.02 Est GFR (CKD-EPI)NonAf 98.38 Random Glucose 107 H Calcium 8.8 Total Bilirubin 0.2 AST 27 ALT 24 Alkaline Phosphatase 74 Troponin I < 0.02 Total Protein 7.5 Albumin 3.9 Lipase 42 L 05/12/20 14:50 RBC 3.59 L MCV 97.5 H MCHC 33.3 RDW 13.4 MPV 9.0 Neutrophils % 77.1 Lymphocytes % 16.6 Monocytes % 5.5 Eosinophils % 0.4 D Basophils % 0.4 - Medications Given in the ED: ED Medications Discontinued Medications Generic Name Dose Route Start Last Admin Trade Name Freq PRN Reason Stop Dose Admin Acetaminophen 1,000 mg 05/12/20 18:33 05/12/20 18:36 Ofirmev Injection - IVPB 05/12/20 18:34 1,000 mg ONCE ONE Administration Famotidine/Sodium Chloride 20 mg in 50 mls @ 100 mls/hr 05/12/20 14:28 05/12/20 16:10 Pepcid 20 Mg Premixed Ivpb - IVPB 05/12/20 14:57 100 mls/hr ONCE ONE Administration Medical Decision Making - Medical Decision Making 05/12/20 20:12 Pt signed out to me. Labs normal; card enzymes normal. CXR normal Pt will be admitted to Dr. Peterson for inpatient cardiac workup given her risk factors. 05/12/20 20:[address] Peterson and she can see the patient at her office on Wednesday Discharge - Discharge Information Problems reviewed: Yes Clinical Impression/Diagnosis: Gastritis Condition: Improved Disposition: HOME - Admission No - Additional Discharge Information Prescriptions: Famotidine [Pepcid -] 40 mg PO DAILY #30 tablet Acetaminophen [Tylenol] 2 tab PO TID #60 tablet - Follow up/Referral - Patient Discharge Instructions Patient Printed Discharge Instructions: DI for Gastritis Additional Instructions: Va a oficina de Dr. SEEMA AMAYA Print Language: JAPANESE - Post Discharge Activity
--- NOTE | 2020-05-17 09:21 | EKG ---
Test Reason : Blood Pressure : / mmHG Vent. Rate : 048 BPM Atrial Rate : 048 BPM P-R Int : 162 ms QRS Dur : 082 ms QT Int : 450 ms P-R-T Axes : 025 -36 047 degrees QTc Int : 402 ms SINUS BRADYCARDIA LEFT AXIS DEVIATION MINIMAL VOLTAGE CRITERIA FOR LVH, MAY BE NORMAL VARIANT SEPTAL INFARCT , AGE UNDETERMINED ABNORMAL ECG WHEN COMPARED WITH ECG OF 12-MAY-2020 13:25, NO SIGNIFICANT CHANGE WAS FOUND Confirmed by FABIAN JOEL MD ([id number]) on 05/17/2020 9:21:19 AM Referred By: Confirmed By:FABIAN JOEL MD
== END 2020-05-12 21:03 | disposition home or self-care (01) ==
LOC: JER 13:15
PROC: 3E0333Z Introduction of Anti-inflammatory into Peripheral Vein, Percutaneous Approach (ICD-10-PCS; principal; 2020-05-12)
PROC: 3E033GC Introduction of Other Therapeutic Substance into Peripheral Vein, Percutaneous Approach (ICD-10-PCS; 2020-05-12)
DX: K29.70 Gastritis, unspecified, without bleeding (principal)
CPT/HCPCS: 36415; 71045-TC-FY; 76705-TC; 80053; 83690; 84484; 85025; 93005; 93010; 99285-25; J0131

== ENCOUNTER 2020-12-07 13:02 | Emergency (ER) | payer MEDICARE, OTHER ==
[2020-12-07 13:12] VITALS: BMI 27.3
[2020-12-07] MEDS ORDERED: ACETAMINOPHEN 1000 MG/100 ML VIAL (NON FORMULARY) IVPB ONE (13:54)
[2020-12-07 14:11] LABS: BASO % 0.2 % (0-2.0); EOS % 0.1 % (0-4.5); HEMATOCRIT 29.7 % (32.4-45.2); HEMOGLOBIN 9.9 GM/dL (10.7-15.3); LYMPH % 6.5 % (8-40); MCH 32.6 pg (25.7-33.7); MCHC 33.4 g/dl (32.0-36.0); MEAN CELL VOLUME 97.7 fl (80-96); MEAN PLT VOLUME 8.3 fl (7.5-11.1); MONO % 4.2 % (3.8-10.2); PLATELET COUNT 172 K/MM3 (134-434); RBC 3.04 M/mm3 (3.60-5.2); RDW 15.9 % (11.6-15.6); WHITE BLOOD COUNT 10.2 K/mm3 (4.0-10.0)
[2020-12-07] MEDS ORDERED: ACETAMINOPHEN INJECTION 100 ML IVPB ONE (14:25)
[2020-12-07 14:29] LABS: CHLORIDE 102 mmol/L (98-107); SODIUM 133 mmol/L (136-145)
[2020-12-07 14:31] LABS: ANION GAP 7 MMOL/L (8-16); CO2 23 mmol/L (21-32)
[2020-12-07 14:32] LABS: CALCIUM 9.1 mg/dL (8.5-10.1)
[2020-12-07 14:33] LABS: ALBUMIN 3.3 g/dl (3.4-5.0); BLOOD UREA NITROGEN 13.9 mg/dL (7-18); GLUCOSE,RANDOM 109 mg/dL (74-106)
[2020-12-07 14:36] LABS: CREATININE 0.9 mg/dL (0.55-1.3); SGOT/AST 12 U/L (15-37); SGPT/ALT 12 U/L (13-61)
[2020-12-07 14:37] LABS: BILIRUBIN,TOTAL 0.5 mg/dL (0.2-1); LDH 152 U/L (84-246); TOT PROT 7.4 g/dl (6.4-8.2)
[2020-12-07 14:38] LABS: ALK PHOS 101 U/L (45-117)
[2020-12-07 15:08] LABS: INR 1.27 (0.83-1.09); PROTHROMBIN TIME (PATIENT) 15.3 SEC (9.7-13.0)
[2020-12-07 15:10] LABS: ACTIVATED PTT 39.2 SECONDS (25.2-36.5)
[2020-12-07 15:42] VITALS: TEMP 98.7
[2020-12-07] MEDS ORDERED: SODIUM CHLORIDE 0.9% 500 ML INFUS.BAG IV ONE (16:45)
[2020-12-07 18:07] VITALS: BP 103/49; PULSE 77
== END 2020-12-07 19:30 | disposition home or self-care (01) ==
LOC: JER 13:02
PROC: 3E0333Z Introduction of Anti-inflammatory into Peripheral Vein, Percutaneous Approach (ICD-10-PCS; principal; 2020-12-07)
DX: R53.81 Other malaise (principal); R42 Dizziness and giddiness
CPT/HCPCS: 36415; 71045-TC-FY; 80053; 82728; 83615; 84484; 85025; 85610; 85730; 86140; 87804; 93005; 93010; 96374; 99285-25; C9803; J0131; U0003; U0005

== ENCOUNTER 2020-12-20 11:18 | Emergency (ER) | payer MEDICARE, OTHER ==
[2020-12-20 11:44] VITALS: BMI 26.4
[2020-12-20] MEDS ORDERED: ACETAMINOPHEN 1000 MG/100 ML VIAL (NON FORMULARY) IVPB ONE (12:08)
[2020-12-20] MEDS ORDERED: SODIUM CHLORIDE 1,000 ML IV STA (12:08)
[2020-12-20] MEDS ORDERED: ONDANSETRON 4 MG/2 ML VIAL IVPUSH ONE (12:08)
[2020-12-20] MEDS ORDERED: ACETAMINOPHEN INJECTION 100 ML IVPB ONE (12:20)
[2020-12-20] MEDS ORDERED: ONDANSETRON 4 MG/2 ML VIAL ONE (12:20)
[2020-12-20 13:04] LABS: BASO % 0.2 % (0-2.0); EOS % 0.1 % (0-4.5); HEMATOCRIT 32.3 % (32.4-45.2); HEMOGLOBIN 10.6 GM/dL (10.7-15.3); MCH 32.5 pg (25.7-33.7); MCHC 32.8 g/dl (32.0-36.0); MEAN CELL VOLUME 99.1 fl (80-96); MEAN PLT VOLUME 9.1 fl (7.5-11.1); MONO % 2.8 % (3.8-10.2); NEUT % 91.9 % (42.8-82.8); PLATELET COUNT 159 K/MM3 (134-434); RBC 3.26 M/mm3 (3.60-5.2); RDW 16.2 % (11.6-15.6); WHITE BLOOD COUNT 10.2 K/mm3 (4.0-10.0)
[2020-12-20 13:07] LABS: EPI CELLS 4 /uL (0-25.1); HYALINE CASTS 5 /uL (0-3.1); PH,URINE 5.5 (5.0-8.0); URINE APPEARANCE CLOUDY; URINE BACTERIA 897 /uL (0-1359); URINE BILIRUBIN NEGATIVE (NEGATIVE); URINE COLOR YELLOW; URINE GLUCOSE (UA) NEGATIVE (NEGATIVE); URINE KETONE NEGATIVE (NEGATIVE); URINE LEUK ESTERASE 1+ (NEGATIVE); URINE NITRITE NEGATIVE (NEGATIVE); URINE PROTEIN 2+ (NEGATIVE); URINE UROBILINOGEN 0.2 mg/dL (0.2-1.0); URINE WBC 155 /uL (0-25.8)
[2020-12-20 13:28] LABS: CALCIUM 9.3 mg/dL (8.5-10.1)
[2020-12-20 13:29] LABS: ALBUMIN 3.5 g/dl (3.4-5.0); BLOOD UREA NITROGEN 19.3 mg/dL (7-18); MAGNESIUM 2.6 mg/dL (1.8-2.4)
[2020-12-20 13:31] LABS: CREATININE 0.9 mg/dL (0.55-1.3)
[2020-12-20 13:33] LABS: BILIRUBIN,TOTAL 0.3 mg/dL (0.2-1)
[2020-12-20 13:37] LABS: ANISOCYTOSIS 1+; MACROCYTOSIS 1+; PLATELET ESTIMATE DECREASED
[2020-12-20 14:12] LABS: URINE CRYSTALS NONE SEEN /hpf; URINE RBC 1.7 /uL (0-23.9)
[2020-12-20] MEDS ORDERED: CEFTRIAXONE 1 GM in DEXTROSE 5%-WATER - 50 ML IVPB ONE (15:08)
[2020-12-20] MEDS ORDERED: CEFTRIAXONE 1 GM/50 ML BAG ONE (15:18)
[2020-12-20 15:28] VITALS: PULSE 80
[2020-12-20 16:35] VITALS: BP 101/60; TEMP 98.7
[2020-12-21 13:07] LABS: SARS-CoV-2 NAA Not Detected (Not Detected)
== END 2020-12-20 14:40 | disposition home or self-care (01) ==
LOC: JER 11:18
PROC: 3E0333Z Introduction of Anti-inflammatory into Peripheral Vein, Percutaneous Approach (ICD-10-PCS; principal; 2020-12-20)
PROC: 3E03329 Introduction of Other Anti-infective into Peripheral Vein, Percutaneous Approach (ICD-10-PCS; 2020-12-20)
PROC: 3E033GC Introduction of Other Therapeutic Substance into Peripheral Vein, Percutaneous Approach (ICD-10-PCS; 2020-12-20)
PROC: 3E0337Z Introduction of Electrolytic and Water Balance Substance into Peripheral Vein, Percutaneous Approach (ICD-10-PCS; 2020-12-20)
DX: N39.0 Urinary tract infection, site not specified (principal)
CPT/HCPCS: 36415; 80053; 81003; 83690; 83735; 85025; 87086; 87186; 96361; 96374; 96375; 99284-25; C9803; J0131; U0003; U0005

== ENCOUNTER 2021-04-07 12:37 | Inpatient (IN) | payer MEDICARE, OTHER ==
[2021-04-07] MEDS ORDERED: MAG HYDROX/AL HYDROX/SIMETH 30 ML UNIT-DOSE CUP PO ONE (13:50)
[2021-04-07] MEDS ORDERED: SUCRALFATE 1 GM TABLET (FP) PO ONE (13:50)
[2021-04-07] MEDS ORDERED: FAMOTIDINE 10 MG TABLET PO ONE (13:51)
[2021-04-07] MEDS ORDERED: ONDANSETRON 4 MG/2 ML VIAL IVPUSH ONE (14:00)
[2021-04-07] MEDS ORDERED: ONDANSETRON 4 MG/2 ML VIAL ONE (14:19)
[2021-04-07] MEDS ORDERED: FAMOTIDINE 10 MG TABLET ONE (14:19)
[2021-04-07] MEDS ORDERED: SUCRALFATE 1 GM TABLET (FP) ONE (14:19)
[2021-04-07] MEDS ORDERED: MAG HYDROX/AL HYDROX/SIMETH 30 ML UNIT-DOSE CUP ONE (14:19)
[2021-04-07 15:08] LABS: BASO % 0.4 % (0-2.0); EOS % 0.8 % (0-4.5); HEMATOCRIT 33.5 % (32.4-45.2); HEMOGLOBIN 11.2 GM/dL (10.7-15.3); LYMPH % 17.9 % (8-40); MCH 34.3 pg (25.7-33.7); MCHC 33.4 g/dl (32.0-36.0); MEAN CELL VOLUME 102.7 fl (80-96); MEAN PLT VOLUME 9.1 fl (7.5-11.1); MONO % 5.3 % (3.8-10.2); NEUT % 75.6 % (42.8-82.8); PLATELET COUNT 141 10^3/uL (134-434); RBC 3.26 M/mm3 (3.60-5.2); RDW 13.2 % (11.6-15.6); WHITE BLOOD COUNT 3.4 K/mm3 (4.0-10.0)
[2021-04-07 15:10] LABS: PH,URINE 5.5 (5.0-8.0); URINE APPEARANCE CLEAR; URINE BILIRUBIN NEGATIVE (NEGATIVE); URINE COLOR YELLOW; URINE GLUCOSE (UA) NEGATIVE (NEGATIVE); URINE KETONE NEGATIVE (NEGATIVE); URINE LEUK ESTERASE NEGATIVE (NEGATIVE); URINE NITRITE NEGATIVE (NEGATIVE); URINE PROTEIN NEGATIVE (NEGATIVE); URINE UROBILINOGEN 0.2 mg/dL (0.2-1.0)
[2021-04-07 15:27] LABS: CHLORIDE 111 mmol/L (98-107); SODIUM 138 mmol/L (136-145)
[2021-04-07 15:29] LABS: BLOOD UREA NITROGEN 17.3 mg/dL (7-18); CALCIUM 8.6 mg/dL (8.5-10.1); CO2 23 mmol/L (21-32); GLUCOSE,RANDOM 79 mg/dL (74-106); MAGNESIUM 2.7 mg/dL (1.8-2.4)
[2021-04-07 15:30] LABS: LIPASE 46 U/L (73-393)
[2021-04-07 15:32] LABS: CREATININE 0.7 mg/dL (0.55-1.3); SGOT/AST 22 U/L (15-37); SGPT/ALT 22 U/L (13-61)
[2021-04-07 15:34] LABS: BILIRUBIN,TOTAL 0.1 mg/dL (0.2-1); TOT PROT 7.8 g/dl (6.4-8.2)
[2021-04-07 15:35] LABS: ALK PHOS 92 U/L (45-117)
[2021-04-07 15:39] LABS: ANION GAP 4 MMOL/L (8-16)
[2021-04-07 16:37] LABS: CHLORIDE 112 mmol/L (98-107); SODIUM 140 mmol/L (136-145)
[2021-04-07 16:39] LABS: BLOOD UREA NITROGEN 16.6 mg/dL (7-18); CALCIUM 8.8 mg/dL (8.5-10.1); CO2 24 mmol/L (21-32)
[2021-04-07 16:40] LABS: GLUCOSE,RANDOM 90 mg/dL (74-106)
[2021-04-07 16:43] LABS: ANION GAP 4 MMOL/L (8-16); CREATININE 0.7 mg/dL (0.55-1.3)
[2021-04-07] MEDS ORDERED: CALCIUM GLUCONATE 10% - 1,000 MG/10 ML VIAL IVPB ONE (17:11)
[2021-04-07] MEDS ORDERED: INSULIN REGULAR HUMAN 100 UNITS/ML *VIAL IVPUSH ONE (17:11)
[2021-04-07] MEDS ORDERED: DEXTROSE 50%-WATER - 25 GM/50 ML VIAL IVPUSH ONE ×2 (17:12→22:50)
[2021-04-07] MEDS ORDERED: CALCIUM GLUCONATE 10% - 1,000 MG/10 ML VIAL ONE (17:21)
[2021-04-07] MEDS ORDERED: DEXTROSE 50%-WATER 25 GM/50 ML DISP.SYRIN ONE ×2 (17:21→22:51)
[2021-04-07] MEDS ORDERED: PIPERACILLIN/TAZOB 4.5 GM 4.5 GM in DEXTROSE 5%-WATER 100 ML IVPB ONE (17:36)
[2021-04-07] MEDS ORDERED: PIPERACILLIN/TAZOB 4.5 GM 4.5 GM/100 ML BAG IVPB ONE (17:49)
[2021-04-07] MEDS ORDERED: MORPHINE SULFATE 2 MG/ML VIAL IVPUSH PRN (21:28)
[2021-04-07] MEDS ORDERED: ONDANSETRON 4 MG/2 ML VIAL IVPUSH PRN (21:28)
[2021-04-07] MEDS: DEXTROSE 5%-0.45% SALINE 1,000 ML IV SCH (22:18)
[2021-04-07] MEDS: MYCOPHENOLATE SODIUM 360 MG TABLET.DR PO SCH (22:18)
[2021-04-07] MEDS: TACROLIMUS ANHYDROUS 1 MG CAPSULE PO SCH (22:18)
[2021-04-07] MEDS: ROSUVASTATIN CA 10 MG TABLET (FP) PO SCH (22:18)
[2021-04-07 22:25] LABS: CHLORIDE 113 mmol/L (98-107); SODIUM 143 mmol/L (136-145)
[2021-04-07 22:28] LABS: ALBUMIN 3.7 g/dl (3.4-5.0); ANION GAP 7 MMOL/L (8-16); BLOOD UREA NITROGEN 14.8 mg/dL (7-18); CO2 23 mmol/L (21-32)
[2021-04-07 22:31] LABS: CREATININE 0.6 mg/dL (0.55-1.3); SGOT/AST 14 U/L (15-37); SGPT/ALT 17 U/L (13-61)
[2021-04-07 22:32] LABS: BILIRUBIN,TOTAL 0.1 mg/dL (0.2-1); TOT PROT 7.1 g/dl (6.4-8.2)
[2021-04-07 22:34] LABS: ALK PHOS 76 U/L (45-117)
[2021-04-07 22:44] LABS: CALCIUM 9.2 mg/dL (8.5-10.1); GLUCOSE,RANDOM 45 mg/dL (74-106)
[2021-04-08] MEDS ORDERED: PIPERACILLIN/TAZOB 3.375 GM 3.375 GM/50 ML BAG IVPB ONE ×3 (01:51→12:27)
[2021-04-08] MEDS: PIPERACILLIN/TAZOB 3.375 GM 3.375 GM in DEXTROSE 5%-WATER - 50 ML IVPB SCH ×3 (01:58→18:01)
[2021-04-08 06:07] LABS: MCH 34.2 pg (25.7-33.7); MCHC 33.5 g/dl (32.0-36.0)
[2021-04-08 06:18] LABS: BASO % 0.3 % (0-2.0); EOS % 0.2 % (0-4.5); HEMATOCRIT 32.9 % (32.4-45.2); LYMPH % 14.8 % (8-40); MEAN PLT VOLUME 8.5 fl (7.5-11.1); MONO % 4.4 % (3.8-10.2); NEUT % 80.3 % (42.8-82.8); PLATELET COUNT 124 10^3/uL (134-434); RBC 3.23 M/mm3 (3.60-5.2); RDW 12.8 % (11.6-15.6); WHITE BLOOD COUNT 2.9 K/mm3 (4.0-10.0)
[2021-04-08 06:27] LABS: BLOOD UREA NITROGEN 12.8 mg/dL (7-18); CALCIUM 8.8 mg/dL (8.5-10.1)
[2021-04-08 06:28] LABS: ALBUMIN 3.8 g/dl (3.4-5.0)
[2021-04-08 06:31] LABS: CREATININE 0.7 mg/dL (0.55-1.3)
[2021-04-08 06:32] LABS: BILIRUBIN,TOTAL 0.2 mg/dL (0.2-1); TOT PROT 7.4 g/dl (6.4-8.2)
[2021-04-08 07:49] LABS: ANISOCYTOSIS 2+; MACROCYTOSIS 2+; PLATELET ESTIMATE NORMAL
[2021-04-08] MEDS ORDERED: PATIENT'S OWN MEDICATION (NON-FORMULARY) (Lipase/Protease/Amylase [Zenpep Dr 25,000 Unit C PO SCH (08:00)
[2021-04-08] MEDS ORDERED: PANTOPRAZOLE 40 MG TABLET ONE (08:36)
[2021-04-08] MEDS ORDERED: CHOLECALCIFEROL (VIT D3) 1,000 UNIT (25 MCG) TABLET ONE (08:37)
[2021-04-08] MEDS ORDERED: ENOXAPARIN NA (PORCINE) 40 MG/0.4 ML DISP.SYRIN SQ ONE (08:37)
[2021-04-08] MEDS ORDERED: FERROUS SO4 325 MG TABLET (FP) ONE ×2 (08:37→13:42)
[2021-04-08] MEDS: PANTOPRAZOLE 40 MG TABLET PO SCH (10:19)
[2021-04-08] MEDS: TACROLIMUS ANHYDROUS 1 MG CAPSULE PO SCH ×2 (10:19→21:55)
[2021-04-08] MEDS: MYCOPHENOLATE SODIUM 360 MG TABLET.DR PO SCH ×2 (10:19→21:54)
[2021-04-08] MEDS: ENOXAPARIN NA (PORCINE) 40 MG/0.4 ML DISP.SYRIN SQ SCH (10:19)
[2021-04-08] MEDS: CHOLECALCIFEROL (VIT D3) 1,000 UNIT (25 MCG) TABLET PO SCH (10:19)
[2021-04-08] MEDS: FERROUS SO4 325 MG TABLET (FP) PO SCH (15:00)
[2021-04-08] MEDS ORDERED: DEXTROSE 5%-WATER - 50 ML IVPB ONE (17:42)
[2021-04-08] MEDS ORDERED: PIPERACILLIN/TAZOBACTAM 3.375 GM VIAL IVPB ONE (17:42)
[2021-04-08 18:01] VITALS: BMI 26.8
[2021-04-08] MEDS ORDERED: PT OWN MED DRAWER 7, Y5N ONE (20:55)
[2021-04-08] MEDS: DEXTROSE 5%-0.45% SALINE 1,000 ML IV SCH (21:53)
[2021-04-08] MEDS: ROSUVASTATIN CA 10 MG TABLET (FP) PO SCH (21:54)
[2021-04-09] MEDS ORDERED: DEXTROSE 5%-WATER - 50 ML IVPB ONE ×3 (00:52→16:59)
[2021-04-09] MEDS ORDERED: PIPERACILLIN/TAZOBACTAM 3.375 GM VIAL IVPB ONE ×3 (00:52→16:59)
[2021-04-09] MEDS: PIPERACILLIN/TAZOB 3.375 GM 3.375 GM in DEXTROSE 5%-WATER - 50 ML IVPB SCH ×3 (01:59→17:06)
[2021-04-09] MEDS: DEXTROSE 5%-0.45% SALINE 1,000 ML IV SCH ×2 (02:00→20:37)
[2021-04-09] MEDS ORDERED: PIPERACILLIN/TAZOB 3.375 GM 3.375 GM in DEXTROSE 5%-WATER - 50 ML IVPB ONE (02:00)
[2021-04-09 07:18] LABS: BASO % 0.8 % (0-2.0); EOS % 1.1 % (0-4.5); HEMATOCRIT 30.8 % (32.4-45.2); HEMOGLOBIN 10.4 GM/dL (10.7-15.3); LYMPH % 23.6 % (8-40); MCH 34.3 pg (25.7-33.7); MCHC 33.7 g/dl (32.0-36.0); MEAN CELL VOLUME 101.8 fl (80-96); MEAN PLT VOLUME 8.6 fl (7.5-11.1); MONO % 6.1 % (3.8-10.2); NEUT % 68.4 % (42.8-82.8); PLATELET COUNT 136 10^3/uL (134-434); RBC 3.02 M/mm3 (3.60-5.2); RDW 12.7 % (11.6-15.6); WHITE BLOOD COUNT 2.7 K/mm3 (4.0-10.0)
[2021-04-09 07:45] LABS: CALCIUM 8.2 mg/dL (8.5-10.1)
[2021-04-09 07:46] LABS: ALBUMIN 3.4 g/dl (3.4-5.0); BLOOD UREA NITROGEN 14.8 mg/dL (7-18)
[2021-04-09 07:49] LABS: CREATININE 0.8 mg/dL (0.55-1.3)
[2021-04-09 07:50] LABS: BILIRUBIN,TOTAL 0.2 mg/dL (0.2-1); TOT PROT 6.7 g/dl (6.4-8.2)
[2021-04-09] MEDS ORDERED: PT OWN MED DRAWER 7, Y5N ONE ×2 (09:22→20:52)
[2021-04-09] MEDS: FERROUS SO4 325 MG TABLET (FP) PO SCH (09:39)
[2021-04-09] MEDS: CHOLECALCIFEROL (VIT D3) 1,000 UNIT (25 MCG) TABLET PO SCH (09:39)
[2021-04-09] MEDS: TACROLIMUS ANHYDROUS 1 MG CAPSULE PO SCH ×2 (09:39→21:13)
[2021-04-09] MEDS: PANTOPRAZOLE 40 MG TABLET PO SCH (09:39)
[2021-04-09] MEDS: ENOXAPARIN NA (PORCINE) 40 MG/0.4 ML DISP.SYRIN SQ SCH (09:40)
[2021-04-09] MEDS: MYCOPHENOLATE SODIUM 360 MG TABLET.DR PO SCH ×2 (09:40→21:13)
[2021-04-09] MEDS: METOCLOPRAMIDE HCL 10 MG TABLET (FP) PO SCH (18:29)
[2021-04-09] MEDS: ROSUVASTATIN CA 10 MG TABLET (FP) PO SCH (21:13)
[2021-04-09] MEDS: RIFAXIMIN 550 MG TABLET (UD) PO SCH (21:13)
[2021-04-09] MEDS ORDERED: FAMOTIDINE 20 MG TABLET PO SCH (22:00)
[2021-04-10] MEDS ORDERED: PIPERACILLIN/TAZOBACTAM 3.375 GM VIAL IVPB ONE ×3 (01:45→16:50)
[2021-04-10] MEDS ORDERED: DEXTROSE 5%-WATER - 50 ML IVPB ONE ×3 (01:45→16:50)
[2021-04-10] MEDS: PIPERACILLIN/TAZOB 3.375 GM 3.375 GM in DEXTROSE 5%-WATER - 50 ML IVPB SCH ×5 (01:52→17:00)
[2021-04-10] MEDS: RIFAXIMIN 550 MG TABLET (UD) PO SCH ×3 (06:04→21:14)
[2021-04-10] MEDS: METOCLOPRAMIDE HCL 10 MG TABLET (FP) PO SCH ×3 (06:04→17:00)
[2021-04-10] MEDS ORDERED: PT OWN MED DRAWER 7, Y5N ONE ×2 (09:15→21:01)
[2021-04-10] MEDS: MYCOPHENOLATE SODIUM 360 MG TABLET.DR PO SCH ×2 (09:25→21:14)
[2021-04-10] MEDS: ENOXAPARIN NA (PORCINE) 40 MG/0.4 ML DISP.SYRIN SQ SCH (09:25)
[2021-04-10] MEDS: FERROUS SO4 325 MG TABLET (FP) PO SCH (09:25)
[2021-04-10] MEDS: PANTOPRAZOLE 40 MG TABLET PO SCH (09:25)
[2021-04-10] MEDS: TACROLIMUS ANHYDROUS 1 MG CAPSULE PO SCH ×2 (09:25→21:14)
[2021-04-10] MEDS: CHOLECALCIFEROL (VIT D3) 1,000 UNIT (25 MCG) TABLET PO SCH (09:25)
[2021-04-10] MEDS: DEXTROSE 5%-0.45% SALINE 1,000 ML IV SCH (10:58)
[2021-04-10] MEDS ORDERED: ACETAMINOPHEN 325 MG TABLET (FP) PO ONE (14:30)
[2021-04-10] MEDS: ROSUVASTATIN CA 10 MG TABLET (FP) PO SCH (21:14)
[2021-04-11] MEDS ORDERED: DEXTROSE 5%-WATER - 50 ML IVPB ONE ×2 (01:08→10:23)
[2021-04-11] MEDS ORDERED: PIPERACILLIN/TAZOBACTAM 3.375 GM VIAL IVPB ONE ×2 (01:08→10:23)
[2021-04-11] MEDS: DEXTROSE 5%-0.45% SALINE 1,000 ML IV SCH (02:05)
[2021-04-11] MEDS: PIPERACILLIN/TAZOB 3.375 GM 3.375 GM in DEXTROSE 5%-WATER - 50 ML IVPB SCH ×2 (02:05→11:23)
[2021-04-11] MEDS ORDERED: PT OWN MED DRAWER 7, Y5N ONE ×2 (06:33→10:24)
[2021-04-11] MEDS: RIFAXIMIN 550 MG TABLET (UD) PO SCH (06:34)
[2021-04-11] MEDS: METOCLOPRAMIDE HCL 10 MG TABLET (FP) PO SCH ×2 (06:34→11:23)
[2021-04-11 09:46] VITALS: BP 101/57; PULSE 65; TEMP 98.2
[2021-04-11] MEDS: TACROLIMUS ANHYDROUS 1 MG CAPSULE PO SCH (11:19)
[2021-04-11] MEDS: MYCOPHENOLATE SODIUM 360 MG TABLET.DR PO SCH (11:20)
[2021-04-11] MEDS: CHOLECALCIFEROL (VIT D3) 1,000 UNIT (25 MCG) TABLET PO SCH (11:21)
[2021-04-11] MEDS: FERROUS SO4 325 MG TABLET (FP) PO SCH (11:22)
[2021-04-11 12:27] LABS: CALCIUM 8.7 mg/dL (8.5-10.1)
[2021-04-11 12:28] LABS: BLOOD UREA NITROGEN 17.3 mg/dL (7-18)
[2021-04-11 12:31] LABS: CREATININE 0.7 mg/dL (0.55-1.3)
== END 2021-04-11 16:55 | disposition home or self-care (01) | DRG 392 ==
LOC: JER 12:37 → JERBED 18:08 → J4S 04-08 16:57
PROVIDERS: ADMIT Internal Medicine; ATTEND Internal Medicine
DX: R10.13 Epigastric pain (principal); K57.92 Diverticulitis of intestine, part unspecified, without perforation or abscess without bleeding; Z94.0 Kidney transplant status; Z94.4 Liver transplant status; I10 Essential (primary) hypertension; E87.5 Hyperkalemia; E78.5 Hyperlipidemia, unspecified; K76.9 Liver disease, unspecified; D64.9 Anemia, unspecified; R14.0 Abdominal distension (gaseous); I12.9 Hypertensive chronic kidney disease with stage 1 through stage 4 chronic kidney disease, or unspecified chronic kidney disease; N18.9 Chronic kidney disease, unspecified
CPT/HCPCS: 36415; 71045-TC-FY; 74176-TC; 80048; 80053; 81003; 82962; 83690; 83735; 84484; 85025; 87086; 93005; 93010; 99285-25; C9803; U0003; U0005

== ENCOUNTER 2021-09-16 12:49 | Emergency (ER) | payer MEDICARE, OTHER ==
[2021-09-16 13:28] VITALS: BMI 25.5
[2021-09-16 15:42] LABS: BASO % 0.2 % (0-2.0); EOS % 0.2 % (0-4.5); HEMATOCRIT 34.9 % (32.4-45.2); HEMOGLOBIN 11.3 GM/dL (10.7-15.3); LYMPH % 17.9 % (8-40); MCH 32.9 pg (25.7-33.7); MCHC 32.5 g/dl (32.0-36.0); MEAN CELL VOLUME 101.1 fl (80-96); MEAN PLT VOLUME 8.4 fl (7.5-11.1); MONO % 6.4 % (3.8-10.2); NEUT % 75.3 % (42.8-82.8); PLATELET COUNT 133 10^3/uL (134-434); RBC 3.45 M/mm3 (3.60-5.2); RDW 13.3 % (11.6-15.6); WHITE BLOOD COUNT 2.2 K/mm3 (4.0-10.0)
[2021-09-16 16:02] LABS: CHLORIDE 109 mmol/L (98-107); SODIUM 142 mmol/L (136-145)
[2021-09-16 16:06] LABS: ANION GAP 9 MMOL/L (8-16); CALCIUM 8.6 mg/dL (8.5-10.1); CO2 24 mmol/L (21-32); GLUCOSE,RANDOM 98 mg/dL (74-106)
[2021-09-16 16:07] LABS: BLOOD UREA NITROGEN 11.5 mg/dL (7-18); LIPASE 53 U/L (73-393)
[2021-09-16 16:09] LABS: CREATININE 0.6 mg/dL (0.55-1.3); SGOT/AST 24 U/L (15-37); SGPT/ALT 23 U/L (13-61)
[2021-09-16 16:11] LABS: BILIRUBIN,TOTAL 0.2 mg/dL (0.2-1); TOT PROT 7.3 g/dl (6.4-8.2)
[2021-09-16 16:12] LABS: ALK PHOS 95 U/L (45-117)
[2021-09-16] MEDS ORDERED: ACETAMINOPHEN 1000 MG/100 ML BAG IVPB ONE (16:16)
[2021-09-16] MEDS ORDERED: SODIUM CHLORIDE 500 ML IV STA (16:17)
[2021-09-16] MEDS ORDERED: ACETAMINOPHEN INJECTION 100 ML IVPB ONE (16:51)
[2021-09-16] MEDS ORDERED: SOTROVIMAB 500 MG in SODIUM CHLORIDE 100 ML IVPB ONE (18:15)
[2021-09-16 19:37] VITALS: TEMP 98.7
[2021-09-16 21:43] VITALS: BP 125/65; PULSE 72
== END 2021-09-16 21:44 | disposition home or self-care (01) ==
LOC: JER 12:49
PROC: 3E0333Z Introduction of Anti-inflammatory into Peripheral Vein, Percutaneous Approach (ICD-10-PCS; principal; 2021-09-16)
PROC: 3E03329 Introduction of Other Anti-infective into Peripheral Vein, Percutaneous Approach (ICD-10-PCS; 2021-09-16)
PROC: 3E0337Z Introduction of Electrolytic and Water Balance Substance into Peripheral Vein, Percutaneous Approach (ICD-10-PCS; 2021-09-16)
DX: U07.1 COVID-19 (principal)
CPT/HCPCS: 36415; 80053; 82550; 83690; 84484; 85025; 87040; 87804; 87807; 96361; 96374; 96375; 99284-25; C9803; J0131; M0247; U0003; U0005

== ENCOUNTER 2021-12-15 21:07 | Inpatient (IN) | payer MEDICARE, OTHER ==
[2021-12-15] MEDS ORDERED: SODIUM CHLORIDE 500 ML IV STA (23:20)
[2021-12-15] MEDS ORDERED: ONDANSETRON 4 MG/2 ML VIAL IVPB ONE (23:20)
[2021-12-15] MEDS ORDERED: ONDANSETRON 4 MG/2 ML VIAL ONE (23:43)
[2021-12-16 00:07] LABS: BASO % 0.1 % (0-2.0); HEMATOCRIT 35.9 % (32.4-45.2); HEMOGLOBIN 11.8 GM/dL (10.7-15.3); MCH 32.7 pg (25.7-33.7); MCHC 32.9 g/dl (32.0-36.0); MEAN CELL VOLUME 99.5 fl (80-96); MONO % 2.4 % (3.8-10.2); NEUT % 92.5 % (42.8-82.8); PLATELET COUNT 128 10^3/uL (134-434); RDW 12.6 % (11.6-15.6); WHITE BLOOD COUNT 7.3 K/mm3 (4.0-10.0)
[2021-12-16 00:09] LABS: URINE APPEARANCE CLEAR; URINE BILIRUBIN NEGATIVE (NEGATIVE); URINE COLOR YELLOW; URINE GLUCOSE (UA) NEGATIVE (NEGATIVE); URINE KETONE 1+ (NEGATIVE); URINE LEUK ESTERASE NEGATIVE (NEGATIVE); URINE NITRITE NEGATIVE (NEGATIVE); URINE PROTEIN NEGATIVE (NEGATIVE); URINE UROBILINOGEN 0.2 mg/dL (0.2-1.0)
[2021-12-16 00:29] LABS: ALBUMIN 4.2 g/dl (3.4-5.0); BLOOD UREA NITROGEN 24.8 mg/dL (7-18); CALCIUM 8.8 mg/dL (8.5-10.1)
[2021-12-16 00:33] LABS: CREATININE 0.7 mg/dL (0.55-1.3)
[2021-12-16 00:34] LABS: BILIRUBIN,TOTAL 0.3 mg/dL (0.2-1); TOT PROT 7.8 g/dl (6.4-8.2)
[2021-12-16] MEDS ORDERED: SODIUM CHLORIDE 500 ML IV STA (00:38)
[2021-12-16] MEDS ORDERED: FAMOTIDINE 20 MG/50 ML IVPB 20 MG/50 ML MG IVPB ONE (00:38)
[2021-12-16] MEDS ORDERED: FAMOTIDINE/PF 20 MG/2 ML VIAL ONE (00:47)
[2021-12-16 03:13] LABS: ANISOCYTOSIS FEW
[2021-12-16] MEDS ORDERED: ONDANSETRON 4 MG/2 ML VIAL IVPUSH PRN (03:32)
[2021-12-16] MEDS ORDERED: MAG HYDROX/AL HYDROX/SIMETH 30 ML UNIT-DOSE CUP PO PRN (03:33)
[2021-12-16] MEDS: SODIUM CHLORIDE 0.45% 1,000 ML IV SCH (03:36)
[2021-12-16] MEDS ORDERED: ACETAMINOPHEN 325 MG TABLET (FP) ONE (04:26)
[2021-12-16] MEDS ORDERED: MAG HYDROX/AL HYDROX/SIMETH 30 ML UNIT-DOSE CUP ONE (04:26)
[2021-12-16] MEDS ORDERED: SIMETHICONE 80 MG TAB.CHEW (FP) ONE (04:26)
[2021-12-16] MEDS: SIMETHICONE 80 MG TAB.CHEW (FP) PO SCH ×6 (04:34→22:52)
[2021-12-16] MEDS: ACETAMINOPHEN 325 MG TABLET (FP) PO PRN ×2 (04:34→18:47)
[2021-12-16] MEDS ORDERED: CEFTRIAXONE 2 GM in DEXTROSE 5%-WATER 100 ML IVPB ONE (08:52)
[2021-12-16] MEDS ORDERED: DEXTROSE 5%-WATER 100 ML IVPB ONE (10:38)
[2021-12-16] MEDS: MYCOPHENOLATE SODIUM 360 MG TABLET.DR PO SCH ×2 (12:17→21:34)
[2021-12-16] MEDS: TACROLIMUS ANHYDROUS 1 MG CAPSULE PO SCH ×2 (12:18→21:35)
[2021-12-16 13:23] VITALS: BMI 27.3
[2021-12-16] MEDS: HEPARIN NA (PORCINE) 5,000 UNITS/ML 1ML VIAL SQ SCH (21:34)
[2021-12-17] MEDS: SODIUM CHLORIDE 0.45% 1,000 ML IV SCH ×2 (05:31→17:43)
[2021-12-17] MEDS: SIMETHICONE 80 MG TAB.CHEW (FP) PO SCH ×6 (05:31→23:35)
[2021-12-17] MEDS ORDERED: DEXTROSE 5%-WATER 100 ML IVPB ONE (11:31)
[2021-12-17] MEDS: HEPARIN NA (PORCINE) 5,000 UNITS/ML 1ML VIAL SQ SCH ×2 (12:08→21:40)
[2021-12-17] MEDS: CEFTRIAXONE 2 GM in DEXTROSE 5%-WATER 100 ML IVPB SCH (12:08)
[2021-12-17] MEDS: LIPASE/PROTEASE/AMYLASE 36,000 UNIT CAPSULE PO SCH ×2 (12:10→17:45)
[2021-12-17] MEDS: METOCLOPRAMIDE HCL 10 MG TABLET (FP) PO SCH ×2 (12:10→17:44)
[2021-12-17] MEDS: TACROLIMUS ANHYDROUS 1 MG CAPSULE PO SCH ×2 (12:11→21:40)
[2021-12-17] MEDS: MYCOPHENOLATE SODIUM 360 MG TABLET.DR PO SCH ×2 (12:12→21:41)
[2021-12-17] MEDS: PATIENT'S OWN MEDICATION (NON-FORMULARY) (Linaclotide [Linzess] 72 MCG Capsule) PO SCH (17:47)
[2021-12-18] MEDS: SODIUM CHLORIDE 0.45% 1,000 ML IV SCH ×2 (02:31→06:31)
[2021-12-18] MEDS: SIMETHICONE 80 MG TAB.CHEW (FP) PO SCH ×4 (02:31→14:40)
[2021-12-18] MEDS: METOCLOPRAMIDE HCL 10 MG TABLET (FP) PO SCH ×2 (06:30→12:01)
[2021-12-18] MEDS ORDERED: DEXTROSE 5%-WATER 100 ML IVPB ONE (09:51)
[2021-12-18] MEDS: HEPARIN NA (PORCINE) 5,000 UNITS/ML 1ML VIAL SQ SCH (09:56)
[2021-12-18] MEDS: LIPASE/PROTEASE/AMYLASE 36,000 UNIT CAPSULE PO SCH ×2 (09:56→12:01)
[2021-12-18] MEDS: TACROLIMUS ANHYDROUS 1 MG CAPSULE PO SCH (09:57)
[2021-12-18] MEDS: MYCOPHENOLATE SODIUM 360 MG TABLET.DR PO SCH (09:57)
[2021-12-18] MEDS: CEFTRIAXONE 2 GM in DEXTROSE 5%-WATER 100 ML IVPB SCH (11:29)
[2021-12-18] MEDS ORDERED: metroNIDAZOLE 250 MG TABLET PO SCH (14:00)
[2021-12-18 16:07] VITALS: BP 113/71; PULSE 63; TEMP 97.2
[2021-12-19 14:08] LABS: STOOL OSMO 489 mOsmol/kg (Not Estab.)
== END 2021-12-18 16:52 | disposition home or self-care (01) | DRG 392 ==
LOC: JER 21:07 → JERBED 12-16 02:14 → J8W 12-16 08:02 → OBSVTOIN 12-17 12:25
PROVIDERS: ADMIT Internal Medicine; ATTEND Nurse Practitioner Family
DX: K57.32 Diverticulitis of large intestine without perforation or abscess without bleeding (principal); Z94.0 Kidney transplant status; Z94.4 Liver transplant status; A09 Infectious gastroenteritis and colitis, unspecified; I10 Essential (primary) hypertension; K57.90 Diverticulosis of intestine, part unspecified, without perforation or abscess without bleeding; K74.60 Unspecified cirrhosis of liver; R42 Dizziness and giddiness; I12.9 Hypertensive chronic kidney disease with stage 1 through stage 4 chronic kidney disease, or unspecified chronic kidney disease; N18.9 Chronic kidney disease, unspecified; R10.31 Right lower quadrant pain; K86.81 Exocrine pancreatic insufficiency; Z86.19 Personal history of other infectious and parasitic diseases
CPT/HCPCS: 36415; 71046-TC-FY; 74176-TC; 80053; 81003; 82438; 82710; 83690; 83986; 84302; 84484; 84999; 85025; 87040; 87045; 87046; 87205; 87324; 87449; 93005; 93010; 94010; 99285-25; C9803-CS; G0378; J1644; U0003; U0005

== ENCOUNTER 2022-03-03 11:09 | Inpatient (IN) | payer MEDICARE, OTHER ==
[2022-03-03] MEDS ORDERED: SODIUM CHLORIDE 0.9% 500 ML INFUS.BAG IV ONE (12:06)
[2022-03-03] MEDS ORDERED: ONDANSETRON 4 MG/2 ML VIAL IVPUSH ONE (12:06)
[2022-03-03] MEDS ORDERED: ONDANSETRON 4 MG/2 ML VIAL ONE (12:14)
[2022-03-03 13:24] LABS: HEMATOCRIT 31.5 % (32.4-45.2); HEMOGLOBIN 10.7 GM/dL (10.7-15.3); MCH 33.5 pg (25.7-33.7); MEAN CELL VOLUME 98.4 fl (80-96); PLATELET COUNT 106 10^3/uL (134-434); RBC 3.21 M/mm3 (3.60-5.2); RDW 13.3 % (11.6-15.6); WHITE BLOOD COUNT 8.1 K/mm3 (4.0-10.0)
[2022-03-03 13:35] LABS: ACTIVATED PTT 28.6 SECONDS (25.2-36.5); INR 1.12 (0.83-1.09); PROTHROMBIN TIME (PATIENT) 12.9 SEC (9.7-13.0)
[2022-03-03 13:50] LABS: ANISOCYTOSIS 0; HELMET CELLS 0; HOWELL-JOLLY BODIES 0; MACROCYTOSIS 0; OVALOCYTE 0; ROULEAU 0; SICKELED CELLS 0; TARGET CELLS 0; TEAR DROP CELLS 0; TOXIC GRANULATION 0
[2022-03-03 13:56] LABS: CALCIUM 8.5 mg/dL (8.5-10.1)
[2022-03-03 13:57] LABS: ALBUMIN 3.7 g/dl (3.4-5.0); BLOOD UREA NITROGEN 17.4 mg/dL (7-18); MAGNESIUM 2.5 mg/dL (1.8-2.4)
[2022-03-03 14:00] LABS: CREATININE 0.7 mg/dL (0.55-1.3); PHOSPHOROUS 3.3 mg/dL (2.5-4.9)
[2022-03-03 14:01] LABS: BILIRUBIN,TOTAL 0.7 mg/dL (0.2-1); TOT PROT 7.2 g/dl (6.4-8.2)
[2022-03-03 16:27] LABS: VENOUS BASE EXCESS 1.1 mmol/L (-2-2); VENOUS O2 SATURATION 19.8 % (70-80); VENOUS PH 7.333 (7.310-7.410)
[2022-03-03 18:21] LABS: URINE APPEARANCE CLEAR; URINE BILIRUBIN NEGATIVE (NEGATIVE); URINE COLOR YELLOW; URINE GLUCOSE (UA) NEGATIVE (NEGATIVE); URINE KETONE NEGATIVE (NEGATIVE)
[2022-03-03 18:22] LABS: PH,URINE 6.5 (5.0-8.0); URINE LEUK ESTERASE TRACE (NEGATIVE); URINE NITRITE NEGATIVE (NEGATIVE); URINE PROTEIN 30 (NEGATIVE); URINE UROBILINOGEN 0.2 mg/dL (0.2-1.0)
[2022-03-03 18:42] LABS: EPI CELLS 12 /uL (0-25.1); HYALINE CASTS 0 /uL (0-3.1); URINE BACTERIA 8 /uL (0-1359); URINE RBC 4 /uL (0-23.9); URINE WBC 228 /uL (0-25.8)
[2022-03-03] MEDS ORDERED: LACTATED RINGERS SOLUTION 1000 ML INFUS.BAG IV ONE (18:52)
[2022-03-03] MEDS ORDERED: PIPERACILLIN/TAZOB 4.5 GM 4.5 GM in DEXTROSE 5%-WATER 100 ML IVPB ONE (19:04)
[2022-03-03] MEDS ORDERED: ACETAMINOPHEN 1000 MG/100 ML BAG IVPB ONE (19:04)
[2022-03-03] MEDS ORDERED: PIPERACILLIN/TAZOB 4.5 GM 4.5 GM/100 ML BAG IVPB ONE (19:50)
[2022-03-03] MEDS ORDERED: ACETAMINOPHEN INJECTION 100 ML IVPB ONE (19:50)
[2022-03-03] MEDS ORDERED: MEROPENEM 1 GM in DEXTROSE 5%-WATER 100 ML IVPB ONE (22:42)
[2022-03-03] MEDS ORDERED: TACROLIMUS ANHYDROUS 1 MG CAPSULE PO SCH (22:45)
[2022-03-03] MEDS ORDERED: MYCOPHENOLATE SODIUM 360 MG TABLET.DR PO SCH (22:45)
[2022-03-03] MEDS ORDERED: METOCLOPRAMIDE HCL 10 MG TABLET (FP) PO ONE (23:24)
[2022-03-03] MEDS: METOCLOPRAMIDE HCL 10 MG TABLET (FP) PO SCH (23:30)
[2022-03-04] MEDS ORDERED: SODIUM CHLORIDE 0.9% 500 ML INFUS.BAG IV ONE ×2 (00:35→11:43)
[2022-03-04] MEDS: METOCLOPRAMIDE HCL 10 MG TABLET (FP) PO SCH ×3 (06:50→18:56)
[2022-03-04 07:13] VITALS: BMI 28.0
[2022-03-04 09:55] LABS: BASO % 0.2 % (0-2.0); EOS % 0.1 % (0-4.5); HEMATOCRIT 31.8 % (32.4-45.2); HEMOGLOBIN 10.4 GM/dL (10.7-15.3); MCH 32.9 pg (25.7-33.7); MCHC 32.8 g/dl (32.0-36.0); MEAN CELL VOLUME 100.4 fl (80-96); MEAN PLT VOLUME 8.6 fl (7.5-11.1); MONO % 6.7 % (3.8-10.2); PLATELET COUNT 99 10^3/uL (134-434); RBC 3.17 M/mm3 (3.60-5.2); RDW 13.4 % (11.6-15.6); WHITE BLOOD COUNT 8.8 K/mm3 (4.0-10.0)
[2022-03-04] MEDS ORDERED: PATIENT'S OWN MEDICATION (NON-FORMULARY) (Linaclotide [Linzess] 72 MCG Capsule) PO SCH (10:00)
[2022-03-04 10:21] LABS: ALBUMIN 3.2 g/dl (3.4-5.0); BLOOD UREA NITROGEN 11.3 mg/dL (7-18); CALCIUM 8.1 mg/dL (8.5-10.1)
[2022-03-04 10:22] LABS: MAGNESIUM 2.2 mg/dL (1.8-2.4)
[2022-03-04 10:24] LABS: CREATININE 0.8 mg/dL (0.55-1.3); PHOSPHOROUS 2.2 mg/dL (2.5-4.9)
[2022-03-04 10:26] LABS: BILIRUBIN,TOTAL 0.4 mg/dL (0.2-1); TOT PROT 6.5 g/dl (6.4-8.2)
[2022-03-04] MEDS ORDERED: MEROPENEM 1 GM VIAL (RESTRICTED TO ID) IVPB ONE (10:58)
[2022-03-04] MEDS ORDERED: DEXTROSE 5%-WATER 100 ML IVPB ONE (10:58)
[2022-03-04] MEDS: LIPASE/PROTEASE/AMYLASE 6,000 UNIT CAPSULE PO SCH ×3 (11:00→18:57)
[2022-03-04] MEDS ORDERED: MEROPENEM 1 GM in DEXTROSE 5%-WATER 100 ML IVPB SCH (11:00)
[2022-03-04] MEDS ORDERED: NAPH,MB-DB/K PH,MBDB POWDER PACKET PO ONE (11:01)
[2022-03-04] MEDS: TACROLIMUS ANHYDROUS 1 MG CAPSULE PO SCH ×2 (11:49→21:14)
[2022-03-04] MEDS: FOLIC ACID 1 MG TABLET (FP) PO SCH (11:50)
[2022-03-04] MEDS: MYCOPHENOLATE SODIUM 360 MG TABLET.DR PO SCH ×2 (11:50→21:14)
[2022-03-04] MEDS: PANTOPRAZOLE 40 MG TABLET PO SCH (11:51)
[2022-03-04] MEDS: HEPARIN NA (PORCINE) 5,000 UNITS/ML 1ML VIAL SQ SCH ×2 (11:55→21:14)
[2022-03-04] MEDS ORDERED: CEFTRIAXONE 1 GM in DEXTROSE 5%-WATER - 50 ML IVPB SCH (14:00)
[2022-03-04] MEDS ORDERED: DEXTROSE 5%-WATER - 50 ML IVPB ONE (14:21)
[2022-03-04] MEDS ORDERED: cefTRIAXone SODIUM 1 GM VIAL ONE (14:21)
[2022-03-04] MEDS ORDERED: ACETAMINOPHEN 500 MG TABLET (FP) PO PRN (14:36)
[2022-03-04] MEDS ORDERED: NAPH,MB-DB/K PH,MBDB POWDER PACKET PO SCH (14:45)
[2022-03-04] MEDS ORDERED: methylPREDNISolone NA SUCC 125 MG/2 ML VIAL IVPUSH ONE (17:30)
[2022-03-04] MEDS: NAPH,MB-DB/K PH,MBDB POWDER PACKET PO SCH (21:14)
[2022-03-05] MEDS: NAPH,MB-DB/K PH,MBDB POWDER PACKET PO SCH ×2 (06:35→15:55)
[2022-03-05] MEDS: METOCLOPRAMIDE HCL 10 MG TABLET (FP) PO SCH ×3 (06:35→17:30)
[2022-03-05 08:59] LABS: HEMATOCRIT 28.5 % (32.4-45.2); HEMOGLOBIN 9.6 GM/dL (10.7-15.3); MCH 33.3 pg (25.7-33.7); MCHC 33.6 g/dl (32.0-36.0); MEAN PLT VOLUME 9.4 fl (7.5-11.1); PLATELET COUNT 85 10^3/uL (134-434); RBC 2.88 M/mm3 (3.60-5.2); RDW 13.2 % (11.6-15.6); WHITE BLOOD COUNT 3.2 K/mm3 (4.0-10.0)
[2022-03-05 09:18] LABS: ALBUMIN 3.1 g/dl (3.4-5.0); CALCIUM 8.1 mg/dL (8.5-10.1)
[2022-03-05 09:19] LABS: BLOOD UREA NITROGEN 12.4 mg/dL (7-18)
[2022-03-05 09:21] LABS: CREATININE 0.5 mg/dL (0.55-1.3)
[2022-03-05 09:23] LABS: BILIRUBIN,TOTAL 0.2 mg/dL (0.2-1); TOT PROT 6.4 g/dl (6.4-8.2)
[2022-03-05] MEDS ORDERED: MEROPENEM 1 GM in DEXTROSE 5%-WATER 100 ML IVPB SCH (10:00)
[2022-03-05] MEDS ORDERED: FLU VACC QS2021-22(6MOS UP)/PF 60 MCG/0.5 ML SYRINGE IM ONE (10:00)
[2022-03-05] MEDS: CIPROFLOXACIN 250 MG TABLET (RESTRICTED TO ID) PO SCH ×2 (10:26→21:07)
[2022-03-05] MEDS: LIPASE/PROTEASE/AMYLASE 6,000 UNIT CAPSULE PO SCH ×3 (10:27→17:31)
[2022-03-05] MEDS: PANTOPRAZOLE 40 MG TABLET PO SCH (10:28)
[2022-03-05] MEDS: TACROLIMUS ANHYDROUS 1 MG CAPSULE PO SCH ×2 (10:28→21:06)
[2022-03-05] MEDS: MYCOPHENOLATE SODIUM 360 MG TABLET.DR PO SCH (10:28)
[2022-03-05] MEDS: FOLIC ACID 1 MG TABLET (FP) PO SCH (10:29)
[2022-03-05] MEDS: HEPARIN NA (PORCINE) 5,000 UNITS/ML 1ML VIAL SQ SCH ×2 (10:30→21:07)
[2022-03-05] MEDS ORDERED: methylPREDNISolone NA SUCC 125 MG/2 ML VIAL IVPUSH ONE (17:02)
[2022-03-05 21:15] VITALS: BP 127/70; PULSE 58; TEMP 98.4
== END 2022-03-05 21:17 | disposition short-term general hospital (02) | DRG 690 ==
LOC: JER 11:09 → JERBED 20:43 → J5S 03-04 05:56
PROVIDERS: ADMIT Hospitalist; ATTEND Internal Medicine
DX: N10 Acute pyelonephritis (principal); Z94.4 Liver transplant status; D61.818 Other pancytopenia; Z94.0 Kidney transplant status; K57.92 Diverticulitis of intestine, part unspecified, without perforation or abscess without bleeding; I10 Essential (primary) hypertension; E78.5 Hyperlipidemia, unspecified; E87.8 Other disorders of electrolyte and fluid balance, not elsewhere classified; N39.0 Urinary tract infection, site not specified; N18.9 Chronic kidney disease, unspecified
CPT/HCPCS: 0241U-QW; 36415; 71046-TC-FY; 74177-TC; 76705-TC; 80053; 81003; 82550; 82803; 83605; 83690; 83735; 84100; 84443; 85025; 85027; 85610; 85730; 87040; 87086; 87186; 93005; 93010; 97116-GP; 97162-GP; 99285-25; J1644

== ENCOUNTER 2022-09-21 13:40 | Inpatient (IN) | payer MEDICARE, OTHER ==
[2022-09-21 14:05] VITALS: BMI 31.2
[2022-09-21] MEDS ORDERED: ACETAMINOPHEN 325 MG TABLET (FP) PO ONE (15:29)
[2022-09-21] MEDS ORDERED: ACETAMINOPHEN 325 MG TABLET (FP) ONE (15:31)
[2022-09-21 15:36] LABS: BASO % 0.1 % (0-2.0); HEMATOCRIT 36.3 % (32.4-45.2); LYMPH % 5.3 % (8-40); MCH 33.3 pg (25.7-33.7); MCHC 33.1 g/dl (32.0-36.0); MEAN CELL VOLUME 100.6 fl (80-96); MEAN PLT VOLUME 8.1 fl (7.5-11.1); MONO % 4.9 % (3.8-10.2); NEUT % 89.7 % (42.8-82.8); PLATELET COUNT 112 10^3/uL (134-434); RBC 3.61 M/mm3 (3.60-5.2); RDW 13.2 % (11.6-15.6); WHITE BLOOD COUNT 7.8 K/mm3 (4.0-10.0)
[2022-09-21 15:44] LABS: INR 1.11 (0.83-1.09); PROTHROMBIN TIME (PATIENT) 12.8 SEC (9.7-13.0)
[2022-09-21 15:47] LABS: ACTIVATED PTT 33.4 SECONDS (25.2-36.5)
[2022-09-21 15:58] LABS: ALBUMIN 3.8 g/dl (3.4-5.0); BLOOD UREA NITROGEN 15.8 mg/dL (7-18); CALCIUM 8.8 mg/dL (8.5-10.1)
[2022-09-21 16:01] LABS: CREATININE 0.6 mg/dL (0.55-1.3)
[2022-09-21 16:02] LABS: TOT PROT 7.4 g/dl (6.4-8.2)
[2022-09-21 16:03] LABS: BILIRUBIN,TOTAL 0.5 mg/dL (0.2-1)
[2022-09-21 16:24] LABS: EPI CELLS 1 /uL (0-25.1); HYALINE CASTS 3 /uL (0-3.1); URINE APPEARANCE CLOUDY; URINE BACTERIA 1389 /uL (0-1359); URINE BILIRUBIN NEGATIVE (NEGATIVE); URINE COLOR YELLOW; URINE GLUCOSE (UA) NEGATIVE (NEGATIVE); URINE KETONE TRACE (NEGATIVE); URINE LEUK ESTERASE 1+ (NEGATIVE); URINE NITRITE NEGATIVE (NEGATIVE); URINE PROTEIN 1+ (NEGATIVE); URINE RBC 34 /uL (0-23.9); URINE UROBILINOGEN 0.2 mg/dL (0.2-1.0); URINE WBC 207 /uL (0-25.8)
[2022-09-21] MEDS ORDERED: KETOROLAC TROMETHAMINE 30 MG/1 ML VIAL IVPUSH ONE (19:56)
[2022-09-21] MEDS ORDERED: KETOROLAC TROMETHAMINE 30 MG/1 ML VIAL ONE (19:58)
[2022-09-21] MEDS ORDERED: MEROPENEM 1 GM in DEXTROSE 5%-WATER 100 ML IVPB ONE (21:51)
[2022-09-21] MEDS ORDERED: MEROPENEM 1 GM VIAL (RESTRICTED TO ID) IVPB ONE (21:58)
[2022-09-21] MEDS ORDERED: SODIUM CHLORIDE 1,000 ML IV SCH (23:15)
[2022-09-22] MEDS: TACROLIMUS ANHYDROUS 1 MG CAPSULE PO SCH ×2 (02:01→13:09)
[2022-09-22] MEDS: HEPARIN NA (PORCINE) 5,000 UNITS/ML 1ML VIAL SQ SCH ×3 (06:14→21:41)
[2022-09-22 10:22] LABS: BASO % 0.1 % (0-2.0); HEMATOCRIT 33.8 % (32.4-45.2); LYMPH % 6.6 % (8-40); MCH 32.9 pg (25.7-33.7); MCHC 32.5 g/dl (32.0-36.0); MEAN CELL VOLUME 101.2 fl (80-96); MEAN PLT VOLUME 8.5 fl (7.5-11.1); MONO % 5.5 % (3.8-10.2); NEUT % 87.8 % (42.8-82.8); PLATELET COUNT 95 10^3/uL (134-434); RBC 3.34 M/mm3 (3.60-5.2); RDW 13.1 % (11.6-15.6); WHITE BLOOD COUNT 8.4 K/mm3 (4.0-10.0)
[2022-09-22 10:50] LABS: ALBUMIN 3.4 g/dl (3.4-5.0); BLOOD UREA NITROGEN 19.8 mg/dL (7-18); CALCIUM 8.4 mg/dL (8.5-10.1); MAGNESIUM 2.4 mg/dL (1.8-2.4)
[2022-09-22 10:53] LABS: CREATININE 0.7 mg/dL (0.55-1.3); PHOSPHOROUS 3.5 mg/dL (2.5-4.9)
[2022-09-22 10:54] LABS: BILIRUBIN,TOTAL 0.8 mg/dL (0.2-1); TOT PROT 6.5 g/dl (6.4-8.2)
[2022-09-22] MEDS: PANTOPRAZOLE 20 MG TABLET PO SCH ×2 (11:52→21:41)
[2022-09-22] MEDS: ERTAPENEM SODIUM 1 GM in SODIUM CHLORIDE 50 ML IVPB SCH (12:30)
[2022-09-22] MEDS ORDERED: [UNRECOGNIZED DRUG - OTHER] PO SCH (17:30)
[2022-09-22] MEDS: SIMETHICONE 80 MG TAB.CHEW (FP) PO SCH (21:41)
[2022-09-22] MEDS: ROSUVASTATIN CA 10 MG TABLET PO SCH (21:41)
[2022-09-23] MEDS: HEPARIN NA (PORCINE) 5,000 UNITS/ML 1ML VIAL SQ SCH ×3 (05:14→21:33)
[2022-09-23] MEDS: PANTOPRAZOLE 20 MG TABLET PO SCH ×2 (09:54→21:34)
[2022-09-23] MEDS: TACROLIMUS ANHYDROUS 1 MG CAPSULE PO SCH ×2 (09:54→21:33)
[2022-09-23] MEDS: ERTAPENEM SODIUM 1 GM in SODIUM CHLORIDE 50 ML IVPB SCH (09:54)
[2022-09-23] MEDS: SIMETHICONE 80 MG TAB.CHEW (FP) PO SCH ×2 (09:54→21:34)
[2022-09-23] MEDS ORDERED: TACROLIMUS ANHYDROUS 1 MG CAPSULE PO SCH (10:00)
[2022-09-23] MEDS ORDERED: PATIENT'S OWN MEDICATION (NON-FORMULARY) (Dexlansoprazole [Dexilant] 60 MG Cap.Dr.Bp) PO SCH (10:00)
[2022-09-23 10:31] LABS: HEMATOCRIT 35.2 % (32.4-45.2); HEMOGLOBIN 11.6 GM/dL (10.7-15.3); MCH 33.3 pg (25.7-33.7); MEAN PLT VOLUME 9.3 fl (7.5-11.1); PLATELET COUNT 126 10^3/uL (134-434); RBC 3.49 M/mm3 (3.60-5.2); WHITE BLOOD COUNT 5.5 K/mm3 (4.0-10.0)
[2022-09-23 11:05] LABS: ALBUMIN 3.5 g/dl (3.4-5.0); BLOOD UREA NITROGEN 19.3 mg/dL (7-18); PHOSPHOROUS 2.3 mg/dL (2.5-4.9)
[2022-09-23 11:06] LABS: BILIRUBIN,TOTAL 0.3 mg/dL (0.2-1)
[2022-09-23 11:07] LABS: TOT PROT 7.2 g/dl (6.4-8.2)
[2022-09-23 11:08] LABS: CALCIUM 9.2 mg/dL (8.5-10.1); CREATININE 0.7 mg/dL (0.55-1.3); MAGNESIUM 2.7 mg/dL (1.8-2.4)
[2022-09-23] MEDS ORDERED: NAPH,MB-DB/K PH,MBDB POWDER PACKET PO ONE (12:32)
[2022-09-23] MEDS: LIPASE/PROTEASE/AMYLASE 6,000 UNIT CAPSULE PO SCH (17:47)
[2022-09-23] MEDS: ROSUVASTATIN CA 10 MG TABLET PO SCH (21:33)
[2022-09-24] MEDS: HEPARIN NA (PORCINE) 5,000 UNITS/ML 1ML VIAL SQ SCH ×3 (05:38→22:24)
[2022-09-24] MEDS: LIPASE/PROTEASE/AMYLASE 6,000 UNIT CAPSULE PO SCH ×3 (08:27→17:52)
[2022-09-24] MEDS: SIMETHICONE 80 MG TAB.CHEW (FP) PO SCH ×2 (10:21→22:25)
[2022-09-24] MEDS: TACROLIMUS ANHYDROUS 1 MG CAPSULE PO SCH ×2 (10:21→22:25)
[2022-09-24] MEDS: PANTOPRAZOLE 20 MG TABLET PO SCH ×2 (10:21→22:25)
[2022-09-24] MEDS: ERTAPENEM SODIUM 1 GM in SODIUM CHLORIDE 50 ML IVPB SCH (10:21)
[2022-09-24 11:06] LABS: HEMATOCRIT 37.3 % (32.4-45.2); HEMOGLOBIN 12.2 GM/dL (10.7-15.3); MCHC 32.6 g/dl (32.0-36.0); MEAN CELL VOLUME 101.3 fl (80-96); MEAN PLT VOLUME 9.1 fl (7.5-11.1); PLATELET COUNT 135 10^3/uL (134-434); RBC 3.68 M/mm3 (3.60-5.2); WHITE BLOOD COUNT 3.6 K/mm3 (4.0-10.0)
[2022-09-24 11:28] LABS: CALCIUM 9.2 mg/dL (8.5-10.1)
[2022-09-24 11:29] LABS: ALBUMIN 3.7 g/dl (3.4-5.0); BLOOD UREA NITROGEN 18.6 mg/dL (7-18)
[2022-09-24 11:32] LABS: CREATININE 0.6 mg/dL (0.55-1.3); PHOSPHOROUS 2.9 mg/dL (2.5-4.9)
[2022-09-24 11:33] LABS: BILIRUBIN,TOTAL 0.2 mg/dL (0.2-1); TOT PROT 7.7 g/dl (6.4-8.2)
[2022-09-24] MEDS: ROSUVASTATIN CA 10 MG TABLET PO SCH (22:25)
[2022-09-25] MEDS: HEPARIN NA (PORCINE) 5,000 UNITS/ML 1ML VIAL SQ SCH ×3 (06:38→21:46)
[2022-09-25] MEDS: TACROLIMUS ANHYDROUS 1 MG CAPSULE PO SCH ×2 (10:42→21:46)
[2022-09-25] MEDS: SIMETHICONE 80 MG TAB.CHEW (FP) PO SCH ×2 (10:43→21:46)
[2022-09-25] MEDS: PANTOPRAZOLE 20 MG TABLET PO SCH ×2 (10:43→21:47)
[2022-09-25] MEDS: LIPASE/PROTEASE/AMYLASE 6,000 UNIT CAPSULE PO SCH ×3 (10:44→17:45)
[2022-09-25 11:44] LABS: HEMATOCRIT 34.5 % (32.4-45.2); HEMOGLOBIN 11.3 GM/dL (10.7-15.3); MCH 32.8 pg (25.7-33.7); MCHC 32.6 g/dl (32.0-36.0); MEAN CELL VOLUME 100.7 fl (80-96); MEAN PLT VOLUME 9.3 fl (7.5-11.1); PLATELET COUNT 148 10^3/uL (134-434); RBC 3.43 M/mm3 (3.60-5.2); RDW 12.9 % (11.6-15.6); WHITE BLOOD COUNT 3.8 K/mm3 (4.0-10.0)
[2022-09-25 12:35] LABS: BLOOD UREA NITROGEN 18.3 mg/dL (7-18); CALCIUM 9.3 mg/dL (8.5-10.1)
[2022-09-25 12:36] LABS: ALBUMIN 3.5 g/dl (3.4-5.0)
[2022-09-25 12:39] LABS: CREATININE 0.6 mg/dL (0.55-1.3)
[2022-09-25 12:40] LABS: BILIRUBIN,TOTAL 0.2 mg/dL (0.2-1); TOT PROT 7.2 g/dl (6.4-8.2)
[2022-09-25] MEDS: ROSUVASTATIN CA 10 MG TABLET PO SCH (21:47)
[2022-09-26] MEDS: HEPARIN NA (PORCINE) 5,000 UNITS/ML 1ML VIAL SQ SCH ×3 (06:06→21:34)
[2022-09-26] MEDS: LIPASE/PROTEASE/AMYLASE 6,000 UNIT CAPSULE PO SCH ×3 (09:31→17:52)
[2022-09-26] MEDS: TACROLIMUS ANHYDROUS 1 MG CAPSULE PO SCH ×2 (09:32→21:34)
[2022-09-26] MEDS: PANTOPRAZOLE 20 MG TABLET PO SCH ×2 (09:32→21:34)
[2022-09-26] MEDS: SIMETHICONE 80 MG TAB.CHEW (FP) PO SCH ×2 (09:32→21:34)
[2022-09-26] MEDS: ROSUVASTATIN CA 10 MG TABLET PO SCH (21:34)
[2022-09-27] MEDS: HEPARIN NA (PORCINE) 5,000 UNITS/ML 1ML VIAL SQ SCH (06:29)
[2022-09-27] MEDS: LIPASE/PROTEASE/AMYLASE 6,000 UNIT CAPSULE PO SCH ×2 (08:13→12:24)
[2022-09-27] MEDS: PANTOPRAZOLE 20 MG TABLET PO SCH (09:13)
[2022-09-27] MEDS: TACROLIMUS ANHYDROUS 1 MG CAPSULE PO SCH (09:13)
[2022-09-27] MEDS: SIMETHICONE 80 MG TAB.CHEW (FP) PO SCH (09:13)
[2022-09-27 09:20] LABS: HEMATOCRIT 38.5 % (32.4-45.2); HEMOGLOBIN 12.5 GM/dL (10.7-15.3); MCH 32.8 pg (25.7-33.7); MCHC 32.5 g/dl (32.0-36.0); MEAN CELL VOLUME 101.2 fl (80-96); MEAN PLT VOLUME 8.3 fl (7.5-11.1); PLATELET COUNT 175 10^3/uL (134-434); RBC 3.81 M/mm3 (3.60-5.2); RDW 13.1 % (11.6-15.6); WHITE BLOOD COUNT 5.1 K/mm3 (4.0-10.0)
[2022-09-27 09:52] LABS: CALCIUM 9.9 mg/dL (8.5-10.1)
[2022-09-27 09:53] LABS: ALBUMIN 3.8 g/dl (3.4-5.0); MAGNESIUM 2.1 mg/dL (1.8-2.4)
[2022-09-27 09:56] LABS: CREATININE 0.7 mg/dL (0.55-1.3); PHOSPHOROUS 4.2 mg/dL (2.5-4.9)
[2022-09-27 09:57] LABS: BILIRUBIN,TOTAL 0.3 mg/dL (0.2-1); TOT PROT 7.8 g/dl (6.4-8.2)
[2022-09-27 11:29] VITALS: BP 104/74; PULSE 64; RESP 18; TEMP 98.9
== END 2022-09-27 14:24 | disposition home or self-care (01) | DRG 690 ==
LOC: JER 13:40 → JERBED 19:53 → J5S 09-22 02:36
PROVIDERS: ADMIT Internal Medicine; ATTEND Internal Medicine
DX: N12 Tubulo-interstitial nephritis, not specified as acute or chronic (principal); Z94.4 Liver transplant status; D61.818 Other pancytopenia; Z94.0 Kidney transplant status; E78.5 Hyperlipidemia, unspecified; K57.90 Diverticulosis of intestine, part unspecified, without perforation or abscess without bleeding; D69.6 Thrombocytopenia, unspecified; I12.9 Hypertensive chronic kidney disease with stage 1 through stage 4 chronic kidney disease, or unspecified chronic kidney disease; N18.9 Chronic kidney disease, unspecified
CPT/HCPCS: 0241U-QW; 36415; 74177-TC; 76705-TC; 80053; 80197; 81003; 83605; 83690; 83735; 84100; 84484; 85025; 85027; 85610; 85730; 87040; 87086; 93005; 93010; 97116-GP; 97161-GP; 99285-25; J1644; Q9967

== ENCOUNTER 2022-11-06 10:52 | Inpatient (IN) | payer MEDICARE, OTHER ==
[2022-11-06 11:56] LABS: BASO % 0.3 % (0-2.0); EOS % 0.4 % (0-4.5); HEMATOCRIT 36.7 % (32.4-45.2); HEMOGLOBIN 11.8 GM/dL (10.7-15.3); LYMPH % 19.3 % (8-40); MCH 32.2 pg (25.7-33.7); MCHC 32.2 g/dl (32.0-36.0); MEAN CELL VOLUME 100.2 fl (80-96); MEAN PLT VOLUME 8.4 fl (7.5-11.1); MONO % 8.8 % (3.8-10.2); NEUT % 71.2 % (42.8-82.8); PLATELET COUNT 120 10^3/uL (134-434); RBC 3.67 M/mm3 (3.60-5.2); RDW 13.5 % (11.6-15.6); WHITE BLOOD COUNT 3.1 K/mm3 (4.0-10.0)
[2022-11-06 12:06] LABS: VENOUS BASE EXCESS -0.7 mmol/L (-2-2); VENOUS O2 SATURATION 61.6 % (70-80); VENOUS PCO2 50.1 mmHg (38-52); VENOUS PH 7.332 (7.310-7.410)
[2022-11-06 12:07] LABS: BG HCT QNS % (32.4-45.2)
[2022-11-06 12:29] LABS: ALBUMIN 3.5 g/dl (3.4-5.0); BLOOD UREA NITROGEN 18.3 mg/dL (7-18)
[2022-11-06 12:32] LABS: CREATININE 0.6 mg/dL (0.55-1.3)
[2022-11-06 12:34] LABS: BILIRUBIN,TOTAL 0.4 mg/dL (0.2-1)
[2022-11-06 16:16] LABS: EPI CELLS 7 /uL (0-25.1); HYALINE CASTS 0 /uL (0-3.1); PH,URINE 6.5 (5.0-8.0); URINE APPEARANCE CLEAR; URINE BACTERIA 4 /uL (0-1359); URINE BILIRUBIN NEGATIVE (NEGATIVE); URINE COLOR YELLOW; URINE GLUCOSE (UA) NEGATIVE (NEGATIVE); URINE KETONE NEGATIVE (NEGATIVE); URINE LEUK ESTERASE TRACE (NEGATIVE); URINE NITRITE NEGATIVE (NEGATIVE); URINE PROTEIN NEGATIVE (NEGATIVE); URINE RBC 10 /uL (0-23.9); URINE UROBILINOGEN 0.2 mg/dL (0.2-1.0); URINE WBC 19 /uL (0-25.8)
[2022-11-06] MEDS ORDERED: SODIUM CHLORIDE 0.45% 1,000 ML IV SCH (18:00)
[2022-11-06] MEDS: PANTOPRAZOLE SODIUM 40 MG VIAL IVPUSH SCH (21:43)
[2022-11-06] MEDS: SIMETHICONE 80 MG TAB.CHEW (FP) PO SCH (21:43)
[2022-11-06] MEDS: HEPARIN NA (PORCINE) 5,000 UNITS/ML 1ML VIAL SQ SCH (21:43)
[2022-11-06] MEDS: TACROLIMUS ANHYDROUS 1 MG CAPSULE PO SCH (21:44)
[2022-11-06] MEDS: ROSUVASTATIN CA 10 MG TABLET PO SCH (21:44)
[2022-11-06] MEDS: MYCOPHENOLATE SODIUM 360 MG TABLET.DR PO SCH (21:44)
[2022-11-07 07:25] LABS: BASO % 0.5 % (0-2.0); EOS % 1.1 % (0-4.5); HEMATOCRIT 34.7 % (32.4-45.2); HEMOGLOBIN 11.4 GM/dL (10.7-15.3); MCH 32.5 pg (25.7-33.7); MCHC 32.9 g/dl (32.0-36.0); MEAN CELL VOLUME 98.6 fl (80-96); MEAN PLT VOLUME 8.7 fl (7.5-11.1); MONO % 7.7 % (3.8-10.2); NEUT % 64.7 % (42.8-82.8); PLATELET COUNT 122 10^3/uL (134-434); RBC 3.52 M/mm3 (3.60-5.2); RDW 13.2 % (11.6-15.6); WHITE BLOOD COUNT 2.7 K/mm3 (4.0-10.0)
[2022-11-07 07:54] LABS: ALBUMIN 3.6 g/dl (3.4-5.0)
[2022-11-07 07:55] LABS: BLOOD UREA NITROGEN 14.2 mg/dL (7-18); MAGNESIUM 2.2 mg/dL (1.8-2.4)
[2022-11-07 07:57] LABS: CREATININE 0.6 mg/dL (0.55-1.3); PHOSPHOROUS 3.4 mg/dL (2.5-4.9)
[2022-11-07 07:58] LABS: TOT PROT 6.7 g/dl (6.4-8.2)
[2022-11-07 07:59] LABS: BILIRUBIN,TOTAL 0.2 mg/dL (0.2-1)
[2022-11-07] MEDS ORDERED: PATIENT'S OWN MEDICATION (NON-FORMULARY) (Dexlansoprazole [Dexilant] 60 MG Cap.Dr.Bp) PO SCH (10:00)
[2022-11-07] MEDS: SIMETHICONE 80 MG TAB.CHEW (FP) PO SCH ×2 (10:28→22:16)
[2022-11-07] MEDS: TACROLIMUS ANHYDROUS 1 MG CAPSULE PO SCH ×2 (10:28→22:16)
[2022-11-07] MEDS: FOLIC ACID 1 MG TABLET (FP) PO SCH (10:28)
[2022-11-07] MEDS: MYCOPHENOLATE SODIUM 360 MG TABLET.DR PO SCH ×2 (10:29→22:16)
[2022-11-07] MEDS: HEPARIN NA (PORCINE) 5,000 UNITS/ML 1ML VIAL SQ SCH ×2 (10:30→22:16)
[2022-11-07] MEDS: PANTOPRAZOLE SODIUM 40 MG VIAL IVPUSH SCH ×2 (10:30→22:16)
[2022-11-07] MEDS: ROSUVASTATIN CA 10 MG TABLET PO SCH (22:16)
[2022-11-08] MEDS: PANTOPRAZOLE SODIUM 40 MG VIAL IVPUSH SCH ×2 (09:35→22:20)
[2022-11-08] MEDS: MYCOPHENOLATE SODIUM 360 MG TABLET.DR PO SCH ×2 (09:35→22:20)
[2022-11-08] MEDS: TACROLIMUS ANHYDROUS 1 MG CAPSULE PO SCH ×2 (09:36→22:20)
[2022-11-08] MEDS: FOLIC ACID 1 MG TABLET (FP) PO SCH (09:36)
[2022-11-08] MEDS: HEPARIN NA (PORCINE) 5,000 UNITS/ML 1ML VIAL SQ SCH ×2 (09:36→22:20)
[2022-11-08] MEDS: SIMETHICONE 80 MG TAB.CHEW (FP) PO SCH ×2 (09:36→22:20)
[2022-11-08] MEDS: ROSUVASTATIN CA 10 MG TABLET PO SCH (22:20)
[2022-11-09 08:06] LABS: BASO % 0.1 % (0-2.0); EOS % 0.8 % (0-4.5); HEMOGLOBIN 11.8 GM/dL (10.7-15.3); MCH 32.2 pg (25.7-33.7); MCHC 32.7 g/dl (32.0-36.0); MEAN CELL VOLUME 98.4 fl (80-96); MEAN PLT VOLUME 8.3 fl (7.5-11.1); MONO % 4.3 % (3.8-10.2); NEUT % 80.8 % (42.8-82.8); PLATELET COUNT 133 10^3/uL (134-434); RBC 3.65 M/mm3 (3.60-5.2); RDW 13.4 % (11.6-15.6); WHITE BLOOD COUNT 5.2 K/mm3 (4.0-10.0)
[2022-11-09 08:28] LABS: CALCIUM 9.1 mg/dL (8.5-10.1)
[2022-11-09 08:29] LABS: ALBUMIN 3.8 g/dl (3.4-5.0); BLOOD UREA NITROGEN 18.3 mg/dL (7-18); CREATININE 0.7 mg/dL (0.55-1.3)
[2022-11-09 08:31] LABS: BILIRUBIN,TOTAL 0.2 mg/dL (0.2-1); TOT PROT 7.2 g/dl (6.4-8.2)
[2022-11-09] MEDS: MYCOPHENOLATE SODIUM 360 MG TABLET.DR PO SCH ×2 (09:52→22:43)
[2022-11-09] MEDS: HEPARIN NA (PORCINE) 5,000 UNITS/ML 1ML VIAL SQ SCH ×2 (09:53→22:43)
[2022-11-09] MEDS: PANTOPRAZOLE SODIUM 40 MG VIAL IVPUSH SCH ×2 (09:53→22:44)
[2022-11-09] MEDS: TACROLIMUS ANHYDROUS 1 MG CAPSULE PO SCH ×2 (09:53→22:42)
[2022-11-09] MEDS: FOLIC ACID 1 MG TABLET (FP) PO SCH (09:53)
[2022-11-09] MEDS: SIMETHICONE 80 MG TAB.CHEW (FP) PO SCH ×2 (09:54→22:44)
[2022-11-09] MEDS ORDERED: SODIUM ZIRCONIUM CYCLOSILICATE (LOKELMA) 5 GM PACKET PO SCH (15:15)
[2022-11-09] MEDS: ROSUVASTATIN CA 10 MG TABLET PO SCH (22:42)
[2022-11-10] MEDS ORDERED: POLYETHYLENE GLYCOL (HEALTHYLAX) 3350 17 GM PACKET PO SCH (10:00)
[2022-11-10] MEDS: FOLIC ACID 1 MG TABLET (FP) PO SCH (10:06)
[2022-11-10] MEDS: PANTOPRAZOLE SODIUM 40 MG VIAL IVPUSH SCH (10:06)
[2022-11-10] MEDS: SIMETHICONE 80 MG TAB.CHEW (FP) PO SCH (10:06)
[2022-11-10] MEDS: TACROLIMUS ANHYDROUS 1 MG CAPSULE PO SCH (10:07)
[2022-11-10] MEDS: HEPARIN NA (PORCINE) 5,000 UNITS/ML 1ML VIAL SQ SCH (10:07)
[2022-11-10] MEDS: MYCOPHENOLATE SODIUM 360 MG TABLET.DR PO SCH (10:07)
[2022-11-10 11:26] VITALS: BP 115/59; PULSE 60; RESP 18; TEMP 98.3
== END 2022-11-10 11:52 | disposition home or self-care (01) | DRG 690 ==
LOC: JER 10:52 → JERBED 16:50 → J4W 18:19
PROVIDERS: ADMIT Family Medicine; ATTEND Family Medicine
DX: N39.0 Urinary tract infection, site not specified (principal); Z94.0 Kidney transplant status; Z94.4 Liver transplant status; D84.9 Immunodeficiency, unspecified; D69.6 Thrombocytopenia, unspecified; I12.9 Hypertensive chronic kidney disease with stage 1 through stage 4 chronic kidney disease, or unspecified chronic kidney disease; N18.9 Chronic kidney disease, unspecified; E78.5 Hyperlipidemia, unspecified
CPT/HCPCS: 0241U-QW; 36415; 70450-TC; 71046-TC-FY; 74176-TC; 74181-TC; 76705-TC; 80053; 80061; 80197; 81003; 82803; 83036; 83605; 83690; 83735; 84100; 84443; 84484; 85025; 87086; 93005; 93010; 99285-25; J1644

== ENCOUNTER 2023-05-11 12:43 | Emergency (ER) | payer MEDICARE, OTHER ==
[2023-05-11 12:54] VITALS: RESP 16; BMI 26.5
[2023-05-11] MEDS ORDERED: MAG HYDROX/AL HYDROX/SIMETH -MYLANTA- ORAL SUSPENSION PO ONE (13:43)
[2023-05-11] MEDS ORDERED: FAMOTIDINE 20 MG/50 ML IVPB 20 MG/50 ML MG IVPB ONE ×2 (13:43→14:18)
[2023-05-11] MEDS ORDERED: ACETAMINOPHEN 1000 MG/100 ML BAG IVPB ONE (13:43)
[2023-05-11] MEDS ORDERED: ONDANSETRON 4 MG/2 ML VIAL IVPUSH ONE (13:47)
[2023-05-11] MEDS ORDERED: SUCRALFATE 1 GM/10 ML UNIT DOSE CUPS PO SCH ×2 (14:15)
[2023-05-11] MEDS ORDERED: SUCRALFATE 1 GM TABLET (FP) ONE (14:17)
[2023-05-11] MEDS ORDERED: MAG HYDROX/AL HYDROX/SIMETH 30 ML UNIT-DOSE CUP ONE (14:17)
[2023-05-11] MEDS ORDERED: ACETAMINOPHEN INJECTION 100 ML IVPB ONE (14:17)
[2023-05-11] MEDS ORDERED: ONDANSETRON 4 MG/2 ML VIAL ONE (14:18)
[2023-05-11 14:38] LABS: BASO % 0.2 % (0-2.0); EOS % 0.1 % (0-4.5); HEMATOCRIT 31.4 % (32.4-45.2); HEMOGLOBIN 10.2 GM/dL (10.7-15.3); LYMPH % 10.5 % (8-40); MCH 32.8 pg (25.7-33.7); MCHC 32.5 g/dl (32.0-36.0); MEAN CELL VOLUME 100.8 fl (80-96); MEAN PLT VOLUME 8.7 fl (7.5-11.1); NEUT % 85.2 % (42.8-82.8); PLATELET COUNT 122 10^3/uL (134-434); RBC 3.11 M/mm3 (3.60-5.2); RDW 13.3 % (11.6-15.6)
[2023-05-11 14:57] LABS: POTASSIUM 4.2 mmol/L (3.5-5.1)
[2023-05-11 14:59] LABS: ALBUMIN 3.6 g/dl (3.4-5.0); CALCIUM 8.5 mg/dL (8.5-10.1)
[2023-05-11 15:00] LABS: BLOOD UREA NITROGEN 19.1 mg/dL (7-18)
[2023-05-11 15:02] LABS: CREATININE 0.6 mg/dL (0.55-1.3)
[2023-05-11 15:04] LABS: BILIRUBIN,TOTAL 0.2 mg/dL (0.2-1)
[2023-05-11 17:11] LABS: INR 0.98 (0.83-1.09); PROTHROMBIN TIME (PATIENT) 11.4 SEC (9.7-13.0)
[2023-05-11 17:14] LABS: ACTIVATED PTT 38.7 SECONDS (25.2-36.5)
[2023-05-11 18:49] VITALS: BP 117/56; PULSE 51; TEMP 99.2
[2023-05-11 19:46] LABS: URINE APPEARANCE CLEAR; URINE BILIRUBIN NEGATIVE (NEGATIVE); URINE COLOR YELLOW; URINE GLUCOSE (UA) NEGATIVE (NEGATIVE); URINE KETONE NEGATIVE (NEGATIVE); URINE LEUK ESTERASE NEGATIVE (NEGATIVE); URINE NITRITE NEGATIVE (NEGATIVE); URINE PROTEIN NEGATIVE (NEGATIVE); URINE UROBILINOGEN 0.2 mg/dL (0.2-1.0)
== END 2023-05-11 20:09 | disposition home or self-care (01) ==
LOC: JER 12:43
PROC: 3E033GC Introduction of Other Therapeutic Substance into Peripheral Vein, Percutaneous Approach (ICD-10-PCS; principal; 2023-05-11)
PROC: 3E033NZ Introduction of Analgesics, Hypnotics, Sedatives into Peripheral Vein, Percutaneous Approach (ICD-10-PCS; 2023-05-11)
PROC: 3E033GC Introduction of Other Therapeutic Substance into Peripheral Vein, Percutaneous Approach (ICD-10-PCS; 2023-05-11)
DX: R10.13 Epigastric pain (principal); R11.2 Nausea with vomiting, unspecified; R50.9 Fever, unspecified; R07.0 Pain in throat; R53.1 Weakness; R42 Dizziness and giddiness; Z20.822 Contact with and (suspected) exposure to COVID-19
CPT/HCPCS: 0241U-QW; 36415; 70450-TC; 71046-TC-FY; 76705-TC; 80053; 81003; 83690; 84484; 85025; 85610; 85730; 87086; 93005; 93010; 99285-25

== ENCOUNTER 2023-09-09 11:13 | Emergency (ER) | payer MEDICARE, OTHER ==
[2023-09-09 11:34] VITALS: BP 107/53; PULSE 74; RESP 18; TEMP 99.2; BMI 28.8
[2023-09-09] MEDS: SODIUM CHLORIDE 500 ML IV STA (13:53)
[2023-09-09 14:35] LABS: POTASSIUM 4.7 mmol/L (3.5-5.1)
[2023-09-09 14:36] LABS: HEMOGLOBIN 10.9 GM/dL (10.7-15.3); MCH 31.9 pg (25.7-33.7); MCHC 32.2 g/dl (32.0-36.0); MEAN CELL VOLUME 99.2 fl (80-96); MEAN PLT VOLUME 9.7 fl (7.5-11.1); PLATELET COUNT 191 10^3/uL (134-434); RBC 3.43 M/mm3 (3.60-5.2); RDW 13.3 % (11.6-15.6); WHITE BLOOD COUNT 4.4 K/mm3 (4.0-10.0)
[2023-09-09 14:37] LABS: ALBUMIN 3.8 g/dl (3.4-5.0); CALCIUM 9.1 mg/dL (8.5-10.1)
[2023-09-09 14:40] LABS: CREATININE 0.6 mg/dL (0.55-1.3)
[2023-09-09 14:42] LABS: BILIRUBIN,TOTAL 0.2 mg/dL (0.2-1); TOT PROT 7.6 g/dl (6.4-8.2)
[2023-09-09 14:57] LABS: ANISOCYTOSIS 0; MACROCYTOSIS 0
== END 2023-09-09 15:29 | disposition home or self-care (01) ==
LOC: JERFT 11:13
PROC: 3E0337Z Introduction of Electrolytic and Water Balance Substance into Peripheral Vein, Percutaneous Approach (ICD-10-PCS; principal; 2023-09-09)
DX: R05.9 Cough, unspecified (principal); R09.81 Nasal congestion; R09.89 Other specified symptoms and signs involving the circulatory and respiratory systems; J02.9 Acute pharyngitis, unspecified; R68.83 Chills (without fever); R07.0 Pain in throat; U07.1 COVID-19
CPT/HCPCS: 0241U-QW; 36415; 71046-TC-FY; 80053; 84484; 85025; 93005; 93010; 96360; 99285-25

== ENCOUNTER 2025-05-28 23:10 | Emergency (ER) | payer MEDICARE, OTHER ==
[2025-05-28 23:44] VITALS: BMI 27.5
[2025-05-29] MEDS ORDERED: MORPHINE SULFATE 2 MG/ML SYRINGE ONE (00:16)
[2025-05-29 00:43] LABS: IMMATURE PLATELET FRACTION # 3.20 x10^3/uL; MCHC 31.3 g/dl (32.2-35.5); MEAN CELL VOLUME 103.3 fl (79.4-94.8); MEAN PLT VOLUME 10.2 fl (9.4-12.3); RDW 12.1 % (12.4-16.4)
[2025-05-29] MEDS ORDERED: PROCHLORPERAZINE INJECTION 10 MG/2 ML VIAL ONE (00:46)
[2025-05-29 00:50] LABS: INR 1.07 (0.83-1.09); PROTHROMBIN TIME (PATIENT) 11.7 SEC (9.7-13.0)
[2025-05-29] MEDS: PROCHLORPERAZINE INJECTION 10 MG/2 ML VIAL IVPB ONE (00:54)
[2025-05-29 00:57] LABS: GLUCOSE,RANDOM 174.0 mg/dL (74-106); TOT PROT 7.6 g/dl (6.4-8.2)
[2025-05-29 00:58] LABS: CO2 23.0 mmol/L (21-32)
[2025-05-29 01:00] LABS: ALK PHOS 80.0 U/L (40-150)
[2025-05-29 01:02] LABS: SGOT/AST 37.0 U/L (5-34); SGPT/ALT 17.0 U/L (0-55)
[2025-05-29 01:03] LABS: CREATININE 0.64 mg/dL (0.55-1.3)
[2025-05-29 04:47] VITALS: BP 120/56; PULSE 45; RESP 16; TEMP 97
[2025-06-02 03:06] LABS: TACROLIMUS FK506 BLOOD 3.1 ng/mL (5.0-20.0)
== END 2025-05-29 05:50 | disposition short-term general hospital (02) ==
LOC: JER 23:10
PROC: 3E033NZ Introduction of Analgesics, Hypnotics, Sedatives into Peripheral Vein, Percutaneous Approach (ICD-10-PCS; principal; 2025-05-29)
PROC: 3E033GC Introduction of Other Therapeutic Substance into Peripheral Vein, Percutaneous Approach (ICD-10-PCS; 2025-05-29)
DX: D84.9 Immunodeficiency, unspecified (principal); R11.2 Nausea with vomiting, unspecified; R10.84 Generalized abdominal pain; R42 Dizziness and giddiness; M79.661 Pain in right lower leg; R00.1 Bradycardia, unspecified; Z94.0 Kidney transplant status; Z94.4 Liver transplant status
CPT/HCPCS: 36415; 71045-TC-FY; 74176-TC; 80053; 80180; 80197; 83605; 83690; 83735; 84100; 84439; 84443; 84484; 85025; 85610; 93005; 93010; 93971-TC-RT; 96374; 96375; 99285-25